=== PATIENT | female | born 1960 | race Caucasian/White ===

== ENCOUNTER 2018-08-13 14:29 | Emergency (ER) | payer MEDICARE, MEDICAID ==
[~2018-08-13] VITALS: Ht 162.6 cm; Wt 136.1 kg
[2018-08-13] MEDS ORDERED: RT-ALBUTEROL/IPRATROPIUM 3 ML (DUONEB) VIAL INH ONE (14:45)
[2018-08-13 14:52] LABS: BASOPHILS # (AUTO) 0.1 10^3/uL (0.0-0.1); BASOPHILS % (AUTO) 1 % (0-10); EOSINOPHILS # (AUTO) 0.1 10^3/uL (0.0-0.3); EOSINOPHILS % (AUTO) 2 % (0-10); HEMATOCRIT 38 % (35-52); HEMOGLOBIN 12.4 G/DL (11.5-16.0); LYMPHOCYTES # (AUTO) 1.4 X 10^3 (1.0-4.0); LYMPHOCYTES % (AUTO) 23 % (12-44); MEAN CORPUSCULAR HEMOGLOBIN 28 PG (25-34); MEAN CORPUSCULAR HGB CONC 32 G/DL (32-36); MEAN CORPUSCULAR VOLUME 87 FL (80-99); MEAN PLATELET VOLUME 9.9 FL (7.4-10.4); MONOCYTES # (AUTO) 0.3 X 10^3 (0.0-1.0); MONOCYTES % (AUTO) 5 % (0-12); NEUTROPHILS # (AUTO) 4.3 X 10^3 (1.8-7.8); NEUTROPHILS % (AUTO) 71 % (42-75); PLATELET COUNT 300 10^3/uL (130-400); RED CELL DISTRIBUTION WIDTH 16.4 % (10.0-14.5)
[2018-08-13 14:59] LABS: BILIRUBIN,URINE NEGATIVE (NEGATIVE); CLARITY,URINE SLIGHTLY CLOUDY; COLOR,URINE YELLOW; GLUCOSE, URINE (UA) NEGATIVE (NEGATIVE); KETONES,URINE NEGATIVE (NEGATIVE); LEUKOCYTE ESTERASE ,URINE 3+ (NEGATIVE); NITRITE,URINE NEGATIVE (NEGATIVE); PH,URINE 6 (5-9); PROTEIN,URINE 3+ (NEGATIVE); UROBILINOGEN,URINE NORMAL (NORMAL)
[2018-08-13 15:02] LABS: INR 0.9 (0.8-1.4); PROTHROMBIN TIME PATIENT 12.8 SEC (12.2-14.7)
[2018-08-13 15:10] LABS: ALBUMIN 4.2 GM/DL (3.2-4.5); CALCIUM 9.9 MG/DL (8.5-10.1); CREATININE SERUM 1.17 MG/DL (0.60-1.30); POTASSIUM 4.4 MMOL/L (3.6-5.0); TOTAL PROTEIN 7.2 GM/DL (6.4-8.2)
--- NOTE | 2018-08-13 15:12 | Diagnostic Imaging Report ---
INDICATION: Increase shortness of air over the last week. EXAMINATION: Frontal chest was obtained at 2:57 p.m. FINDINGS: Heart and mediastinal silhouette are normal in appearance. The lungs are clear. There is no pneumothorax or pleural fluid. IMPRESSION: Negative chest. Dictated by: Dictated on workstation # [id number]
[2018-08-13 15:15] LABS: BACTERIA,URINE TRACE /HPF; RBC,URINE RARE /HPF; WBC,URINE RARE /HPF
[2018-08-13] MEDS ORDERED: NS IV 500 ML 500 ML IV ONE (15:18)
--- NOTE | 2018-08-13 15:47 | ED Respiratory ---
General Chief Complaint: Respiratory Problems Stated Complaint: SOB Nursing Triage Note: PT TO RM 7 BY WHEELCHAIR WITH COMPLAINT OF SOA. PT STATES SHE HAD INCREASING SOA OVER THE LAST WEEK. WENT TO URGENT CARE TODAY IN [place] AND WAS INSTRUCTED TO COME TO ER. History of Present Illness Date Seen by Provider: August 13, 2018 Time Seen by Provider: 14:35 Initial Comments 57-year-old female presents for shortness of air. She has a history of COPD, she was seen earlier today at urgent care in [place] and referred to the emergency department. She did not stop at the [place] emergency departme nt as she was aware they were unable to admit her there. She used her Ventolin inhaler approximately 6 hours ago 2 puffs and had improvement. Timing/Duration: this morning Severity: mild Prior Episodes/Possible Cause: frequent episodes Modifying Factors: Improves With Albuterol Inhaler Associated Symptoms: cough; No fever/chills; shortness of breath Allergies and Home Medications Allergies Coded Allergies: No Known Drug Allergies (Unverified , 08/13/18) Home Medications Prednisone 20 Mg Tab, 20 MG PO DAILY Prescribed by: CARLEY BOO on 08/13/18 2889 Patient Home Medication List Home Medication List Reviewed: Yes Review of Systems Review of Systems Constitutional: no symptoms reported, see HPI Respiratory: see HPI; No phlegm; short of breath All Other Systems Reviewed Negative Unless Noted: Yes Past Eyehdhj-Fygqwd-Ohzsul Hx Past Med/Social Hx: Reviewed Nursing Past Med/Soc Hx Patient Social History Alcohol Use: Denies Use Recreational Drug Use: No Smoking Status: Former Smoker Type Used: Cigarettes Recent Foreign Travel: No Contact w/Someone Who Travel: No Recent Infectious Disease Expo: No Recent Hopitalizations: No Immunizations Up To Date Tetanus Booster (TDap): Unknown PED Vaccines UTD: Yes Seasonal Allergies Seasonal Allergies: Yes Past Medical History Surgeries: Yes Abdominal, Hysterectomy, Orthopedic Respiratory: Yes COPD Cardiac: Yes Hypertension Neurological: No Genitourinary: No Gastrointestinal: No Musculoskeletal: No Endocrine: Yes Diabetes, Insulin dep HEENT: No Integumentary: No Physical Exam Vital Signs - First Documented 08/13/18 14:32 Temp 98.4 Pulse 90 Resp 20 B/P (MAP) 151/107 (122) Pulse Ox 95 O2 Delivery Nasal Cannula O2 Flow Rate 2.00 Capillary Refill : Less Than 3 Seconds Height: 5'4.00" Weight: 300lbs. oz. 136.639054pi; BMI Method:Stated General Appearance: WD/WN, no apparent distress Eyes: Bilateral Eye Normal Inspection, Bilateral Eye PERRL, Bilateral Eye EOMI HEENT: PERRL/EOMI, normal ENT inspection, TMs normal, pharynx normal Neck: non-tender, full range of motion, supple, normal inspection Respiratory: chest non-tender, lungs clear, normal breath sounds, no respir atory distress, wheezing (faint) Cardiovascular: normal peripheral pulses, regular rate, rhythm Gastrointestinal: normal bowel sounds, non tender, soft Extremities: normal range of motion, non-tender, normal inspection, normal capillary refill, pedal edema (2+) Neurologic/Psychiatric: no motor/sensory deficits, alert, normal mood/affect, oriented x 3 Skin: normal color, warm/dry Focused Exam Lactate Level 08/13/18 14:37: Lactic Acid Level 3.01*H 08/13/18 16:26: Lactic Acid Level 2.30*H Lactic Acid Level Laboratory Tests Test 08/13/18 14:37 08/13/18 16:26 Lactic Acid Level 3.01 MMOL/L (0.50-2.00) *H 2.30 MMOL/L (0.50-2.00) *H Progress/Results/Core Measures Suspected Sepsis Recent Fever Within 48 Hours: No Infection Criteria Present: None New/Unexplained Altered Menta: No Sepsis Screen: No Definite Risk SIRS Temperature:98.4 Pulse: 90 Respiratory Rate: 20 Laboratory Tests 08/13/18 14:37: White Blood Count 6.0 Blood Pressure 151 /107 Mean: 122 08/13/18 14:37: Lactic Acid Level 3.01*H 08/13/18 16:26: Lactic Acid Level 2.30*H Laboratory Tests 08/13/18 14:37: Creatinine 1.17, INR Comment 0.9, Platelet Count 300, Total Bilirubin 1.0 Results/Orders Lab Results Laboratory Tests Test 08/13/18 14:37 08/13/18 14:54 08/13/18 16:26 Range/Units White Blood Count 6.0 4.3-11.0 10^3/uL Red Blood Count 4.44 4.35-5.85 10^6/uL Hemoglobin 12.4 11.5-16.0 G/DL Hematocrit 38 35-52 % Mean Corpuscular Volume 87 80-99 FL Mean Corpuscular Hemoglobin 28 25-34 PG Mean Corpuscular Hemoglobin Concent 32 32-36 G/DL Red Cell Distribution Width 16.4 H 10.0-14.5 % Platelet Count 300 130-400 10^3/uL Mean Platelet Volume 9.9 7.4-10.4 FL Neutrophils (%) (Auto) 71 42-75 % Lymphocytes (%) (Auto) 23 12-44 % Monocytes (%) (Auto) 5 0-12 % Eosinophils (%) (Auto) 2 0-10 % Basophils (%) (Auto) 1 0-10 % Neutrophils # (Auto) 4.3 1.8-7.8 X 10^3 Lymphocytes # (Auto) 1.4 1.0-4.0 X 10^3 Monocytes # (Auto) 0.3 0.0-1.0 X 10^3 Eosinophils # (Auto) 0.1 0.0-0.3 10^3/uL Basophils # (Auto) 0.1 0.0-0.1 10^3/uL Prothrombin Time 12.8 12.2-14.7 SEC INR Comment 0.9 0.8-1.4 Activated Partial Thromboplast Time 30 24-35 SEC Sodium Level 136 135-145 MMOL/L Potassium Level 4.4 3.6-5.0 MMOL/L Chloride Level 96 L 98-107 MMOL/L Carbon Dioxide Level 29 21-32 MMOL/L Anion Gap 11 5-14 MMOL/L Blood Urea Nitrogen 17 7-18 MG/DL Creatinine 1.17 0.60-1.30 MG/DL Estimat Glomerular Filtration Rate 48 BUN/Creatinine Ratio 15 Glucose Level 286 H 70-105 MG/DL Lactic Acid Level 3.01 *H 2.30 *H 0.50-2.00 MMOL/L Calcium Level 9.9 8.5-10.1 MG/DL Corrected Calcium 9.7 8.5-10.1 MG/DL Total Bilirubin 1.0 0.1-1.0 MG/DL Aspartate Amino Transf (AST/SGOT) 13 5-34 U/L Alanine Aminotransferase (ALT/SGPT) 16 0-55 U/L Alkaline Phosphatase 65 40-136 U/L B-Type Natriuretic Peptide < 10.0 <100.0 PG/ML Total Protein 7.2 6.4-8.2 GM/DL Albumin 4.2 3.2-4.5 GM/DL Urine Color YELLOW Urine Clarity SLIGHTLY CLOUDY Urine pH 6 5-9 Urine Specific [place] 1.015 L 1.016-1.022 Urine Protein 3+ H NEGATIVE Urine Glucose (UA) NEGATIVE NEGATIVE Urine Ketones NEGATIVE NEGATIVE Urine Nitrite NEGATIVE NEGATIVE Urine Bilirubin NEGATIVE NEGATIVE Urine Urobilinogen NORMAL NORMAL MG/DL Urine Leukocyte Esterase 3+ H NEGATIVE Urine RBC (Auto) 4+ H NEGATIVE Urine RBC RARE /HPF Urine WBC RARE /HPF Urine Crystals NONE /LPF Urine Bacteria TRACE /HPF Urine Casts NONE /LPF Urine Mucus NEGATIVE /LPF Urine Culture Indicated NO My Orders Orders - CARLEY BOO Albuterol/Ipra Inhalation Soln (Duoneb I (08/13/18 14:45) Svn Small Volume Nebulizer (08/13/18 14:45) Cbc With Automated Diff (08/13/18 14:45) Comprehensive Metabolic Panel (08/13/18 14:45) Blood Culture (08/13/18 14:45) Urinalysis (08/13/18 14:45) Urine Culture (08/13/18 14:45) Protime With Inr (08/13/18 14:45) Partial Thromboplastin Time (08/13/18 14:45) Chest 1 View, Ap/Pa Only (08/13/18 14:45) Ed Iv/Invasive Line Start (08/13/18 14:45) O2 (08/13/18 14:45) Lactic Acid Analyzer (08/13/18 14:45) BNP (08/13/18 15:11) Ed Iv/Invasive Line Start (08/13/18 15:18) Ns Iv 500 Ml (Sodium Chloride 0.9%) (08/13/18 15:18) Dexamethasone Injection (Decadron Inject (08/13/18 15:49) Medications Given in ED Current Medications Medications Dose Ordered Sig/Jayesh Route Start Time Stop Time Status Last Admin Dose Admin Albuterol/ Ipratropium 3 ml ONCE ONCE INH 08/13/18 14:45 08/13/18 14:48 DC 08/13/18 15:15 3 ML Dexamethasone Sodium Phosphate 10 mg STK-MED ONCE .ROUTE 08/13/18 15:49 08/13/18 15:53 DC 08/13/18 15:58 10 MG Sodium Chloride 500 ml @ 0 mls/hr Q0M ONCE IV 08/13/18 15:18 08/13/18 15:20 DC 08/13/18 15:27 500 MLS/HR Vital Signs/I&O 08/13/18 08/13/18 08/13/18 08/13/18 14:32 14:32 15:16 17:05 Temp 98.4 98.4 Pulse 90 90 Resp 20 20 B/P (MAP) 151/107 (122) 144/99 (114) Pulse Ox 95 95 95 95 O2 Delivery Nasal Cannula Nasal Cannula Nasal Cannula Nasal Cannula O2 Flow Rate 2.00 2.00 2.00 2.00 Capillary Refill : Less Than 3 Seconds Blood Pressure Mean: 122 Progress Note : Time: 14:35 Progress Note Patient seen and evaluated, will obtain labs and chest x-ray. Respiratory therapy notified for DuoNeb treatment. 1515 patient reports improvement in symptoms after DuoNeb treatment, no further wheezing 1600 all labs essentially normal. We'll give Decadron 10 mg IV. 1615 patient continues to report improvement, will discharge to home. Discharge instructions and return precautions reviewed with her. Diagnostic Imaging Diagonstic Imaging: Xray Plain Films/CT/US/NM/MRI: chest Comments NAME: KELLEE URBANO [facility] REC#: [id number] PT STATUS: REG ER : 1960 PHYSICIAN: CARLEY BOO ADMIT DATE: 08/13/18/ER Draft Date of Exam:08/13/18 CHEST 1 VIEW, AP/PA ONLY INDICATION: Increase shortness of air over the last week. EXAMINATION: Frontal chest was obtained at 2:57 p.m. FINDINGS: Heart and mediastinal silhouette are normal in appearance. The lungs are clear. There is no pneumothorax or pleural fluid. IMPRESSION: Negative chest. Dictated on workstation # [id number] Dict: 08/13/18 1504 Trans: 08/13/18 1511 [facility] [id number] Interpreted by: SYLVIE MARTÍNEZ MD Electronically signed by: Reviewed: Reviewed by Me Departure Impression Primary Impression: COPD exacerbation Disposition: HOME, SELF-CARE Condition: Improved Departure-Patient Inst. Decision time for Depature: 16:15 Referrals: UNKNOWN (PCP/Family) Primary Care Physician Patient Instructions: Exacerbation of COPD Add. Discharge Instructions: Use inhaler every 3-4 hours, 2 puffs with 5 minutes between each one. Increase water intake. Continue your routine medications. Take prednisone 20 mg 1 tablet daily for 3 days. Check your blood sugar 2-3 times daily and adjust insulin due to steroid. Follow-up with your primary care provider early next week. Return to emergency department for fever greater than 101, difficulty breathing or new concerns. All discharge instructions reviewed with patient and/or family. Voiced understanding. Scripts Prednisone (Prednisone) 20 Mg Tab 20 MG PO DAILY, #3 TAB 0 Refills Prov: CARLEY BOO 08/13/18 CARLEY BOO August 13, 2018 15:47
[2018-08-13] MEDS ORDERED: DEXAMETHASONE 10 MG/ML (DECADRON) 1 ML VIAL ONE (15:49)
[2018-08-13] MEDS ORDERED: PRD20T PO (16:51)
[2018-08-13 17:05] VITALS: BP 144/99
--- NOTE | 2018-08-14 13:05 | NUR ---
patient called and notified of UTI. Script called to [facility] per pt request.
== END 2018-08-13 17:12 | disposition home or self-care (01) ==
LOC: ER 14:32
DX: J44.1 Chronic obstructive pulmonary disease with (acute) exacerbation (principal); I10 Essential (primary) hypertension; E11.9 Type 2 diabetes mellitus without complications; Z79.52 Long term (current) use of systemic steroids; Z87.891 Personal history of nicotine dependence; Z90.710 Acquired absence of both cervix and uterus
CPT/HCPCS: 36415; 71045; 80053; 81000; 83605; 83880; 85025; 85610; 85730; 87040; 87077; 87088; 94640

== ENCOUNTER 2018-10-13 14:26 | Emergency (ER) | payer MEDICARE, MEDICAID ==
[~2018-10-13] VITALS: Ht 162.6 cm; Wt 125.2 kg
[~2018-10-13 14:26] MED LIST changes: -FURO-124 PO
--- OUTSIDE RECORDS SUMMARY | 2018-10-13 14:30 | XMS REPORT ---
Author SYLVIE Dalton Organization [employer] Address Unknown Phone Unavailable Care Team Providers Care Railroad Surveyor Name Role Phone SYLVIE ELAINE CP Unavailable Allergies, Adverse Reactions, Alerts Substance Reaction Event Type N.K.D.A. Info Not Available Non Drug Allergy Problems Problem Type Condition Code Onset Dates Condition Status Assessment Dental examination Z01.20 Active Medications Medication Code System Code Instructions Start Date End Date Status Dosage Montelukast Sodium [facility] [address]-55 not defined Lantus [facility] [address]-34 not defined Loratadine [facility] [address]-51 not defined Losartan Potassium-HCTZ [facility] [address]-21 not defined NovoLog [facility] [address]-50 not defined Victoza [facility] [address]-84 not defined Pravastatin Sodium [facility] [address]-83 not defined Metformin HCl [facility] [address]-75 not defined Levothyroxine Sodium [facility] [address]-56 not defined Amoxicillin [facility] [address]-38 500 MG Orally 4 times daily October 10, 2015 October 17, 2015 1 capsule Citalopram & Diet Manage Prod NDC 0 not defined Procedures Procedure Coding System Code Date INTRAORL-PERIAPICAL 1 FILM 44146 CPT-4 D0220 October 10, 2015 Billing Notes on claim CPT-4 EC109 October 10, 2015 LTD ORAL EVALUATION - PROBLEM FOCUS CPT-4 D0140 October 10, 2015 Vital Signs Date/Time: October 10, 2015 Blood Pressure Diastolic 81 mmHg Blood Pressure Systolic 132 mmHg Results No Known Results Summary Purpose [employer] Submission
--- OUTSIDE RECORDS SUMMARY | 2018-10-13 14:30 | XMS REPORT ---
Author COLTEN Verdugo Organization [employer] Address Unknown Phone Unavailable Care Team Providers Care Real Estate Intern Name Role Phone COLTEN ALMAAZN CP Unavailable Allergies No Known Allergies Problems No Known Problems Medications No Known Medications Results No Known Results Summary Purpose [employer] Submission
--- OUTSIDE RECORDS SUMMARY | 2018-10-13 14:30 | XMS REPORT ---
Author SYLVIE Dalton [employer] Address Unknown Phone Unavailable Care Team Providers Care Seismograph Operator Helper Name Role Phone SYLVIE ELAINE CP Unavailable Allergies, Adverse Reactions, Alerts Substance Reaction Event Type N.K.D.A. Info Not Available Non Drug Allergy Problems Problem Type Condition Code Onset Dates Condition Status Assessment Dental caries K02.9 Active Medications Medication Code System Code Instructions Start Date End Date Status Dosage Victoza [facility] [address]-50 not defined NovoLog [facility] [address]-86 not defined Losartan Potassium-HCTZ [facility] [address]-12 not defined Loratadine [facility] [address]-40 not defined Lantus [facility] [address]-15 not defined Montelukast Sodium [facility] [address]-53 not defined Metformin HCl [facility] [address]-85 not defined Pravastatin Sodium [facility] [address]-73 not defined Levothyroxine Sodium [facility] [address]-87 not defined Citalopram & Diet Manage Prod ND 0 not defined Procedures Procedure Coding System Code Date EXTRAC ERUPTED TOOTH/EXPOSED ROOT CPT-4 D7140 Oct 30, 2015 EXTRAC ERUPTED TOOTH/EXPOSED ROOT CPT-4 D7140 Oct 30, 2015 Vital Signs Date/Time: Oct 30, 2015 Blood Pressure Diastolic 82 mmHg Blood Pressure Systolic 145 mmHg Results No Known Results Summary Purpose [employer] Submission
--- OUTSIDE RECORDS SUMMARY | 2018-10-13 14:31 | XMS REPORT | Continuity of Care Document ---
Author Organization Unknown Address Unknown Allergies Active Description Code Type Severity Reaction Onset Reported/Identified Relationship to Patient Clinical Status Yes No Known Drug Allergies [id number] Drug Allergy Unknown N/A 08/13/2018 Medications There is no data. 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 08/13/2018 EMA, CARLEY PIPE BENDING MACHINE OPERATOR Ot Z87.891 PERSONAL HISTORY OF NICOTINE DEPENDENCE 08/13/2018 EMA, CARLEY PIPE BENDING MACHINE OPERATOR Ot Z90.710 ACQUIRED ABSENCE OF BOTH CERVIX AND UTER 08/18/2018 EMA, CARLEY PIPE BENDING MACHINE OPERATOR Ot E11.9 TYPE 2 DIABETES MELLITUS WITHOUT COMPLIC 08/18/2018 EMA, CARLEY PIPE BENDING MACHINE OPERATOR Ot I10 ESSENTIAL (PRIMARY) HYPERTENSION 08/18/2018 EMA, CARLEY PIPE BENDING MACHINE OPERATOR Ot J44.1 CHRONIC OBSTRUCTIVE PULMONARY DISEASE W 08/18/2018 EMA, CARLEY PIPE BENDING MACHINE OPERATOR Ot R06.02 SHORTNESS OF BREATH 08/18/2018 EMA, CARLEY PIPE BENDING MACHINE OPERATOR Ot Z79.52 PRISON (CURRENT) USE OF SYSTEMIC STER 08/18/2018 EMA, CARLEY PIPE BENDING MACHINE OPERATOR Ot Z87.891 PERSONAL HISTORY OF NICOTINE DEPENDENCE 08/18/2018 EMA, CARLEY PIPE BENDING MACHINE OPERATOR Ot Z90.710 ACQUIRED ABSENCE OF BOTH CERVIX AND UTER Procedures There is no data. Results Test Result Range Complete blood count (CBC) with automated white blood cell (WBC) differential - 08/13/18 14:37 Blood leukocytes automated count (number/volume) 6.0 10*3/uL 4.3-11.0 Blood erythrocytes automated count (number/volume) 4.44 10*6/uL 4.35-5.85 Venous blood hemoglobin measurement (mass/volume) 12.4 g/dL 11.5-16.0 Blood hematocrit (volume fraction) 38 % 35-52 Automated erythrocyte mean corpuscular volume 87 [foz_us] 80-99 Automated erythrocyte mean corpuscular hemoglobin (mass per erythrocyte) 28 pg 25-34 Automated erythrocyte mean corpuscular hemoglobin concentration measurement (mass/volume) 32 g/dL 32-36 Automated erythrocyte distribution width ratio 16.4 % 10.0- 14.5 Automated blood platelet count (count/volume) 300 10*3/uL 130-400 Automated blood platelet mean volume measurement 9.9 [foz_us] 7.4-10.4 Automated blood neutrophils/100 leukocytes 71 % 42-75 Automated blood lymphocytes/100 leukocytes 23 % 12-44 Blood monocytes/100 leukocytes 5 % 0-12 Automated blood eosinophils/100 leukocytes 2 % 0-10 Automated blood basophils/100 leukocytes 1 % 0-10 Blood neutrophils automated count (number/volume) 4.3 10*3 1.8-7.8 Blood lymphocytes automated count (number/volume) 1.4 10*3 1.0-4.0 Blood monocytes automated count (number/volume) 0.3 10*3 0.0- 1.0 Automated eosinophil count 0.1 10*3/uL 0.0-0.3 Automated blood basophil count (count/volume) 0.1 10*3/uL 0.0-0.1 PT panel in platelet poor plasma by coagulation assay - 08/13/18 14:37 Prothrombin time (PT) in platelet poor plasma by coagulation assay 12.8 s 12.2-14.7 INR in platelet poor plasma or blood by coagulation assay 0.9 0.8-1.4 Activated partial thromboplastin time (aPTT) in platelet poor plasma bycoagulation assay - 08/13/18 14:37 Activated partial thromboplastin time (aPTT) in platelet poor plasma bycoagulation assay 30 s 24-35 Blood lactic acid measurement (moles/volume) - 08/13/18 14:37 Blood lactic acid measurement (moles/volume) 3.01 mmol/L 0.50- 2.00 Comprehensive metabolic panel - 08/13/18 14:37 Serum or plasma sodium measurement (moles/volume) 136 mmol/L 135-145 Serum or plasma potassium measurement (moles/volume) 4.4 mmol/L 3.6-5.0 Serum or plasma chloride measurement (moles/volume) 96 mmol/L 98-107 Carbon dioxide 29 mmol/L 21-32 Serum or plasma anion gap determination (moles/volume) 11 mmol/L 5-14 Serum or plasma urea nitrogen measurement (mass/volume) 17 mg/dL 7-18 Serum or plasma creatinine measurement (mass/volume) 1.17 mg/dL 0.60-1.30 Serum or plasma urea nitrogen/creatinine mass ratio 15 NRG Serum or plasma creatinine measurement with calculation of estimated glomerular filtration rate 48 NRG Serum or plasma glucose measurement (mass/volume) 286 mg/dL 70-105 Serum or plasma calcium measurement (mass/volume) 9.9 mg/dL 8.5-10.1 Serum or plasma total bilirubin measurement (mass/volume) 1.0 mg/dL 0.1-1.0 Serum or plasma alkaline phosphatase measurement (enzymatic activity/volume) 65 U/L 40-136 Serum or plasma aspartate aminotransferase measurement (enzymatic activity/volume) 13 U/L 5-34 Serum or plasma alanine aminotransferase measurement (enzymatic activity/volume) 16 U/L 0-55 Serum or plasma protein measurement (mass/volume) 7.2 g/dL 6.4-8.2 Serum or plasma albumin measurement (mass/volume) 4.2 g/dL 3.2-4.5 CALCIUM CORRECTED 9.7 mg/dL 8.5-10.1 Serum or plasma lithium measurement (moles/volume) - 08/13/18 14:37 BNP level < pg/mL <100.0 Bacterial blood culture - 08/13/18 14:37 Bacterial blood culture NG NRG Complete urinalysis with reflex to culture - 08/13/18 14:54 Urine color determination YELLOW NRG Urine clarity determination SLIGHTLY CLOUDY NRG Urine pH measurement by test strip 6 5-9 Specific gravity of urine by test strip 1.015 1.016-1.022 Urine protein assay by test strip, semi-quantitative 3+ NEGATIVE Urine glucose detection by automated test strip NEGATIVE NEGATIVE Erythrocytes detection in urine sediment by light microscopy 4+ NEGATIVE Urine ketones detection by automated test strip NEGATIVE NEGATIVE Urine nitrite detection by test strip NEGATIVE NEGATIVE Urine total bilirubin detection by test strip NEGATIVE NEGATIVE Urine urobilinogen measurement by automated test strip (mass/volume) NORMAL NORMAL Urine leukocyte esterase detection by dipstick 3+ NEGATIVE Automated urine sediment erythrocyte count by microscopy (number/high power field) RARE NRG Automated urine sediment leukocyte count by microscopy (number/high power field) RARE NRG Bacteria detection in urine sediment by light microscopy TRACE NRG Crystals detection in urine sediment by light microscopy NONE NRG Casts detection in urine sediment by light microscopy NONE NRG Mucus detection in urine sediment by light microscopy NEGATIVE NRG Complete urinalysis with reflex to culture NO NRG Bacterial urine culture - 08/13/18 14:54 Bacterial urine culture [id number] NRG COLONY COUNT >100,000/ML NRG FTX;REPORTABLE SEE COMMENTS NRG Bacterial blood culture - 08/13/18 14:57 Bacterial blood culture NG NRG Serum or plasma lactate measurement (moles/volume) - 08/13/18 16:26 Serum or plasma lactate measurement (moles/volume) 2.30 mmol/L 0.50-2.00 CULTURE, URINE - 08/31/18 12:13 CULTURE, URINE, ROUTINE SEE NOTE NRG LIPID PANEL - 09/07/18 10:57 CHOLESTEROL, TOTAL 343 mg/dL <200 HDL CHOLESTEROL 54 mg/dL >50 TRIGLYCERIDES 450 mg/dL <150 LDL-CHOLESTEROL mg/dL (calc) NRG CHOL/HDLC RATIO 6.4 (calc) <5.0 NON HDL CHOLESTEROL 289 mg/dL (calc) <130 Encounters ACCT No. Visit Date/Time Discharge Status Pt. Type Provider Facility Loc./Unit Complaint [id number] 09/07/2018 10:15:00 09/07/2018 23:59:59 CLS Outpatient [facility] [id number] 09/07/2018 10:15:00 Document Registration [id number] 08/31/2018 11:50:00 Document Registration [id number] 08/13/2018 14:32:00 08/13/2018 17:12:00 DIS Emergency CARLEY BOO [facility] ER SOB
--- NOTE | 2018-10-13 14:51 | ED General ---
General Stated Complaint: GENERAL SWELLING History of Present Illness Date Seen by Provider: Oct 13, 2018 Time Seen by Provider: 14:24 Initial Comments 58-year-old female presents because she "does not feel good" when asked, she has not felt good patient reports 6-8 weeks maybe longer. Family reports that she is had some increased shortness of breath, generalized swelling along with an increase of her home O2 from 2 L to 3 L. Patient's primary care provider states that she looks more swollen than her previous visit. Patient reports she's had a couple urinary tract infections recently. Patient does not have any complaints of any acute changes. Allergies and Home Medications Allergies Coded Allergies: No Known Drug Allergies (Unverified , 08/13/18) Home Medications Furosemide 40 Mg Tablet, 40 MG PO DAILY Prescribed by: CARRI GUERRA on 10/13/18 1640 Prednisone 20 Mg Tab, 20 MG PO DAILY Prescribed by: CARLEY BOO on 08/13/18 1651 Patient Home Medication List Home Medication List Reviewed: Yes Review of Systems Review of Systems Constitutional: No chills, No fever; malaise EENTM: no symptoms reported Respiratory: dyspnea on exertion, short of breath Cardiovascular: No chest pain Gastrointestinal: No abdominal pain Genitourinary: other (Frequent UTI) Skin: no symptoms reported Psychiatric/Neurological: No Symptoms Reported Past Ptwbrga-Gyavzc-Ntzaaw Hx Past Med/Social Hx: Reviewed Nursing Past Med/Soc Hx Patient Social History Type Used: Cigarettes Recent Hopitalizations: No Immunizations Up To Date Tetanus Booster (TDap): Unknown PED Vaccines UTD: Yes Seasonal Allergies Seasonal Allergies: Yes Past Medical History Surgeries: Yes Abdominal, Hysterectomy, Orthopedic Respiratory: Yes COPD Cardiac: Yes Hypertension Neurological: No Genitourinary: No Gastrointestinal: No Musculoskeletal: No Endocrine: Yes Diabetes, Insulin dep HEENT: No Integumentary: No Physical Exam Vital Signs Vital Signs - First Documented 10/13/18 14:36 Temp 97.7 Pulse 76 Resp 24 B/P (MAP) 126/69 (88) Pulse Ox 94 O2 Delivery Nasal Cannula O2 Flow Rate 3.00 Capillary Refill : Height, Weight, BMI Height: 5'4.00" Weight: 300lbs. oz. 136.576080ki; BMI Method:Stated General Appearance: No Apparent Distress, WD/WN, Other (Nasal cannula and place, morbidly obese) HEENT: No PERRL/EOMI Respiratory: Chest Non Tender, Other (Per sounds difficult due to body habitus. 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 Norm as Tested Progress/Results/Core Measures Suspected Sepsis SIRS Temperature: Pulse: Respiratory Rate: Laboratory Tests 10/13/18 14:56: White Blood Count 4.9 Blood Pressure / Mean: Laboratory Tests 10/13/18 14:56: Creatinine 1.04, Platelet Count 330, Total Bilirubin 0.6 Results/Orders Lab Results Laboratory Tests Test 10/13/18 14:44 10/13/18 14:56 Range/Units Urine Color YELLOW Urine Clarity SL CLOUDY Urine pH 6.5 5-9 Urine Specific [place] 1.020 1.016-1.022 Urine Protein 2+ H NEGATIVE Urine Glucose (UA) NEGATIVE NEGATIVE Urine Ketones NEGATIVE NEGATIVE Urine Nitrite NEGATIVE NEGATIVE Urine Bilirubin NEGATIVE NEGATIVE Urine Urobilinogen 0.2 NORMAL MG/DL Urine Leukocyte Esterase 1+ H NEGATIVE Urine RBC (Auto) NEGATIVE NEGATIVE Urine RBC RARE /HPF Urine WBC 10-25 H /HPF Urine Squamous Epithelial Cells >50 H /HPF Urine Crystals NONE /LPF Urine Bacteria MODERATE H /HPF Urine Casts NONE /LPF Urine Mucus NEGATIVE /LPF Urine Culture Indicated YES White Blood Count 4.9 4.3-11.0 10^3/uL Red Blood Count 4.17 L 4.35-5.85 10^6/uL Hemoglobin 12.4 11.5-16.0 G/DL Hematocrit 39 35-52 % Mean Corpuscular Volume 95 80-99 FL Mean Corpuscular Hemoglobin 30 25-34 PG Mean Corpuscular Hemoglobin Concent 32 32-36 G/DL Red Cell Distribution Width 14.8 H 10.0-14.5 % Platelet Count 330 130-400 10^3/uL Mean Platelet Volume 9.9 7.4-10.4 FL Neutrophils (%) (Auto) 60 42-75 % Lymphocytes (%) (Auto) 32 12-44 % Monocytes (%) (Auto) 5 0-12 % Eosinophils (%) (Auto) 2 0-10 % Basophils (%) (Auto) 1 0-10 % Neutrophils # (Auto) 3.0 1.8-7.8 X 10^3 Lymphocytes # (Auto) 1.6 1.0-4.0 X 10^3 Monocytes # (Auto) 0.3 0.0-1.0 X 10^3 Eosinophils # (Auto) 0.1 0.0-0.3 10^3/uL Basophils # (Auto) 0.0 0.0-0.1 10^3/uL Sodium Level 136 135-145 MMOL/L Potassium Level 4.4 3.6-5.0 MMOL/L Chloride Level 89 L 98-107 MMOL/L Carbon Dioxide Level 33 H 21-32 MMOL/L Anion Gap 14 5-14 MMOL/L Blood Urea Nitrogen 26 H 7-18 MG/DL Creatinine 1.04 0.60-1.30 MG/DL Estimat Glomerular Filtration Rate 55 BUN/Creatinine Ratio 25 Glucose Level 280 H 70-105 MG/DL Calcium Level 9.5 8.5-10.1 MG/DL Corrected Calcium 9.2 8.5-10.1 MG/DL Total Bilirubin 0.6 0.1-1.0 MG/DL Aspartate Amino Transf (AST/SGOT) 12 5-34 U/L Alanine Aminotransferase (ALT/SGPT) 13 0-55 U/L Alkaline Phosphatase 78 40-136 U/L Pro-B-Type Natriuretic Peptide 18.7 <75.0 PG/ML Total Protein 7.6 6.4-8.2 GM/DL Albumin 4.4 3.2-4.5 GM/DL My Orders Orders - GUERRA,CARRI L DO Ekg Tracing (10/13/18 14:42) O2 (10/13/18 14:42) Comprehensive Metabolic Panel (10/13/18 14:42) Ua Culture If Indicated (10/13/18 14:42) Probnp Fs (10/13/18 14:42) Chest Pa/Lat (2 View) (10/13/18 14:42) Urine Culture (10/13/18 14:44) Thyroid Stimulating Hormone (10/13/18 14:56) Cbc With Automated Diff (10/13/18 15:18) Vital Signs/I&O 10/13/18 10/13/18 14:36 14:36 Temp 97.7 Pulse 76 Resp 24 B/P (MAP) 126/69 (88) Pulse Ox 94 97 O2 Delivery Nasal Cannula O2 Flow Rate 3.00 Capillary Refill : Progress Note : Progress Note Patient with no acute findings on labs and EKG or x-ray. Discussed with patient that it looks as if she would has sleep apnea and issues stemming from that. Patient admits that she has a CPAP machine that she does not use. I called and discussed findings with Dr. Huitron. At this time she is going to work patient up for autoimmune diseases. We will also discharge her with Lasix 20 mg 3 days see if it doesn't help with the swelling. I discussed with patient the need to increase her activity any use or CPAP. Patient only rolled her eyes at me and her and her family became angry. I discussed with them that these issues of been going on for a while and the in the emergency room we are not set up to manage a long-term chronic issues that need further evaluation outpatient basis. That at this time she has no emergent findings and no need for hospitalization. Patient will be discharged home per my discussion with Dr. Huitron for outpatient labs with her Lasix prescription. ECG Initial ECG Impression Date: Oct 13, 2018 Initial ECG Impression Time: 14:53 Departure Impression Primary Impression: Fatigue Qualified Codes: R53.83 - Other fatigue Additional Impression: Edema Qualified Codes: R60.1 - Generalized edema Disposition: 01 HOME, SELF-CARE Condition: Stable Departure-Patient Inst. Referrals: GILMA HUITRON MD (PCP/Family) Primary Care Physician Patient Instructions: Swelling, Dependent Edema (DC) Add. Discharge Instructions: Follow at [facility] upon discharge for further labs, follow-up with Dr. Huitron and 3-5 days to determine effects of Lasix Scripts Furosemide (Lasix) 40 Mg Tablet 40 MG PO DAILY for 3 Days, #3 TAB Prov: CARRI GUERRA DO 10/13/18 CARRI GUERRA DO Oct 13, 2018 14:51
[2018-10-13 15:02] LABS: COLOR,URINE YELLOW
[2018-10-13 15:03] LABS: BACTERIA,URINE MODERATE /HPF; BILIRUBIN,URINE NEGATIVE (NEGATIVE); CLARITY,URINE SL CLOUDY; GLUCOSE, URINE (UA) NEGATIVE (NEGATIVE); KETONES,URINE NEGATIVE (NEGATIVE); LEUKOCYTE ESTERASE ,URINE 1+ (NEGATIVE); NITRITE,URINE NEGATIVE (NEGATIVE); PH,URINE 6.5 (5-9); PROTEIN,URINE 2+ (NEGATIVE); RBC,URINE RARE /HPF; SQUAMOUS EPITHELIAL CELL,UR >50 /HPF; UROBILINOGEN,URINE 0.2 MG/DL (NORMAL)
--- NOTE | 2018-10-13 15:35 | Diagnostic Imaging Report ---
INDICATION: Malaise and history of UTIs and generalized edema. EXAMINATION: PA and lateral views of the chest were obtained at 2:52 p.m. COMPARISON: 08/13/2018. FINDINGS: The heart is borderline in size. There is mild central venous prominence. The study is limited by poor inspiration. There is some atelectatic change in the right midlung as well with minimal left basilar atelectasis. There is no significant pleural fluid collection. IMPRESSION: There is atelectatic change in the right midlung as well as the left base. There is mild central vascular congestion. The study is limited by very poor inspiration. There is no significant pleural fluid. Dictated by: Dictated on workstation # [id number]
[2018-10-13 15:36] LABS: BASOPHILS % (AUTO) 1 % (0-10); EOSINOPHILS % (AUTO) 2 % (0-10); HEMATOCRIT 39 % (35-52); HEMOGLOBIN 12.4 G/DL (11.5-16.0); LYMPHOCYTES % (AUTO) 32 % (12-44); MEAN CORPUSCULAR HEMOGLOBIN 30 PG (25-34); MEAN CORPUSCULAR HGB CONC 32 G/DL (32-36); MEAN CORPUSCULAR VOLUME 95 FL (80-99); MEAN PLATELET VOLUME 9.9 FL (7.4-10.4); MONOCYTES % (AUTO) 5 % (0-12); PLATELET COUNT 330 10^3/uL (130-400); RED CELL DISTRIBUTION WIDTH 14.8 % (10.0-14.5); WHITE BLOOD COUNT 4.9 10^3/uL (4.3-11.0)
[2018-10-13 15:37] LABS: EOSINOPHILS # (AUTO) 0.1 10^3/uL (0.0-0.3); LYMPHOCYTES # (AUTO) 1.6 X 10^3 (1.0-4.0); MONOCYTES # (AUTO) 0.3 X 10^3 (0.0-1.0); NEUTROPHILS % (AUTO) 60 % (42-75)
[2018-10-13 15:47] LABS: POTASSIUM 4.4 MMOL/L (3.6-5.0)
[2018-10-13 15:48] LABS: ALBUMIN 4.4 GM/DL (3.2-4.5); BILIRUBIN,TOTAL 0.6 MG/DL (0.1-1.0); CALCIUM 9.5 MG/DL (8.5-10.1); CREATININE SERUM 1.04 MG/DL (0.60-1.30); TOTAL PROTEIN 7.6 GM/DL (6.4-8.2)
[2018-10-13] MEDS ORDERED: FURO-124 PO (16:40)
[2018-10-13 16:43] VITALS: BP 109/64
--- OUTSIDE RECORDS SUMMARY | 2018-10-13 17:07 | XMS REPORT | Continuity of Care Document ---
Author Organization Unknown Address Unknown Allergies Active Description Code Type Severity Reaction Onset Reported/Identified Relationship to Patient Clinical Status Yes No Known Drug Allergies [id number] Drug Allergy Unknown N/A 08/13/2018 Medications There is no data. 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 BOTH CERVIX AND UTER 08/18/2018 EMA, CARLEY ORE BUYER Ot E11.9 TYPE 2 DIABETES MELLITUS WITHOUT COMPLIC 08/18/2018 EMA, CARLEY ORE BUYER Ot I10 ESSENTIAL (PRIMARY) HYPERTENSION 08/18/2018 EMA, CARLEY ORE BUYER Ot J44.1 CHRONIC OBSTRUCTIVE PULMONARY DISEASE W 08/18/2018 EMA, CARLEY ORE BUYER Ot R06.02 SHORTNESS OF BREATH 08/18/2018 EMA, CARLEY ORE BUYER Ot Z79.52 SKILLED NURSING (CURRENT) USE OF SYSTEMIC STER 08/18/2018 EMA, CARLEY ORE BUYER Ot Z87.891 PERSONAL HISTORY OF NICOTINE DEPENDENCE 08/18/2018 EMA, CARLEY ORE BUYER Ot Z90.710 ACQUIRED ABSENCE OF BOTH CERVIX [...] culture - 08/13/18 14:54 Bacterial urine culture [id number] NRG COLONY COUNT >100,000/ML NRG FTX;REPORTABLE SEE [...] NON HDL CHOLESTEROL 289 mg/dL (calc) <130 Complete urinalysis with reflex to culture - 10/13/18 14:44 Urine color determination YELLOW NRG Urine clarity determination SL CLOUDY NRG Urine pH measurement by test strip 6.5 5-9 Specific gravity of urine by test strip 1.020 1.016-1.022 Urine protein assay by test strip, semi-quantitative 2+ NEGATIVE Urine glucose detection by automated test strip NEGATIVE NEGATIVE Erythrocytes detection in urine sediment by light microscopy NEGATIVE NEGATIVE Urine ketones detection by automated test strip NEGATIVE NEGATIVE Urine nitrite detection by test strip NEGATIVE NEGATIVE Urine total bilirubin detection by test strip NEGATIVE NEGATIVE Urine urobilinogen measurement by automated test strip (mass/volume) 0.2 mg/dL NORMAL Urine leukocyte esterase detection by dipstick 1+ NEGATIVE Automated urine sediment erythrocyte count by microscopy (number/high power field) RARE NRG Automated urine sediment leukocyte count by microscopy (number/high power field) [HPF] NRG Bacteria detection in urine sediment by light microscopy MODERATE NRG Squamous epithelial cells detection in urine sediment by light microscopy >50 NRG Crystals detection in urine sediment by light microscopy NONE NRG Casts detection in urine sediment by light microscopy NONE NRG Mucus detection in urine sediment by light microscopy NEGATIVE NRG Complete urinalysis with reflex to culture YES NRG Complete blood count (CBC) with automated white blood cell (WBC) differential - 10/13/18 14:56 Blood leukocytes automated count (number/volume) 4.9 10*3/uL 4.3-11.0 Blood erythrocytes automated count (number/volume) 4.17 10*6/uL 4.35-5.85 Venous blood hemoglobin measurement (mass/volume) 12.4 g/dL 11.5-16.0 Blood hematocrit (volume fraction) 39 % 35-52 Automated erythrocyte mean corpuscular volume 95 [foz_us] 80-99 Automated erythrocyte mean corpuscular hemoglobin (mass per erythrocyte) 30 pg 25-34 Automated erythrocyte mean corpuscular hemoglobin concentration measurement (mass/volume) 32 g/dL 32-36 Automated erythrocyte distribution width ratio 14.8 % 10.0- 14.5 Automated blood platelet count (count/volume) 330 10*3/uL 130-400 Automated blood platelet mean volume measurement 9.9 [foz_us] 7.4-10.4 Automated blood neutrophils/100 leukocytes 60 % 42-75 Automated blood lymphocytes/100 leukocytes 32 % 12-44 Blood monocytes/100 leukocytes 5 % 0-12 Automated blood eosinophils/100 leukocytes 2 % 0-10 Automated blood basophils/100 leukocytes 1 % 0-10 Blood neutrophils automated count (number/volume) 3.0 10*3 1.8-7.8 Blood lymphocytes automated count (number/volume) 1.6 10*3 1.0-4.0 Blood monocytes automated count (number/volume) 0.3 10*3 0.0- 1.0 Automated eosinophil count 0.1 10*3/uL 0.0-0.3 Automated blood basophil count (count/volume) 0.0 10*3/uL 0.0-0.1 Comprehensive metabolic panel - 10/13/18 14:56 Serum or plasma sodium measurement (moles/volume) 136 mmol/L 135-145 Serum or plasma potassium measurement (moles/volume) 4.4 mmol/L 3.6-5.0 Serum or plasma chloride measurement (moles/volume) 89 mmol/L 98-107 Carbon dioxide 33 mmol/L 21-32 Serum or plasma anion gap determination (moles/volume) 14 mmol/L 5-14 Serum or plasma urea nitrogen measurement (mass/volume) 26 mg/dL 7-18 Serum or plasma creatinine measurement (mass/volume) 1.04 mg/dL 0.60-1.30 Serum or plasma urea nitrogen/creatinine mass ratio 25 NRG Serum or plasma creatinine measurement with calculation of estimated glomerular filtration rate 55 NRG Serum or plasma glucose measurement (mass/volume) 280 mg/dL 70-105 Serum or plasma calcium measurement (mass/volume) 9.5 mg/dL 8.5-10.1 Serum or plasma total bilirubin measurement (mass/volume) 0.6 mg/dL 0.1-1.0 Serum or plasma alkaline phosphatase measurement (enzymatic activity/volume) 78 U/L 40-136 Serum or plasma aspartate aminotransferase measurement (enzymatic activity/volume) 12 U/L 5-34 Serum or plasma alanine aminotransferase measurement (enzymatic activity/volume) 13 U/L 0-55 Serum or plasma protein measurement (mass/volume) 7.6 g/dL 6.4-8.2 Serum or plasma albumin measurement (mass/volume) 4.4 g/dL 3.2-4.5 CALCIUM CORRECTED 9.2 mg/dL 8.5-10.1 PROBNP FS - 10/13/18 14:56 PROBNP FS 18.7 pg/mL <75.0 Encounters ACCT No. Visit Date/Time Discharge Status Pt. Type Provider Facility Loc./Unit Complaint [id number] 09/07/2018 10:15:00 09/07/2018 23:59:59 [facility] Outpatient HUITRON [facility] [id number] 09/07/2018 10:15:00 Document Registration [id number] 08/31/2018 11:50:00 Document Registration [id number] 08/13/2018 14:32:00 08/13/2018 17:12:00 DIS Emergency EMACAR[facility] ER SOB [id number] 10/13/2018 15:04:00 Document Registration
== END 2018-10-13 17:00 | disposition home or self-care (01) ==
LOC: EDUNIT# 14:26 → ER FS 14:27
DX: R53.83 Other fatigue (principal); R60.9 Edema, unspecified; J44.9 Chronic obstructive pulmonary disease, unspecified; I10 Essential (primary) hypertension; E11.9 Type 2 diabetes mellitus without complications; Z99.81 Dependence on supplemental oxygen; Z87.440 Personal history of urinary (tract) infections; Z90.710 Acquired absence of both cervix and uterus
CPT/HCPCS: 36415; 71046; 80053; 81000; 83880; 84443; 85025; 87088; 93005

== ENCOUNTER → 2018-10-13 | Outpatient (CLI) | payer MEDICARE, MEDICAID ==
[~2018-10-13] MED LIST: FURO-124 PO; PRD20T PO
== END ==
LOC: LAB FS 13:16
PROVIDERS: ATTEND Family Medicine
DX: M79.89 Other specified soft tissue disorders (principal); R41.0 Disorientation, unspecified

== ENCOUNTER 2018-11-05 12:24 | Emergency (ER) | payer MEDICARE, MEDICAID ==
[~2018-11-05] VITALS: Ht 162.6 cm; Wt 125.2 kg
[~2018-11-05 12:24] MED LIST changes: +FURO-124 PO
[2018-11-05] MEDS ORDERED: RT-ALBUTEROL/IPRATROPIUM 3 ML (DUONEB) VIAL INH ONE (12:45)
[2018-11-05] MEDS ORDERED: FUROSEMIDE 40 MG/4 ML INJ (LASIX) IVP ONE (12:45)
[2018-11-05 12:48] LABS: HEMOGLOBIN 12.6 G/DL (11.5-16.0); MEAN CORPUSCULAR HEMOGLOBIN 28 PG (25-34); WHITE BLOOD COUNT 7.1 10^3/uL (4.3-11.0)
[2018-11-05 12:49] LABS: BASOPHILS # (AUTO) 0.1 10^3/uL (0.0-0.1); BASOPHILS % (AUTO) 1 % (0-10); EOSINOPHILS # (AUTO) 0.1 10^3/uL (0.0-0.3); EOSINOPHILS % (AUTO) 1 % (0-10); HEMATOCRIT 42 % (35-52); LYMPHOCYTES # (AUTO) 1.8 X 10^3 (1.0-4.0); LYMPHOCYTES % (AUTO) 25 % (12-44); MEAN CORPUSCULAR HGB CONC 30 G/DL (32-36); MEAN CORPUSCULAR VOLUME 94 FL (80-99); MEAN PLATELET VOLUME 10.2 FL (7.4-10.4); MONOCYTES # (AUTO) 0.3 X 10^3 (0.0-1.0); MONOCYTES % (AUTO) 4 % (0-12); NEUTROPHILS # (AUTO) 4.8 X 10^3 (1.8-7.8); NEUTROPHILS % (AUTO) 68 % (42-75); PLATELET COUNT 216 10^3/uL (130-400); RED CELL DISTRIBUTION WIDTH 13.7 % (10.0-14.5)
[2018-11-05 12:53] LABS: INR 1.1 (0.8-1.4); PROTHROMBIN TIME PATIENT 14.5 SEC (12.2-14.7)
--- NOTE | 2018-11-05 12:53 | ED General ---
General Chief Complaint: Trauma-Non Activation Stated Complaint: SOB History of Present Illness Date Seen by Provider: Nov 05, 2018 Time Seen by Provider: 12:41 Initial Comments Patient presents emergency department for evaluation of shortness of breath has been worsening over the morning she says she was in her usual state of health yesterday and felt more short of breath. She had her occupational health provider at her house today and they felt that she was more short of breath and checked her oxygen saturation ranged anywhere from the mid 80s to lower 90s so they decided to call the ambulance. Patient has a history of COPD and wears 2 L of oxygen at baseline and wears CPAP at night. She says that she has been coughing but has been nonproductive. She has had chills but no measured fevers. She denies any history of heart disease but she does have diabetes and hypertension. She says her lower extremities have been more swollen. She was given a DuoNeb and Solu-Medrol on the way to the hospital and she says that she feels much better. She is satting at 93% on 2 L it does not appear to be in any respiratory distress. Allergies and Home Medications Allergies Coded Allergies: No Known Drug Allergies (Unverified , 08/13/18) Home Medications Furosemide 40 Mg Tablet, 40 MG PO DAILY Prescribed by: CARRI GUERRA on 10/13/18 1640 Prednisone 20 Mg Tab, 20 MG PO DAILY Prescribed by: CARLEY BOO on 08/13/18 1651 Patient Home Medication List Home Medication List Reviewed: Yes Review of Systems Review of Systems Constitutional: chills EENTM: no symptoms reported Respiratory: cough, short of breath Cardiovascular: no symptoms reported Gastrointestinal: no symptoms reported Genitourinary: no symptoms reported Musculoskeletal: no symptoms reported Skin: no symptoms reported Psychiatric/Neurological: No Symptoms Reported All Other Systems Reviewed Negative Unless Noted: Yes Past Xftaxox-Crezob-Wodexf Hx Patient Social History Type Used: Cigarettes 2nd Hand Smoke Exposure: No Recent Hopitalizations: No Immunizations Up To Date Tetanus Booster (TDap): Unknown PED Vaccines UTD: Yes Seasonal Allergies Seasonal Allergies: Yes Past Medical History Surgeries: Yes Abdominal, Hysterectomy, Orthopedic Respiratory: Yes COPD Cardiac: Yes Hypertension Neurological: No Genitourinary: Yes UTI-Chronic Gastrointestinal: No Musculoskeletal: No Endocrine: Yes Diabetes, Insulin dep HEENT: No Cancer: No Psychosocial: No Integumentary: No Physical Exam Vital Signs Vital Signs - First Documented 11/05/18 12:25 Temp 97.5 Pulse 76 Resp 16 B/P (MAP) 125/65 (85) Pulse Ox 94 O2 Delivery Nasal Cannula O2 Flow Rate 2.00 Capillary Refill : Height, Weight, BMI Height: 5'4.00" Weight: 276lbs. oz. 125.950404bs; BMI Method:Stated General Appearance: No Apparent Distress, Chronically ill, Obese HEENT: PERRL/EOMI Neck: Supple Respiratory: Wheezing, Other (diminished aeration) Cardiovascular: Regular Rate, Rhythm Gastrointestinal: Soft Back: Normal Inspection Extremity: Pedal Edema Neurologic/Psychiatric: Alert, Oriented x3 Skin: Normal Color, Warm/Dry Progress/Results/Core Measures Suspected Sepsis SIRS Temperature: Pulse: Respiratory Rate: Laboratory Tests 11/05/18 12:28: White Blood Count 7.1 Blood Pressure / Mean: Laboratory Tests 11/05/18 12:28: Creatinine 0.92, INR Comment 1.1, Platelet Count 216, Total Bilirubin 1.1H Results/Orders Lab Results Laboratory Tests Test 11/05/18 12:28 11/05/18 12:58 Range/Units White Blood Count 7.1 4.3-11.0 10^3/uL Red Blood Count 4.43 4.35-5.85 10^6/uL Hemoglobin 12.6 11.5-16.0 G/DL Hematocrit 42 35-52 % Mean Corpuscular Volume 94 80-99 FL Mean Corpuscular Hemoglobin 28 25-34 PG Mean Corpuscular Hemoglobin Concent 30 L 32-36 G/DL Red Cell Distribution Width 13.7 10.0-14.5 % Platelet Count 216 130-400 10^3/uL Mean Platelet Volume 10.2 7.4-10.4 FL Neutrophils (%) (Auto) 68 42-75 % Lymphocytes (%) (Auto) 25 12-44 % Monocytes (%) (Auto) 4 0-12 % Eosinophils (%) (Auto) 1 0-10 % Basophils (%) (Auto) 1 0-10 % Neutrophils # (Auto) 4.8 1.8-7.8 X 10^3 Lymphocytes # (Auto) 1.8 1.0-4.0 X 10^3 Monocytes # (Auto) 0.3 0.0-1.0 X 10^3 Eosinophils # (Auto) 0.1 0.0-0.3 10^3/uL Basophils # (Auto) 0.1 0.0-0.1 10^3/uL Prothrombin Time 14.5 12.2-14.7 SEC INR Comment 1.1 0.8-1.4 Activated Partial Thromboplast Time 30 24-35 SEC Sodium Level 138 135-145 MMOL/L Potassium Level 4.8 3.6-5.0 MMOL/L Chloride Level 93 L 98-107 MMOL/L Carbon Dioxide Level 33 H 21-32 MMOL/L Anion Gap 12 5-14 MMOL/L Blood Urea Nitrogen 22 H 7-18 MG/DL Creatinine 0.92 0.60-1.30 MG/DL Estimat Glomerular Filtration Rate > 60 BUN/Creatinine Ratio 24 Glucose Level 326 H 70-105 MG/DL Calcium Level 10.1 8.5-10.1 MG/DL Corrected Calcium 9.7 8.5-10.1 MG/DL Magnesium Level 1.5 L 1.6-2.4 MG/DL Total Bilirubin 1.1 H 0.1-1.0 MG/DL Aspartate Amino Transf (AST/SGOT) 13 5-34 U/L Alanine Aminotransferase (ALT/SGPT) 16 0-55 U/L Alkaline Phosphatase 85 40-136 U/L Troponin I < 0.30 <0.30 NG/ML Pro-B-Type Natriuretic Peptide 17.9 <75.0 PG/ML Total Protein 7.5 6.4-8.2 GM/DL Albumin 4.5 3.2-4.5 GM/DL Urine Color YELLOW Urine Clarity CLEAR Urine pH 6.5 5-9 Urine Specific [place] 1.025 H 1.016-1.022 Urine Protein 1+ H NEGATIVE Urine Glucose (UA) NEGATIVE NEGATIVE Urine Ketones NEGATIVE NEGATIVE Urine Nitrite NEGATIVE NEGATIVE Urine Bilirubin NEGATIVE NEGATIVE Urine Urobilinogen 0.2 NORMAL MG/DL Urine Leukocyte Esterase TRACE NEGATIVE Urine RBC (Auto) NEGATIVE NEGATIVE Urine RBC NONE /HPF Urine WBC 25-50 H /HPF Urine Squamous Epithelial Cells >50 H /HPF Urine Crystals NONE /LPF Urine Bacteria MODERATE H /HPF Urine Casts NONE /LPF Urine Mucus SMALL H /LPF Urine Culture Indicated YES My Orders Orders - BETI HATCH DO Ekg Tracing (11/05/18 12:31) Chest 1 View Ap/Pa Only (11/05/18 12:31) Cbc With Automated Diff (11/05/18 12:31) Comprehensive Metabolic Panel (11/05/18 12:31) Magnesium (11/05/18 12:31) Troponin I (11/05/18 12:31) Probnp Fs (11/05/18 12:31) Partial Thromboplastin Time (11/05/18 12:31) Protime With Inr (11/05/18 12:31) Ua Culture If Indicated (11/05/18 12:31) Albuterol/Ipra Inhalation Soln (Duoneb I (11/05/18 12:45) Svn Small Volume Nebulizer (11/05/18 12:31) Furosemide Injection (Lasix Injection) (11/05/18 12:45) Ed Iv/Invasive Line Start (11/05/18 13:15) Urine Culture (11/05/18 12:58) Medications Given in ED Current Medications Medications Dose Ordered Sig/Jayesh Route Start Time Stop Time Status Last Admin Dose Admin Albuterol/ Ipratropium 3 ml ONCE ONCE INH 11/05/18 12:45 11/05/18 12:46 DC 11/05/18 12:42 3 ML Furosemide 40 mg ONCE ONCE IVP 11/05/18 12:45 11/05/18 12:46 DC 11/05/18 12:42 40 MG Vital Signs/I&O 11/05/18 12:25 Temp 97.5 Pulse 76 Resp 16 B/P (MAP) 125/65 (85) Pulse Ox 94 O2 Delivery Nasal Cannula O2 Flow Rate 2.00 Capillary Refill : Progress Note : Progress Note Patient appears to be suffering from a COPD exacerbation. Will start by checking labs and chest x-ray treat with another DuoNeb in addition to Lasix. On repeat physical exam her aeration has improved her lungs and her oxygen saturation is at 95% and her other vital signs are normal. Workup rather unremarkable with no signs of infection congestive heart failure or ischemia. Patient is chronically ill from her morbid obesity and COPD and edema. She admits that she is noncompliant with CPAP and Lasix at times. Patient and family are somewhat disappointed that she has not been feeling well for the past 2-3 months and I told them that she is chronically ill but there is no acute pathology detected this time. I told her to continue doing her nebulized treatments every 4 hours and "on steroids for the next 4 days and she should be compliant with her CPAP and Lasix to see if this makes her feel better. I encouraged her to follow with Dr. Christine on Thursday or Thursday and discuss possible further consultation with pulmonary see if they may have any further suggestions to help her breathing. Patient and family aware and agreeable with plan for discharge and verbalized understanding of the need for short-term follow-up and strict ED return precautions discussed worsening shortness of breath pain fevers or other general concerns. Departure Impression Primary Impression: COPD with acute exacerbation Additional Impression: Peripheral edema Disposition: HOME, SELF-CARE Condition: Stable Departure-Patient Inst. Referrals: GILMA HUITRON MD (PCP/Family) Primary Care Physician Patient Instructions: Exacerbation of COPD (DC) Add. Discharge Instructions: All discharge instructions reviewed with patient and/or family. Voiced understanding. Use your nebs every 4 hours. Take all meds as prescribed and use cpap as prescribed as well. Scripts Prednisone (Prednisone) 20 Mg Tab 60 MG PO DAILY for 4 Days, #12 TAB 0 Refills Prov: BETI HATCH DO 11/05/18 BETI HATCH DO Nov 05, 2018 12:53
[2018-11-05 13:00] LABS: ALKALINE PHOSPHATASE 85 U/L (40-136); BILIRUBIN,TOTAL 1.1 MG/DL (0.1-1.0); BUN/CREATININE RATIO 24; CALCIUM 10.1 MG/DL (8.5-10.1); CARBON DIOXIDE 33 MMOL/L (21-32); CHLORIDE 93 MMOL/L (98-107); CREATININE SERUM 0.92 MG/DL (0.60-1.30); GFR ESTIMATED > 60; GLUCOSE 326 MG/DL (70-105); MAGNESIUM 1.5 MG/DL (1.6-2.4); POTASSIUM 4.8 MMOL/L (3.6-5.0); SODIUM 138 MMOL/L (135-145)
[2018-11-05 13:01] LABS: ALANINE AMINOTRANSFERASE 16 U/L (0-55); ALBUMIN 4.5 GM/DL (3.2-4.5); TOTAL PROTEIN 7.5 GM/DL (6.4-8.2)
[2018-11-05 13:17] LABS: CLARITY,URINE CLEAR; COLOR,URINE YELLOW; GLUCOSE, URINE (UA) NEGATIVE (NEGATIVE); KETONES,URINE NEGATIVE (NEGATIVE); NITRITE,URINE NEGATIVE (NEGATIVE); PH,URINE 6.5 (5-9); PROTEIN,URINE 1+ (NEGATIVE)
[2018-11-05 13:18] LABS: BACTERIA,URINE MODERATE /HPF; BILIRUBIN,URINE NEGATIVE (NEGATIVE); LEUKOCYTE ESTERASE ,URINE TRACE (NEGATIVE); SQUAMOUS EPITHELIAL CELL,UR >50 /HPF; UROBILINOGEN,URINE 0.2 MG/DL (NORMAL); WBC,URINE 25-50 /HPF
--- NOTE | 2018-11-05 13:25 | Diagnostic Imaging Report ---
Indication: Shortness of breath. Portable chest 12:47 PM Heart size and pulmonary vascularity normal. There is some discoid atelectasis in the right midlung. There is no infiltrate, effusion or pneumothorax. Impression: Unremarkable chest. Dictated by: Dictated on workstation # [id number]
[2018-11-05] MEDS ORDERED: PRD20T PO (13:33)
[2018-11-05 13:45] VITALS: BP 119/81
== END 2018-11-05 13:45 | disposition home or self-care (01) ==
LOC: EDUNIT# 12:24 → ER FS 12:25
DX: J44.1 Chronic obstructive pulmonary disease with (acute) exacerbation (principal); R60.9 Edema, unspecified; E11.9 Type 2 diabetes mellitus without complications; I10 Essential (primary) hypertension; Z87.440 Personal history of urinary (tract) infections; Z99.81 Dependence on supplemental oxygen; Z90.710 Acquired absence of both cervix and uterus
CPT/HCPCS: 36415; 71045; 80053; 81000; 83735; 83880; 84484; 85025; 85610; 85730; 87088; 93005

== ENCOUNTER → 2018-11-29 | Outpatient (CLI) | payer MEDICARE, MEDICAID ==
[2018-11-29 15:28] LABS: ABG BASE EXCESS 5.6 MMOL/L (-2.5-2.5); ABG OXYGEN SATURATION 95 % (94-100); ABG PCO2 54 MMHG (35-45); ABG PH 7.38 (7.37-7.43); ABG PO2 87 MMHG (79-93); ABG TCO2 32.3 MMOL/L (21.0-31.0)
[2018-11-29 15:29] LABS: ALLENS TEST YES-POS; INSPIRED O2 3
[2018-11-29 15:30] LABS: PATIENT TEMP 36.9; VENTILATOR NO
== END ==
LOC: LAB 14:53
PROVIDERS: ATTEND Nurse Practitioner Family
DX: J30.9 Allergic rhinitis, unspecified (principal); G47.36 Sleep related hypoventilation in conditions classified elsewhere; J44.9 Chronic obstructive pulmonary disease, unspecified
CPT/HCPCS: 36600; 82805

== ENCOUNTER → 2019-01-21 | Outpatient (CLI) | payer MEDICARE, MEDICAID ==
[~2019-01-21] MED LIST changes: +ALBU2.5V4 NEB; +CATHETER FLUSH 10 ML SYR IV PRN; +CITA40TA11 PO; +FLT22013 INH; +HOLD METFORMIN - RECEIVED CONTRAST 20 ML VIAL IV SCH; +HYDR25TA4 PO; +IBUP-30 PO; +INSU100I14 SC; +INSU100I29 SC; +IOHEXOL 350 MG/ML 100 ML (OMNIPAQUE 350) VIAL IV ONE; +IPRA3AMP31 NEB; +LEVO150T6 PO; +LIRA0.6P SC; +LOPE-134 PO; +LORA10TA7 PO; +LOSA100T57 PO; +LOSA1TAB23 PO; +METF-399 PO; +MONT10TA24 PO; +NS 100 ML (IVPB) BAG IV ONE; +NYST15CR TOP; +PANT40TA3 PO; +PRAV80TA2 PO; +TRM50T PO
[2019-01-21 10:00] LABS: BUN/CREATININE RATIO 29; CREATININE SERUM 0.78 MG/DL (0.60-1.30); GFR ESTIMATED > 60
--- NOTE | 2019-01-21 12:48 | Diagnostic Imaging Report ---
CT CHEST W TECHNIQUE: Multiple contiguous axial images were obtained through the chest with the use of intravenous contrast. All CT scans use one or more of the following dose optimizing techniques: automated exposure control, MA and/or KvP adjustment based on a patient size and exam type, or iterative reconstruction. INDICATION: Difficulty breathing, asthma. COMPARISON: None available. FINDINGS: Lungs and airway: No endoluminal nodule within the trachea. No pulmonary mass or consolidation. No concerning pulmonary nodules. There are scattered calcified granulomas within the left lung base. There are also scattered areas of linear atelectasis within the lung bases. Pleura: No pleural effusion or pneumothorax. Heart and mediastinum: No supraclavicular or axillary lymphadenopathy. No mediastinal, hilar or juxtaphrenic lymphadenopathy. There are few scattered calcified mediastinal and hilar lymph nodes also compatible with old granulomatous infection. Heart is mildly enlarged without pericardial effusion. Normal caliber thoracic aorta. Upper abdomen: The liver and spleen are both enlarged. Low-attenuation liver suggests hepatic steatosis. Musculoskeletal: No lytic or blastic skeletal lesions. IMPRESSION: 1. No acute process in the chest. Scattered linear atelectasis. 2. No features of intrathoracic neoplasm. 3. Incidental note of hepatosplenomegaly. Diffuse hepatic steatosis is also likely present. Dictated by: Dictated on workstation # [id number]
== END ==
LOC: RAD FS 09:31
PROVIDERS: ATTEND Nurse Practitioner Family
DX: J98.11 Atelectasis (principal); J30.9 Allergic rhinitis, unspecified; J44.9 Chronic obstructive pulmonary disease, unspecified; G47.36 Sleep related hypoventilation in conditions classified elsewhere
CPT/HCPCS: 36415; 71260; 82565; 84520

== ENCOUNTER 2019-02-25 10:02 | Emergency (ER) | payer MEDICARE, MEDICAID ==
[~2019-02-25] VITALS: Ht 162 cm; Wt 142.0 kg
[~2019-02-25 10:02] MED LIST changes: -ALBU2.5V4 NEB; -CATHETER FLUSH 10 ML SYR IV PRN; -CITA40TA11 PO; -FLT22013 INH; -HOLD METFORMIN - RECEIVED CONTRAST 20 ML VIAL IV SCH; -HYDR25TA4 PO; -IBUP-30 PO; -INSU100I14 SC; -INSU100I29 SC; -IOHEXOL 350 MG/ML 100 ML (OMNIPAQUE 350) VIAL IV ONE; -IPRA3AMP31 NEB; -LEVO150T6 PO; -LIRA0.6P SC; -LOPE-134 PO; -LORA10TA7 PO; -LOSA100T57 PO; -LOSA1TAB23 PO; -METF-399 PO; -MONT10TA24 PO; -NS 100 ML (IVPB) BAG IV ONE; -NYST15CR TOP; -PANT40TA3 PO; -PRAV80TA2 PO; -TRM50T PO
--- NOTE | 2019-02-25 10:10 | NUR ---
Pt arrival to ED via [facility] with report of SOA since 1700 last night. Wearing chronic O2 3 L/M was not maintained > 90%, O2 has been at 5 L/M while in ED sleepy to get to >90%. Pt was drowsy at ML 85% SaO2 3 L/M normal prescribed rate. EMS increased to 4 L/M and pt up to 86%. DuoNeb given by EMS in addition to the ML staff administering. Arriving on 6 L/M with 93% SaO2.
--- NOTE | 2019-02-25 10:24 | NUR ---
BLOOD CULTURE 1ST SET/LABS DRAWN BY ED STAFF.
[2019-02-25 10:41] LABS: HEMOGLOBIN 10.3 G/DL (11.5-16.0); MEAN CORPUSCULAR HEMOGLOBIN 26 PG (25-34); WHITE BLOOD COUNT 5.9 10^3/uL (4.3-11.0)
[2019-02-25 10:42] LABS: BASOPHILS % (AUTO) 1 % (0-10); EOSINOPHILS # (AUTO) 0.2 10^3/uL (0.0-0.3); EOSINOPHILS % (AUTO) 3 % (0-10); HEMATOCRIT 36 % (35-52); LYMPHOCYTES # (AUTO) 1.2 X 10^3 (1.0-4.0); LYMPHOCYTES % (AUTO) 21 % (12-44); MEAN CORPUSCULAR HGB CONC 28 G/DL (32-36); MEAN CORPUSCULAR VOLUME 93 FL (80-99); MEAN PLATELET VOLUME 10.4 FL (7.4-10.4); MONOCYTES # (AUTO) 0.4 X 10^3 (0.0-1.0); MONOCYTES % (AUTO) 6 % (0-12); NEUTROPHILS # (AUTO) 4.1 X 10^3 (1.8-7.8); NEUTROPHILS % (AUTO) 70 % (42-75); PLATELET COUNT 242 10^3/uL (130-400)
--- NOTE | 2019-02-25 10:45 | Diagnostic Imaging Report ---
INDICATION: Shortness of breath. COMPARISON: 11/05/2018 TECHNIQUE: Single radiograph of the chest dated 02/25/2019/ FINDINGS: The cardiac silhouette is stable and within normal limits. No significant pulmonary vascular congestion. Increasing bibasilar and right midlung predominantly interstitial opacities. No large volume pleural effusion. No pneumothorax. No acute osseous abnormality. IMPRESSION: Developing bibasilar and right mid lung infiltrate and/or worsening atelectasis. Small amount of pleural fluid may be within the right major fissure. Dictated by: Dictated on workstation # [id number]
[2019-02-25 11:04] LABS: BILIRUBIN,TOTAL 0.4 MG/DL (0.1-1.0); CALCIUM 9.2 MG/DL (8.5-10.1); CREATININE SERUM 0.99 MG/DL (0.60-1.30); POTASSIUM 4.9 MMOL/L (3.6-5.0); TOTAL PROTEIN 6.9 GM/DL (6.4-8.2)
[2019-02-25 11:05] LABS: ALBUMIN 3.9 GM/DL (3.2-4.5)
--- NOTE | 2019-02-25 11:11 | ED Respiratory ---
General Chief Complaint: Respiratory Problems Stated Complaint: SOA Nursing Triage Note: SHORT OF AIR SINCE ABOUT 1700 LAST PM. 3L OF OXYGEN WITH SATS OF 85% AT [facility], EMS INCREASED TO 4L AT 86%. DUONEB GIVEN BY EMS WITH INCREASE OF SAT TO 95%. HX OF COPD. Source: patient, EMS Exam Limitations: no limitations History of Present Illness Date Seen by Provider: Feb 25, 2019 Time Seen by Provider: 11:06 Initial Comments The patient is a 58-year-old white female who was brought by ambulance with a complaint of shortness of breath. The patient reported that she had had increasing difficulty since about 1700 yesterday. She slept poorly if at all. She takes nebulizer treatments 4 times a day and did so yesterday and this morning. The patient was found to be on O2 at 3 L/m at the [facility]. The ambulance stated that she had a sat of 85 percent when they arrived. They increased her flow to 4 L/m and gave her a DuoNeb treatment. Her saturation then climbed to 95 percent. She is a former smoker but reports she stopped a goodly number of years ago. She denies fever or sputum production. When observed across the friedman, she does not appear to be tachypneic. She appears to keep dozing off to sleep. Timing/Duration: yesterday Prior Episodes/Possible Cause: occasional episodes Modifying Factors: Improves With Activity, Improves With Albuterol Nebulizer, Improves With Oxygen Associated Symptoms: denies symptoms Allergies and Home Medications Allergies Coded Allergies: No Known Drug Allergies (Unverified , 08/13/18) Home Medications Furosemide 40 Mg Tablet, 40 MG PO DAILY Prescribed by: CARRI GUERRA on 10/13/18 1640 Prednisone 20 Mg Tab, 20 MG PO DAILY Prescribed by: CARLEY BOO on 08/13/18 1651 Prednisone 20 Mg Tab, 60 MG PO DAILY Prescribed by: BETI HATCH on 11/05/18 1333 Patient Home Medication List Home Medication List Reviewed: Yes Review of Systems Review of Systems Constitutional: see HPI EENTM: no symptoms reported Respiratory: see HPI Cardiovascular: no symptoms reported Gastrointestinal: no symptoms reported Genitourinary: no symptoms reported Musculoskeletal: no symptoms reported Skin: no symptoms reported Psychiatric/Neurological: No Symptoms Reported Hematologic/Lymphatic: No Symptoms Reported Immunological/Allergic: no symptoms reported Past Xfeckfg-Csgfsz-Ahwoez Hx Patient Social History Alcohol Use: Denies Use Recreational Drug Use: No Type Used: Cigarettes Former Smoker, Quit: Mar 23, 1998 2nd Hand Smoke Exposure: No Recent Foreign Travel: No Contact w/Someone Who Travel: No Recent Infectious Disease Expo: No Recent Hopitalizations: No Physical Abuse: No Sexual Abuse: No Mistreated: No Fear: No Immunizations Up To Date Tetanus Booster (TDap): Unknown PED Vaccines UTD: Yes Seasonal Allergies Seasonal Allergies: Yes Past Medical History Surgeries: Yes Abdominal, Hysterectomy, Orthopedic Respiratory: Yes COPD Cardiac: Yes Hypertension 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 oz. 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 There is erythema as well. This is consistent with venous stasis dermatitis Focused Exam Lactate Level 02/25/19 10:24: Lactic Acid Level 1.68 Lactic Acid Level Laboratory Tests Test 02/25/19 10:24 Lactic Acid Level 1.68 MMOL/L (0.50-2.00) Progress/Results/Core Measures Suspected Sepsis Recent Fever Within 48 Hours: No Infection Criteria Present: None New/Unexplained Altered Menta: No Sepsis Screen: No Definite Risk SIRS Temperature: Pulse: 91 Respiratory Rate: 12 Laboratory Tests 02/25/19 10:24: White Blood Count 5.9 Blood Pressure 116 /76 Mean: 89 02/25/19 10:24: Lactic Acid Level 1.68 Laboratory Tests 02/25/19 10:24: Creatinine 0.99, Platelet Count 242, Total Bilirubin 0.4 Results/Orders Lab Results Laboratory Tests Test 02/25/19 10:24 02/25/19 11:56 02/25/19 12:16 Range/Units White Blood Count 5.9 4.3-11.0 10^3/uL Red Blood Count 3.91 L 4.35-5.85 10^6/uL Hemoglobin 10.3 L 11.5-16.0 G/DL Hematocrit 36 35-52 % Mean Corpuscular Volume 93 80-99 FL Mean Corpuscular Hemoglobin 26 25-34 PG Mean Corpuscular Hemoglobin Concent 28 L 32-36 G/DL Red Cell Distribution Width 16.0 H 10.0-14.5 % Platelet Count 242 130-400 10^3/uL Mean Platelet Volume 10.4 7.4-10.4 FL Neutrophils (%) (Auto) 70 42-75 % Lymphocytes (%) (Auto) 21 12-44 % Monocytes (%) (Auto) 6 0-12 % Eosinophils (%) (Auto) 3 0-10 % Basophils (%) (Auto) 1 0-10 % Neutrophils # (Auto) 4.1 1.8-7.8 X 10^3 Lymphocytes # (Auto) 1.2 1.0-4.0 X 10^3 Monocytes # (Auto) 0.4 0.0-1.0 X 10^3 Eosinophils # (Auto) 0.2 0.0-0.3 10^3/uL Basophils # (Auto) 0.0 0.0-0.1 10^3/uL Sodium Level 138 135-145 MMOL/L Potassium Level 4.9 3.6-5.0 MMOL/L Chloride Level 94 L 98-107 MMOL/L Carbon Dioxide Level 36 H 21-32 MMOL/L Anion Gap 8 5-14 MMOL/L Blood Urea Nitrogen 27 H 7-18 MG/DL Creatinine 0.99 0.60-1.30 MG/DL Estimat Glomerular Filtration Rate 58 BUN/Creatinine Ratio 27 Glucose Level 308 H 70-105 MG/DL Lactic Acid Level 1.68 0.50-2.00 MMOL/L Calcium Level 9.2 8.5-10.1 MG/DL Corrected Calcium 9.3 8.5-10.1 MG/DL Total Bilirubin 0.4 0.1-1.0 MG/DL Aspartate Amino Transf (AST/SGOT) 9 5-34 U/L Alanine Aminotransferase (ALT/SGPT) 7 0-55 U/L Alkaline Phosphatase 51 40-136 U/L Total Protein 6.9 6.4-8.2 GM/DL Albumin 3.9 3.2-4.5 GM/DL Blood Gas Puncture Site R RADIAL Blood Gas Patient Temperature 36.3 Arterial Blood pH 7.31 *L 7.37-7.43 Arterial Blood Partial Pressure CO2 89 *H 35-45 MMHG Arterial Blood Partial Pressure O2 39 *L 79-93 MMHG Arterial Blood HCO3 45 *H 23-27 MMOL/L Arterial Blood Total CO2 47.5 H 21.0-31.0 MMOL/L Arterial Blood Oxygen Saturation 68 L 94-100 % Arterial Blood Base Excess 14.6 H -2.5-2.5 MMOL/L Memo Test POSITIVE Blood Gas Ventilator Setting NO Blood Gas Inspired Oxygen 2.5 My Orders Orders - NEVILLE LEE MD Chest 1 View Ap/Pa Only (02/25/19 10:17) Cbc With Automated Diff (02/25/19 10:33) Comprehensive Metabolic Panel (02/25/19 10:33) Lactic Acid Analyzer (02/25/19 10:33) Ua Culture If Indicated (02/25/19 10:33) Arterial Blood Gas (02/25/19 11:51) Vital Signs/I&O 02/25/19 10:10 Temp 35.9 Pulse 91 Resp 12 B/P (MAP) 116/76 (89) Pulse Ox 93 O2 Delivery Nasal Cannula O2 Flow Rate 5.00 Capillary Refill : Greater Than 3 Seconds Blood Pressure Mean: 89 POS Departure Communication (Admissions) Resume medications and routines. It is imperative that the patient use her Trilogy machine during the sleeping hours. She should be reminded of its importance and then checked repeatedly during the sleeping hours Impression Primary Impression: sleep apnea Disposition: 01 HOME, SELF-CARE Condition: Improved Departure-Patient Inst. Decision time for Depature: 13:00 Referrals: GILMA HUITRON MD (PCP/Family) Primary Care Physician Add. Discharge Instructions: All discharge instructions reviewed with patient and/or family. Voiced understanding. Resume present medications and activities. It is imperative that she is surgical G machine during the sleeping hours remind her of this and she must be checked several times during the night to ensure its placement NEVILLE LEE MD Feb 25, 2019 11:11 POS
--- NOTE | 2019-02-25 12:20 | NUR ---
Call to [facility] and spoke with Elisa SALAZAR. Questions asked about whether WILBER or "sleep apnea" and is there equipment for this. Pt has a Trilogy which is type of similar CPAP with full head gear and describing nasal prongs.
--- NOTE | 2019-02-25 12:25 | NUR ---
Pt is reportedly wearing alittle while which is reported by Chivo SALAZAR as her usual. Pt is reported to be napping almost every day all day.
--- NOTE | 2019-02-25 12:30 | NUR ---
Pt's friend Anabel Santiago reports the patient has no staff putting this Trilogy back on pt if she removes it. Friend is very very upset and in tears.
[2019-02-25 12:41] LABS: ABG PH 7.31 (7.37-7.43)
[2019-02-25 12:42] LABS: ABG PCO2 89 MMHG (35-45)
[2019-02-25 12:43] LABS: ABG BASE EXCESS 14.6 MMOL/L (-2.5-2.5); ABG OXYGEN SATURATION 68 % (94-100); ABG PO2 39 MMHG (79-93); ABG TCO2 47.5 MMOL/L (21.0-31.0)
[2019-02-25 12:44] LABS: ALLENS TEST POSITIVE; INSPIRED O2 2.5; PATIENT TEMP 36.3; VENTILATOR NO
[2019-02-25 13:45] VITALS: BP 101/74
--- NOTE | 2019-02-25 13:45 | NUR ---
Pt discharged to [facility]. SL removed before discharge. Pt has awakened more during ED stay at prompting by friend. Pt has hx of removing her Trilogy machine to be worn at night and reportedly incurs daytime sleepiness. Dr has stressed the importance of wearing this with compliance. Pt's friend reports she is going to speak with External Relations Director. Friend also states she needs to understand the seriouness and reconsider her Living Will status as friend states "she goes on a vent she is likely never coming off."
[2019-02-28] MEDS ORDERED: TRM50T PO (09:09)
--- OUTSIDE RECORDS SUMMARY | 2019-03-23 13:56 | XMS REPORT | Continuity of Care Document ---
Author Organization Unknown Address Unknown Phone Unavailable Allergies Active Description Code Type Severity Reaction Onset Reported/Identified Relationship to Patient Clinical Status Yes No Known Drug Allergies [id number] Drug Allergy Unknown N/A 08/13/2018 Medications There is no data. Problems Date Dx Coded Attending Type Code Diagnosis Diagnosed By 08/13/2018 EMA CARLEY MAPPING SUPERVISOR Ot E11.9 TYPE 2 DIABETES MELLITUS WITHOUT COMPLIC 08/13/2018 EMA, CARLEY MAPPING SUPERVISOR Ot I10 ESSENTIAL (PRIMARY) HYPERTENSION 08/13/2018 EMA, CARLEY MAPPING SUPERVISOR Ot J44.1 CHRONIC OBSTRUCTIVE PULMONARY DISEASE W 08/13/2018 EMA, CARLEY MAPPING SUPERVISOR Ot R06.02 SHORTNESS OF BREATH 08/13/2018 EMA, CARLEY MAPPING SUPERVISOR Ot Z79.52 SPLITTER OPERATOR (CURRENT) USE OF SYSTEMIC STER 08/13/2018 EMA, CARLEY MAPPING SUPERVISOR Ot Z87.891 PERSONAL HISTORY OF NICOTINE DEPENDENCE 08/13/2018 EMA, CARLEY MAPPING SUPERVISOR Ot Z90.710 ACQUIRED ABSENCE OF BOTH CERVIX AND UTER 08/18/2018 EMA, CARLEY MAPPING SUPERVISOR Ot E11.9 TYPE 2 DIABETES MELLITUS WITHOUT COMPLIC 08/18/2018 EMA, CARLEY MAPPING SUPERVISOR Ot I10 ESSENTIAL (PRIMARY) HYPERTENSION 08/18/2018 EMA, CARLEY MAPPING SUPERVISOR Ot J44.1 CHRONIC OBSTRUCTIVE PULMONARY DISEASE W 08/18/2018 EMA, CARLEY MAPPING SUPERVISOR Ot R06.02 SHORTNESS OF BREATH 08/18/2018 EMA, CARLEY MAPPING SUPERVISOR Ot Z79.52 NURSING HOME (CURRENT) USE OF SYSTEMIC STER 08/18/2018 EMA, CARLEY MAPPING SUPERVISOR Ot Z87.891 PERSONAL HISTORY OF NICOTINE DEPENDENCE 08/18/2018 EMA, CARLEY MAPPING SUPERVISOR Ot Z90.710 ACQUIRED ABSENCE OF BOTH CERVIX AND UTER 10/13/2018 GUERRA DO, CARRI L Ot E11.9 TYPE 2 DIABETES MELLITUS WITHOUT COMPLIC 10/13/2018 GUERRA DO, CARRI L Ot I10 ESSENTIAL (PRIMARY) HYPERTENSION 10/13/2018 GUERRA DO, CARRI L Ot J44.9 CHRONIC OBSTRUCTIVE PULMONARY DISEASE, U 10/13/2018 GUERRA DO, CARRI L Ot R53.8 3 OTHER FATIGUE 10/13/2018 GUERRA DO, CARRI L Ot R60.9 EDEMA, UNSPECIFIED 10/13/2018 GUERRA DO, CARRI L Ot Z87.4 40 PERSONAL HISTORY OF URINARY (TRACT) INFE 10/13/2018 GUERRA DO, CARRI L Ot Z90.7 10 ACQUIRED ABSENCE OF BOTH CERVIX AND UTER 10/13/2018 GUERRA DO, CARRI L Ot Z99.8 1 DEPENDENCE ON SUPPLEMENTAL OXYGEN 10/21/2018 GUERRA DO, CARRI L Ot E11.9 TYPE 2 DIABETES MELLITUS WITHOUT COMPLIC 10/21/2018 GUERRA DO, CARRI L Ot I10 ESSENTIAL (PRIMARY) HYPERTENSION 10/21/2018 GUERRA DO, CARRI L Ot J44.9 CHRONIC OBSTRUCTIVE PULMONARY DISEASE, U 10/21/2018 GUERRA DO, CARRI L Ot R53.8 3 OTHER FATIGUE 10/21/2018 GUERRA DO, CARRI L Ot R60.9 EDEMA, UNSPECIFIED 10/21/2018 GUERRA DO, CARRI L Ot Z87.4 40 PERSONAL HISTORY OF URINARY (TRACT) INFE 10/21/2018 GUERRA DO, CARRI L Ot Z90.7 10 ACQUIRED ABSENCE OF BOTH CERVIX AND UTER 10/21/2018 GUERRA DO, CARRI L Ot Z99.8 1 DEPENDENCE ON SUPPLEMENTAL OXYGEN 11/05/2018 BETI HATCH DO Ot E11 .9 TYPE 2 DIABETES MELLITUS WITHOUT COMPLIC 11/05/2018 BETI HATCH DO Ot I10 ESSENTIAL (PRIMARY) HYPERTENSION 11/05/2018 BETI HATCH DO Ot J44 .1 CHRONIC OBSTRUCTIVE PULMONARY DISEASE W 11/05/2018 BETI HATCH DO Ot R06.02 SHORTNESS OF BREATH 11/05/2018 BETI HATCH DO Ot R60 .9 EDEMA, UNSPECIFIED 11/05/2018 BETI HATCH DO Ot Z87.440 PERSONAL HISTORY OF URINARY (TRACT) INFE 11/05/2018 BETI HATCH DO Ot Z90.710 ACQUIRED ABSENCE OF BOTH CERVIX AND UTER 11/05/2018 BETI HATCH DO Ot Z99.81 DEPENDENCE ON SUPPLEMENTAL OXYGEN 11/08/2018 BETI HATCH DO Ot E11 .9 TYPE 2 DIABETES MELLITUS WITHOUT COMPLIC 11/08/2018 BETI HATCH DO Ot I10 ESSENTIAL (PRIMARY) HYPERTENSION 11/08/2018 MAMIE DO BETI Rosaline Ot J44 .1 CHRONIC OBSTRUCTIVE PULMONARY DISEASE W 11/08/2018 BETI HATCH DO Ot R06.02 SHORTNESS OF BREATH 11/08/2018 MAMIE DENSON BETI Rosaline Ot R60 .9 EDEMA, UNSPECIFIED 11/08/2018 MAMIE DENSON BETI Waggoner Ot Z87.440 PERSONAL HISTORY OF URINARY (TRACT) INFE 11/08/2018 BETI HATCH DO Ot Z90.710 ACQUIRED ABSENCE OF BOTH CERVIX AND UTER 11/08/2018 MAMIE DENSON BETI Rosaline Ot Z99.81 DEPENDENCE ON SUPPLEMENTAL OXYGEN 12/29/2018 EDU HINTON APRN Ot G47.36 SLEEP RELATED HYPOVENTILATION IN CONDITI 12/29/2018 EDU HINTON AUTOMOTIVE SERVICE WRITER Ot J30.9 ALLERGIC RHINITIS, UNSPECIFIED 12/29/2018 EDU HINTON AUTOMOTIVE SERVICE WRITER Ot J44.9 CHRONIC OBSTRUCTIVE PULMONARY DISEASE, U 01/25/2019 EDU HINTON AUTOMOTIVE SERVICE WRITER Ot G47.36 SLEEP RELATED HYPOVENTILATION IN CONDITI 01/25/2019 EDU HINTON AUTOMOTIVE SERVICE WRITER Ot J30.9 ALLERGIC RHINITIS, UNSPECIFIED 01/25/2019 EDU HINTON AUTOMOTIVE SERVICE WRITER Ot J44.9 CHRONIC OBSTRUCTIVE PULMONARY DISEASE, U 01/25/2019 EDU HINTON AUTOMOTIVE SERVICE WRITER Ot J98.11 ATELECTASIS 01/25/2019 EDU HINTON AUTOMOTIVE SERVICE WRITER Ot G47.36 SLEEP RELATED HYPOVENTILATION IN CONDITI 01/25/2019 EDU HINTON AUTOMOTIVE SERVICE WRITER Ot J30.9 ALLERGIC RHINITIS, UNSPECIFIED 01/25/2019 EDU HINTON AUTOMOTIVE SERVICE WRITER Ot J44.9 CHRONIC OBSTRUCTIVE PULMONARY DISEASE, U 01/25/2019 EDU HINTON AUTOMOTIVE SERVICE WRITER Ot J98.11 ATELECTASIS 02/15/2019 EDU HINTON AUTOMOTIVE SERVICE WRITER Ot G47.36 SLEEP RELATED HYPOVENTILATION IN CONDITI 02/15/2019 EDU HINTON AUTOMOTIVE SERVICE WRITER Ot J30.9 ALLERGIC RHINITIS, UNSPECIFIED 02/15/2019 EDU HINTON AUTOMOTIVE SERVICE WRITER Ot J44.9 CHRONIC OBSTRUCTIVE PULMONARY DISEASE, U 02/15/2019 EDU HINTON AUTOMOTIVE SERVICE WRITER Ot J98.11 ATELECTASIS 03/01/2019 BHUMIKA TRIMBLE MD, Ot D64 .9 ANEMIA, UNSPECIFIED 03/01/2019 BHUMIKA TRIMBLE MD, Ot E11 .9 TYPE 2 DIABETES MELLITUS WITHOUT COMPLIC 03/01/2019 BHUMIKA TRIMBLE MD, Ot E66 .2 MORBID (SEVERE) OBESITY WITH ALVEOLAR HY 03/01/2019 BHUMIKA TRIMBLE MD Ot E87 .2 ACIDOSIS 03/01/2019 BHUMIKA TRIMBLE MD, Ot E87 .5 HYPERKALEMIA 03/01/2019 BHUMIKA TRIMBLE MD Ot I10 ESSENTIAL (PRIMARY) HYPERTENSION 03/01/2019 BHUMIKA TRIMBLE MD, Ot J18 .9 PNEUMONIA, UNSPECIFIED ORGANISM 03/01/2019 BHUMIKA TRIMBLE MD, Ot J30 .2 OTHER SEASONAL ALLERGIC RHINITIS 03/01/2019 BHUMIKA TRIMBLE MD, Ot J44 .0 CHR OBSTRUCTIVE PULMON DISEASE WITH (ACU 03/01/2019 BHUMIKA TRIMBLE MD, Ot J44 .1 CHRONIC OBSTRUCTIVE PULMONARY DISEASE W 03/01/2019 BHUMIKA TRIMBLE MD, Ot J96.21 ACUTE AND CHRONIC RESPIRATORY FAILURE [place] 03/01/2019 BHUMIKA TRIMBLE MD, Ot J96.22 ACUTE AND CHRONIC RESPIRATORY FAILURE [place] 03/01/2019 BHUMIKA TRIMBLE MD Ot R53.83 OTHER FATIGUE 03/01/2019 BHUMIKA TRIMBLE MD, Ot Z68.43 BODY MASS INDEX (BMI) 50.0-59.9, ADULT 03/01/2019 BHUMIKA TRIMBLE MD, Ot Z79 .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 INSULIN 03/01/2019 BHUMIKA TRIMBLE MD, Ot Z87.440 PERSONAL HISTORY OF URINARY (TRACT) INFE 03/01/2019 BHUMIKA TRIMBLE MD, Ot Z87.891 PERSONAL HISTORY OF NICOTINE DEPENDENCE 03/01/2019 BHUMIKA TRIMBLE MD, Ot Z99.81 DEPENDENCE ON SUPPLEMENTAL OXYGEN 03/02/2019 BHUMIKA TRIMBLE MD, Ot D64 .9 ANEMIA, UNSPECIFIED 03/02/2019 BHUMIKA TRIMBLE MD Ot E11 .9 TYPE 2 DIABETES MELLITUS WITHOUT COMPLIC 03/02/2019 BHUMIKA TRIMBLE MD, Ot E66 .2 MORBID (SEVERE) OBESITY WITH ALVEOLAR HY 03/02/2019 BHUMIKA TRIMBLE MD, Ot E87 .2 ACIDOSIS 03/02/2019 BHUMIKA TRIMBLE MD Ot E87 .5 HYPERKALEMIA 03/02/2019 BHUMIKA TRIMBLE MD Ot I10 ESSENTIAL (PRIMARY) HYPERTENSION 03/02/2019 BHUMIKA TRIMBLE MD, Ot J18 .9 PNEUMONIA, UNSPECIFIED ORGANISM 03/02/2019 BHUMIKA TRIMBLE MD, Ot J30 .2 OTHER SEASONAL ALLERGIC RHINITIS 03/02/2019 BHUMIKA TRIMBLE MD, Ot J44 .0 CHR OBSTRUCTIVE PULMON DISEASE WITH (ACU 03/02/2019 BHUMIKA TRIMBLE MD, Ot J44 .1 CHRONIC OBSTRUCTIVE PULMONARY DISEASE W 03/02/2019 BHUMIKA TRIMBLE MD, Ot J96.21 ACUTE AND CHRONIC RESPIRATORY FAILURE [place] 03/02/2019 BHUMIKA TRIMBLE MD, Ot J96.22 ACUTE AND CHRONIC RESPIRATORY FAILURE [place] 03/02/2019 BHUMIKA TRIMBLE MD Ot R53.83 OTHER FATIGUE 03/02/2019 BHUMIKA TRIMBLE MD, Ot Z68.43 BODY MASS INDEX (BMI) 50.0-59.9, ADULT 03/02/2019 BHUMIKA TRIMBLE MD Ot 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 03/02/2019 BHUMIKA TRIMBLE MD, Ot Z87.440 PERSONAL HISTORY OF URINARY (TRACT) INFE 03/02/2019 BHUMIKA TRIMBLE MD, Ot Z87.891 PERSONAL HISTORY OF NICOTINE DEPENDENCE 03/02/2019 BHUMIKA TRIMBLE MD Ot Z99.81 DEPENDENCE ON SUPPLEMENTAL OXYGEN 03/03/2019 BHUMIKA TRIMBLE MD Ot D64 .9 ANEMIA, UNSPECIFIED 03/03/2019 BHUMIKA TRIMBLE MD Ot E11 .9 TYPE 2 DIABETES MELLITUS WITHOUT COMPLIC 03/03/2019 BHUMIKA TRIMBLE MD Ot E66 .2 MORBID (SEVERE) OBESITY WITH ALVEOLAR HY 03/03/2019 BHUMIKA TRIMBLE MD Ot E87 .2 ACIDOSIS 03/03/2019 BHUMIKA TRIMBLE MD Ot E87 .5 HYPERKALEMIA 03/03/2019 BHUMIKA TRIMBLE MD Ot I10 ESSENTIAL (PRIMARY) HYPERTENSION 03/03/2019 BHUMIKA TRIMBLE MD Ot J18 .9 PNEUMONIA, UNSPECIFIED ORGANISM 03/03/2019 BHUMIKA TRIMBLE MD Ot J30 .2 OTHER SEASONAL ALLERGIC RHINITIS 03/03/2019 BHUMIKA TRIMBLE MD Ot J44 .0 CHR OBSTRUCTIVE PULMON DISEASE WITH (ACU 03/03/2019 BHUMIKA TRIMBLE MD Ot J44 .1 CHRONIC OBSTRUCTIVE PULMONARY DISEASE W 03/03/2019 BHUMIKA TRIMBLE MD Ot J96.21 ACUTE AND CHRONIC RESPIRATORY FAILURE [place] 03/03/2019 BHUMIKA TRIMBLE MD Ot J96.22 ACUTE AND CHRONIC RESPIRATORY FAILURE [place] 03/03/2019 BHUMIKA TRIMBLE MD Ot R53.83 OTHER FATIGUE 03/03/2019 BHUMIKA TRIMBLE MD Ot Z68.43 BODY MASS INDEX (BMI) 50.0-59.9, ADULT 03/03/2019 BHUMKIA TRIMBLE MD Ot 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 03/03/2019 BHUMIKA TRIMBLE MD Ot Z87.440 PERSONAL HISTORY OF URINARY (TRACT) INFE 03/03/2019 BHMUIKA TRIMBLE MD Ot Z87.891 PERSONAL HISTORY OF NICOTINE DEPENDENCE 03/03/2019 BHUMIKA TRIMBLE MD Ot Z99.81 DEPENDENCE ON SUPPLEMENTAL OXYGEN 03/04/2019 BHUMIKA TRIMBLE MD Ot D64 .9 ANEMIA, UNSPECIFIED 03/04/2019 BHUMIKA TRIMBLE MD Ot E11 .9 TYPE 2 DIABETES MELLITUS WITHOUT COMPLIC 03/04/2019 BHUMIKA TRIMBLE MD Ot E66 .2 MORBID (SEVERE) OBESITY WITH ALVEOLAR HY 03/04/2019 BHUMIKA TRIMBLE MD Ot E87 .2 ACIDOSIS 03/04/2019 BHUMIKA TRIMBLE MD Ot E87 .5 HYPERKALEMIA 03/04/2019 BHUMIKA TRIMBLE MD Ot I10 ESSENTIAL (PRIMARY) HYPERTENSION 03/04/2019 BHUMIKA TRIMBLE MD Ot J18 .9 PNEUMONIA, UNSPECIFIED ORGANISM 03/04/2019 BHUMIKA TRIMBLE MD Ot J30 .2 OTHER SEASONAL ALLERGIC RHINITIS 03/04/2019 BHUMIKA TRIMBLE MD Ot J44 .0 CHR OBSTRUCTIVE PULMON DISEASE WITH (ACU 03/04/2019 BHUMIKA TRIMBLE MD, Ot J44 .1 CHRONIC OBSTRUCTIVE PULMONARY DISEASE W 03/04/2019 BHUMIKA TRIMBLE MD, Ot J96.21 ACUTE AND CHRONIC RESPIRATORY FAILURE [place] 03/04/2019 BHUMIKA TRIMBLE MD, Ot J96.22 ACUTE AND CHRONIC RESPIRATORY FAILURE [place] 03/04/2019 BHUMIKA TRIMBLE MD, Ot R53.83 OTHER FATIGUE 03/04/2019 BHUMIKA TRIMBLE MD, Ot Z68.43 BODY MASS INDEX (BMI) 50.0-59.9, ADULT 03/04/2019 BHUMIKA TRIMBLE MD, Ot 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 03/04/2019 BHUMIKA TRIMBLE MD, Ot Z87.440 PERSONAL HISTORY OF URINARY (TRACT) INFE 03/04/2019 BHUMIKA TRIMBLE MD, Ot Z87.891 PERSONAL HISTORY OF NICOTINE DEPENDENCE 03/04/2019 BHUMIKA TRIMBLE MD Ot Z99.81 DEPENDENCE ON SUPPLEMENTAL OXYGEN 03/05/2019 BHUMIKA TRIMBLE MD Ot D64 .9 ANEMIA, UNSPECIFIED 03/05/2019 BHUMIKA TRIMBLE MD Ot E11 .9 TYPE 2 DIABETES MELLITUS WITHOUT COMPLIC 03/05/2019 BHUMIKA TRIMBLE MD Ot E66 .2 MORBID (SEVERE) OBESITY WITH ALVEOLAR HY 03/05/2019 BHUMIKA TRIMBLE MD Ot E87 .2 ACIDOSIS 03/05/2019 BHUMIKA TRIMBLE MD Ot E87 .5 HYPERKALEMIA 03/05/2019 BHUMIKA TRIMBLE MD Ot I10 ESSENTIAL (PRIMARY) HYPERTENSION 03/05/2019 BHUMIKA TRIMBLE MD Ot J18 .9 PNEUMONIA, UNSPECIFIED ORGANISM 03/05/2019 BHUMIKA TRIMBLE MD Ot J30 .2 OTHER SEASONAL ALLERGIC RHINITIS 03/05/2019 BHUMIKA TRIMBLE MD Ot J44 .0 CHR OBSTRUCTIVE PULMON DISEASE WITH (ACU 03/05/2019 BHUMIKA TRIMBLE MD, Ot J44 .1 CHRONIC OBSTRUCTIVE PULMONARY DISEASE W 03/05/2019 BHUMIKA TRIMBLE MD Ot J96.21 ACUTE AND CHRONIC RESPIRATORY FAILURE [place] 03/05/2019 BHUMIKA TRIMBLE MD Ot J96.22 ACUTE AND CHRONIC RESPIRATORY FAILURE [place] 03/05/2019 BHUMIKA TRIMBLE MD, Ot R53.83 OTHER FATIGUE 03/05/2019 BHUMIKA TRIMBLE MD, Ot Z68.43 BODY MASS INDEX (BMI) 50.0-59.9, ADULT 03/05/2019 BHUMIKA TRIMBLE MD, Ot Z79 .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 INSULIN 03/05/2019 BHUMIKA TRIMBLE MD Ot Z87.440 PERSONAL HISTORY OF URINARY (TRACT) INFE 03/05/2019 BHUMIKA TRIMBLE MD, Ot Z87.891 PERSONAL HISTORY OF NICOTINE DEPENDENCE 03/05/2019 BHUMIKA TRIMBLE MD Ot Z99.81 DEPENDENCE ON SUPPLEMENTAL OXYGEN 03/06/2019 BHUMIKA TRIMBLE MD, Ot D64 .9 ANEMIA, UNSPECIFIED 03/06/2019 BHUMIKA TRIMBLE MD, Ot E11 .9 TYPE 2 DIABETES MELLITUS WITHOUT COMPLIC 03/06/2019 BHUMIKA TRIMBLE MD Ot E66 .2 MORBID (SEVERE) OBESITY WITH ALVEOLAR HY 03/06/2019 BHUMIKA TRIMBLE MD Ot E87 .2 ACIDOSIS 03/06/2019 BHUMIKA TRIMBLE MD Ot E87 .5 HYPERKALEMIA 03/06/2019 BHUMIKA TRIMBLE MD Ot I10 ESSENTIAL (PRIMARY) HYPERTENSION 03/06/2019 BHUMIKA TRIMBLE MD, Ot J18 .9 PNEUMONIA, UNSPECIFIED ORGANISM 03/06/2019 BHUMIKA TRIMBLE MD Ot J30 .2 OTHER SEASONAL ALLERGIC RHINITIS 03/06/2019 BHUMIKA TRIMBLE MD Ot J44 .0 CHR OBSTRUCTIVE PULMON DISEASE WITH (ACU 03/06/2019 BHUMIKA TRIMBLE MD Ot J44 .1 CHRONIC OBSTRUCTIVE PULMONARY DISEASE W 03/06/2019 BHUMIKA TRIMBLE MD Ot J96.21 ACUTE AND CHRONIC RESPIRATORY FAILURE [place] 03/06/2019 BHUMIKA TRIMBLE MD Ot J96.22 ACUTE AND CHRONIC RESPIRATORY FAILURE [place] 03/06/2019 BHUMIKA TRIMBLE MD Ot R53.83 OTHER FATIGUE 03/06/2019 BHUMIKA TRIMBLE MD, Ot Z68.43 BODY MASS INDEX (BMI) 50.0-59.9, ADULT 03/06/2019 BHUMIKA TRIMBLE MD Ot 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 03/06/2019 BHUMIKA TRIMBLE MD, Ot Z87.440 PERSONAL HISTORY OF URINARY (TRACT) INFE 03/06/2019 BHUMIKA TRIMBLE MD, Ot Z87.891 PERSONAL HISTORY OF NICOTINE DEPENDENCE 03/06/2019 BHUMIKA TRIMBLE MD Ot Z99.81 DEPENDENCE ON SUPPLEMENTAL OXYGEN 03/07/2019 BHUMIKA TRIMBLE MD, Ot D64 .9 ANEMIA, UNSPECIFIED 03/07/2019 BHUMIKA TRIMBLE MD Ot E11 .9 TYPE 2 DIABETES MELLITUS WITHOUT COMPLIC 03/07/2019 BHUMIKA TRIMBLE MD Ot E66 .2 MORBID (SEVERE) OBESITY WITH ALVEOLAR HY 03/07/2019 BHUMIKA TRIMBLE MD Ot E87 .2 ACIDOSIS 03/07/2019 BHUMIKA TRIMBLE MD Ot E87 .5 HYPERKALEMIA 03/07/2019 BHUMIKA TRIMBLE MD Ot I10 ESSENTIAL (PRIMARY) HYPERTENSION 03/07/2019 BHUMIKA TRIMBLE MD, Ot J18 .9 PNEUMONIA, UNSPECIFIED ORGANISM 03/07/2019 BHUMIKA TRIMBLE MD Ot J30 .2 OTHER SEASONAL ALLERGIC RHINITIS 03/07/2019 BHUMIKA TRIMBLE MD, Ot J44 .0 CHR OBSTRUCTIVE PULMON DISEASE WITH (ACU 03/07/2019 BHUMIKA TRIMBLE MD, Ot J44 .1 CHRONIC OBSTRUCTIVE PULMONARY DISEASE W 03/07/2019 BHUMIKA TRIMBLE MD, Ot J96.21 ACUTE AND CHRONIC RESPIRATORY FAILURE [place] 03/07/2019 BHUMIKA TRIMBLE MD, Ot J96.22 ACUTE AND CHRONIC RESPIRATORY FAILURE [place] 03/07/2019 BHUMIKA TRIMBLE MD Ot R53.83 OTHER FATIGUE 03/07/2019 BHUMIKA TRIMBLE MD, Ot Z68.43 BODY MASS INDEX (BMI) 50.0-59.9, ADULT 03/07/2019 BHUMIKA TRIMBLE MD, Ot 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 03/07/2019 BHUMIKA TRIMBLE MD, Ot Z87.440 PERSONAL HISTORY OF URINARY (TRACT) INFE 03/07/2019 BHUMIKA TRIMBLE MD, Ot Z87.891 PERSONAL HISTORY OF NICOTINE DEPENDENCE 03/07/2019 BHUMIKA TRIMBLE MD Ot Z99.81 DEPENDENCE ON SUPPLEMENTAL OXYGEN 03/08/2019 BHUMIKA TRIMBLE MD, Ot D64 .9 ANEMIA, UNSPECIFIED 03/08/2019 BHUMIKA TRIMBLE MD, Ot E11 .9 TYPE 2 DIABETES MELLITUS WITHOUT COMPLIC 03/08/2019 BHUMIKA TRIMBLE MD, Ot E66 .2 MORBID (SEVERE) OBESITY WITH ALVEOLAR HY 03/08/2019 BHUMIKA TRIMBLE MD Ot E87 .2 ACIDOSIS 03/08/2019 BHUMIKA TRIMBLE MD, Ot E87 .5 HYPERKALEMIA 03/08/2019 BHUMIKA TRIMBLE MD Ot I10 ESSENTIAL (PRIMARY) HYPERTENSION 03/08/2019 BHUMIKA TRIMBLE MD, Ot J18 .9 PNEUMONIA, UNSPECIFIED ORGANISM 03/08/2019 BHUMIKA TRIMBLE MD, Ot J30 .2 OTHER SEASONAL ALLERGIC RHINITIS 03/08/2019 BHUMIKA TRIMLBE MD, Ot J44 .0 CHR OBSTRUCTIVE PULMON DISEASE WITH (ACU 03/08/2019 BHUMIKA TRIMBLE MD, Ot J44 .1 CHRONIC OBSTRUCTIVE PULMONARY DISEASE W 03/08/2019 BHUMIKA TRIMBLE MD, Ot J96.21 ACUTE AND CHRONIC RESPIRATORY FAILURE [place] 03/08/2019 BHUMIKA TRIMBLE MD, Ot J96.22 ACUTE AND CHRONIC RESPIRATORY FAILURE [place] 03/08/2019 BHUMIKA TRIMBLE MD Ot R53.83 OTHER FATIGUE 03/08/2019 BHUMIKA TRIMBLE MD, Ot Z68.43 BODY MASS INDEX (BMI) 50.0-59.9, ADULT 03/08/2019 BHUMIKA TRIMBLE MD, Ot Z79 .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 INSULIN 03/08/2019 BHUMIKA TRIMBLE MD, Ot Z87.440 PERSONAL HISTORY OF URINARY (TRACT) INFE 03/08/2019 BHUMIKA TRIMBLE MD, Ot Z87.891 PERSONAL HISTORY OF NICOTINE DEPENDENCE 03/08/2019 BHUMIKA TRIMBLE MD, Ot Z99.81 DEPENDENCE ON SUPPLEMENTAL OXYGEN 03/09/2019 BHUMIKA TRIMBLE MD, Ot D64 .9 ANEMIA, UNSPECIFIED 03/09/2019 BHUMIKA TRIMBLE MD Ot E11 .9 TYPE 2 DIABETES MELLITUS WITHOUT COMPLIC 03/09/2019 BHUMIKA TRIMBLE MD, Ot E66 .2 MORBID (SEVERE) OBESITY WITH ALVEOLAR HY 03/09/2019 BHUMIKA TRIMBLE MD Ot E87 .2 ACIDOSIS 03/09/2019 BHUMIKA TRIMBLE MD Ot E87 .5 HYPERKALEMIA 03/09/2019 BHUMIKA TRIMBLE MD Ot I10 ESSENTIAL (PRIMARY) HYPERTENSION 03/09/2019 BHUMIKA TRIMBLE MD, Ot J18 .9 PNEUMONIA, UNSPECIFIED ORGANISM 03/09/2019 BHUMIKA TRIMBLE MD Ot J30 .2 OTHER SEASONAL ALLERGIC RHINITIS 03/09/2019 BHUMIKA TRIMBLE MD, Ot J44 .0 CHR OBSTRUCTIVE PULMON DISEASE WITH (ACU 03/09/2019 BHUMIKA TRIMBLE MD Ot J44 .1 CHRONIC OBSTRUCTIVE PULMONARY DISEASE W 03/09/2019 BHUMIKA TRIMBLE MD Ot J96.21 ACUTE AND CHRONIC RESPIRATORY FAILURE [place] 03/09/2019 BHUMIKA TRIMBLE MD Ot J96.22 ACUTE AND CHRONIC RESPIRATORY FAILURE [place] 03/09/2019 BHUMIKA TRIMBLE MD Ot R53.83 OTHER FATIGUE 03/09/2019 BHUMIKA TRIMBLE MD Ot Z68.43 BODY MASS INDEX (BMI) 50.0-59.9, ADULT 03/09/2019 BHUMIKA TRIMBLE MD Ot 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 03/09/2019 BHUMIKA TRIMBLE MD Ot Z87.440 PERSONAL HISTORY OF URINARY (TRACT) INFE 03/09/2019 BHUMIKA TRIMBLE MD Ot Z87.891 PERSONAL HISTORY OF NICOTINE DEPENDENCE 03/09/2019 BHUMIKA TRIMBLE MD Ot Z99.81 DEPENDENCE ON SUPPLEMENTAL OXYGEN 03/09/2019 BHUMIKA TRIMBLE MD Ot D64 .9 ANEMIA, UNSPECIFIED 03/09/2019 BHUMIKA TRIMBLE MD Ot E11 .9 TYPE 2 DIABETES MELLITUS WITHOUT COMPLIC 03/09/2019 BHUMIKA TRIMBLE MD Ot E66 .2 MORBID (SEVERE) OBESITY WITH ALVEOLAR HY 03/09/2019 BHUMIAK TRIMBLE MD Ot E87 .2 ACIDOSIS 03/09/2019 BHUMIKA TRIMBLE MD Ot E87 .5 HYPERKALEMIA 03/09/2019 BHUMIKA TRIMBLE MD Ot I10 ESSENTIAL (PRIMARY) HYPERTENSION 03/09/2019 BHUMIKA TRIMBLE MD, Ot J18 .9 PNEUMONIA, UNSPECIFIED ORGANISM 03/09/2019 BHUMIKA TRIMBLE MD Ot J30 .2 OTHER SEASONAL ALLERGIC RHINITIS 03/09/2019 BHUMIKA TRIMBLE MD Ot J44 .0 CHR OBSTRUCTIVE PULMON DISEASE WITH (ACU 03/09/2019 BHUMIKA TRIMBLE MD Ot J44 .1 CHRONIC OBSTRUCTIVE PULMONARY DISEASE W 03/09/2019 BHUMIKA TRIMBLE MD Ot J96.21 ACUTE AND CHRONIC RESPIRATORY FAILURE [place] 03/09/2019 BHUMIKA TRIMBLE MD Ot J96.22 ACUTE AND CHRONIC RESPIRATORY FAILURE [place] 03/09/2019 BHUMIKA TRIMBLE MD Ot R53.83 OTHER FATIGUE 03/09/2019 BHUMIKA TRIMBLE MD, Ot Z68.43 BODY MASS INDEX (BMI) 50.0-59.9, ADULT 03/09/2019 BHUMIKA TRIMBLE MD Ot 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 03/09/2019 BHUMIKA TRIMBLE MD Ot Z87.440 PERSONAL HISTORY OF URINARY (TRACT) INFE 03/09/2019 BHUMIKA TRIMBLE MD, Ot Z87.891 PERSONAL HISTORY OF NICOTINE DEPENDENCE 03/09/2019 BHUMIKA TRIMBLE MD Ot Z99.81 DEPENDENCE ON SUPPLEMENTAL OXYGEN 03/09/2019 BHUMIKA TRIMBLE MD Ot D64 .9 ANEMIA, UNSPECIFIED 03/09/2019 BHUMIKA TRIMBLE MD Ot E11 .9 TYPE 2 DIABETES MELLITUS WITHOUT COMPLIC 03/09/2019 BHUMIKA TRIMBLE MD Ot E66 .2 MORBID (SEVERE) OBESITY WITH ALVEOLAR HY 03/09/2019 BHUMIKA TRIMBLE MD Ot E87 .2 ACIDOSIS 03/09/2019 BHUMIKA TRIMBLE MD Ot E87 .5 HYPERKALEMIA 03/09/2019 BHUMIKA TRIMBLE MD Ot I10 ESSENTIAL (PRIMARY) HYPERTENSION 03/09/2019 BHUMIKA TRIMBLE MD Ot J18 .9 PNEUMONIA, UNSPECIFIED ORGANISM 03/09/2019 BHUMIKA TRIMBLE MD Ot J30 .2 OTHER SEASONAL ALLERGIC RHINITIS 03/09/2019 BHUMIKA TRIMBLE MD Ot J44 .0 CHR OBSTRUCTIVE PULMON DISEASE WITH (ACU 03/09/2019 BHUMIKA TRIMBLE MD, Ot J44 .1 CHRONIC OBSTRUCTIVE PULMONARY DISEASE W 03/09/2019 BHUMIKA TRIMBLE MD, Ot J96.21 ACUTE AND CHRONIC RESPIRATORY FAILURE [place] 03/09/2019 BHUMIKA TRIMBLE MD, Ot J96.22 ACUTE AND CHRONIC RESPIRATORY FAILURE [place] 03/09/2019 BHUMIKA TRIMBLE MD Ot R53.83 OTHER FATIGUE 03/09/2019 BHUMIKA TRIMBLE MD, Ot Z68.43 BODY MASS INDEX (BMI) 50.0-59.9, ADULT 03/09/2019 BHUMIKA TRIMBLE MD, Ot 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 03/09/2019 BHUMIKA TRIMBLE MD, Ot Z87.440 PERSONAL HISTORY OF URINARY (TRACT) INFE 03/09/2019 BHUMIKA TRIMBLE MD, Ot Z87.891 PERSONAL HISTORY OF NICOTINE DEPENDENCE 03/09/2019 BHUMIKA TRIMBLE MD, Ot Z99.81 DEPENDENCE ON SUPPLEMENTAL OXYGEN 03/10/2019 BHUMIKA TRIMBLE MD, Ot D64 .9 ANEMIA, UNSPECIFIED 03/10/2019 BHUMIKA TRIMBLE MD Ot E11 .9 TYPE 2 DIABETES MELLITUS WITHOUT COMPLIC 03/10/2019 BHUMIKA TRIMBLE MD Ot E66 .2 MORBID (SEVERE) OBESITY WITH ALVEOLAR HY 03/10/2019 BHUMIKA TRIMBLE MD Ot E87 .2 ACIDOSIS 03/10/2019 BHUMIKA TRIMBLE MD Ot E87 .5 HYPERKALEMIA 03/10/2019 BHUMIKA TRIMBLE MD Ot I10 ESSENTIAL (PRIMARY) HYPERTENSION 03/10/2019 BHUMIKA TRIMBLE MD, Ot J18 .9 PNEUMONIA, UNSPECIFIED ORGANISM 03/10/2019 BHUMIKA TRIMBLE MD Ot J30 .2 OTHER SEASONAL ALLERGIC RHINITIS 03/10/2019 BHUMIKA TRIMBLE MD, Ot J44 .0 CHR OBSTRUCTIVE PULMON DISEASE WITH (ACU 03/10/2019 BHUMIKA TRIMBLE MD, Ot J44 .1 CHRONIC OBSTRUCTIVE PULMONARY DISEASE W 03/10/2019 BHUMIKA TRIMBLE MD Ot J96.21 ACUTE AND CHRONIC RESPIRATORY FAILURE [place] 03/10/2019 BHUMIKA TRIMBLE MD Ot J96.22 ACUTE AND CHRONIC RESPIRATORY FAILURE [place] 03/10/2019 BHUMIKA TRIMBLE MD Ot R53.83 OTHER FATIGUE 03/10/2019 BHUMIKA TRIMBLE MD, Ot Z68.43 BODY MASS INDEX (BMI) 50.0-59.9, ADULT 03/10/2019 BHUMIKA TRIMBLE MD, Ot Z79 .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 03/10/2019 BHUMIKA TRIMBLE MD Ot Z87.440 PERSONAL HISTORY OF URINARY (TRACT) INFE 03/10/2019 BHUMIKA TRIMBLE MD, Ot Z87.891 PERSONAL HISTORY OF NICOTINE DEPENDENCE 03/10/2019 BHUMIKA TRIMBLE MD, Ot Z99.81 DEPENDENCE ON SUPPLEMENTAL OXYGEN 03/11/2019 BHUMIKA TRIMBLE MD, Ot D64 .9 ANEMIA, UNSPECIFIED 03/11/2019 BHUMIKA TRIMBLE MD Ot E11 .9 TYPE 2 DIABETES MELLITUS WITHOUT COMPLIC 03/11/2019 BHUMIKA TRIMBLE MD Ot E66 .2 MORBID (SEVERE) OBESITY WITH ALVEOLAR HY 03/11/2019 BHUMIKA TRIMBLE MD Ot E87 .2 ACIDOSIS 03/11/2019 BHUMIKA TRIMBLE MD Ot E87 .5 HYPERKALEMIA 03/11/2019 BHUMIKA TRIMBLE MD Ot I10 ESSENTIAL (PRIMARY) HYPERTENSION 03/11/2019 BHUMIKA TRIMBLE MD Ot J18 .9 PNEUMONIA, UNSPECIFIED ORGANISM 03/11/2019 BHUMIKA TRIMBLE MD Ot J30 .2 OTHER SEASONAL ALLERGIC RHINITIS 03/11/2019 BHUMIKA TRIMBLE MD, Ot J44 .0 CHR OBSTRUCTIVE PULMON DISEASE WITH (ACU 03/11/2019 BHUMIKA TRIMBLE MD, Ot J44 .1 CHRONIC OBSTRUCTIVE PULMONARY DISEASE W 03/11/2019 BHUMIKA TRIMBLE MD Ot J96.21 ACUTE AND CHRONIC RESPIRATORY FAILURE [place] 03/11/2019 BHUMIKA TRIMBLE MD Ot J96.22 ACUTE AND CHRONIC RESPIRATORY FAILURE [place] 03/11/2019 BHUMIKA TRIMBLE MD Ot R53.83 OTHER FATIGUE 03/11/2019 BHUMIKA TRIMBLE MD, Ot Z68.43 BODY MASS INDEX (BMI) 50.0-59.9, ADULT 03/11/2019 BHUMIKA TRIMBLE MD, Ot Z79 .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 INSULIN 03/11/2019 BHUMIKA TRIMBLE MD, Ot Z87.440 PERSONAL HISTORY OF URINARY (TRACT) INFE 03/11/2019 BHUMIKA TRIMBLE MD, Ot Z87.891 PERSONAL HISTORY OF NICOTINE DEPENDENCE 03/11/2019 BHUMIKA TRIMBLE MD, Ot Z99.81 DEPENDENCE ON SUPPLEMENTAL OXYGEN 03/12/2019 BHUMIKA TRIMBLE MD Ot D64 .9 ANEMIA, UNSPECIFIED 03/12/2019 BHUMIKA TRIMBLE MD Ot E11 .9 TYPE 2 DIABETES MELLITUS WITHOUT COMPLIC 03/12/2019 BHUMIKA TRIMBLE MD Ot E66 .2 MORBID (SEVERE) OBESITY WITH ALVEOLAR HY 03/12/2019 BHUMIKA TRIMBLE MD Ot E87 .2 ACIDOSIS 03/12/2019 BHUMIKA TRIMBLE MD Ot E87 .5 HYPERKALEMIA 03/12/2019 BHUMIKA TRIMBLE MD Ot I10 ESSENTIAL (PRIMARY) HYPERTENSION 03/12/2019 BHUMIKA TRIMBLE MD, Ot J18 .9 PNEUMONIA, UNSPECIFIED ORGANISM 03/12/2019 BHUMIKA TRIMBLE MD Ot J30 .2 OTHER SEASONAL ALLERGIC RHINITIS 03/12/2019 BHUMIKA TRIMBLE MD Ot J44 .0 CHR OBSTRUCTIVE PULMON DISEASE WITH (ACU 03/12/2019 BHUMIKA TRIMBLE MD, Ot J44 .1 CHRONIC OBSTRUCTIVE PULMONARY DISEASE W 03/12/2019 BHUMIKA TRIMBLE MD Ot J96.21 ACUTE AND CHRONIC RESPIRATORY FAILURE [place] 03/12/2019 BHUMIKA TRIMBLE MD Ot J96.22 ACUTE AND CHRONIC RESPIRATORY FAILURE [place] 03/12/2019 BHUMIKA TRIMBLE MD Ot R53.83 OTHER FATIGUE 03/12/2019 BHUMIKA TRIMBLE MD, Ot Z68.43 BODY MASS INDEX (BMI) 50.0-59.9, ADULT 03/12/2019 BHUMIKA TRIMBLE MD, Ot Z79 .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 INSULIN 03/12/2019 BHUMIKA TRIMBLE MD, Ot Z87.440 PERSONAL HISTORY OF URINARY (TRACT) INFE 03/12/2019 BHUMIKA TRIMBLE MD, Ot Z87.891 PERSONAL HISTORY OF NICOTINE DEPENDENCE 03/12/2019 BHUMIKA TRIMBLE MD Ot Z99.81 DEPENDENCE ON SUPPLEMENTAL OXYGEN 03/13/2019 BHUMIKA TRIMBLE MD, Ot D64 .9 ANEMIA, UNSPECIFIED 03/13/2019 BHUMIKA TRIMBLE MD, Ot E11 .9 TYPE 2 DIABETES MELLITUS WITHOUT COMPLIC 03/13/2019 BHUMIKA TRIMBLE MD, Ot E66 .2 MORBID (SEVERE) OBESITY WITH ALVEOLAR HY 03/13/2019 BHUMIKA TRIMBLE MD Ot E87 .2 ACIDOSIS 03/13/2019 BHUMIKA TRIMBLE MD Ot E87 .5 HYPERKALEMIA 03/13/2019 BHUMIKA TRIMBLE MD, Ot I10 ESSENTIAL (PRIMARY) HYPERTENSION 03/13/2019 BHUMIKA TRIMBLE MD, Ot J18 .9 PNEUMONIA, UNSPECIFIED ORGANISM 03/13/2019 BHUMIKA TRIMBLE MD, Ot J30 .2 OTHER SEASONAL ALLERGIC RHINITIS 03/13/2019 BHUMIKA TRIMBLE MD, Ot J44 .0 CHR OBSTRUCTIVE PULMON DISEASE WITH (ACU 03/13/2019 BHUMIKA TRIMBLE MD, Ot J44 .1 CHRONIC OBSTRUCTIVE PULMONARY DISEASE W 03/13/2019 BHUMIKA TRIMBLE MD, Ot J96.21 ACUTE AND CHRONIC RESPIRATORY FAILURE [place] 03/13/2019 BHUMIKA TRIMBLE MD, Ot J96.22 ACUTE AND CHRONIC RESPIRATORY FAILURE [place] 03/13/2019 BHUMIKA TRIMBLE MD, Ot R53.83 OTHER FATIGUE 03/13/2019 BHUMIKA TRIMBLE MD, Ot Z68.43 BODY MASS INDEX (BMI) 50.0-59.9, ADULT 03/13/2019 BHUMIKA TRIMBLE MD, Ot Z79 .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 INSULIN 03/13/2019 BHUMIKA TRIMBLE MD, Ot Z87.440 PERSONAL HISTORY OF URINARY (TRACT) INFE 03/13/2019 BHUMIKA TRIMBLE MD, Ot Z87.891 PERSONAL HISTORY OF NICOTINE DEPENDENCE 03/13/2019 BHUMIKA TRIMBLE MD, Ot Z99.81 DEPENDENCE ON SUPPLEMENTAL OXYGEN 03/14/2019 BHUMIKA TRIMBLE MD, Ot D64 .9 ANEMIA, UNSPECIFIED 03/14/2019 BHUMIKA TRIMBLE MD Ot E11 .9 TYPE 2 DIABETES MELLITUS WITHOUT COMPLIC 03/14/2019 BHUMIKA TRIMBLE MD Ot E66 .2 MORBID (SEVERE) OBESITY WITH ALVEOLAR HY 03/14/2019 BHUMIKA TRIMBLE MD Ot E87 .2 ACIDOSIS 03/14/2019 BHMUIKA TRIMBLE MD Ot E87 .5 HYPERKALEMIA 03/14/2019 BHUMIKA TRIMBLE MD Ot I10 ESSENTIAL (PRIMARY) HYPERTENSION 03/14/2019 BHUMIKA TRIMBLE MD Ot J18 .9 PNEUMONIA, UNSPECIFIED ORGANISM 03/14/2019 BHUMIKA TRIMBLE MD Ot J30 .2 OTHER SEASONAL ALLERGIC RHINITIS 03/14/2019 BHUMIKA TRIMBLE MD Ot J44 .0 CHR OBSTRUCTIVE PULMON DISEASE WITH (ACU 03/14/2019 BHUMIKA TRIMBLE MD, Ot J44 .1 CHRONIC OBSTRUCTIVE PULMONARY DISEASE W 03/14/2019 BHUMIKA TRIMBLE MD, Ot J96.21 ACUTE AND CHRONIC RESPIRATORY FAILURE [place] 03/14/2019 BHUMIKA TRIMBLE MD, Ot J96.22 ACUTE AND CHRONIC RESPIRATORY FAILURE [place] 03/14/2019 BHUMIKA TRIMBLE MD Ot R53.83 OTHER FATIGUE 03/14/2019 BHUMIKA TRIMBLE MD Ot Z68.43 BODY MASS INDEX (BMI) 50.0-59.9, ADULT 03/14/2019 BHUMIKA TRIMBLE MD Ot Z79 .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 INSULIN 03/14/2019 BHUMIKA TRIMBLE MD Ot Z87.440 PERSONAL HISTORY OF URINARY (TRACT) INFE 03/14/2019 BHUMIKA TRIMBLE MD, Ot Z87.891 PERSONAL HISTORY OF NICOTINE DEPENDENCE 03/14/2019 BHUMIKA TRIMBLE MD Ot Z99.81 DEPENDENCE ON SUPPLEMENTAL OXYGEN 03/14/2019 BHUMIKA TRIMBLE MD Ot D64 .9 ANEMIA, UNSPECIFIED 03/14/2019 BHUMIKA TRIMBLE MD Ot E11 .9 TYPE 2 DIABETES MELLITUS WITHOUT COMPLIC 03/14/2019 BHUMIKA TRIMBLE MD Ot E66 .2 MORBID (SEVERE) OBESITY WITH ALVEOLAR HY 03/14/2019 BHUMIKA TRIMBLE MD Ot E87 .2 ACIDOSIS 03/14/2019 BHUMIKA TRIMBLE MD Ot E87 .5 HYPERKALEMIA 03/14/2019 BHUMIKA TRIMBLE MD Ot I10 ESSENTIAL (PRIMARY) HYPERTENSION 03/14/2019 BHUMIKA TRIMBLE MD, Ot J18 .9 PNEUMONIA, UNSPECIFIED ORGANISM 03/14/2019 BHUMIKA TRIMBLE MD, Ot J30 .2 OTHER SEASONAL ALLERGIC RHINITIS 03/14/2019 BHUMIKA TRIMBLE MD, Ot J44 .0 CHR OBSTRUCTIVE PULMON DISEASE WITH (ACU 03/14/2019 BHUMIKA TRIMBLE MD Ot J44 .1 CHRONIC OBSTRUCTIVE PULMONARY DISEASE W 03/14/2019 BHUMIKA TRIMBLE MD Ot J96.21 ACUTE AND CHRONIC RESPIRATORY FAILURE [place] 03/14/2019 BHUMIKA TRIMBLE MD Ot J96.22 ACUTE AND CHRONIC RESPIRATORY FAILURE [place] 03/14/2019 BHUMIKA TRIMBLE MD Ot R53.83 OTHER FATIGUE 03/14/2019 BHUMIKA TRIMBLE MD, Ot Z68.43 BODY MASS INDEX (BMI) 50.0-59.9, ADULT 03/14/2019 BHUMIKA TRIMBLE MD Ot 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 03/14/2019 BHUMIKA TRIMBLE MD, Ot Z87.440 PERSONAL HISTORY OF URINARY (TRACT) INFE 03/14/2019 BHUMIKA TRIMBLE MD, Ot Z87.891 PERSONAL HISTORY OF NICOTINE DEPENDENCE 03/14/2019 BHUMIKA TRIMBLE MD Ot Z99.81 DEPENDENCE ON SUPPLEMENTAL OXYGEN 03/15/2019 BHUMIKA TRIMBLE MD, Ot D64 .9 ANEMIA, UNSPECIFIED 03/15/2019 BHUMIKA TRIMBLE MD Ot E11 .9 TYPE 2 DIABETES MELLITUS WITHOUT COMPLIC 03/15/2019 BHUMIKA TRIMBLE MD Ot E66 .2 MORBID (SEVERE) OBESITY WITH ALVEOLAR HY 03/15/2019 BHUMIKA TRIMBLE MD Ot E87 .2 ACIDOSIS 03/15/2019 BHUMIKA TRIMBLE MD Ot E87 .5 HYPERKALEMIA 03/15/2019 BHUMIKA TRIMBLE MD Ot I10 ESSENTIAL (PRIMARY) HYPERTENSION 03/15/2019 BHUMIKA TRIMBLE MD Ot J18 .9 PNEUMONIA, UNSPECIFIED ORGANISM 03/15/2019 BHUMIKA TRIMBLE MD Ot J30 .2 OTHER SEASONAL ALLERGIC RHINITIS 03/15/2019 BHUMIKA TRIMBLE MD Ot J44 .0 CHR OBSTRUCTIVE PULMON DISEASE WITH (ACU 03/15/2019 BHUMIKA TRIMBLE MD, Ot J44 .1 CHRONIC OBSTRUCTIVE PULMONARY DISEASE W 03/15/2019 BHUMIKA TRIMBLE MD, Ot J96.21 ACUTE AND CHRONIC RESPIRATORY FAILURE [place] 03/15/2019 BHUMIKA TRIMBLE MD Ot J96.22 ACUTE AND CHRONIC RESPIRATORY FAILURE [place] 03/15/2019 BHUMIKA TRIMBLE MD Ot R53.83 OTHER FATIGUE 03/15/2019 BHUMIKA TRIMBLE MD, Ot Z68.43 BODY MASS INDEX (BMI) 50.0-59.9, ADULT 03/15/2019 BHUMIKA TRIMBLE MD, Ot Z79 .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 INSULIN 03/15/2019 BHUMIKA TRIMBLE MD, Ot Z87.440 PERSONAL HISTORY OF URINARY (TRACT) INFE 03/15/2019 BHUMIKA TRIMBLE MD, Ot Z87.891 PERSONAL HISTORY OF NICOTINE DEPENDENCE 03/15/2019 BHUMIKA TRIMBLE MD Ot Z99.81 DEPENDENCE ON SUPPLEMENTAL OXYGEN 03/16/2019 BHUMIKA TRIMBLE MD Ot D64 .9 ANEMIA, UNSPECIFIED 03/16/2019 BHUMIKA TRIMBLE MD Ot E11 .9 TYPE 2 DIABETES MELLITUS WITHOUT COMPLIC 03/16/2019 BHUMIKA TRIMBLE MD Ot E66 .2 MORBID (SEVERE) OBESITY WITH ALVEOLAR HY 03/16/2019 BHUMIKA TRIMBLE MD Ot E87 .2 ACIDOSIS 03/16/2019 BHUMIKA TRIMBLE MD Ot E87 .5 HYPERKALEMIA 03/16/2019 BHUMIKA TRIMBLE MD Ot I10 ESSENTIAL (PRIMARY) HYPERTENSION 03/16/2019 BHUMIKA TRIMBLE MD, Ot J18 .9 PNEUMONIA, UNSPECIFIED ORGANISM 03/16/2019 BHUMIKA TRIMBLE MD, Ot J30 .2 OTHER SEASONAL ALLERGIC RHINITIS 03/16/2019 BHUMIKA TRIMBLE MD, Ot J44 .0 CHR OBSTRUCTIVE PULMON DISEASE WITH (ACU 03/16/2019 BHUMIKA TRIMBLE MD Ot J44 .1 CHRONIC OBSTRUCTIVE PULMONARY DISEASE W 03/16/2019 BHUMIKA TRIMBLE MD Ot J96.21 ACUTE AND CHRONIC RESPIRATORY FAILURE [place] 03/16/2019 HBUMIKA TRIMBLE MD Ot J96.22 ACUTE AND CHRONIC RESPIRATORY FAILURE [place] 03/16/2019 BHUMIKA TRIMBLE MD Ot R53.83 OTHER FATIGUE 03/16/2019 BHUMIKA TRIMBLE MD, Ot Z68.43 BODY MASS INDEX (BMI) 50.0-59.9, ADULT 03/16/2019 BHUMIKA TRIMBLE MD Ot Z79 .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 INSULIN 03/16/2019 BHUMIKA TRIMBLE MD, Ot Z87.440 PERSONAL HISTORY OF URINARY (TRACT) INFE 03/16/2019 BHUMIKA TRIMBLE MD, Ot Z87.891 PERSONAL HISTORY OF NICOTINE DEPENDENCE 03/16/2019 BHUMIKA TRIMBLE MD Ot Z99.81 DEPENDENCE ON SUPPLEMENTAL OXYGEN 03/17/2019 BHUMIKA TRIMBLE MD, Ot D64 .9 ANEMIA, UNSPECIFIED 03/17/2019 BHUMIKA TRIMBLE MD Ot E11 .9 TYPE 2 DIABETES MELLITUS WITHOUT COMPLIC 03/17/2019 BHUMIKA TRIMBLE MD Ot E66 .2 MORBID (SEVERE) OBESITY WITH ALVEOLAR HY 03/17/2019 BHUMIKA TRIMBLE MD Ot E87 .2 ACIDOSIS 03/17/2019 BHUMIKA TRIMBLE MD Ot E87 .5 HYPERKALEMIA 03/17/2019 BHUMIKA TRIMBLE MD Ot I10 ESSENTIAL (PRIMARY) HYPERTENSION 03/17/2019 BHUMIKA TRIMBLE MD Ot J18 .9 PNEUMONIA, UNSPECIFIED ORGANISM 03/17/2019 BHUMIKA TRIMBLE MD Ot J30 .2 OTHER SEASONAL ALLERGIC RHINITIS 03/17/2019 BHUMIKA TRIMBLE MD Ot J44 .0 CHR OBSTRUCTIVE PULMON DISEASE WITH (ACU 03/17/2019 BHUMIKA TRIMBLE MD Ot J44 .1 CHRONIC OBSTRUCTIVE PULMONARY DISEASE W 03/17/2019 BHUMIKA TRIMBLE MD Ot J96.21 ACUTE AND CHRONIC RESPIRATORY FAILURE [place] 03/17/2019 BHUMIKA TRIMBLE MD Ot J96.22 ACUTE AND CHRONIC RESPIRATORY FAILURE [place] 03/17/2019 BHUMIKA TRIMBLE MD Ot R53.83 OTHER FATIGUE 03/17/2019 BHUMIKA TRIMBLE MD, Ot Z68.43 BODY MASS INDEX (BMI) 50.0-59.9, ADULT 03/17/2019 BHUMIKA TRIMBLE MD Ot 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 03/17/2019 BHUMIKA TRIMBLE MD, Ot Z87.440 PERSONAL HISTORY OF URINARY (TRACT) INFE 03/17/2019 BHUMIKA TRIMBLE MD, Ot Z87.891 PERSONAL HISTORY OF NICOTINE DEPENDENCE 03/17/2019 BHUMIKA TRIMBLE MD, Ot Z99.81 DEPENDENCE ON SUPPLEMENTAL OXYGEN 03/17/2019 BHUMIKA TRIMBLE MD, Ot B44 .9 ASPERGILLOSIS, UNSPECIFIED 03/17/2019 BHUMIKA TRIMBLE MD, Ot D64 .9 ANEMIA, UNSPECIFIED 03/17/2019 BHUMIKA TRIMBLE MD, Ot E11 .9 TYPE 2 DIABETES MELLITUS WITHOUT COMPLIC 03/17/2019 BHUMIKA TRIMBLE MD, Ot E66 .2 MORBID (SEVERE) OBESITY WITH ALVEOLAR HY 03/17/2019 BHUMIKA TRIMBLE MD Ot E87 .2 ACIDOSIS 03/17/2019 BHUMIKA TRIMBLE MD Ot E87 .5 HYPERKALEMIA 03/17/2019 BHUMIKA TRIMBLE MD Ot I10 ESSENTIAL (PRIMARY) HYPERTENSION 03/17/2019 BHUMIKA TRIMBLE MD, Ot J15 .8 PNEUMONIA DUE TO OTHER SPECIFIED BACTERI 03/17/2019 BHUMIKA TRIMBLE MD, Ot J30 .2 OTHER SEASONAL ALLERGIC RHINITIS 03/17/2019 BHUMIKA TRIMBLE MD, Ot J44 .0 CHR OBSTRUCTIVE PULMON DISEASE WITH (ACU 03/17/2019 BHUMIKA TRIMBLE MD, Ot J44 .1 CHRONIC OBSTRUCTIVE PULMONARY DISEASE W 03/17/2019 BHUMIKA TRIMBLE MD Ot J80 ACUTE RESPIRATORY DISTRESS SYNDROME 03/17/2019 BHUMIKA TRIMBLE MD Ot J96.21 ACUTE AND CHRONIC RESPIRATORY FAILURE [place] 03/17/2019 BHUMIKA TRIMBLE MD, Ot J96.22 ACUTE AND CHRONIC RESPIRATORY FAILURE [place] 03/17/2019 BHUMIKA TRIMBLE MD Ot K76 .0 FATTY (CHANGE OF) LIVER, NOT ELSEWHERE C 03/17/2019 BHUMIKA TRIMBLE MD Ot R53.83 OTHER FATIGUE 03/17/2019 BHUMIKA TRIMBLE MD Ot Z56 .0 UNEMPLOYMENT, UNSPECIFIED 03/17/2019 BHUMIKA TRIMBLE MD, Ot Z68.43 BODY MASS INDEX (BMI) 50.0-59.9, ADULT 03/17/2019 BHUMIKA TRIMBLE MD, Ot Z79 .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 INSULIN 03/17/2019 BHUMIKA TRIMBLE MD, Ot Z87.440 PERSONAL HISTORY OF URINARY (TRACT) INFE 03/17/2019 BHUMIKA TRIMBLE MD, Ot Z87.891 PERSONAL HISTORY OF NICOTINE DEPENDENCE 03/17/2019 BHUMIKA TRIMBLE MD, Ot Z90.710 ACQUIRED ABSENCE OF BOTH CERVIX AND UTER 03/17/2019 BHUMIKA TRIMBLE MD, Ot Z99.81 DEPENDENCE ON SUPPLEMENTAL OXYGEN Procedures Code Description Performed By Per formed On [id number] IN SERTION OF INFUSION DEV INTO SUP VENA 02/26/2019 [id number] IN SERTION OF ENDOTRACHEAL AIRWAY INTO TR 02/26/2019 [id number] RE SPIRATORY VENTILATION, 24- 96 CONSECUTI 02/26/2019 [id number] RE SPIRATORY VENTILATION, GREATER THAN 96 02/26/[id number] ROMEO OF RIGHT MAIN BRONCHUS, ENDO 03/02/[id number] ROMEO OF LEFT MAIN BRONCHUS, ENDO 03/02/2019 Results Test Result Range Complete blood count (CBC) with automate d white blood cell (WBC) differential - 08/13/18 14:37 Blood leukocytes automated count (number/volume) 6.0 10*3/uL 4.3-11.0 Blood erythrocytes automated count (number/volume) 4.44 10*6/uL 4.35-5.85 Venous blood hemoglobin measurement (mass/volume) 12.4 g/dL 11.5-16.0 Blood hematocrit (volume fraction) 38 % 35-52 Automated erythrocyte mean corpuscular volume 87 [ foz_us] 80-99 Automated erythrocyte mean corpuscular h emoglobin (mass per erythrocyte) 28 pg 25-34 Automated erythrocyte mean corpuscular h emoglobin concentration measurement (mass/volume) 32 g/dL 32-36 Automated erythrocyte distribution width ratio 16. 4 % 10.0- 14.5 Automated blood platelet count [...] 10*3 1.0-4.0 Blood monocytes automated count (number/volume) 0. 3 10*3 0.0-1.0 Automated eosinophil count 0.1 10*3/uL 0 .0-0.3 Automated blood basophil count (count/volume) 0.1 10*3/uL 0.0-0.1 PT panel in platelet poor plasma by coag ulation assay - 08/13/18 14:37 Prothrombin time (PT) in platelet poor plasma by coagu lation assay 12.8 s 12.2-14.7 INR in platelet poor plasma or blood by coagulation as say 0.9 0.8-1.4 Activated partial thromboplastin time (a PTT) in platelet poor plasma bycoagulation assay - 08/13/18 14:37 Activated partial thromboplastin time (a PTT) in platelet poor plasma bycoagulation assay 30 s 24-35 Blood lactic acid measurement (moles/vol ume) - 08/13/18 14:37 Blood lactic acid measurement (moles/volume) 3.01 mmol/L 0.50-2.00 Comprehensive metabolic panel - 08/13/18 14:37 Serum or plasma sodium measurement (moles/volume) 136 mmol/L 135-145 Serum or plasma potassium measurement (moles/volume) 4.4 mmol/L 3.6-5.0 Serum or plasma chloride measurement (moles/volume) 96 mmol/L 98-107 Carbon dioxide 29 mmol/L 21-32 Serum or plasma anion gap determination (moles/volume) 11 mmol/L 5-14 Serum or plasma urea nitrogen measurement (mass/volume ) 17 mg/dL 7-18 Serum or plasma creatinine measurement (mass/volume) 1.17 mg/dL 0.60-1.30 Serum or plasma urea nitrogen/creatinine mass ratio 15 NRG Serum or plasma creatinine measurement w ith calculation of estimated glomerular filtration rate 48 NRG Serum or plasma glucose measurement (mass/volume) 286 mg/dL 70-105 Serum or plasma calcium measurement (mass/volume) 9.9 mg/dL 8.5-10.1 Serum or plasma total bilirubin measurement (mass/volu me) 1.0 mg/dL 0.1-1.0 Serum or plasma alkaline phosphatase lara surement (enzymatic activity/volume) 65 U/L 40-136 Serum or plasma aspartate aminotransfera se measurement (enzymatic activity/volume) 13 U/L 5-34 Serum or plasma alanine aminotransferase measurement (enzymatic activity/volume) 16 U/L 0-55 Serum or plasma protein measurement (mass/volume) 7.2 g/dL 6.4-8.2 Serum or plasma albumin measurement (mass/volume) 4.2 g/dL 3.2-4.5 CALCIUM CORRECTED 9.7 mg/dL 8.5-10.1 Serum or plasma lithium measurement (mol es/volume) - 08/13/18 14:37 BNP level < pg/mL <100.0 Bacterial blood culture - 08/13/18 14:37 Bacterial blood culture NG NRG Complete urinalysis with reflex to cultu re - 08/13/18 14:54 Urine color determination YELLOW NRG Urine clarity determination SLIGHTLY CLOUDY NRG Urine pH measurement by test strip 6 5-9 Specific gravity of urine by test strip 1.015 1.016-1.022 Urine protein assay by test strip, semi-quantitative 3+ NEGATIVE Urine glucose detection by automated test strip NE GATIVE NEGATIVE Erythrocytes detection in urine sediment by light micr oscopy 4+ NEGATIVE Urine ketones detection by automated test strip NE GATIVE NEGATIVE Urine nitrite detection by test strip NEGATIVE NEGATIVE Urine total bilirubin detection by test strip NEGA TIVE NEGATIVE Urine urobilinogen measurement by automated test strip (mass/volume) NORMAL NORMAL Urine leukocyte esterase detection by dipstick 3+ NEGATIVE Automated urine sediment erythrocyte cou nt by microscopy (number/high power field) RARE NRG Automated urine sediment leukocyte count by microscopy (number/high power field) RARE NRG Bacteria detection in urine sediment by light microsco py TRACE NRG Crystals detection in urine sediment by light microsco py NONE NRG Casts detection in urine sediment by light microscopy NONE NRG Mucus detection in urine sediment by light microscopy NEGATIVE NRG Complete urinalysis with reflex to culture NO NRG Bacterial urine culture - 08/13/18 14:54 Bacterial urine culture [id number] NRG COLONY COUNT >100,000/ML NRG FTX;REPORTABLE SEE COMMENTS NRG Bacterial blood culture - 08/13/18 14:57 Bacterial blood culture NG NRG Serum or plasma lactate measurement (mol es/volume) - 08/13/18 16:26 Serum or plasma lactate measurement (moles/volume) 2.30 mmol/L 0.50-2.00 CULTURE, URINE - 08/31/18 12:13 CULTURE, URINE, ROUTINE SEE NOTE NRG LIPID PANEL - 09/07/18 10:57 CHOLESTEROL, TOTAL 343 mg/dL <200 HDL CHOLESTEROL 54 mg/dL >50 TRIGLYCERIDES 450 mg/dL <150 LDL-CHOLESTEROL mg/dL (calc) NRG CHOL/HDLC RATIO 6.4 (calc) <5.0 NON HDL CHOLESTEROL 289 mg/dL (calc) <13 0 Complete urinalysis with reflex to cultu re - 10/13/18 14:44 Urine color determination YELLOW NRG Urine clarity determination SL CLOUDY N RG Urine pH measurement by test strip 6.5 5-9 Specific gravity of urine by test strip 1.020 1.016-1.022 Urine protein assay by test strip, semi-quantitative 2+ NEGATIVE Urine glucose detection by automated test strip NE GATIVE NEGATIVE Erythrocytes detection in urine sediment by light micr oscopy NEGATIVE NEGATIVE Urine ketones detection by automated test strip NE GATIVE NEGATIVE Urine nitrite detection by test strip NEGATIVE NEGATIVE Urine total bilirubin detection by test strip NEGA TIVE NEGATIVE Urine urobilinogen measurement by automated test strip (mass/volume) 0.2 mg/dL NORMAL Urine leukocyte esterase detection by dipstick 1+ NEGATIVE Automated urine sediment erythrocyte cou nt by microscopy (number/high power field) RARE NRG Automated urine sediment leukocyte count by microscopy (number/high power field) [HPF] NRG Bacteria detection in urine sediment by light microsco py MODERATE NRG Squamous epithelial cells detection in u rine sediment by light microscopy >50 NRG Crystals detection in urine sediment by light microsco py NONE NRG Casts detection in urine sediment by light microscopy NONE NRG Mucus detection in urine sediment by light microscopy NEGATIVE NRG Complete urinalysis with reflex to culture YES NRG Bacterial urine culture - 10/13/18 14:44 Bacterial urine culture 3 OR MORE NRG COLONY COUNT 30,000 CFU/ML NRG FTX;REPORTABLE GRAM POSITIVE ISOLATES; SUGGESTING NRG FREE TEXT ENTRY 2 PROBABLE COLLECTION CONTAMINATIO N WITH NRG FREE TEXT ENTRY 3 SKIN JAEL. NO SUSCEPTIBILITY PE RFORMED. NRG Complete blood count (CBC) with automate d white blood cell (WBC) differential - 10/13/18 14:56 Blood leukocytes automated count (number/volume) 4.9 10*3/uL 4.3-11.0 Blood erythrocytes automated count (number/volume) 4.17 10*6/uL 4.35-5.85 Venous blood hemoglobin measurement (mass/volume) 12.4 g/dL 11.5-16.0 Blood hematocrit (volume fraction) 39 % 35-52 Automated erythrocyte mean corpuscular volume 95 [ foz_us] 80-99 Automated erythrocyte mean corpuscular h emoglobin (mass per erythrocyte) 30 pg 25-34 Automated erythrocyte mean corpuscular h emoglobin concentration measurement (mass/volume) 32 g/dL 32-36 Automated erythrocyte distribution width ratio 14. 8 % 10.0- 14.5 Automated blood platelet count [...] 10*3 1.0-4.0 Blood monocytes automated count (number/volume) 0. 3 10*3 0.0-1.0 Automated eosinophil count 0.1 10*3/uL 0 .0-0.3 Automated blood basophil count (count/volume) 0.0 10*3/uL 0.0-0.1 Comprehensive metabolic panel - 10/13/18 14:56 Serum or plasma sodium measurement (moles/volume) 136 mmol/L 135-145 Serum or plasma potassium measurement (moles/volume) 4.4 mmol/L 3.6-5.0 Serum or plasma chloride measurement (moles/volume) 89 mmol/L 98-107 Carbon dioxide 33 mmol/L 21-32 Serum or plasma anion gap determination (moles/volume) 14 mmol/L 5-14 Serum or plasma urea nitrogen measurement (mass/volume ) 26 mg/dL 7-18 Serum or plasma creatinine measurement (mass/volume) 1.04 mg/dL 0.60-1.30 Serum or plasma urea nitrogen/creatinine mass ratio 25 NRG Serum or plasma creatinine measurement w ith calculation of estimated glomerular filtration rate 55 NRG Serum or plasma glucose measurement (mass/volume) 280 mg/dL 70-105 Serum or plasma calcium measurement (mass/volume) 9.5 mg/dL 8.5-10.1 Serum or plasma total bilirubin measurement (mass/volu me) 0.6 mg/dL 0.1-1.0 Serum or plasma alkaline phosphatase lara surement (enzymatic activity/volume) 78 U/L 40-136 Serum or plasma aspartate aminotransfera se measurement (enzymatic activity/volume) 12 U/L 5-34 Serum or plasma alanine aminotransferase measurement (enzymatic activity/volume) 13 U/L 0-55 Serum or plasma protein measurement (mass/volume) 7.6 g/dL 6.4-8.2 Serum or plasma albumin measurement (mass/volume) 4.4 g/dL 3.2-4.5 CALCIUM CORRECTED 9.2 mg/dL 8.5-10.1 PROBNP FS - 10/13/18 14:56 PROBNP FS 18.7 pg/mL <75.0 THYROID STIMULATING HORMONE - 10/13/18 1 4:56 THYROID STIMULATING HORMONE 59.15 u[iU]/mL 0.35-4.94 CULTURE, URINE - 10/19/18 11:46 CULTURE, URINE, ROUTINE SEE NOTE NRG Complete blood count (CBC) with automate d white blood cell (WBC) differential - 11/05/18 12:28 Blood leukocytes automated count (number/volume) 7.1 10*3/uL 4.3-11.0 Blood erythrocytes automated count (number/volume) 4.43 10*6/uL 4.35-5.85 Venous blood hemoglobin measurement (mass/volume) 12.6 g/dL 11.5-16.0 Blood hematocrit (volume fraction) 42 % 35-52 Automated erythrocyte mean corpuscular volume 94 [ foz_us] 80-99 Automated erythrocyte mean corpuscular h emoglobin (mass per erythrocyte) 28 pg 25-34 Automated erythrocyte mean corpuscular h emoglobin concentration measurement (mass/volume) 30 g/dL 32-36 Automated erythrocyte distribution width ratio 13. 7 % 10.0- 14.5 Automated blood platelet count (count/volume) 216 10*3/uL 130-400 Automated blood platelet mean volume measurement 10.2 [foz_us] 7.4-10.4 Automated blood neutrophils/100 leukocytes 68 % 42-75 Automated blood lymphocytes/100 leukocytes 25 % 12-44 Blood monocytes/100 leukocytes 4 % 0-12 Automated blood eosinophils/100 leukocytes 1 % 0-10 Automated blood basophils/100 leukocytes 1 % 0-10 Blood neutrophils automated count (number/volume) 4.8 10*3 1.8-7.8 Blood lymphocytes automated count (number/volume) 1.8 10*3 1.0-4.0 Blood monocytes automated count (number/volume) 0. 3 10*3 0.0-1.0 Automated eosinophil count 0.1 10*3/uL 0 .0-0.3 Automated blood basophil count (count/volume) 0.1 10*3/uL 0.0-0.1 PT panel in platelet poor plasma by coag ulation assay - 11/05/18 12:28 Prothrombin time (PT) in platelet poor plasma by coagu lation assay 14.5 s 12.2-14.7 INR in platelet poor plasma or blood by coagulation as say 1.1 0.8-1.4 Activated partial thromboplastin time (a PTT) in platelet poor plasma bycoagulation assay - 11/05/18 12:28 Activated partial thromboplastin time (a PTT) in platelet poor plasma bycoagulation assay 30 s 24-35 Comprehensive metabolic panel - 11/05/18 12:28 Serum or plasma sodium measurement (moles/volume) 138 mmol/L 135-145 Serum or plasma potassium measurement (moles/volume) 4.8 mmol/L 3.6-5.0 Serum or plasma chloride measurement (moles/volume) 93 mmol/L 98-107 Carbon dioxide 33 mmol/L 21-32 Serum or plasma anion gap determination (moles/volume) 12 mmol/L 5-14 Serum or plasma urea nitrogen measurement (mass/volume ) 22 mg/dL 7-18 Serum or plasma creatinine measurement (mass/volume) 0.92 mg/dL 0.60-1.30 Serum or plasma urea nitrogen/creatinine mass ratio 24 NRG Serum or plasma creatinine measurement w ith calculation of estimated glomerular filtration rate > NRG Serum or plasma glucose measurement (mass/volume) 326 mg/dL 70-105 Serum or plasma calcium measurement (mass/volume) 10.1 mg/dL 8.5-10.1 Serum or plasma total bilirubin measurement (mass/volu me) 1.1 mg/dL 0.1-1.0 Serum or plasma alkaline phosphatase lara surement (enzymatic activity/volume) 85 U/L 40-136 Serum or plasma aspartate aminotransfera se measurement (enzymatic activity/volume) 13 U/L 5-34 Serum or plasma alanine aminotransferase measurement (enzymatic activity/volume) 16 U/L 0-55 Serum or plasma protein measurement (mass/volume) 7.5 g/dL 6.4-8.2 Serum or plasma albumin measurement (mass/volume) 4.5 g/dL 3.2-4.5 CALCIUM CORRECTED 9.7 mg/dL 8.5-10.1 Magnesium - 11/05/18 12:28 Magnesium 1.5 mg/dL 1.6-2.4 Serum or plasma troponin i.cardiac measu rement (mass/volume) - 11/05/18 12:28 Serum or plasma troponin i.cardiac measurement (mass/v olume) < ng/mL <0.30 PROBNP FS - 11/05/18 12:28 PROBNP FS 17.9 pg/mL <75.0 Complete urinalysis with reflex to cultu re - 11/05/18 12:58 Urine color determination YELLOW NRG Urine clarity determination CLEAR NR G Urine pH measurement by test strip 6.5 5-9 Specific gravity of urine by test strip 1.025 1.016-1.022 Urine protein assay by test strip, semi-quantitative 1+ NEGATIVE Urine glucose detection by automated test strip NE GATIVE NEGATIVE Erythrocytes detection in urine sediment by light micr oscopy NEGATIVE NEGATIVE Urine ketones detection by automated test strip NE GATIVE NEGATIVE Urine nitrite detection by test strip NEGATIVE NEGATIVE Urine total bilirubin detection by test strip NEGA TIVE NEGATIVE Urine urobilinogen measurement by automated test strip (mass/volume) 0.2 mg/dL NORMAL Urine leukocyte esterase detection by dipstick TRA CE NEGATIVE Automated urine sediment erythrocyte cou nt by microscopy (number/high power field) NONE NRG Automated urine sediment leukocyte count by microscopy (number/high power field) [HPF] NRG Bacteria detection in urine sediment by light microsco py MODERATE NRG Squamous epithelial cells detection in u rine sediment by light microscopy >50 NRG Crystals detection in urine sediment by light microsco py NONE NRG Casts detection in urine sediment by light microscopy NONE NRG Mucus detection in urine sediment by light microscopy SMALL NRG Complete urinalysis with reflex to culture YES NRG Bacterial urine culture - 11/05/18 12:58 Bacterial urine culture 3 OR MORE NRG COLONY COUNT 80,000 CFU/ML NRG FTX;REPORTABLE SUGGESTING PROBABLE COLLECTION NRG FREE TEXT ENTRY 2 CONTAMINATION WITH SKIN JAEL NRG FREE TEXT ENTRY 3 NO SUSCEPTIBILITY PERFORMED NRG Arterial blood gas measurement - 9 15:17 Blood pCO2 54 mm[Hg] 35-45 Blood pO2 87 mm[Hg] 79-93 Arterial blood bicarbonate measurement (moles/volume) 31 mmol/L 23-27 Arterial blood base excess by calculation 5.6 mmol /L -2.5-2.5 Arterial blood oxygen saturation measurement 95 % 94-100 * Inhaled oxygen flow rate 3 NRG Arterial blood pH measurement with patient temperature correction 7.38 7.37-7.43 Arterial blood carbon dioxide, total measurement (mole s/volume) 32.3 mmol/L 21.0-31.0 Body site LR NRG Assessment of wrist artery patency prior to arterial p uncture YES-POS NRG Setting of ventilation mode NO NR G Measurement of body temperature 36.9 NRG CMP - 12/31/18 13:00 GLUCOSE 204 mg/dL 65-99 UREA NITROGEN (BUN) 20 mg/dL 7-25 CREATININE 0.86 mg/dL 0.50-1.05 eGFR NON-AFR. VINCENTIAN 75 mL/min/1.73m2 > OR = 60 eGFR 87 mL/min/1.73m2 > OR = 60 BUN/CREATININE RATIO NOT APPLICABLE (calc) 6-22 SODIUM 137 mmol/L 135-146 POTASSIUM 4.9 mmol/L 3.5-5.3 CHLORIDE 95 mmol/L 98-110 CARBON DIOXIDE 34 mmol/L 20-32 CALCIUM 9.4 mg/dL 8.6-10.4 PROTEIN, TOTAL 6.7 g/dL 6.1-8.1 ALBUMIN 4.1 g/dL 3.6-5.1 GLOBULIN 2.6 g/dL (calc) 1.9-3.7 ALBUMIN/GLOBULIN RATIO 1.6 (calc) 1.0-2. 5 BILIRUBIN, TOTAL 0.6 mg/dL 0.2-1.2 ALKALINE PHOSPHATASE 55 U/L 33-130 AST 7 U/L 10-35 ALT 6 U/L 6-29 CBC - 12/31/18 13:00 WHITE BLOOD CELL COUNT 7.6 Thousand/uL 3 .8-10.8 RED BLOOD CELL COUNT 4.15 Million/uL 3.8 0-5.10 HEMOGLOBIN 11.3 g/dL 11.7-15.5 HEMATOCRIT 37.2 % 35.0-45.0 MCV 89.6 fL 80.0-100.0 MCH 27.2 pg 27.0-33.0 MCHC 30.4 g/dL 32.0-36.0 RDW 13.6 % 11.0-15.0 PLATELET COUNT 300 Thousand/uL 140-400 MPV 10.3 fL 7.5-12.5 ABSOLUTE NEUTROPHILS 5495 cells/uL 1500- 7800 ABSOLUTE LYMPHOCYTES 1444 cells/uL 850-3 900 ABSOLUTE MONOCYTES 372 cells/uL 200-950 ABSOLUTE EOSINOPHILS 228 cells/uL 15-500 ABSOLUTE BASOPHILS 61 cells/uL 0-200 NEUTROPHILS 72.3 % NRG LYMPHOCYTES 19.0 % NRG MONOCYTES 4.9 % NRG EOSINOPHILS 3.0 % NRG BASOPHILS 0.8 % NRG TSH - 12/31/18 13:00 TSH 37.58 mIU/L 0.40-4.50 A1C - 12/31/18 13:00 HEMOGLOBIN A1c 11.6 % of total Hgb <5.7 TSH - 01/21/19 10:08 TSH 41.29 mIU/L 0.40-4.50 Complete blood count (CBC) with automate d white blood cell (WBC) differential - 02/25/19 10:24 Blood leukocytes automated count (number/volume) 5.9 10*3/uL 4.3-11.0 Blood erythrocytes automated count (number/volume) 3.91 10*6/uL 4.35-5.85 Venous blood hemoglobin measurement (mass/volume) 10.3 g/dL 11.5-16.0 Blood hematocrit (volume fraction) 36 % 35-52 Automated erythrocyte mean corpuscular volume 93 [ foz_us] 80-99 Automated erythrocyte mean corpuscular h emoglobin (mass per erythrocyte) 26 pg 25-34 Automated erythrocyte mean corpuscular h emoglobin concentration measurement (mass/volume) 28 g/dL 32-36 Automated erythrocyte distribution width ratio 16. 0 % 10.0- 14.5 Automated blood platelet count (count/volume) 242 10*3/uL 130-400 Automated blood platelet mean volume measurement 10.4 [foz_us] 7.4-10.4 Automated blood neutrophils/100 leukocytes 70 % 42-75 Automated blood lymphocytes/100 leukocytes 21 % 12-44 Blood monocytes/100 leukocytes 6 % 0-12 Automated blood eosinophils/100 leukocytes 3 % 0-10 Automated blood basophils/100 leukocytes 1 % 0-10 Blood neutrophils automated count (number/volume) 4.1 10*3 1.8-7.8 Blood lymphocytes automated count (number/volume) 1.2 10*3 1.0-4.0 Blood monocytes automated count (number/volume) 0. 4 10*3 0.0-1.0 Automated eosinophil count 0.2 10*3/uL 0 .0-0.3 Automated blood basophil count (count/volume) 0.0 10*3/uL 0.0-0.1 Blood lactic acid measurement (moles/vol ume) - 02/25/19 10:24 Blood lactic acid measurement (moles/volume) 1.68 mmol/L 0.50-2.00 Comprehensive metabolic panel - 02/25/19 10:24 Serum or plasma sodium measurement (moles/volume) 138 mmol/L 135-145 Serum or plasma potassium measurement (moles/volume) 4.9 mmol/L 3.6-5.0 Serum or plasma chloride measurement (moles/volume) 94 mmol/L 98-107 Carbon dioxide 36 mmol/L 21-32 Serum or plasma anion gap determination (moles/volume) 8 mmol/L 5-14 Serum or plasma urea nitrogen measurement (mass/volume ) 27 mg/dL 7-18 Serum or plasma creatinine measurement (mass/volume) 0.99 mg/dL 0.60-1.30 Serum or plasma urea nitrogen/creatinine mass ratio 27 NRG Serum or plasma creatinine measurement w ith calculation of estimated glomerular filtration rate 58 NRG Serum or plasma glucose measurement (mass/volume) 308 mg/dL 70-105 Serum or plasma calcium measurement (mass/volume) 9.2 mg/dL 8.5-10.1 Serum or plasma total bilirubin measurement (mass/volu me) 0.4 mg/dL 0.1-1.0 Serum or plasma alkaline phosphatase lara surement (enzymatic activity/volume) 51 U/L 40-136 Serum or plasma aspartate aminotransfera se measurement (enzymatic activity/volume) 9 U/L 5-34 Serum or plasma alanine aminotransferase measurement (enzymatic activity/volume) 7 U/L 0-55 Serum or plasma protein measurement (mass/volume) 6.9 g/dL 6.4-8.2 Serum or plasma albumin measurement (mass/volume) 3.9 g/dL 3.2-4.5 CALCIUM CORRECTED 9.3 mg/dL 8.5-10.1 Arterial blood gas measurement - 9 11:56 Blood pCO2 89 mm[Hg] 35-45 Blood pO2 39 mm[Hg] 79-93 Arterial blood bicarbonate measurement (moles/volume) 45 mmol/L 23-27 Arterial blood base excess by calculation 14.6 mmo l/L -2.5-2.5 Arterial blood oxygen saturation measurement 68 % 94-100 * Inhaled oxygen flow rate 2.5 NRG Arterial blood pH measurement with patient temperature correction 7.31 7.37-7.43 Arterial blood carbon dioxide, total measurement (mole s/volume) 47.5 mmol/L 21.0-31.0 Body site R RADIAL NRG Assessment of wrist artery patency prior to arterial p uncture POSITIVE NRG Setting of ventilation mode NO NR G Measurement of body temperature 36.3 NRG Complete urinalysis with reflex to cultu re - 02/25/19 12:16 Urine color determination YELLOW NRG Urine clarity determination CLEAR NR G Urine pH measurement by test strip 6.0 5-9 Specific gravity of urine by test strip 1.015 1.016-1.022 Urine protein assay by test strip, semi-quantitative NEGATIVE NEGATIVE Urine glucose detection by automated test strip NE GATIVE NEGATIVE Erythrocytes detection in urine sediment by light micr oscopy NEGATIVE NEGATIVE Urine ketones detection by automated test strip NE GATIVE NEGATIVE Urine nitrite detection by test strip NEGATIVE NEGATIVE Urine total bilirubin detection by test strip NEGA TIVE NEGATIVE Urine urobilinogen measurement by automated test strip (mass/volume) 0.2 mg/dL < = 1.0 Urine leukocyte esterase detection by dipstick TRA CE NEGATIVE Automated urine sediment erythrocyte cou nt by microscopy (number/high power field) NONE NRG Automated urine sediment leukocyte count by microscopy (number/high power field) [HPF] NRG Bacteria detection in urine sediment by light microsco py NEGATIVE NRG Squamous epithelial cells detection in u rine sediment by light microscopy 5-10 NRG Crystals detection in urine sediment by light microsco py NONE NRG Casts detection in urine sediment by light microscopy NONE NRG Mucus detection in urine sediment by light microscopy SMALL NRG Complete urinalysis with reflex to culture YES NRG Complete blood count (CBC) with automate d white blood cell (WBC) differential - 02/25/19 20:35 Blood leukocytes automated count (number/volume) 6.3 10*3/uL 4.3-11.0 Blood erythrocytes automated count (number/volume) 4.08 10*6/uL 4.35-5.85 Venous blood hemoglobin measurement (mass/volume) 10.8 g/dL 11.5-16.0 Blood hematocrit (volume fraction) 38 % 35-52 Automated erythrocyte mean corpuscular volume 93 [ foz_us] 80-99 Automated erythrocyte mean corpuscular h emoglobin (mass per erythrocyte) 26 pg 25-34 Automated erythrocyte mean corpuscular h emoglobin concentration measurement (mass/volume) 29 g/dL 32-36 Automated erythrocyte distribution width ratio 16. 0 % 10.0- 14.5 Automated blood platelet count (count/volume) 246 10*3/uL 130-400 Automated blood platelet mean volume measurement 10.1 [foz_us] 7.4-10.4 Automated blood neutrophils/100 leukocytes 67 % 42-75 Automated blood lymphocytes/100 leukocytes 22 % 12-44 Blood monocytes/100 leukocytes 7 % 0-12 Automated blood eosinophils/100 leukocytes 3 % 0-10 Automated blood basophils/100 leukocytes 1 % 0-10 Blood neutrophils automated count (number/volume) 4.2 10*3 1.8-7.8 Blood lymphocytes automated count (number/volume) 1.4 10*3 1.0-4.0 Blood monocytes automated count (number/volume) 0. 5 10*3 0.0-1.0 Automated eosinophil count 0.1 10*3/uL 0 .0-0.3 Automated blood basophil count (count/volume) 0.0 10*3/uL 0.0-0.1 Comprehensive metabolic panel - 02/25/19 20:35 Serum or plasma sodium measurement (moles/volume) 143 mmol/L 135-145 Serum or plasma potassium measurement (moles/volume) 5.2 mmol/L 3.6-5.0 Serum or plasma chloride measurement (moles/volume) 97 mmol/L 98-107 Carbon dioxide 36 mmol/L 21-32 Serum or plasma anion gap determination (moles/volume) 10 mmol/L 5-14 Serum or plasma urea nitrogen measurement (mass/volume ) 25 mg/dL 7-18 Serum or plasma creatinine measurement (mass/volume) 0.82 mg/dL 0.60-1.30 Serum or plasma urea nitrogen/creatinine mass ratio 30 NRG Serum or plasma creatinine measurement w ith calculation of estimated glomerular filtration rate > NRG Serum or plasma glucose measurement (mass/volume) 209 mg/dL 70-105 Serum or plasma calcium measurement (mass/volume) 9.6 mg/dL 8.5-10.1 Serum or plasma total bilirubin measurement (mass/volu me) 0.5 mg/dL 0.1-1.0 Serum or plasma alkaline phosphatase lara surement (enzymatic activity/volume) 54 U/L 40-136 Serum or plasma aspartate aminotransfera se measurement (enzymatic activity/volume) 9 U/L 5-34 Serum or plasma alanine aminotransferase measurement (enzymatic activity/volume) 8 U/L 0-55 Serum or plasma protein measurement (mass/volume) 7.4 g/dL 6.4-8.2 Serum or plasma albumin measurement (mass/volume) 4.1 g/dL 3.2-4.5 CALCIUM CORRECTED 9.5 mg/dL 8.5-10.1 Magnesium - 02/25/19 20:35 Magnesium 1.5 mg/dL 1.6-2.4 TROPONIN I FS - 02/25/19 20:35 TROPONIN I FS < 0.30 <0.30 PROBNP FS - 02/25/19 20:35 PROBNP FS 36.1 pg/mL <75.0 Blood lactic acid measurement (moles/vol ume) - 02/25/19 20:40 Blood lactic acid measurement (moles/volume) 2.52 mmol/L 0.50-2.00 Arterial blood gas measurement - 9 21:01 Blood pCO2 81 mm[Hg] 35-45 Blood pO2 59 mm[Hg] 79-93 Arterial blood bicarbonate measurement (moles/volume) 43 mmol/L 23-27 Arterial blood base excess by calculation 13.3 mmo l/L -2.5-2.5 Arterial blood oxygen saturation measurement 88 % 94-100 * Inhaled oxygen flow rate 32% NRG Arterial blood pH measurement with patient temperature correction 7.33 7.37-7.43 Arterial blood carbon dioxide, total measurement (mole s/volume) 45.2 mmol/L 21.0-31.0 Body site LT RAD NRG Assessment of wrist artery patency prior to arterial p uncture YES-POS NRG Setting of ventilation mode NO NR G Measurement of body temperature 36.7 NRG Bacterial blood culture - 02/25/19 21:25 Bacterial blood culture NG NRG Bacterial blood culture - 02/25/19 21:45 Bacterial blood culture NG NRG Arterial blood gas measurement - 9 22:09 Blood pCO2 87 mm[Hg] 35-45 Blood pO2 66 mm[Hg] 79-93 Arterial blood bicarbonate measurement (moles/volume) 43 mmol/L 23-27 Arterial blood base excess by calculation 12.8 mmo l/L -2.5-2.5 Arterial blood oxygen saturation measurement 91 % 94-100 * Inhaled oxygen flow rate 55% NRG Arterial blood pH measurement with patient temperature correction 7.30 7.37-7.43 Arterial blood carbon dioxide, total measurement (mole s/volume) 45.5 mmol/L 21.0-31.0 Body site LT RAD NRG Assessment of wrist artery patency prior to arterial p uncture YES-POS NRG Setting of ventilation mode NO NR G Measurement of body temperature 36.7 NRG Arterial blood gas measurement - 9 00:46 Blood pCO2 78 mm[Hg] 35-45 Blood pO2 63 mm[Hg] 79-93 Arterial blood bicarbonate measurement (moles/volume) 38 mmol/L 23-27 Arterial blood base excess by calculation 10.8 mmo l/L -2.5-2.5 Arterial blood oxygen saturation measurement 91 % 94-100 * Inhaled oxygen flow rate 75% BIPAP NR G Arterial blood pH measurement with patient temperature correction 7.30 7.37-7.43 Arterial blood carbon dioxide, total measurement (mole s/volume) 40.0 mmol/L 21.0-31.0 Body site LEFT RADIAL NRG Assessment of wrist artery patency prior to arterial p uncture POSITIVE NRG Setting of ventilation mode NO NR G Measurement of body temperature 36.1 NRG Sputum Gram stain - 02/26/19 01:40 Sputum Gram stain No bacteria seen NRG Bacterial sputum culture - 02/26/19 01:4 0 FREE TEXT EXTERNAL SMALL AMOUNT NRG QUANTITY OF GROWTH . NRG Bacterial sputum culture USUAL RESP NRG Complete blood count (CBC) with automate d white blood cell (WBC) differential - 02/26/19 02:50 Blood leukocytes automated count (number/volume) 6.5 10*3/uL 4.3-11.0 Blood erythrocytes automated count (number/volume) 3.92 10*6/uL 4.35-5.85 Venous blood hemoglobin measurement (mass/volume) 10.3 g/dL 11.5-16.0 Blood hematocrit (volume fraction) 36 % 35-52 Automated erythrocyte mean corpuscular volume 91 [ foz_us] 80-99 Automated erythrocyte mean corpuscular h emoglobin (mass per erythrocyte) 26 pg 25-34 Automated erythrocyte mean corpuscular h emoglobin concentration measurement (mass/volume) 29 g/dL 32-36 Automated erythrocyte distribution width ratio 16. 3 % 10.0- 14.5 Automated blood platelet count (count/volume) 233 10*3/uL 130-400 Automated blood platelet mean volume measurement 10.2 [foz_us] 7.4-10.4 Automated blood neutrophils/100 leukocytes 90 % 42-75 Automated blood lymphocytes/100 leukocytes 7 % 12-44 Blood monocytes/100 leukocytes 1 % 0-12 Automated blood eosinophils/100 leukocytes 1 % 0-10 Automated blood basophils/100 leukocytes 1 % 0-10 Blood neutrophils automated count (number/volume) 5.8 10*3 1.8-7.8 Blood lymphocytes automated count (number/volume) 0.5 10*3 1.0-4.0 Blood monocytes automated count (number/volume) 0. 1 10*3 0.0-1.0 Automated eosinophil count 0.0 10*3/uL 0 .0-0.3 Automated blood basophil count (count/volume) 0.0 10*3/uL 0.0-0.1 Blood lactic acid measurement (moles/vol ume) - 02/26/19 02:50 Blood lactic acid measurement (moles/volume) 1.07 mmol/L 0.50-2.00 Comprehensive metabolic panel - 02/26/19 02:50 Serum or plasma sodium measurement (moles/volume) 141 mmol/L 135-145 Serum or plasma potassium measurement (moles/volume) 5.8 mmol/L 3.6-5.0 Serum or plasma chloride measurement (moles/volume) 99 mmol/L 98-107 Carbon dioxide 29 mmol/L 21-32 Serum or plasma anion gap determination (moles/volume) 13 mmol/L 5-14 Serum or plasma urea nitrogen measurement (mass/volume ) 23 mg/dL 7-18 Serum or plasma creatinine measurement (mass/volume) 0.84 mg/dL 0.60-1.30 Serum or plasma urea nitrogen/creatinine mass ratio 27 NRG Serum or plasma creatinine measurement w ith calculation of estimated glomerular filtration rate > NRG Serum or plasma glucose measurement (mass/volume) 316 mg/dL 70-105 Serum or plasma calcium measurement (mass/volume) 8.5 mg/dL 8.5-10.1 Serum or plasma total bilirubin measurement (mass/volu me) 0.9 mg/dL 0.1-1.0 Serum or plasma alkaline phosphatase lara surement (enzymatic activity/volume) 49 U/L 40-136 Serum or plasma aspartate aminotransfera se measurement (enzymatic activity/volume) 12 U/L 5-34 Serum or plasma alanine aminotransferase measurement (enzymatic activity/volume) 10 U/L 0-55 Serum or plasma protein measurement (mass/volume) 6.6 g/dL 6.4-8.2 Serum or plasma albumin measurement (mass/volume) 3.9 g/dL 3.2-4.5 CALCIUM CORRECTED 8.6 mg/dL 8.5-10.1 Serum or plasma phosphate measurement (m ass/volume) - 02/26/19 02:50 Serum or plasma phosphate measurement (mass/volume) 3.0 mg/dL 2.3-4.7 Magnesium - 02/26/19 02:50 Magnesium 1.4 mg/dL 1.6-2.4 Serum or plasma lithium measurement (mol es/volume) - 02/26/19 02:50 BNP PT < 10.0 <100.0 PROCALCITONIN (PCT) - 02/26/19 02:50 PROCALCITONIN (PCT) 0.03 ng/mL <0.10 Serum or plasma troponin i.cardiac measu rement (mass/volume) - 02/26/19 02:50 Serum or plasma troponin i.cardiac measurement (mass/v olume) < ng/mL <0.028 Manual absolute plasma cell count - 10/08 02:50 Blood monocytes/100 leukocytes 2 % NRG Manual blood segmented neutrophils/100 leukocytes 92 % NRG Manual blood lymphocytes/100 leukocytes 6 % NRG Serum or plasma triglyceride measurement (mass/volume) - 02/26/19 02:50 Serum or plasma triglyceride measurement (mass/volume) 131 mg/dL <150 IONIZED CALCIUM (SEND OFF) - 02/26/19 02 :50 Blood ionized calcium measurement (mass/volume) 1. 13 % 1.16- 1.32 Venous blood ionized calcium measurement adjusted to pH 7.4 (moles/volume) 1.08 % 1.16-1.32 pH measurement 7.33 NRG Arterial blood gas measurement - 9 03:30 Blood pCO2 64 mm[Hg] 35-45 Blood pO2 57 mm[Hg] 79-93 Arterial blood bicarbonate measurement (moles/volume) 35 mmol/L 23-27 Arterial blood base excess by calculation 8.9 mmol /L -2.5-2.5 Arterial blood oxygen saturation measurement 89 % 94-100 * Inhaled oxygen flow rate 100% NRG Arterial blood pH measurement with patient temperature correction 7.35 7.37-7.43 Arterial blood carbon dioxide, total measurement (mole s/volume) 36.7 mmol/L 21.0-31.0 Body site LEFT RADIAL NRG Assessment of wrist artery patency prior to arterial p uncture POSITIVE NRG Setting of ventilation mode YES NR G Measurement of body temperature 36.2 NRG Capillary blood glucose measurement by g lucometer (mass/volume) - 02/26/19 04:35 Capillary blood glucose measurement by glucometer (mas s/volume) 382 mg/dL 70-110 Methicillin resistant Staphylococcus aur eus (MRSA) screening culture - 02/26/19 05:04 Methicillin resistant Staphylococcus aureus (MRSA) scr eening culture NEG NRG Capillary blood glucose measurement by g lucometer (mass/volume) - 02/26/19 09:10 Capillary blood glucose measurement by glucometer (mas s/volume) 353 mg/dL 70-110 Arterial blood gas measurement - 9 09:40 Blood pCO2 64 mm[Hg] 35-45 Blood pO2 33 mm[Hg] 79-93 Arterial blood bicarbonate measurement (moles/volume) 37 mmol/L 23-27 Arterial blood base excess by calculation 11.4 mmo l/L -2.5-2.5 Arterial blood oxygen saturation measurement 58 % 94-100 * Inhaled oxygen flow rate 100% NRG Arterial blood pH measurement with patient temperature correction 7.38 7.37-7.43 Arterial blood carbon dioxide, total measurement (mole s/volume) 39.0 mmol/L 21.0-31.0 Body site LT RAD NRG Assessment of wrist artery patency prior to arterial p uncture YES-POS NRG Setting of ventilation mode YES NR G Measurement of body temperature 36.4 NRG Complete blood count (CBC) with automate d white blood cell (WBC) differential - 02/26/19 11:57 Blood leukocytes automated count (number/volume) 7.2 10*3/uL 4.3-11.0 Blood erythrocytes automated count (number/volume) 3.88 10*6/uL 4.35-5.85 Venous blood hemoglobin measurement (mass/volume) 10.2 g/dL 11.5-16.0 Blood hematocrit (volume fraction) 35 % 35-52 Automated erythrocyte mean corpuscular volume 89 [ foz_us] 80-99 Automated erythrocyte mean corpuscular h emoglobin (mass per erythrocyte) 26 pg 25-34 Automated erythrocyte mean corpuscular h emoglobin concentration measurement (mass/volume) 30 g/dL 32-36 Automated erythrocyte distribution width ratio 16. 1 % 10.0- 14.5 Automated blood platelet count (count/volume) 245 10*3/uL 130-400 Automated blood platelet mean volume measurement 10.2 [foz_us] 7.4-10.4 Automated blood neutrophils/100 leukocytes 89 % 42-75 Automated blood lymphocytes/100 leukocytes 9 % 12-44 Blood monocytes/100 leukocytes 3 % 0-12 Automated blood eosinophils/100 leukocytes 0 % 0-10 Automated blood basophils/100 leukocytes 0 % 0-10 Blood neutrophils automated count (number/volume) 6.4 10*3 1.8-7.8 Blood lymphocytes automated count (number/volume) 0.6 10*3 1.0-4.0 Blood monocytes automated count (number/volume) 0. 2 10*3 0.0-1.0 Automated eosinophil count 0.0 10*3/uL 0 .0-0.3 Automated blood basophil count (count/volume) 0.0 10*3/uL 0.0-0.1 Comprehensive metabolic panel - 02/26/19 11:57 Serum or plasma sodium measurement (moles/volume) 141 mmol/L 135-145 Serum or plasma potassium measurement (moles/volume) 4.6 mmol/L 3.6-5.0 Serum or plasma chloride measurement (moles/volume) 95 mmol/L 98-107 Carbon dioxide 34 mmol/L 21-32 Serum or plasma anion gap determination (moles/volume) 12 mmol/L 5-14 Serum or plasma urea nitrogen measurement (mass/volume ) 25 mg/dL 7-18 Serum or plasma creatinine measurement (mass/volume) 1.01 mg/dL 0.60-1.30 Serum or plasma urea nitrogen/creatinine mass ratio 25 NRG Serum or plasma creatinine measurement w ith calculation of estimated glomerular filtration rate 56 NRG Serum or plasma glucose measurement (mass/volume) 357 mg/dL 70-105 Serum or plasma calcium measurement (mass/volume) 8.7 mg/dL 8.5-10.1 Serum or plasma total bilirubin measurement (mass/volu me) 0.6 mg/dL 0.1-1.0 Serum or plasma alkaline phosphatase lara surement (enzymatic activity/volume) 46 U/L 40-136 Serum or plasma aspartate aminotransfera se measurement (enzymatic activity/volume) 9 U/L 5-34 Serum or plasma alanine aminotransferase measurement (enzymatic activity/volume) 10 U/L 0-55 Serum or plasma protein measurement (mass/volume) 6.5 g/dL 6.4-8.2 Serum or plasma albumin measurement (mass/volume) 3.8 g/dL 3.2-4.5 CALCIUM CORRECTED 8.9 mg/dL 8.5-10.1 Serum or plasma phosphate measurement (m ass/volume) - 02/26/19 11:57 Serum or plasma phosphate measurement (mass/volume) 2.8 mg/dL 2.3-4.7 Magnesium - 02/26/19 11:57 Magnesium 1.5 mg/dL 1.6-2.4 Serum or plasma lithium measurement (mol es/volume) - 02/26/19 11:57 BNP PT 11.1 pg/mL <100.0 Capillary blood glucose measurement by g lucometer (mass/volume) - 02/26/19 12:01 Capillary blood glucose measurement by glucometer (mas s/volume) 348 mg/dL 70-110 Arterial blood gas measurement - 9 12:20 Blood pCO2 50 mm[Hg] 35-45 Blood pO2 59 mm[Hg] 79-93 Arterial blood bicarbonate measurement (moles/volume) 36 mmol/L 23-27 Arterial blood base excess by calculation 11.1 mmo l/L -2.5-2.5 Arterial blood oxygen saturation measurement 92 % 94-100 * Inhaled oxygen flow rate 60% NRG Arterial blood pH measurement with patient temperature correction 7.46 7.37-7.43 Arterial blood carbon dioxide, total measurement (mole s/volume) 37.3 mmol/L 21.0-31.0 Body site RT RAD NRG Assessment of wrist artery patency prior to arterial p uncture YES-POS NRG Setting of ventilation mode YES NR G Measurement of body temperature 36.4 NRG Capillary blood glucose measurement by g lucometer (mass/volume) - 02/26/19 16:12 Capillary blood glucose measurement by glucometer (mas s/volume) 340 mg/dL 70-110 Capillary blood glucose measurement by g lucometer (mass/volume) - 02/26/19 20:04 Capillary blood glucose measurement by glucometer (mas s/volume) 322 mg/dL 70-110 Capillary blood glucose measurement by g lucometer (mass/volume) - 02/26/19 23:42 Capillary blood glucose measurement by glucometer (mas s/volume) 307 mg/dL 70-110 Complete blood count (CBC) with automate d white blood cell (WBC) differential - 02/27/19 03:15 Blood leukocytes automated count (number/volume) 8.8 10*3/uL 4.3-11.0 Blood erythrocytes automated count (number/volume) 3.64 10*6/uL 4.35-5.85 Venous blood hemoglobin measurement (mass/volume) 9.8 g/dL 11.5-16.0 Blood hematocrit (volume fraction) 33 % 35-52 Automated erythrocyte mean corpuscular volume 90 [ foz_us] 80-99 Automated erythrocyte mean corpuscular h emoglobin (mass per erythrocyte) 27 pg 25-34 Automated erythrocyte mean corpuscular h emoglobin concentration measurement (mass/volume) 30 g/dL 32-36 Automated erythrocyte distribution width ratio 16. 2 % 10.0- 14.5 Automated blood platelet count (count/volume) 242 10*3/uL 130-400 Automated blood platelet mean volume measurement 10.6 [foz_us] 7.4-10.4 Automated blood neutrophils/100 leukocytes 82 % 42-75 Automated blood lymphocytes/100 leukocytes 9 % 12-44 Blood monocytes/100 leukocytes 8 % 0-12 Automated blood eosinophils/100 leukocytes 0 % 0-10 Automated blood basophils/100 leukocytes 0 % 0-10 Blood neutrophils automated count (number/volume) 7.2 10*3 1.8-7.8 Blood lymphocytes automated count (number/volume) 0.8 10*3 1.0-4.0 Blood monocytes automated count (number/volume) 0. 7 10*3 0.0-1.0 Automated eosinophil count 0.0 10*3/uL 0 .0-0.3 Automated blood basophil count (count/volume) 0.0 10*3/uL 0.0-0.1 Whole blood basic metabolic panel - 11/08 03:15 Serum or plasma sodium measurement (moles/volume) 139 mmol/L 135-145 Serum or plasma potassium measurement (moles/volume) 4.6 mmol/L 3.6-5.0 Serum or plasma chloride measurement (moles/volume) 96 mmol/L 98-107 Carbon dioxide 31 mmol/L 21-32 Serum or plasma anion gap determination (moles/volume) 12 mmol/L 5-14 Serum or plasma urea nitrogen measurement (mass/volume ) 28 mg/dL 7-18 Serum or plasma creatinine measurement (mass/volume) 0.98 mg/dL 0.60-1.30 Serum or plasma urea nitrogen/creatinine mass ratio 29 NRG Serum or plasma creatinine measurement w ith calculation of estimated glomerular filtration rate 58 NRG Serum or plasma glucose measurement (mass/volume) 305 mg/dL 70-105 Serum or plasma calcium measurement (mass/volume) 8.5 mg/dL 8.5-10.1 Serum or plasma phosphate measurement (m ass/volume) - 02/27/19 03:15 Serum or plasma phosphate measurement (mass/volume) 3.4 mg/dL 2.3-4.7 Magnesium - 02/27/19 03:15 Magnesium 1.6 mg/dL 1.6-2.4 Serum or plasma lithium measurement (mol es/volume) - 02/27/19 03:15 BNP PT < 10.0 <100.0 Arterial blood gas measurement - 9 03:50 Blood pCO2 62 mm[Hg] 35-45 Blood pO2 62 mm[Hg] 79-93 Arterial blood bicarbonate measurement (moles/volume) 36 mmol/L 23-27 Arterial blood base excess by calculation 10.4 mmo l/L -2.5-2.5 Arterial blood oxygen saturation measurement 87 % 94-100 * Inhaled oxygen flow rate 40% NRG Arterial blood pH measurement with patient temperature correction 7.38 7.37-7.43 Arterial blood carbon dioxide, total measurement (mole s/volume) 37.9 mmol/L 21.0-31.0 Body site RIGHT RADIAL NRG Assessment of wrist artery patency prior to arterial p uncture POSITIVE NRG Setting of ventilation mode YES NR G Measurement of body temperature 36.7 NRG Capillary blood glucose measurement by g lucometer (mass/volume) - 02/27/19 08:20 Capillary blood glucose measurement by glucometer (mas s/volume) 362 mg/dL 70-110 Vancomycin trough - 02/27/19 10:26 Vancomycin trough 27.3 ug/mL 10.0-20.0 Capillary blood glucose measurement by g lucometer (mass/volume) - 02/27/19 11:33 Capillary blood glucose measurement by glucometer (mas s/volume) 397 mg/dL 70-110 Capillary blood glucose measurement by g lucometer (mass/volume) - 02/27/19 15:28 Capillary blood glucose measurement by glucometer (mas s/volume) 378 mg/dL 70-110 Vancomycin trough - 02/27/19 17:49 Vancomycin trough 19.8 ug/mL 10.0-20.0 Capillary blood glucose measurement by g lucometer (mass/volume) - 02/27/19 20:24 Capillary blood glucose measurement by glucometer (mas s/volume) 425 mg/dL 70-110 Capillary blood glucose measurement by g lucometer (mass/volume) - 02/27/19 21:47 Capillary blood glucose measurement by glucometer (mas s/volume) 454 mg/dL 70-110 Capillary blood glucose measurement by g lucometer (mass/volume) - 02/27/19 23:39 Capillary blood glucose measurement by glucometer (mas s/volume) 425 mg/dL 70-110 Complete blood count (CBC) with automate d white blood cell (WBC) differential - 02/28/19 03:07 Blood leukocytes automated count (number/volume) 7.1 10*3/uL 4.3-11.0 Blood erythrocytes automated count (number/volume) 3.84 10*6/uL 4.35-5.85 Venous blood hemoglobin measurement (mass/volume) 10.1 g/dL 11.5-16.0 Blood hematocrit (volume fraction) 34 % 35-52 Automated erythrocyte mean corpuscular volume 88 [ foz_us] 80-99 Automated erythrocyte mean corpuscular h emoglobin (mass per erythrocyte) 26 pg 25-34 Automated erythrocyte mean corpuscular h emoglobin concentration measurement (mass/volume) 30 g/dL 32-36 Automated erythrocyte distribution width ratio 16. 1 % 10.0- 14.5 Automated blood platelet count (count/volume) 270 10*3/uL 130-400 Automated blood platelet mean volume measurement 10.6 [foz_us] 7.4-10.4 Automated blood neutrophils/100 leukocytes 87 % 42-75 Automated blood lymphocytes/100 leukocytes 7 % 12-44 Blood monocytes/100 leukocytes 6 % 0-12 Automated blood eosinophils/100 leukocytes 0 % 0-10 Automated blood basophils/100 leukocytes 0 % 0-10 Blood neutrophils automated count (number/volume) 6.2 10*3 1.8-7.8 Blood lymphocytes automated count (number/volume) 0.5 10*3 1.0-4.0 Blood monocytes automated count (number/volume) 0. 4 10*3 0.0-1.0 Automated eosinophil count 0.0 10*3/uL 0 .0-0.3 Automated blood basophil count (count/volume) 0.0 10*3/uL 0.0-0.1 Whole blood basic metabolic panel - 12/09 03:07 Serum or plasma sodium measurement (moles/volume) 137 mmol/L 135-145 Serum or plasma potassium measurement (moles/volume) 4.7 mmol/L 3.6-5.0 Serum or plasma chloride measurement (moles/volume) 96 mmol/L 98-107 Carbon dioxide 30 mmol/L 21-32 Serum or plasma anion gap determination (moles/volume) 11 mmol/L 5-14 Serum or plasma urea nitrogen measurement (mass/volume ) 25 mg/dL 7-18 Serum or plasma creatinine measurement (mass/volume) 1.06 mg/dL 0.60-1.30 Serum or plasma urea nitrogen/creatinine mass ratio 24 NRG Serum or plasma creatinine measurement w ith calculation of estimated glomerular filtration rate 53 NRG Serum or plasma glucose measurement (mass/volume) 444 mg/dL 70-105 Serum or plasma calcium measurement (mass/volume) 8.5 mg/dL 8.5-10.1 Serum or plasma phosphate measurement (m ass/volume) - 02/28/19 03:07 Serum or plasma phosphate measurement (mass/volume) 3.6 mg/dL 2.3-4.7 Magnesium - 02/28/19 03:07 Magnesium 1.8 mg/dL 1.6-2.4 Serum or plasma triglyceride measurement (mass/volume) - 02/28/19 03:07 Serum or plasma triglyceride measurement (mass/volume) 587 mg/dL <150 Arterial blood gas measurement - 9 03:37 Blood pCO2 59 mm[Hg] 35-45 Blood pO2 61 mm[Hg] 79-93 Arterial blood bicarbonate measurement (moles/volume) 35 mmol/L 23-27 Arterial blood base excess by calculation 9.5 mmol /L -2.5-2.5 Arterial blood oxygen saturation measurement 86 % 94-100 * Inhaled oxygen flow rate 50% NRG Arterial blood pH measurement with patient temperature correction 7.38 7.37-7.43 Arterial blood carbon dioxide, total measurement (mole s/volume) 36.7 mmol/L 21.0-31.0 Body site right radial NRG Assessment of wrist artery patency prior to arterial p uncture positive NRG Setting of ventilation mode YES NR G Measurement of body temperature 36.4 NRG Complete urinalysis with reflex to cultu re - 02/28/19 05:12 Urine color determination YELLOW NRG Urine clarity determination CLEAR NR G Urine pH measurement by test strip 6.5 5-9 Specific gravity of urine by test strip 1.025 1.016-1.022 Urine protein assay by test strip, semi-quantitative NEGATIVE NEGATIVE Urine glucose detection by automated test strip TR ENOCH NEGATIVE Erythrocytes detection in urine sediment by light micr oscopy NEGATIVE NEGATIVE Urine ketones detection by automated test strip NE GATIVE NEGATIVE Urine nitrite detection by test strip NEGATIVE NEGATIVE Urine total bilirubin detection by test strip NEGA TIVE NEGATIVE Urine urobilinogen measurement by automated test strip (mass/volume) 0.2 mg/dL < = 1.0 Urine leukocyte esterase detection by dipstick TRA CE NEGATIVE Automated urine sediment erythrocyte cou nt by microscopy (number/high power field) NONE NRG Automated urine sediment leukocyte count by microscopy (number/high power field) [HPF] NRG Bacteria detection in urine sediment by light microsco py FEW NRG Squamous epithelial cells detection in u rine sediment by light microscopy 25-50 NRG Crystals detection in urine sediment by light microsco py NONE NRG Casts detection in urine sediment by light microscopy NONE NRG Mucus detection in urine sediment by light microscopy NEGATIVE NRG Complete urinalysis with reflex to culture YES NRG Renal epithelial cells detection in urin e sediment by light microscopy NONE NRG Sputum Gram stain - 02/28/19 05:12 Sputum Gram stain No bacteria seen NRG Bacterial sputum culture - 02/28/19 05:1 2 Bacterial sputum culture NG NRG Bacterial urine culture - 02/28/19 05:12 Bacterial urine culture NG NRG Capillary blood glucose measurement by g lucometer (mass/volume) - 02/28/19 05:23 Capillary blood glucose measurement by glucometer (mas s/volume) 415 mg/dL 70-110 Capillary blood glucose measurement by g lucometer (mass/volume) - 02/28/19 06:49 Capillary blood glucose measurement by glucometer (mas s/volume) 394 mg/dL 70-110 Capillary blood glucose measurement by g lucometer (mass/volume) - 02/28/19 08:16 Capillary blood glucose measurement by glucometer (mas s/volume) 381 mg/dL 70-110 Capillary blood glucose measurement by g lucometer (mass/volume) - 02/28/19 10:10 Capillary blood glucose measurement by glucometer (mas s/volume) 353 mg/dL 70-110 Capillary blood glucose measurement by g lucometer (mass/volume) - 02/28/19 11:04 Capillary blood glucose measurement by glucometer (mas s/volume) 347 mg/dL 70-110 Capillary blood glucose measurement by g lucometer (mass/volume) - 02/28/19 12:05 Capillary blood glucose measurement by glucometer (mas s/volume) 312 mg/dL 70-110 Capillary blood glucose measurement by g lucometer (mass/volume) - 02/28/19 13:09 Capillary blood glucose measurement by glucometer (mas s/volume) 359 mg/dL 70-110 Capillary blood glucose measurement by g lucometer (mass/volume) - 02/28/19 15:13 Capillary blood glucose measurement by glucometer (mas s/volume) 270 mg/dL 70-110 Capillary blood glucose measurement by g lucometer (mass/volume) - 02/28/19 17:20 Capillary blood glucose measurement by glucometer (mas s/volume) 247 mg/dL 70-110 Capillary blood glucose measurement by g lucometer (mass/volume) - 02/28/19 18:09 Capillary blood glucose measurement by glucometer (mas s/volume) 259 mg/dL 70-110 Capillary blood glucose measurement by g lucometer (mass/volume) - 02/28/19 20:16 Capillary blood glucose measurement by glucometer (mas s/volume) 202 mg/dL 70-110 Capillary blood glucose measurement by g lucometer (mass/volume) - 02/28/19 22:40 Capillary blood glucose measurement by glucometer (mas s/volume) 174 mg/dL 70-110 Capillary blood glucose measurement by g lucometer (mass/volume) - 03/01/19 00:19 Capillary blood glucose measurement by glucometer (mas s/volume) 189 mg/dL 70-110 Capillary blood glucose measurement by g lucometer (mass/volume) - 03/01/19 02:33 Capillary blood glucose measurement by glucometer (mas s/volume) 163 mg/dL 70-110 Complete blood count (CBC) with automate d white blood cell (WBC) differential - 03/01/19 03:20 Blood leukocytes automated count (number/volume) 7.4 10*3/uL 4.3-11.0 Blood erythrocytes automated count (number/volume) 3.80 10*6/uL 4.35-5.85 Venous blood hemoglobin measurement (mass/volume) 10.1 g/dL 11.5-16.0 Blood hematocrit (volume fraction) 34 % 35-52 Automated erythrocyte mean corpuscular volume 90 [ foz_us] 80-99 Automated erythrocyte mean corpuscular h emoglobin (mass per erythrocyte) 27 pg 25-34 Automated erythrocyte mean corpuscular h emoglobin concentration measurement (mass/volume) 30 g/dL 32-36 Automated erythrocyte distribution width ratio 16. 5 % 10.0- 14.5 Automated blood platelet count (count/volume) 244 10*3/uL 130-400 Automated blood platelet mean volume measurement 10.6 [foz_us] 7.4-10.4 Automated blood neutrophils/100 leukocytes 68 % 42-75 Automated blood lymphocytes/100 leukocytes 22 % 12-44 Blood monocytes/100 leukocytes 10 % 0-12 Automated blood eosinophils/100 leukocytes 0 % 0-10 Automated blood basophils/100 leukocytes 0 % 0-10 Blood neutrophils automated count (number/volume) 5.0 10*3 1.8-7.8 Blood lymphocytes automated count (number/volume) 1.6 10*3 1.0-4.0 Blood monocytes automated count (number/volume) 0. 7 10*3 0.0-1.0 Automated eosinophil count 0.0 10*3/uL 0 .0-0.3 Automated blood basophil count (count/volume) 0.0 10*3/uL 0.0-0.1 Arterial blood gas measurement - 9 03:20 Blood pCO2 62 mm[Hg] 35-45 Blood pO2 73 mm[Hg] 79-93 Arterial blood bicarbonate measurement (moles/volume) 34 mmol/L 23-27 Arterial blood base excess by calculation 8.4 mmol /L -2.5-2.5 Arterial blood oxygen saturation measurement 91 % 94-100 * Inhaled oxygen flow rate 70 NRG Arterial blood pH measurement with patient temperature correction 7.35 7.37-7.43 Arterial blood carbon dioxide, total measurement (mole s/volume) 36.2 mmol/L 21.0-31.0 Body site RIGHT RADIAL NRG Assessment of wrist artery patency prior to arterial p uncture POSITIVE NRG Setting of ventilation mode YES NR G Measurement of body temperature 35.9 NRG Whole blood basic metabolic panel - 02/20 03:20 Serum or plasma sodium measurement (moles/volume) 140 mmol/L 135-145 Serum or plasma potassium measurement (moles/volume) 3.9 mmol/L 3.6-5.0 Serum or plasma chloride measurement (moles/volume) 100 mmol/L 98-107 Carbon dioxide 30 mmol/L 21-32 Serum or plasma anion gap determination (moles/volume) 10 mmol/L 5-14 Serum or plasma urea nitrogen measurement (mass/volume ) 27 mg/dL 7-18 Serum or plasma creatinine measurement (mass/volume) 0.77 mg/dL 0.60-1.30 Serum or plasma urea nitrogen/creatinine mass ratio 35 NRG Serum or plasma creatinine measurement w ith calculation of estimated glomerular filtration rate > NRG Serum or plasma glucose measurement (mass/volume) 160 mg/dL 70-105 Serum or plasma calcium measurement (mass/volume) 8.4 mg/dL 8.5-10.1 Serum or plasma phosphate measurement (m ass/volume) - 03/01/19 03:20 Serum or plasma phosphate measurement (mass/volume) 3.4 mg/dL 2.3-4.7 Magnesium - 03/01/19 03:20 Magnesium 1.9 mg/dL 1.6-2.4 Serum or plasma lithium measurement (mol es/volume) - 03/01/19 03:20 BNP PT < 10.0 <100.0 Hemoglobin A1c measurement - 03/01/19 03 :20 Blood hemoglobin A1C measurement (mass/volume) 9.4 % 4.0-5.6 MEAN BLOOD GLUCOSE 223 % <=126 Capillary blood glucose measurement by g lucometer (mass/volume) - 03/01/19 04:22 Capillary blood glucose measurement by glucometer (mas s/volume) 177 mg/dL 70-110 Capillary blood glucose measurement by g lucometer (mass/volume) - 03/01/19 07:55 Capillary blood glucose measurement by glucometer (mas s/volume) 255 mg/dL 70-110 Capillary blood glucose measurement by g lucometer (mass/volume) - 03/01/19 12:18 Capillary blood glucose measurement by glucometer (mas s/volume) 328 mg/dL 70-110 Arterial blood gas measurement - 9 12:34 Blood pCO2 60 mm[Hg] 35-45 Blood pO2 109 mm[Hg] 79-93 Arterial blood bicarbonate measurement (moles/volume) 33 mmol/L 23-27 Arterial blood base excess by calculation 7.8 mmol /L -2.5-2.5 Arterial blood oxygen saturation measurement 96 % 94-100 * Inhaled oxygen flow rate 100% NRG Arterial blood pH measurement with patient temperature correction 7.36 7.37-7.43 Arterial blood carbon dioxide, total measurement (mole s/volume) 35.3 mmol/L 21.0-31.0 Body site RT RAD NRG Assessment of wrist artery patency prior to arterial p uncture YES-POS NRG Setting of ventilation mode YES NR G Measurement of body temperature 36.4 NRG Capillary blood glucose measurement by g lucometer (mass/volume) - 03/01/19 14:11 Capillary blood glucose measurement by glucometer (mas s/volume) 311 mg/dL 70-110 Arterial blood gas measurement - 9 14:50 Blood pCO2 64 mm[Hg] 35-45 Blood pO2 86 mm[Hg] 79-93 Arterial blood bicarbonate measurement (moles/volume) 34 mmol/L 23-27 Arterial blood base excess by calculation 8.1 mmol /L -2.5-2.5 Arterial blood oxygen saturation measurement 92 % 94-100 * Inhaled oxygen flow rate 85% NRG Arterial blood pH measurement with patient temperature correction 7.34 7.37-7.43 Arterial blood carbon dioxide, total measurement (mole s/volume) 35.9 mmol/L 21.0-31.0 Body site L RADIAL NRG Assessment of wrist artery patency prior to arterial p uncture YES-POS NRG Setting of ventilation mode YES NR G Measurement of body temperature 36.8 NRG Capillary blood glucose measurement by g lucometer (mass/volume) - 03/01/19 16:08 Capillary blood glucose measurement by glucometer (mas s/volume) 293 mg/dL 70-110 Capillary blood glucose measurement by g lucometer (mass/volume) - 03/01/19 18:04 Capillary blood glucose measurement by glucometer (mas s/volume) 277 mg/dL 70-110 Capillary blood glucose measurement by g lucometer (mass/volume) - 03/01/19 20:42 Capillary blood glucose measurement by glucometer (mas s/volume) 238 mg/dL 70-110 Capillary blood glucose measurement by g lucometer (mass/volume) - 03/01/19 22:47 Capillary blood glucose measurement by glucometer (mas s/volume) 248 mg/dL 70-110 Capillary blood glucose measurement by g lucometer (mass/volume) - 03/02/19 00:57 Capillary blood glucose measurement by glucometer (mas s/volume) 235 mg/dL 70-110 Capillary blood glucose measurement by g lucometer (mass/volume) - 03/02/19 03:38 Capillary blood glucose measurement by glucometer (mas s/volume) 228 mg/dL 70-110 Complete blood count (CBC) with automate d white blood cell (WBC) differential - 03/02/19 03:40 Blood leukocytes automated count (number/volume) 7.0 10*3/uL 4.3-11.0 Blood erythrocytes automated count (number/volume) 3.78 10*6/uL 4.35-5.85 Venous blood hemoglobin measurement (mass/volume) 10.1 g/dL 11.5-16.0 Blood hematocrit (volume fraction) 33 % 35-52 Automated erythrocyte mean corpuscular volume 88 [ foz_us] 80-99 Automated erythrocyte mean corpuscular h emoglobin (mass per erythrocyte) 27 pg 25-34 Automated erythrocyte mean corpuscular h emoglobin concentration measurement (mass/volume) 31 g/dL 32-36 Automated erythrocyte distribution width ratio 16. 5 % 10.0- 14.5 Automated blood platelet count (count/volume) 257 10*3/uL 130-400 Automated blood platelet mean volume measurement 10.4 [foz_us] 7.4-10.4 Automated blood neutrophils/100 leukocytes 88 % 42-75 Automated blood lymphocytes/100 leukocytes 7 % 12-44 Blood monocytes/100 leukocytes 5 % 0-12 Automated blood eosinophils/100 leukocytes 0 % 0-10 Automated blood basophils/100 leukocytes 0 % 0-10 Blood neutrophils automated count (number/volume) 6.2 10*3 1.8-7.8 Blood lymphocytes automated count (number/volume) 0.5 10*3 1.0-4.0 Blood monocytes automated count (number/volume) 0. 3 10*3 0.0-1.0 Automated eosinophil count 0.0 10*3/uL 0 .0-0.3 Automated blood basophil count (count/volume) 0.0 10*3/uL 0.0-0.1 Whole blood basic metabolic panel - 02/20 04/10 03:40 Serum or plasma sodium measurement (moles/volume) 140 mmol/L 135-145 Serum or plasma potassium measurement (moles/volume) 4.4 mmol/L 3.6-5.0 Serum or plasma chloride measurement (moles/volume) 100 mmol/L 98-107 Carbon dioxide 29 mmol/L 21-32 Serum or plasma anion gap determination (moles/volume) 11 mmol/L 5-14 Serum or plasma urea nitrogen measurement (mass/volume ) 24 mg/dL 7-18 Serum or plasma creatinine measurement (mass/volume) 0.88 mg/dL 0.60-1.30 Serum or plasma urea nitrogen/creatinine mass ratio 27 NRG Serum or plasma creatinine measurement w ith calculation of estimated glomerular filtration rate > NRG Serum or plasma glucose measurement (mass/volume) 220 mg/dL 70-105 Serum or plasma calcium measurement (mass/volume) 8.6 mg/dL 8.5-10.1 Serum or plasma phosphate measurement (m ass/volume) - 03/02/19 03:40 Serum or plasma phosphate measurement (mass/volume) 4.8 mg/dL 2.3-4.7 Magnesium - 03/02/19 03:40 Magnesium 1.6 mg/dL 1.6-2.4 Serum or plasma triglyceride measurement (mass/volume) - 03/02/19 03:40 Serum or plasma triglyceride measurement (mass/volume) 783 mg/dL <150 Arterial blood gas measurement - 9 03:50 Blood pCO2 69 mm[Hg] 35-45 Blood pO2 114 mm[Hg] 79-93 Arterial blood bicarbonate measurement (moles/volume) 34 mmol/L 23-27 Arterial blood base excess by calculation 7.8 mmol /L -2.5-2.5 Arterial blood oxygen saturation measurement 96 % 94-100 * Inhaled oxygen flow rate 85 NRG Arterial blood pH measurement with patient temperature correction 7.31 7.37-7.43 Arterial blood carbon dioxide, total measurement (mole s/volume) 36.0 mmol/L 21.0-31.0 Body site RIGHT RADIAL NRG Assessment of wrist artery patency prior to arterial p uncture POSITIVE NRG Setting of ventilation mode YES NR G Measurement of body temperature 36.8 NRG Sputum Gram stain - 03/02/19 05:41 Sputum Gram stain No bacteria seen NRG Mycobacterium species detection by organ ism specific culture - 03/02/19 05:41 Bacteria identification in bronchial spe cimen by aerobe culture - 03/02/19 05:41 QUANTITY OF GROWTH . NRG Bacteria identification in bronchial specimen by aerob e culture [id number] NRG FTX;REPORTABLE 200 CFU/ML NRG Fungus culture - 03/02/19 05:41 QUANTITY OF GROWTH . NRG Fungus culture [id number] NRG Capillary blood glucose measurement by g lucometer (mass/volume) - 03/02/19 06:22 Capillary blood glucose measurement by glucometer (mas s/volume) 233 mg/dL 70-110 Arterial blood gas measurement - 9 07:21 Blood pCO2 53 mm[Hg] 35-45 Blood pO2 127 mm[Hg] 79-93 Arterial blood bicarbonate measurement (moles/volume) 33 mmol/L 23-27 Arterial blood base excess by calculation 8.1 mmol /L -2.5-2.5 Arterial blood oxygen saturation measurement 96 % 94-100 * Inhaled oxygen flow rate 100% NRG Arterial blood pH measurement with patient temperature correction 7.41 7.37-7.43 Arterial blood carbon dioxide, total measurement (mole s/volume) 34.6 mmol/L 21.0-31.0 Body site LEFT RADIAL NRG Assessment of wrist artery patency prior to arterial p uncture POSITIVE NRG Setting of ventilation mode YES NR G Measurement of body temperature 36.4 NRG Capillary blood glucose measurement by g lucometer (mass/volume) - 03/02/19 08:49 Capillary blood glucose measurement by glucometer (mas s/volume) 185 mg/dL 70-110 Capillary blood glucose measurement by g lucometer (mass/volume) - 03/02/19 11:01 Capillary blood glucose measurement by glucometer (mas s/volume) 180 mg/dL 70-110 Capillary blood glucose measurement by g lucometer (mass/volume) - 03/02/19 13:11 Capillary blood glucose measurement by glucometer (mas s/volume) 258 mg/dL 70-110 Capillary blood glucose measurement by g lucometer (mass/volume) - 03/02/19 14:50 Capillary blood glucose measurement by glucometer (mas s/volume) 237 mg/dL 70-110 Capillary blood glucose measurement by g lucometer (mass/volume) - 03/02/19 15:54 Capillary blood glucose measurement by glucometer (mas s/volume) 232 mg/dL 70-110 Capillary blood glucose measurement by g lucometer (mass/volume) - 03/02/19 18:14 Capillary blood glucose measurement by glucometer (mas s/volume) 202 mg/dL 70-110 Capillary blood glucose measurement by g lucometer (mass/volume) - 03/02/19 20:01 Capillary blood glucose measurement by glucometer (mas s/volume) 187 mg/dL 70-110 Capillary blood glucose measurement by g lucometer (mass/volume) - 03/02/19 22:14 Capillary blood glucose measurement by glucometer (mas s/volume) 239 mg/dL 70-110 Capillary blood glucose measurement by g lucometer (mass/volume) - 03/02/19 23:54 Capillary blood glucose measurement by glucometer (mas s/volume) 306 mg/dL 70-110 Capillary blood glucose measurement by g lucometer (mass/volume) - 03/03/19 01:54 Capillary blood glucose measurement by glucometer (mas s/volume) 300 mg/dL 70-110 Arterial blood gas measurement - 9 02:55 Blood pCO2 50 mm[Hg] 35-45 Blood pO2 91 mm[Hg] 79-93 Arterial blood bicarbonate measurement (moles/volume) 27 mmol/L 23-27 Arterial blood base excess by calculation 2.0 mmol /L -2.5-2.5 Arterial blood oxygen saturation measurement 97 % 94-100 * Inhaled oxygen flow rate 100% NRG Arterial blood pH measurement with patient temperature correction 7.36 7.37-7.43 Arterial blood carbon dioxide, total measurement (mole s/volume) 28.4 mmol/L 21.0-31.0 Body site LRAD NRG Assessment of wrist artery patency prior to arterial p uncture YES-POS NRG Setting of ventilation mode YES NR G Measurement of body temperature 37.3 NRG Complete blood count (CBC) with automate d white blood cell (WBC) differential - 03/03/19 02:55 Blood leukocytes automated count (number/volume) 7.4 10*3/uL 4.3-11.0 Blood erythrocytes automated count (number/volume) 4.14 10*6/uL 4.35-5.85 Venous blood hemoglobin measurement (mass/volume) 10.9 g/dL 11.5-16.0 Blood hematocrit (volume fraction) 36 % 35-52 Automated erythrocyte mean corpuscular volume 87 [ foz_us] 80-99 Automated erythrocyte mean corpuscular h emoglobin (mass per erythrocyte) 26 pg 25-34 Automated erythrocyte mean corpuscular h emoglobin concentration measurement (mass/volume) 30 g/dL 32-36 Automated erythrocyte distribution width ratio 16. 0 % 10.0- 14.5 Automated blood platelet count (count/volume) 263 10*3/uL 130-400 Automated blood platelet mean volume measurement 10.9 [foz_us] 7.4-10.4 Automated blood neutrophils/100 leukocytes 88 % 42-75 Automated blood lymphocytes/100 leukocytes 8 % 12-44 Blood monocytes/100 leukocytes 4 % 0-12 Automated blood eosinophils/100 leukocytes 0 % 0-10 Automated blood basophils/100 leukocytes 0 % 0-10 Blood neutrophils automated count (number/volume) 6.5 10*3 1.8-7.8 Blood lymphocytes automated count (number/volume) 0.6 10*3 1.0-4.0 Blood monocytes automated count (number/volume) 0. 3 10*3 0.0-1.0 Automated eosinophil count 0.0 10*3/uL 0 .0-0.3 Automated blood basophil count (count/volume) 0.0 10*3/uL 0.0-0.1 Whole blood basic metabolic panel - 02/20 05/11 02:55 Serum or plasma sodium measurement (moles/volume) 138 mmol/L 135-145 Serum or plasma potassium measurement (moles/volume) 4.6 mmol/L 3.6-5.0 Serum or plasma chloride measurement (moles/volume) 99 mmol/L 98-107 Carbon dioxide 24 mmol/L 21-32 Serum or plasma anion gap determination (moles/volume) 15 mmol/L 5-14 Serum or plasma urea nitrogen measurement (mass/volume ) 21 mg/dL 7-18 Serum or plasma creatinine measurement (mass/volume) 0.86 mg/dL 0.60-1.30 Serum or plasma urea nitrogen/creatinine mass ratio 24 NRG Serum or plasma creatinine measurement w ith calculation of estimated glomerular filtration rate > NRG Serum or plasma glucose measurement (mass/volume) 286 mg/dL 70-105 Serum or plasma calcium measurement (mass/volume) 8.9 mg/dL 8.5-10.1 Serum or plasma phosphate measurement (m ass/volume) - 03/03/19 02:55 Serum or plasma phosphate measurement (mass/volume) 4.3 mg/dL 2.3-4.7 Magnesium - 03/03/19 02:55 Magnesium 1.8 mg/dL 1.6-2.4 Capillary blood glucose measurement by g lucometer (mass/volume) - 03/03/19 03:30 Capillary blood glucose measurement by glucometer (mas s/volume) 280 mg/dL 70-110 Capillary blood glucose measurement by g lucometer (mass/volume) - 03/03/19 05:44 Capillary blood glucose measurement by glucometer (mas s/volume) 248 mg/dL 70-110 Capillary blood glucose measurement by g lucometer (mass/volume) - 03/03/19 07:41 Capillary blood glucose measurement by glucometer (mas s/volume) 213 mg/dL 70-110 Capillary blood glucose measurement by g lucometer (mass/volume) - 03/03/19 10:00 Capillary blood glucose measurement by glucometer (mas s/volume) 181 mg/dL 70-110 Capillary blood glucose measurement by g lucometer (mass/volume) - 03/03/19 11:44 Capillary blood glucose measurement by glucometer (mas s/volume) 242 mg/dL 70-110 Capillary blood glucose measurement by g lucometer (mass/volume) - 03/03/19 14:07 Capillary blood glucose measurement by glucometer (mas s/volume) 250 mg/dL 70-110 Capillary blood glucose measurement by g lucometer (mass/volume) - 03/03/19 15:57 Capillary blood glucose measurement by glucometer (mas s/volume) 225 mg/dL 70-110 Capillary blood glucose measurement by g lucometer (mass/volume) - 03/03/19 17:26 Capillary blood glucose measurement by glucometer (mas s/volume) 225 mg/dL 70-110 Capillary blood glucose measurement by g lucometer (mass/volume) - 03/03/19 19:54 Capillary blood glucose measurement by glucometer (mas s/volume) 207 mg/dL 70-110 Capillary blood glucose measurement by g lucometer (mass/volume) - 03/03/19 21:32 Capillary blood glucose measurement by glucometer (mas s/volume) 190 mg/dL 70-110 Capillary blood glucose measurement by g lucometer (mass/volume) - 03/03/19 23:26 Capillary blood glucose measurement by glucometer (mas s/volume) 241 mg/dL 70-110 Capillary blood glucose measurement by g lucometer (mass/volume) - 03/04/19 01:53 Capillary blood glucose measurement by glucometer (mas s/volume) 289 mg/dL 70-110 Complete blood count (CBC) with automate d white blood cell (WBC) differential - 03/04/19 02:52 Blood leukocytes automated count (number/volume) 8.8 10*3/uL 4.3-11.0 Blood erythrocytes automated count (number/volume) 4.29 10*6/uL 4.35-5.85 Venous blood hemoglobin measurement (mass/volume) 11.3 g/dL 11.5-16.0 Blood hematocrit (volume fraction) 36 % 35-52 Automated erythrocyte mean corpuscular volume 84 [ foz_us] 80-99 Automated erythrocyte mean corpuscular h emoglobin (mass per erythrocyte) 26 pg 25-34 Automated erythrocyte mean corpuscular h emoglobin concentration measurement (mass/volume) 31 g/dL 32-36 Automated erythrocyte distribution width ratio 16. 3 % 10.0- 14.5 Automated blood platelet count (count/volume) 271 10*3/uL 130-400 Automated blood platelet mean volume measurement 10.4 [foz_us] 7.4-10.4 Automated blood neutrophils/100 leukocytes 85 % 42-75 Automated blood lymphocytes/100 leukocytes 9 % 12-44 Blood monocytes/100 leukocytes 6 % 0-12 Automated blood eosinophils/100 leukocytes 0 % 0-10 Automated blood basophils/100 leukocytes 0 % 0-10 Blood neutrophils automated count (number/volume) 7.5 10*3 1.8-7.8 Blood lymphocytes automated count (number/volume) 0.8 10*3 1.0-4.0 Blood monocytes automated count (number/volume) 0. 5 10*3 0.0-1.0 Automated eosinophil count 0.0 10*3/uL 0 .0-0.3 Automated blood basophil count (count/volume) 0.0 10*3/uL 0.0-0.1 Whole blood basic metabolic panel - 02/20 06/08 02:52 Serum or plasma sodium measurement (moles/volume) 135 mmol/L 135-145 Serum or plasma potassium measurement (moles/volume) 4.1 mmol/L 3.6-5.0 Serum or plasma chloride measurement (moles/volume) 97 mmol/L 98-107 Carbon dioxide 23 mmol/L 21-32 Serum or plasma anion gap determination (moles/volume) 15 mmol/L 5-14 Serum or plasma urea nitrogen measurement (mass/volume ) 20 mg/dL 7-18 Serum or plasma creatinine measurement (mass/volume) 0.81 mg/dL 0.60-1.30 Serum or plasma urea nitrogen/creatinine mass ratio 25 NRG Serum or plasma creatinine measurement w ith calculation of estimated glomerular filtration rate > NRG Serum or plasma glucose measurement (mass/volume) 281 mg/dL 70-105 Serum or plasma calcium measurement (mass/volume) 9.1 mg/dL 8.5-10.1 Serum or plasma phosphate measurement (m ass/volume) - 03/04/19 02:52 Serum or plasma phosphate measurement (mass/volume) 4.4 mg/dL 2.3-4.7 Magnesium - 03/04/19 02:52 Magnesium 1.5 mg/dL 1.6-2.4 Serum or plasma triglyceride measurement (mass/volume) - 03/04/19 02:52 Serum or plasma triglyceride measurement (mass/volume) 622 mg/dL <150 Arterial blood gas measurement - 9 02:53 Blood pCO2 45 mm[Hg] 35-45 Blood pO2 104 mm[Hg] 79-93 Arterial blood bicarbonate measurement (moles/volume) 27 mmol/L 23-27 Arterial blood base excess by calculation 2.0 mmol /L -2.5-2.5 Arterial blood oxygen saturation measurement 98 % 94-100 * Inhaled oxygen flow rate 100% NRG Arterial blood pH measurement with patient temperature correction 7.39 7.37-7.43 Arterial blood carbon dioxide, total measurement (mole s/volume) 28.0 mmol/L 21.0-31.0 Body site RIGHT RADIAL NRG Assessment of wrist artery patency prior to arterial p uncture YES-POS NRG Setting of ventilation mode YES NR G Measurement of body temperature 36.7 NRG Capillary blood glucose measurement by g lucometer (mass/volume) - 03/04/19 03:59 Capillary blood glucose measurement by glucometer (mas s/volume) 261 mg/dL 70-110 Capillary blood glucose measurement by g lucometer (mass/volume) - 03/04/19 05:36 Capillary blood glucose measurement by glucometer (mas s/volume) 245 mg/dL 70-110 Capillary blood glucose measurement by g lucometer (mass/volume) - 03/04/19 08:34 Capillary blood glucose measurement by glucometer (mas s/volume) 214 mg/dL 70-110 Capillary blood glucose measurement by g lucometer (mass/volume) - 03/04/19 10:31 Capillary blood glucose measurement by glucometer (mas s/volume) 173 mg/dL 70-110 Capillary blood glucose measurement by g lucometer (mass/volume) - 03/04/19 12:15 Capillary blood glucose measurement by glucometer (mas s/volume) 196 mg/dL 70-110 Capillary blood glucose measurement by g lucometer (mass/volume) - 03/04/19 14:26 Capillary blood glucose measurement by glucometer (mas s/volume) 234 mg/dL 70-110 Capillary blood glucose measurement by g lucometer (mass/volume) - 03/04/19 16:16 Capillary blood glucose measurement by glucometer (mas s/volume) 241 mg/dL 70-110 Capillary blood glucose measurement by g lucometer (mass/volume) - 03/04/19 18:10 Capillary blood glucose measurement by glucometer (mas s/volume) 186 mg/dL 70-110 Capillary blood glucose measurement by g lucometer (mass/volume) - 03/04/19 21:01 Capillary blood glucose measurement by glucometer (mas s/volume) 182 mg/dL 70-110 Capillary blood glucose measurement by g lucometer (mass/volume) - 03/05/19 00:52 Capillary blood glucose measurement by glucometer (mas s/volume) 231 mg/dL 70-110 Arterial blood gas measurement - 9 03:07 Blood pCO2 40 mm[Hg] 35-45 Blood pO2 84 mm[Hg] 79-93 Arterial blood bicarbonate measurement (moles/volume) 25 mmol/L 23-27 Arterial blood base excess by calculation 0.4 mmol /L -2.5-2.5 Arterial blood oxygen saturation measurement 96 % 94-100 * Inhaled oxygen flow rate 55% NRG Arterial blood pH measurement with patient temperature correction 7.40 7.37-7.43 Arterial blood carbon dioxide, total measurement (mole s/volume) 26.0 mmol/L 21.0-31.0 Body site RIGHT RADIAL NRG Assessment of wrist artery patency prior to arterial p uncture YES-POS NRG Setting of ventilation mode YES NR G Measurement of body temperature 36.1 NRG Complete blood count (CBC) with automate d white blood cell (WBC) differential - 03/05/19 03:10 Blood leukocytes automated count (number/volume) 8.2 10*3/uL 4.3-11.0 Blood erythrocytes automated count (number/volume) 4.15 10*6/uL 4.35-5.85 Venous blood hemoglobin measurement (mass/volume) 10.8 g/dL 11.5-16.0 Blood hematocrit (volume fraction) 35 % 35-52 Automated erythrocyte mean corpuscular volume 85 [ foz_us] 80-99 Automated erythrocyte mean corpuscular h emoglobin (mass per erythrocyte) 26 pg 25-34 Automated erythrocyte mean corpuscular h emoglobin concentration measurement (mass/volume) 31 g/dL 32-36 Automated erythrocyte distribution width ratio 16. 1 % 10.0- 14.5 Automated blood platelet count (count/volume) 281 10*3/uL 130-400 Automated blood platelet mean volume measurement 10.9 [foz_us] 7.4-10.4 Automated blood neutrophils/100 leukocytes 85 % 42-75 Automated blood lymphocytes/100 leukocytes 8 % 12-44 Blood monocytes/100 leukocytes 6 % 0-12 Automated blood eosinophils/100 leukocytes 0 % 0-10 Automated blood basophils/100 leukocytes 0 % 0-10 Blood neutrophils automated count (number/volume) 7.0 10*3 1.8-7.8 Blood lymphocytes automated count (number/volume) 0.7 10*3 1.0-4.0 Blood monocytes automated count (number/volume) 0. 5 10*3 0.0-1.0 Automated eosinophil count 0.0 10*3/uL 0 .0-0.3 Automated blood basophil count (count/volume) 0.0 10*3/uL 0.0-0.1 Whole blood basic metabolic panel - 02/20 07/09 03:10 Serum or plasma sodium measurement (moles/volume) 137 mmol/L 135-145 Serum or plasma potassium measurement (moles/volume) 3.9 mmol/L 3.6-5.0 Serum or plasma chloride measurement (moles/volume) 101 mmol/L 98-107 Carbon dioxide 21 mmol/L 21-32 Serum or plasma anion gap determination (moles/volume) 15 mmol/L 5-14 Serum or plasma urea nitrogen measurement (mass/volume ) 18 mg/dL 7-18 Serum or plasma creatinine measurement (mass/volume) 0.70 mg/dL 0.60-1.30 Serum or plasma urea nitrogen/creatinine mass ratio 26 NRG Serum or plasma creatinine measurement w ith calculation of estimated glomerular filtration rate > NRG Serum or plasma glucose measurement (mass/volume) 219 mg/dL 70-105 Serum or plasma calcium measurement (mass/volume) 8.7 mg/dL 8.5-10.1 Serum or plasma phosphate measurement (m ass/volume) - 03/05/19 03:10 Serum or plasma phosphate measurement (mass/volume) 3.9 mg/dL 2.3-4.7 Magnesium - 03/05/19 03:10 Magnesium 1.7 mg/dL 1.6-2.4 Capillary blood glucose measurement by g lucometer (mass/volume) - 03/05/19 04:51 Capillary blood glucose measurement by glucometer (mas s/volume) 231 mg/dL 70-110 Capillary blood glucose measurement by g lucometer (mass/volume) - 03/05/19 08:53 Capillary blood glucose measurement by glucometer (mas s/volume) 190 mg/dL 70-110 Capillary blood glucose measurement by g lucometer (mass/volume) - 03/05/19 11:54 Capillary blood glucose measurement by glucometer (mas s/volume) 186 mg/dL 70-110 Capillary blood glucose measurement by g lucometer (mass/volume) - 03/05/19 15:14 Capillary blood glucose measurement by glucometer (mas s/volume) 226 mg/dL 70-110 Capillary blood glucose measurement by g lucometer (mass/volume) - 03/05/19 19:56 Capillary blood glucose measurement by glucometer (mas s/volume) 180 mg/dL 70-110 Capillary blood glucose measurement by g lucometer (mass/volume) - 03/05/19 23:54 Capillary blood glucose measurement by glucometer (mas s/volume) 197 mg/dL 70-110 Arterial blood gas measurement - 9 03:06 Blood pCO2 43 mm[Hg] 35-45 Blood pO2 82 mm[Hg] 79-93 Arterial blood bicarbonate measurement (moles/volume) 27 mmol/L 23-27 Arterial blood base excess by calculation 2.2 mmol /L -2.5-2.5 Arterial blood oxygen saturation measurement 96 % 94-100 * Inhaled oxygen flow rate 70% NRG Arterial blood pH measurement with patient temperature correction 7.41 7.37-7.43 Arterial blood carbon dioxide, total measurement (mole s/volume) 28.0 mmol/L 21.0-31.0 Body site RIGHT RADIAL NRG Assessment of wrist artery patency prior to arterial p uncture ART LINE NRG Setting of ventilation mode YES NR G Measurement of body temperature 36.0 NRG Complete blood count (CBC) with automate d white blood cell (WBC) differential - 03/06/19 03:10 Blood leukocytes automated count (number/volume) 5.7 10*3/uL 4.3-11.0 Blood erythrocytes automated count (number/volume) 3.20 10*6/uL 4.35-5.85 Venous blood hemoglobin measurement (mass/volume) 8.3 g/dL 11.5-16.0 Blood hematocrit (volume fraction) 27 % 35-52 Automated erythrocyte mean corpuscular volume 84 [ foz_us] 80-99 Automated erythrocyte mean corpuscular h emoglobin (mass per erythrocyte) 26 pg 25-34 Automated erythrocyte mean corpuscular h emoglobin concentration measurement (mass/volume) 31 g/dL 32-36 Automated erythrocyte distribution width ratio 16. 4 % 10.0- 14.5 Automated blood platelet count (count/volume) 219 10*3/uL 130-400 Automated blood platelet mean volume measurement 10.7 [foz_us] 7.4-10.4 Automated blood neutrophils/100 leukocytes 83 % 42-75 Automated blood lymphocytes/100 leukocytes 10 % 12-44 Blood monocytes/100 leukocytes 6 % 0-12 Automated blood eosinophils/100 leukocytes 1 % 0-10 Automated blood basophils/100 leukocytes 0 % 0-10 Blood neutrophils automated count (number/volume) 4.7 10*3 1.8-7.8 Blood lymphocytes automated count (number/volume) 0.6 10*3 1.0-4.0 Blood monocytes automated count (number/volume) 0. 3 10*3 0.0-1.0 Automated eosinophil count 0.0 10*3/uL 0 .0-0.3 Automated blood basophil count (count/volume) 0.0 10*3/uL 0.0-0.1 Whole blood basic metabolic panel - 02/20 08/08 03:10 Serum or plasma sodium measurement (moles/volume) 139 mmol/L 135-145 Serum or plasma potassium measurement (moles/volume) 2.9 mmol/L 3.6-5.0 Serum or plasma chloride measurement (moles/volume) 112 mmol/L 98-107 Carbon dioxide 17 mmol/L 21-32 Serum or plasma anion gap determination (moles/volume) 10 mmol/L 5-14 Serum or plasma urea nitrogen measurement (mass/volume ) 16 mg/dL 7-18 Serum or plasma creatinine measurement (mass/volume) 0.55 mg/dL 0.60-1.30 Serum or plasma urea nitrogen/creatinine mass ratio 29 NRG Serum or plasma creatinine measurement w ith calculation of estimated glomerular filtration rate > NRG Serum or plasma glucose measurement (mass/volume) 162 mg/dL 70-105 Serum or plasma calcium measurement (mass/volume) 6.4 mg/dL 8.5-10.1 Serum or plasma phosphate measurement (m ass/volume) - 03/06/19 03:10 Serum or plasma phosphate measurement (mass/volume) 3.1 mg/dL 2.3-4.7 Magnesium - 03/06/19 03:10 Magnesium 1.1 mg/dL 1.6-2.4 Capillary blood glucose measurement by g lucometer (mass/volume) - 03/06/19 10:23 Capillary blood glucose measurement by glucometer (mas s/volume) 195 mg/dL 70-110 Capillary blood glucose measurement by g lucometer (mass/volume) - 03/06/19 11:55 Capillary blood glucose measurement by glucometer (mas s/volume) 200 mg/dL 70-110 Capillary blood glucose measurement by g lucometer (mass/volume) - 03/06/19 15:56 Capillary blood glucose measurement by glucometer (mas s/volume) 204 mg/dL 70-110 Capillary blood glucose measurement by g lucometer (mass/volume) - 03/06/19 19:55 Capillary blood glucose measurement by glucometer (mas s/volume) 195 mg/dL 70-110 Arterial blood gas measurement - 9 22:49 Blood pCO2 43 mm[Hg] 35-45 Blood pO2 75 mm[Hg] 79-93 Arterial blood bicarbonate measurement (moles/volume) 27 mmol/L 23-27 Arterial blood base excess by calculation 2.5 mmol /L -2.5-2.5 Arterial blood oxygen saturation measurement 92 % 94-100 * Inhaled oxygen flow rate 100% NRG Arterial blood pH measurement with patient temperature correction 7.41 7.37-7.43 Arterial blood carbon dioxide, total measurement (mole s/volume) 28.2 mmol/L 21.0-31.0 Body site RT ARTLINE NRG Assessment of wrist artery patency prior to arterial p uncture ARTLINE NRG Setting of ventilation mode YES NR G Measurement of body temperature 36.5 NRG Capillary blood glucose measurement by g lucometer (mass/volume) - 03/06/19 22:52 Capillary blood glucose measurement by glucometer (mas s/volume) 217 mg/dL 70-110 Arterial blood gas measurement - 9 02:06 Blood pCO2 45 mm[Hg] 35-45 Blood pO2 103 mm[Hg] 79-93 Arterial blood bicarbonate measurement (moles/volume) 27 mmol/L 23-27 Arterial blood base excess by calculation 2.1 mmol /L -2.5-2.5 Arterial blood oxygen saturation measurement 97 % 94-100 * Inhaled oxygen flow rate 90% NRG Arterial blood pH measurement with patient temperature correction 7.39 7.37-7.43 Arterial blood carbon dioxide, total measurement (mole s/volume) 28.0 mmol/L 21.0-31.0 Body site RIGHT RADIAL NRG Assessment of wrist artery patency prior to arterial p uncture YES-POS NRG Setting of ventilation mode YES NR G Measurement of body temperature 37.0 NRG Complete blood count (CBC) with automate d white blood cell (WBC) differential - 03/07/19 02:06 Blood leukocytes automated count (number/volume) 6.0 10*3/uL 4.3-11.0 Blood erythrocytes automated count (number/volume) 3.98 10*6/uL 4.35-5.85 Venous blood hemoglobin measurement (mass/volume) 10.4 g/dL 11.5-16.0 Blood hematocrit (volume fraction) 34 % 35-52 Automated erythrocyte mean corpuscular volume 84 [ foz_us] 80-99 Automated erythrocyte mean corpuscular h emoglobin (mass per erythrocyte) 26 pg 25-34 Automated erythrocyte mean corpuscular h emoglobin concentration measurement (mass/volume) 31 g/dL 32-36 Automated erythrocyte distribution width ratio 16. 3 % 10.0- 14.5 Automated blood platelet count (count/volume) 285 10*3/uL 130-400 Automated blood platelet mean volume measurement 10.6 [foz_us] 7.4-10.4 Automated blood neutrophils/100 leukocytes 85 % 42-75 Automated blood lymphocytes/100 leukocytes 9 % 12-44 Blood monocytes/100 leukocytes 6 % 0-12 Automated blood eosinophils/100 leukocytes 0 % 0-10 Automated blood basophils/100 leukocytes 0 % 0-10 Blood neutrophils automated count (number/volume) 5.1 10*3 1.8-7.8 Blood lymphocytes automated count (number/volume) 0.5 10*3 1.0-4.0 Blood monocytes automated count (number/volume) 0. 3 10*3 0.0-1.0 Automated eosinophil count 0.0 10*3/uL 0 .0-0.3 Automated blood basophil count (count/volume) 0.0 10*3/uL 0.0-0.1 Whole blood basic metabolic panel - 02/20 09/08 02:06 Serum or plasma sodium measurement (moles/volume) 136 mmol/L 135-145 Serum or plasma potassium measurement (moles/volume) 4.1 mmol/L 3.6-5.0 Serum or plasma chloride measurement (moles/volume) 100 mmol/L 98-107 Carbon dioxide 22 mmol/L 21-32 Serum or plasma anion gap determination (moles/volume) 14 mmol/L 5-14 Serum or plasma urea nitrogen measurement (mass/volume ) 22 mg/dL 7-18 Serum or plasma creatinine measurement (mass/volume) 0.77 mg/dL 0.60-1.30 Serum or plasma urea nitrogen/creatinine mass ratio 29 NRG Serum or plasma creatinine measurement w ith calculation of estimated glomerular filtration rate > NRG Serum or plasma glucose measurement (mass/volume) 214 mg/dL 70-105 Serum or plasma calcium measurement (mass/volume) 8.9 mg/dL 8.5-10.1 Serum or plasma phosphate measurement (m ass/volume) - 03/07/19 02:06 Serum or plasma phosphate measurement (mass/volume) 4.4 mg/dL 2.3-4.7 Magnesium - 03/07/19 02:06 Magnesium 1.8 mg/dL 1.6-2.4 Capillary blood glucose measurement by g lucometer (mass/volume) - 03/07/19 09:52 Capillary blood glucose measurement by glucometer (mas s/volume) 219 mg/dL 70-110 Capillary blood glucose measurement by g lucometer (mass/volume) - 03/07/19 11:42 Capillary blood glucose measurement by glucometer (mas s/volume) 236 mg/dL 70-110 Capillary blood glucose measurement by g lucometer (mass/volume) - 03/07/19 15:41 Capillary blood glucose measurement by glucometer (mas s/volume) 227 mg/dL 70-110 Capillary blood glucose measurement by g lucometer (mass/volume) - 03/07/19 19:30 Capillary blood glucose measurement by glucometer (mas s/volume) 208 mg/dL 70-110 Capillary blood glucose measurement by g lucometer (mass/volume) - 03/07/19 23:33 Capillary blood glucose measurement by glucometer (mas s/volume) 222 mg/dL 70-110 Complete blood count (CBC) with automate d white blood cell (WBC) differential - 03/08/19 03:10 Blood leukocytes automated count (number/volume) 8.6 10*3/uL 4.3-11.0 Blood erythrocytes automated count (number/volume) 4.01 10*6/uL 4.35-5.85 Venous blood hemoglobin measurement (mass/volume) 10.5 g/dL 11.5-16.0 Blood hematocrit (volume fraction) 34 % 35-52 Automated erythrocyte mean corpuscular volume 84 [ foz_us] 80-99 Automated erythrocyte mean corpuscular h emoglobin (mass per erythrocyte) 26 pg 25-34 Automated erythrocyte mean corpuscular h emoglobin concentration measurement (mass/volume) 31 g/dL 32-36 Automated erythrocyte distribution width ratio 16. 6 % 10.0- 14.5 Automated blood platelet count (count/volume) 328 10*3/uL 130-400 Automated blood platelet mean volume measurement 10.4 [foz_us] 7.4-10.4 Automated blood neutrophils/100 leukocytes 84 % 42-75 Automated blood lymphocytes/100 leukocytes 8 % 12-44 Blood monocytes/100 leukocytes 7 % 0-12 Automated blood eosinophils/100 leukocytes 1 % 0-10 Automated blood basophils/100 leukocytes 0 % 0-10 Blood neutrophils automated count (number/volume) 7.2 10*3 1.8-7.8 Blood lymphocytes automated count (number/volume) 0.7 10*3 1.0-4.0 Blood monocytes automated count (number/volume) 0. 6 10*3 0.0-1.0 Automated eosinophil count 0.1 10*3/uL 0 .0-0.3 Automated blood basophil count (count/volume) 0.0 10*3/uL 0.0-0.1 Arterial blood gas measurement - 9 03:10 Blood pCO2 46 mm[Hg] 35-45 Blood pO2 67 mm[Hg] 79-93 Arterial blood bicarbonate measurement (moles/volume) 28 mmol/L 23-27 Arterial blood base excess by calculation 3.5 mmol /L -2.5-2.5 Arterial blood oxygen saturation measurement 90 % 94-100 * Inhaled oxygen flow rate 65% NRG Arterial blood pH measurement with patient temperature correction 7.40 7.37-7.43 Arterial blood carbon dioxide, total measurement (mole s/volume) 29.5 mmol/L 21.0-31.0 Body site RIGHT RADIAL NRG Assessment of wrist artery patency prior to arterial p uncture YES-POS NRG Setting of ventilation mode YES NR G Measurement of body temperature 36.4 NRG Whole blood basic metabolic panel - 02/20 10/08 03:10 Serum or plasma sodium measurement (moles/volume) 136 mmol/L 135-145 Serum or plasma potassium measurement (moles/volume) 4.7 mmol/L 3.6-5.0 Serum or plasma chloride measurement (moles/volume) 99 mmol/L 98-107 Carbon dioxide 21 mmol/L 21-32 Serum or plasma anion gap determination (moles/volume) 16 mmol/L 5-14 Serum or plasma urea nitrogen measurement (mass/volume ) 26 mg/dL 7-18 Serum or plasma creatinine measurement (mass/volume) 0.78 mg/dL 0.60-1.30 Serum or plasma urea nitrogen/creatinine mass ratio 33 NRG Serum or plasma creatinine measurement w ith calculation of estimated glomerular filtration rate > NRG Serum or plasma glucose measurement (mass/volume) 224 mg/dL 70-105 Serum or plasma calcium measurement (mass/volume) 8.7 mg/dL 8.5-10.1 Serum or plasma phosphate measurement (m ass/volume) - 03/08/19 03:10 Serum or plasma phosphate measurement (mass/volume) 4.4 mg/dL 2.3-4.7 Magnesium - 03/08/19 03:10 Magnesium 1.5 mg/dL 1.6-2.4 Serum or plasma lithium measurement (mol es/volume) - 03/08/19 03:10 BNP PT < 10.0 <100.0 Capillary blood glucose measurement by g lucometer (mass/volume) - 03/08/19 08:02 Capillary blood glucose measurement by glucometer (mas s/volume) 256 mg/dL 70-110 Capillary blood glucose measurement by g lucometer (mass/volume) - 03/08/19 11:42 Capillary blood glucose measurement by glucometer (mas s/volume) 268 mg/dL 70-110 Capillary blood glucose measurement by g lucometer (mass/volume) - 03/08/19 15:40 Capillary blood glucose measurement by glucometer (mas s/volume) 242 mg/dL 70-110 Capillary blood glucose measurement by g lucometer (mass/volume) - 03/08/19 16:00 Capillary blood glucose measurement by glucometer (mas s/volume) 226 mg/dL 70-110 Capillary blood glucose measurement by g lucometer (mass/volume) - 03/08/19 19:36 Capillary blood glucose measurement by glucometer (mas s/volume) 202 mg/dL 70-110 Capillary blood glucose measurement by g lucometer (mass/volume) - 03/08/19 23:18 Capillary blood glucose measurement by glucometer (mas s/volume) 236 mg/dL 70-110 Whole blood basic metabolic panel - 02/20 11/08 02:44 Serum or plasma sodium measurement (moles/volume) 137 mmol/L 135-145 Serum or plasma potassium measurement (moles/volume) 3.9 mmol/L 3.6-5.0 Serum or plasma chloride measurement (moles/volume) 98 mmol/L 98-107 Carbon dioxide 24 mmol/L 21-32 Serum or plasma anion gap determination (moles/volume) 15 mmol/L 5-14 Serum or plasma urea nitrogen measurement (mass/volume ) 28 mg/dL 7-18 Serum or plasma creatinine measurement (mass/volume) 0.74 mg/dL 0.60-1.30 Serum or plasma urea nitrogen/creatinine mass ratio 38 NRG Serum or plasma creatinine measurement w ith calculation of estimated glomerular filtration rate > NRG Serum or plasma glucose measurement (mass/volume) 243 mg/dL 70-105 Serum or plasma calcium measurement (mass/volume) 9.4 mg/dL 8.5-10.1 Serum or plasma phosphate measurement (m ass/volume) - 03/09/19 02:44 Serum or plasma phosphate measurement (mass/volume) 4.1 mg/dL 2.3-4.7 Magnesium - 03/09/19 02:44 Magnesium 1.7 mg/dL 1.6-2.4 Complete blood count (CBC) with automate d white blood cell (WBC) differential - 03/09/19 02:44 Blood leukocytes automated count (number/volume) 9.4 10*3/uL 4.3-11.0 Blood erythrocytes automated count (number/volume) 4.07 10*6/uL 4.35-5.85 Venous blood hemoglobin measurement (mass/volume) 10.8 g/dL 11.5-16.0 Blood hematocrit (volume fraction) 35 % 35-52 Automated erythrocyte mean corpuscular volume 86 [ foz_us] 80-99 Automated erythrocyte mean corpuscular h emoglobin (mass per erythrocyte) 27 pg 25-34 Automated erythrocyte mean corpuscular h emoglobin concentration measurement (mass/volume) 31 g/dL 32-36 Automated erythrocyte distribution width ratio 16. 4 % 10.0- 14.5 Automated blood platelet count (count/volume) 339 10*3/uL 130-400 Automated blood platelet mean volume measurement 11.2 [foz_us] 7.4-10.4 Automated blood neutrophils/100 leukocytes 86 % 42-75 Automated blood lymphocytes/100 leukocytes 8 % 12-44 Blood monocytes/100 leukocytes 5 % 0-12 Automated blood eosinophils/100 leukocytes 1 % 0-10 Automated blood basophils/100 leukocytes 0 % 0-10 Blood neutrophils automated count (number/volume) 8.1 10*3 1.8-7.8 Blood lymphocytes automated count (number/volume) 0.7 10*3 1.0-4.0 Blood monocytes automated count (number/volume) 0. 5 10*3 0.0-1.0 Automated eosinophil count 0.1 10*3/uL 0 .0-0.3 Automated blood basophil count (count/volume) 0.0 10*3/uL 0.0-0.1 Serum or plasma triglyceride measurement (mass/volume) - 03/09/19 02:44 Serum or plasma triglyceride measurement (mass/volume) 495 mg/dL <150 Arterial blood gas measurement - 9 03:00 Blood pCO2 46 mm[Hg] 35-45 Blood pO2 92 mm[Hg] 79-93 Arterial blood bicarbonate measurement (moles/volume) 29 mmol/L 23-27 Arterial blood base excess by calculation 4.1 mmol /L -2.5-2.5 Arterial blood oxygen saturation measurement 95 % 94-100 * Inhaled oxygen flow rate 70% NRG Arterial blood pH measurement with patient temperature correction 7.41 7.37-7.43 Arterial blood carbon dioxide, total measurement (mole s/volume) 30.0 mmol/L 21.0-31.0 Body site RIGHT RADIAL NRG Assessment of wrist artery patency prior to arterial p uncture YES-POS NRG Setting of ventilation mode NO NR G Measurement of body temperature 37.0 NRG Capillary blood glucose measurement by g lucometer (mass/volume) - 03/09/19 04:16 Capillary blood glucose measurement by glucometer (mas s/volume) 265 mg/dL 70-110 Capillary blood glucose measurement by g lucometer (mass/volume) - 03/09/19 09:32 Capillary blood glucose measurement by glucometer (mas s/volume) 302 mg/dL 70-110 Capillary blood glucose measurement by g lucometer (mass/volume) - 03/09/19 11:27 Capillary blood glucose measurement by glucometer (mas s/volume) 297 mg/dL 70-110 Capillary blood glucose measurement by g lucometer (mass/volume) - 03/09/19 15:24 Capillary blood glucose measurement by glucometer (mas s/volume) 250 mg/dL 70-110 Capillary blood glucose measurement by g lucometer (mass/volume) - 03/09/19 19:22 Capillary blood glucose measurement by glucometer (mas s/volume) 302 mg/dL 70-110 Capillary blood glucose measurement by g lucometer (mass/volume) - 03/09/19 23:58 Capillary blood glucose measurement by glucometer (mas s/volume) 268 mg/dL 70-110 Arterial blood gas measurement - 9 03:10 Blood pCO2 41 mm[Hg] 35-45 Blood pO2 73 mm[Hg] 79-93 Arterial blood bicarbonate measurement (moles/volume) 26 mmol/L 23-27 Arterial blood base excess by calculation 1.4 mmol /L -2.5-2.5 Arterial blood oxygen saturation measurement 93 % 94-100 * Inhaled oxygen flow rate 55% NRG Arterial blood pH measurement with patient temperature correction 7.41 7.37-7.43 Arterial blood carbon dioxide, total measurement (mole s/volume) 27.1 mmol/L 21.0-31.0 Body site RT RAD ARTLINE NRG Assessment of wrist artery patency prior to arterial p uncture ART LINE NRG Setting of ventilation mode YES NR G Measurement of body temperature 36.3 NRG Complete blood count (CBC) with automate d white blood cell (WBC) differential - 03/10/19 03:15 Blood leukocytes automated count (number/volume) 7.1 10*3/uL 4.3-11.0 Blood erythrocytes automated count (number/volume) 3.89 10*6/uL 4.35-5.85 Venous blood hemoglobin measurement (mass/volume) 10.3 g/dL 11.5-16.0 Blood hematocrit (volume fraction) 33 % 35-52 Automated erythrocyte mean corpuscular volume 84 [ foz_us] 80-99 Automated erythrocyte mean corpuscular h emoglobin (mass per erythrocyte) 26 pg 25-34 Automated erythrocyte mean corpuscular h emoglobin concentration measurement (mass/volume) 31 g/dL 32-36 Automated erythrocyte distribution width ratio 16. 4 % 10.0- 14.5 Automated blood platelet count (count/volume) 340 10*3/uL 130-400 Automated blood platelet mean volume measurement 10.4 [foz_us] 7.4-10.4 Automated blood neutrophils/100 leukocytes 91 % 42-75 Automated blood lymphocytes/100 leukocytes 6 % 12-44 Blood monocytes/100 leukocytes 3 % 0-12 Automated blood eosinophils/100 leukocytes 0 % 0-10 Automated blood basophils/100 leukocytes 0 % 0-10 Blood neutrophils automated count (number/volume) 6.5 10*3 1.8-7.8 Blood lymphocytes automated count (number/volume) 0.4 10*3 1.0-4.0 Blood monocytes automated count (number/volume) 0. 2 10*3 0.0-1.0 Automated eosinophil count 0.0 10*3/uL 0 .0-0.3 Automated blood basophil count (count/volume) 0.0 10*3/uL 0.0-0.1 Whole blood basic metabolic panel - 02/20 12/09 03:15 Serum or plasma sodium measurement (moles/volume) 137 mmol/L 135-145 Serum or plasma potassium measurement (moles/volume) 4.3 mmol/L 3.6-5.0 Serum or plasma chloride measurement (moles/volume) 103 mmol/L 98-107 Carbon dioxide 21 mmol/L 21-32 Serum or plasma anion gap determination (moles/volume) 13 mmol/L 5-14 Serum or plasma urea nitrogen measurement (mass/volume ) 24 mg/dL 7-18 Serum or plasma creatinine measurement (mass/volume) 0.72 mg/dL 0.60-1.30 Serum or plasma urea nitrogen/creatinine mass ratio 33 NRG Serum or plasma creatinine measurement w ith calculation of estimated glomerular filtration rate > NRG Serum or plasma glucose measurement (mass/volume) 301 mg/dL 70-105 Serum or plasma calcium measurement (mass/volume) 8.6 mg/dL 8.5-10.1 Serum or plasma phosphate measurement (m ass/volume) - 03/10/19 03:15 Serum or plasma phosphate measurement (mass/volume) 3.0 mg/dL 2.3-4.7 Magnesium - 03/10/19 03:15 Magnesium 1.9 mg/dL 1.6-2.4 Manual absolute plasma cell count - 02/20 12/09 03:15 Blood monocytes/100 leukocytes 1 % NRG Manual blood segmented neutrophils/100 leukocytes 97 % NRG Manual blood lymphocytes/100 leukocytes 2 % NRG Blood anisocytosis detection by light microscopy S LIGHT NRG Serum or plasma lithium measurement (mol es/volume) - 03/10/19 03:15 BNP PT 22.9 pg/mL <100.0 Capillary blood glucose measurement by g lucometer (mass/volume) - 03/10/19 08:05 Capillary blood glucose measurement by glucometer (mas s/volume) 298 mg/dL 70-110 Capillary blood glucose measurement by g lucometer (mass/volume) - 03/10/19 12:39 Capillary blood glucose measurement by glucometer (mas s/volume) 374 mg/dL 70-110 Capillary blood glucose measurement by g lucometer (mass/volume) - 03/10/19 12:58 Capillary blood glucose measurement by glucometer (mas s/volume) 343 mg/dL 70-110 Vancomycin trough - 03/10/19 15:40 Vancomycin trough 24.4 ug/mL 10.0-20.0 Capillary blood glucose measurement by g lucometer (mass/volume) - 03/10/19 16:12 Capillary blood glucose measurement by glucometer (mas s/volume) 319 mg/dL 70-110 Capillary blood glucose measurement by g lucometer (mass/volume) - 03/10/19 19:48 Capillary blood glucose measurement by glucometer (mas s/volume) 286 mg/dL 70-110 Capillary blood glucose measurement by g lucometer (mass/volume) - 03/10/19 23:37 Capillary blood glucose measurement by glucometer (mas s/volume) 324 mg/dL 70-110 Complete blood count (CBC) with automate d white blood cell (WBC) differential - 03/11/19 02:57 Blood leukocytes automated count (number/volume) 6.7 10*3/uL 4.3-11.0 Blood erythrocytes automated count (number/volume) 3.90 10*6/uL 4.35-5.85 Venous blood hemoglobin measurement (mass/volume) 10.3 g/dL 11.5-16.0 Blood hematocrit (volume fraction) 33 % 35-52 Automated erythrocyte mean corpuscular volume 85 [ foz_us] 80-99 Automated erythrocyte mean corpuscular h emoglobin (mass per erythrocyte) 26 pg 25-34 Automated erythrocyte mean corpuscular h emoglobin concentration measurement (mass/volume) 31 g/dL 32-36 Automated erythrocyte distribution width ratio 16. 6 % 10.0- 14.5 Automated blood platelet count (count/volume) 341 10*3/uL 130-400 Automated blood platelet mean volume measurement 10.6 [foz_us] 7.4-10.4 Automated blood neutrophils/100 leukocytes 82 % 42-75 Automated blood lymphocytes/100 leukocytes 12 % 12-44 Blood monocytes/100 leukocytes 6 % 0-12 Automated blood eosinophils/100 leukocytes 0 % 0-10 Automated blood basophils/100 leukocytes 0 % 0-10 Blood neutrophils automated count (number/volume) 5.5 10*3 1.8-7.8 Blood lymphocytes automated count (number/volume) 0.8 10*3 1.0-4.0 Blood monocytes automated count (number/volume) 0. 4 10*3 0.0-1.0 Automated eosinophil count 0.0 10*3/uL 0 .0-0.3 Automated blood basophil count (count/volume) 0.0 10*3/uL 0.0-0.1 Arterial blood gas measurement - 9 02:57 Blood pCO2 42 mm[Hg] 35-45 Blood pO2 95 mm[Hg] 79-93 Arterial blood bicarbonate measurement (moles/volume) 25 mmol/L 23-27 Arterial blood base excess by calculation 0.9 mmol /L -2.5-2.5 Arterial blood oxygen saturation measurement 96 % 94-100 * Inhaled oxygen flow rate 80% NRG Arterial blood pH measurement with patient temperature correction 7.40 7.37-7.43 Arterial blood carbon dioxide, total measurement (mole s/volume) 26.8 mmol/L 21.0-31.0 Body site RIGHT RADIAL NRG Assessment of wrist artery patency prior to arterial p uncture ARTLINE NRG Setting of ventilation mode YES NR G Measurement of body temperature 36.3 NRG Whole blood basic metabolic panel - 02/21 02:57 Serum or plasma sodium measurement (moles/volume) 135 mmol/L 135-145 Serum or plasma potassium measurement (moles/volume) 4.2 mmol/L 3.6-5.0 Serum or plasma chloride measurement (moles/volume) 103 mmol/L 98-107 Carbon dioxide 22 mmol/L 21-32 Serum or plasma anion gap determination (moles/volume) 10 mmol/L 5-14 Serum or plasma urea nitrogen measurement (mass/volume ) 27 mg/dL 7-18 Serum or plasma creatinine measurement (mass/volume) 0.72 mg/dL 0.60-1.30 Serum or plasma urea nitrogen/creatinine mass ratio 38 NRG Serum or plasma creatinine measurement w ith calculation of estimated glomerular filtration rate > NRG Serum or plasma glucose measurement (mass/volume) 368 mg/dL 70-105 Serum or plasma calcium measurement (mass/volume) 8.6 mg/dL 8.5-10.1 Serum or plasma phosphate measurement (m ass/volume) - 03/11/19 02:57 Serum or plasma phosphate measurement (mass/volume) 2.7 mg/dL 2.3-4.7 Magnesium - 03/11/19 02:57 Magnesium 2.0 mg/dL 1.6-2.4 Capillary blood glucose measurement by g lucometer (mass/volume) - 03/11/19 03:25 Capillary blood glucose measurement by glucometer (mas s/volume) 361 mg/dL 70-110 Vancomycin trough - 03/11/19 04:21 Vancomycin trough 16.4 ug/mL 10.0-20.0 Serum or plasma triglyceride measurement (mass/volume) - 03/11/19 04:21 Serum or plasma triglyceride measurement (mass/volume) 320 mg/dL <150 Capillary blood glucose measurement by g lucometer (mass/volume) - 03/11/19 07:19 Capillary blood glucose measurement by glucometer (mas s/volume) 299 mg/dL 70-110 Capillary blood glucose measurement by g lucometer (mass/volume) - 03/11/19 12:20 Capillary blood glucose measurement by glucometer (mas s/volume) 289 mg/dL 70-110 Capillary blood glucose measurement by g lucometer (mass/volume) - 03/11/19 15:47 Capillary blood glucose measurement by glucometer (mas s/volume) 244 mg/dL 70-110 Capillary blood glucose measurement by g lucometer (mass/volume) - 03/11/19 19:46 Capillary blood glucose measurement by glucometer (mas s/volume) 219 mg/dL 70-110 Capillary blood glucose measurement by g lucometer (mass/volume) - 03/11/19 23:20 Capillary blood glucose measurement by glucometer (mas s/volume) 188 mg/dL 70-110 Complete blood count (CBC) with automate d white blood cell (WBC) differential - 03/12/19 02:50 Blood leukocytes automated count (number/volume) 6.5 10*3/uL 4.3-11.0 Blood erythrocytes automated count (number/volume) 3.88 10*6/uL 4.35-5.85 Venous blood hemoglobin measurement (mass/volume) 10.1 g/dL 11.5-16.0 Blood hematocrit (volume fraction) 33 % 35-52 Automated erythrocyte mean corpuscular volume 85 [ foz_us] 80-99 Automated erythrocyte mean corpuscular h emoglobin (mass per erythrocyte) 26 pg 25-34 Automated erythrocyte mean corpuscular h emoglobin concentration measurement (mass/volume) 31 g/dL 32-36 Automated erythrocyte distribution width ratio 16. 9 % 10.0- 14.5 Automated blood platelet count (count/volume) 341 10*3/uL 130-400 Automated blood platelet mean volume measurement 10.4 [foz_us] 7.4-10.4 Automated blood neutrophils/100 leukocytes 70 % 42-75 Automated blood lymphocytes/100 leukocytes 22 % 12-44 Blood monocytes/100 leukocytes 6 % 0-12 Automated blood eosinophils/100 leukocytes 1 % 0-10 Automated blood basophils/100 leukocytes 0 % 0-10 Blood neutrophils automated count (number/volume) 4.6 10*3 1.8-7.8 Blood lymphocytes automated count (number/volume) 1.4 10*3 1.0-4.0 Blood monocytes automated count (number/volume) 0. 4 10*3 0.0-1.0 Automated eosinophil count 0.1 10*3/uL 0 .0-0.3 Automated blood basophil count (count/volume) 0.0 10*3/uL 0.0-0.1 Arterial blood gas measurement - 9 02:50 Blood pCO2 39 mm[Hg] 35-45 Blood pO2 75 mm[Hg] 79-93 Arterial blood bicarbonate measurement (moles/volume) 24 mmol/L 23-27 Arterial blood base excess by calculation -0.4 mmo l/L -2.5-2.5 Arterial blood oxygen saturation measurement 96 % 94-100 * Inhaled oxygen flow rate 65% NRG Arterial blood pH measurement with patient temperature correction 7.40 7.37-7.43 Arterial blood carbon dioxide, total measurement (mole s/volume) 25.4 mmol/L 21.0-31.0 Body site RIGHT RADIAL NRG Assessment of wrist artery patency prior to arterial p uncture POSITIVE NRG Setting of ventilation mode YES NR G Measurement of body temperature 35.8 NRG Whole blood basic metabolic panel - 02/21 04/10 02:50 Serum or plasma sodium measurement (moles/volume) 137 mmol/L 135-145 Serum or plasma potassium measurement (moles/volume) 3.8 mmol/L 3.6-5.0 Serum or plasma chloride measurement (moles/volume) 106 mmol/L 98-107 Carbon dioxide 20 mmol/L 21-32 Serum or plasma anion gap determination (moles/volume) 11 mmol/L 5-14 Serum or plasma urea nitrogen measurement (mass/volume ) 26 mg/dL 7-18 Serum or plasma creatinine measurement (mass/volume) 0.69 mg/dL 0.60-1.30 Serum or plasma urea nitrogen/creatinine mass ratio 38 NRG Serum or plasma creatinine measurement w ith calculation of estimated glomerular filtration rate > NRG Serum or plasma glucose measurement (mass/volume) 202 mg/dL 70-105 Serum or plasma calcium measurement (mass/volume) 8.5 mg/dL 8.5-10.1 Serum or plasma phosphate measurement (m ass/volume) - 03/12/19 02:50 Serum or plasma phosphate measurement (mass/volume) 2.7 mg/dL 2.3-4.7 Magnesium - 03/12/19 02:50 Magnesium 1.8 mg/dL 1.6-2.4 Serum or plasma triglyceride measurement (mass/volume) - 03/12/19 02:50 Serum or plasma triglyceride measurement (mass/volume) 322 mg/dL <150 Serum or plasma lithium measurement (mol es/volume) - 03/12/19 02:50 BNP PT 16.6 pg/mL <100.0 Capillary blood glucose measurement by g lucometer (mass/volume) - 03/12/19 03:15 Capillary blood glucose measurement by glucometer (mas s/volume) 207 mg/dL 70-110 Capillary blood glucose measurement by g lucometer (mass/volume) - 03/12/19 08:06 Capillary blood glucose measurement by glucometer (mas s/volume) 195 mg/dL 70-110 Capillary blood glucose measurement by g lucometer (mass/volume) - 03/12/19 11:53 Capillary blood glucose measurement by glucometer (mas s/volume) 211 mg/dL 70-110 Capillary blood glucose measurement by g lucometer (mass/volume) - 03/12/19 15:43 Capillary blood glucose measurement by glucometer (mas s/volume) 257 mg/dL 70-110 Capillary blood glucose measurement by g lucometer (mass/volume) - 03/12/19 19:38 Capillary blood glucose measurement by glucometer (mas s/volume) 228 mg/dL 70-110 Capillary blood glucose measurement by g lucometer (mass/volume) - 03/12/19 22:41 Capillary blood glucose measurement by glucometer (mas s/volume) 249 mg/dL 70-110 Complete blood count (CBC) with automate d white blood cell (WBC) differential - 03/13/19 03:45 Blood leukocytes automated count (number/volume) 6.1 10*3/uL 4.3-11.0 Blood erythrocytes automated count (number/volume) 3.95 10*6/uL 4.35-5.85 Venous blood hemoglobin measurement (mass/volume) 10.4 g/dL 11.5-16.0 Blood hematocrit (volume fraction) 34 % 35-52 Automated erythrocyte mean corpuscular volume 85 [ foz_us] 80-99 Automated erythrocyte mean corpuscular h emoglobin (mass per erythrocyte) 26 pg 25-34 Automated erythrocyte mean corpuscular h emoglobin concentration measurement (mass/volume) 31 g/dL 32-36 Automated erythrocyte distribution width ratio 17. 0 % 10.0- 14.5 Automated blood platelet count (count/volume) 298 10*3/uL 130-400 Automated blood platelet mean volume measurement 10.6 [foz_us] 7.4-10.4 Automated blood neutrophils/100 leukocytes 70 % 42-75 Automated blood lymphocytes/100 leukocytes 22 % 12-44 Blood monocytes/100 leukocytes 5 % 0-12 Automated blood eosinophils/100 leukocytes 3 % 0-10 Automated blood basophils/100 leukocytes 1 % 0-10 Blood neutrophils automated count (number/volume) 4.2 10*3 1.8-7.8 Blood lymphocytes automated count (number/volume) 1.4 10*3 1.0-4.0 Blood monocytes automated count (number/volume) 0. 3 10*3 0.0-1.0 Automated eosinophil count 0.2 10*3/uL 0 .0-0.3 Automated blood basophil count (count/volume) 0.0 10*3/uL 0.0-0.1 Whole blood basic metabolic panel - 02/21 05/11 03:45 Serum or plasma sodium measurement (moles/volume) 135 mmol/L 135-145 Serum or plasma potassium measurement (moles/volume) 4.0 mmol/L 3.6-5.0 Serum or plasma chloride measurement (moles/volume) 106 mmol/L 98-107 Carbon dioxide 19 mmol/L 21-32 Serum or plasma anion gap determination (moles/volume) 10 mmol/L 5-14 Serum or plasma urea nitrogen measurement (mass/volume ) 22 mg/dL 7-18 Serum or plasma creatinine measurement (mass/volume) 0.67 mg/dL 0.60-1.30 Serum or plasma urea nitrogen/creatinine mass ratio 33 NRG Serum or plasma creatinine measurement w ith calculation of estimated glomerular filtration rate > NRG Serum or plasma glucose measurement (mass/volume) 255 mg/dL 70-105 Serum or plasma calcium measurement (mass/volume) 8.5 mg/dL 8.5-10.1 Serum or plasma phosphate measurement (m ass/volume) - 03/13/19 03:45 Serum or plasma phosphate measurement (mass/volume) 3.0 mg/dL 2.3-4.7 Magnesium - 03/13/19 03:45 Magnesium 1.9 mg/dL 1.6-2.4 Serum or plasma triglyceride measurement (mass/volume) - 03/13/19 03:45 Serum or plasma triglyceride measurement (mass/volume) 535 mg/dL <150 Arterial blood gas measurement - 9 03:50 Blood pCO2 38 mm[Hg] 35-45 Blood pO2 61 mm[Hg] 79-93 Arterial blood bicarbonate measurement (moles/volume) 22 mmol/L 23-27 Arterial blood base excess by calculation -2.1 mmo l/L -2.5-2.5 Arterial blood oxygen saturation measurement 91 % 94-100 * Inhaled oxygen flow rate 50% NRG Arterial blood pH measurement with patient temperature correction 7.38 7.37-7.43 Arterial blood carbon dioxide, total measurement (mole s/volume) 23.6 mmol/L 21.0-31.0 Body site RIGHT RADIAL NRG Assessment of wrist artery patency prior to arterial p uncture POSITIVE NRG Setting of ventilation mode YES NR G Measurement of body temperature 36.0 NRG Capillary blood glucose measurement by g lucometer (mass/volume) - 03/13/19 08:54 Capillary blood glucose measurement by glucometer (mas s/volume) 250 mg/dL 70-110 Capillary blood glucose measurement by g lucometer (mass/volume) - 03/13/19 11:17 Capillary blood glucose measurement by glucometer (mas s/volume) 262 mg/dL 70-110 Capillary blood glucose measurement by g lucometer (mass/volume) - 03/13/19 16:56 Capillary blood glucose measurement by glucometer (mas s/volume) 216 mg/dL 70-110 Capillary blood glucose measurement by g lucometer (mass/volume) - 03/13/19 19:17 Capillary blood glucose measurement by glucometer (mas s/volume) 209 mg/dL 70-110 Capillary blood glucose measurement by g lucometer (mass/volume) - 03/13/19 22:36 Capillary blood glucose measurement by glucometer (mas s/volume) 247 mg/dL 70-110 Arterial blood gas measurement - 9 03:03 Blood pCO2 37 mm[Hg] 35-45 Blood pO2 65 mm[Hg] 79-93 Arterial blood bicarbonate measurement (moles/volume) 24 mmol/L 23-27 Arterial blood base excess by calculation -0.2 mmo l/L -2.5-2.5 Arterial blood oxygen saturation measurement 92 % 94-100 * Inhaled oxygen flow rate 65% NRG Arterial blood pH measurement with patient temperature correction 7.42 7.37-7.43 Arterial blood carbon dioxide, total measurement (mole s/volume) 25.0 mmol/L 21.0-31.0 Body site RIGHT RADIAL NRG Assessment of wrist artery patency prior to arterial p uncture POSITIVE NRG Setting of ventilation mode YES NR G Measurement of body temperature 36.4 NRG Complete blood count (CBC) with automate d white blood cell (WBC) differential - 03/14/19 03:03 Blood leukocytes automated count (number/volume) 6.6 10*3/uL 4.3-11.0 Blood erythrocytes automated count (number/volume) 4.03 10*6/uL 4.35-5.85 Venous blood hemoglobin measurement (mass/volume) 10.6 g/dL 11.5-16.0 Blood hematocrit (volume fraction) 33 % 35-52 Automated erythrocyte mean corpuscular volume 83 [ foz_us] 80-99 Automated erythrocyte mean corpuscular h emoglobin (mass per erythrocyte) 26 pg 25-34 Automated erythrocyte mean corpuscular h emoglobin concentration measurement (mass/volume) 32 g/dL 32-36 Automated erythrocyte distribution width ratio 17. 2 % 10.0- 14.5 Automated blood platelet count (count/volume) 281 10*3/uL 130-400 Automated blood platelet mean volume measurement 10.4 [foz_us] 7.4-10.4 Automated blood neutrophils/100 leukocytes 77 % 42-75 Automated blood lymphocytes/100 leukocytes 15 % 12-44 Blood monocytes/100 leukocytes 5 % 0-12 Automated blood eosinophils/100 leukocytes 2 % 0-10 Automated blood basophils/100 leukocytes 1 % 0-10 Blood neutrophils automated count (number/volume) 5.1 10*3 1.8-7.8 Blood lymphocytes automated count (number/volume) 1.0 10*3 1.0-4.0 Blood monocytes automated count (number/volume) 0. 4 10*3 0.0-1.0 Automated eosinophil count 0.2 10*3/uL 0 .0-0.3 Automated blood basophil count (count/volume) 0.0 10*3/uL 0.0-0.1 Whole blood basic metabolic panel - 02/21 06/08 03:03 Serum or plasma sodium measurement (moles/volume) 138 mmol/L 135-145 Serum or plasma potassium measurement (moles/volume) 3.9 mmol/L 3.6-5.0 Serum or plasma chloride measurement (moles/volume) 106 mmol/L 98-107 Carbon dioxide 19 mmol/L 21-32 Serum or plasma anion gap determination (moles/volume) 13 mmol/L 5-14 Serum or plasma urea nitrogen measurement (mass/volume ) 17 mg/dL 7-18 Serum or plasma creatinine measurement (mass/volume) 0.67 mg/dL 0.60-1.30 Serum or plasma urea nitrogen/creatinine mass ratio 25 NRG Serum or plasma creatinine measurement w ith calculation of estimated glomerular filtration rate > NRG Serum or plasma glucose measurement (mass/volume) 229 mg/dL 70-105 Serum or plasma calcium measurement (mass/volume) 8.6 mg/dL 8.5-10.1 Serum or plasma phosphate measurement (m ass/volume) - 03/14/19 03:03 Serum or plasma phosphate measurement (mass/volume) 3.1 mg/dL 2.3-4.7 Magnesium - 03/14/19 03:03 Magnesium 1.5 mg/dL 1.6-2.4 Serum or plasma triglyceride measurement (mass/volume) - 03/14/19 03:03 Serum or plasma triglyceride measurement (mass/volume) 424 mg/dL <150 Capillary blood glucose measurement by g lucometer (mass/volume) - 03/14/19 08:24 Capillary blood glucose measurement by glucometer (mas s/volume) 271 mg/dL 70-110 Capillary blood glucose measurement by g lucometer (mass/volume) - 03/14/19 11:33 Capillary blood glucose measurement by glucometer (mas s/volume) 249 mg/dL 70-110 Capillary blood glucose measurement by g lucometer (mass/volume) - 03/14/19 15:42 Capillary blood glucose measurement by glucometer (mas s/volume) 206 mg/dL 70-110 Capillary blood glucose measurement by g lucometer (mass/volume) - 03/14/19 19:33 Capillary blood glucose measurement by glucometer (mas s/volume) 282 mg/dL 70-110 Capillary blood glucose measurement by g lucometer (mass/volume) - 03/14/19 23:21 Capillary blood glucose measurement by glucometer (mas s/volume) 206 mg/dL 70-110 Complete blood count (CBC) with automate d white blood cell (WBC) differential - 03/15/19 02:50 Blood leukocytes automated count (number/volume) 6.7 10*3/uL 4.3-11.0 Blood erythrocytes automated count (number/volume) 4.01 10*6/uL 4.35-5.85 Venous blood hemoglobin measurement (mass/volume) 10.4 g/dL 11.5-16.0 Blood hematocrit (volume fraction) 33 % 35-52 Automated erythrocyte mean corpuscular volume 83 [ foz_us] 80-99 Automated erythrocyte mean corpuscular h emoglobin (mass per erythrocyte) 26 pg 25-34 Automated erythrocyte mean corpuscular h emoglobin concentration measurement (mass/volume) 31 g/dL 32-36 Automated erythrocyte distribution width ratio 17. 1 % 10.0- 14.5 Automated blood platelet count (count/volume) 270 10*3/uL 130-400 Automated blood platelet mean volume measurement 10.7 [foz_us] 7.4-10.4 Automated blood neutrophils/100 leukocytes 80 % 42-75 Automated blood lymphocytes/100 leukocytes 13 % 12-44 Blood monocytes/100 leukocytes 5 % 0-12 Automated blood eosinophils/100 leukocytes 2 % 0-10 Automated blood basophils/100 leukocytes 0 % 0-10 Blood neutrophils automated count (number/volume) 5.4 10*3 1.8-7.8 Blood lymphocytes automated count (number/volume) 0.8 10*3 1.0-4.0 Blood monocytes automated count (number/volume) 0. 4 10*3 0.0-1.0 Automated eosinophil count 0.1 10*3/uL 0 .0-0.3 Automated blood basophil count (count/volume) 0.0 10*3/uL 0.0-0.1 Whole blood basic metabolic panel - 02/21 07/09 02:50 Serum or plasma sodium measurement (moles/volume) 138 mmol/L 135-145 Serum or plasma potassium measurement (moles/volume) 3.8 mmol/L 3.6-5.0 Serum or plasma chloride measurement (moles/volume) 106 mmol/L 98-107 Carbon dioxide 20 mmol/L 21-32 Serum or plasma anion gap determination (moles/volume) 12 mmol/L 5-14 Serum or plasma urea nitrogen measurement (mass/volume ) 15 mg/dL 7-18 Serum or plasma creatinine measurement (mass/volume) 0.63 mg/dL 0.60-1.30 Serum or plasma urea nitrogen/creatinine mass ratio 24 NRG Serum or plasma creatinine measurement w ith calculation of estimated glomerular filtration rate > NRG Serum or plasma glucose measurement (mass/volume) 222 mg/dL 70-105 Serum or plasma calcium measurement (mass/volume) 8.6 mg/dL 8.5-10.1 Serum or plasma phosphate measurement (m ass/volume) - 03/15/19 02:50 Serum or plasma phosphate measurement (mass/volume) 3.1 mg/dL 2.3-4.7 Magnesium - 03/15/19 02:50 Magnesium 1.5 mg/dL 1.6-2.4 Serum or plasma triglyceride measurement (mass/volume) - 03/15/19 02:50 Serum or plasma triglyceride measurement (mass/volume) 251 mg/dL <150 Arterial blood gas measurement - 9 02:52 Blood pCO2 35 mm[Hg] 35-45 Blood pO2 62 mm[Hg] 79-93 Arterial blood bicarbonate measurement (moles/volume) 24 mmol/L 23-27 Arterial blood base excess by calculation 0.4 mmol /L -2.5-2.5 Arterial blood oxygen saturation measurement 88 % 94-100 * Inhaled oxygen flow rate 60% NRG Arterial blood pH measurement with patient temperature correction 7.45 7.37-7.43 Arterial blood carbon dioxide, total measurement (mole s/volume) 25.0 mmol/L 21.0-31.0 Body site RIGHT RADIAL ARTLINE NRG Assessment of wrist artery patency prior to arterial p uncture POSITIVE NRG Setting of ventilation mode YES NR G Measurement of body temperature 37.0 NRG Capillary blood glucose measurement by g lucometer (mass/volume) - 03/15/19 07:44 Capillary blood glucose measurement by glucometer (mas s/volume) 246 mg/dL 70-110 Arterial blood gas measurement - 9 02:54 Blood pCO2 37 mm[Hg] 35-45 Blood pO2 56 mm[Hg] 79-93 Arterial blood bicarbonate measurement (moles/volume) 23 mmol/L 23-27 Arterial blood base excess by calculation -1.4 mmo l/L -2.5-2.5 Arterial blood oxygen saturation measurement 87 % 94-100 * Inhaled oxygen flow rate 75% NRG Arterial blood pH measurement with patient temperature correction 7.41 7.37-7.43 Arterial blood carbon dioxide, total measurement (mole s/volume) 24.0 mmol/L 21.0-31.0 Body site RIGHT RADIAL ARTLINE NRG Assessment of wrist artery patency prior to arterial p uncture POSITIVE NRG Setting of ventilation mode YES NR G Measurement of body temperature 36.1 NRG Complete blood count (CBC) with automate d white blood cell (WBC) differential - 03/16/19 02:54 Blood leukocytes automated count (number/volume) 3.1 10*3/uL 4.3-11.0 Blood erythrocytes automated count (number/volume) 2.38 10*6/uL 4.35-5.85 Venous blood hemoglobin measurement (mass/volume) 6.1 g/dL 11.5-16.0 Blood hematocrit (volume fraction) 20 % 35-52 Automated erythrocyte mean corpuscular volume 85 [ foz_us] 80-99 Automated erythrocyte mean corpuscular h emoglobin (mass per erythrocyte) 26 pg 25-34 Automated erythrocyte mean corpuscular h emoglobin concentration measurement (mass/volume) 30 g/dL 32-36 Automated erythrocyte distribution width ratio 17. 1 % 10.0- 14.5 Automated blood platelet count (count/volume) 173 10*3/uL 130-400 Automated blood platelet mean volume measurement 10.5 [foz_us] 7.4-10.4 Automated blood neutrophils/100 leukocytes 65 % 42-75 Automated blood lymphocytes/100 leukocytes 24 % 12-44 Blood monocytes/100 leukocytes 8 % 0-12 Automated blood eosinophils/100 leukocytes 3 % 0-10 Automated blood basophils/100 leukocytes 0 % 0-10 Blood neutrophils automated count (number/volume) 2.0 10*3 1.8-7.8 Blood lymphocytes automated count (number/volume) 0.7 10*3 1.0-4.0 Blood monocytes automated count (number/volume) 0. 2 10*3 0.0-1.0 Automated eosinophil count 0.1 10*3/uL 0 .0-0.3 Automated blood basophil count (count/volume) 0.0 10*3/uL 0.0-0.1 Whole blood basic metabolic panel - 02/21 08/08 02:54 Serum or plasma sodium measurement (moles/volume) 143 mmol/L 135-145 Serum or plasma potassium measurement (moles/volume) 2.6 mmol/L 3.6-5.0 Serum or plasma chloride measurement (moles/volume) 124 mmol/L 98-107 Carbon dioxide 12 mmol/L 21-32 Serum or plasma anion gap determination (moles/volume) 7 mmol/L 5-14 Serum or plasma urea nitrogen measurement (mass/volume ) 11 mg/dL 7-18 Serum or plasma creatinine measurement (mass/volume) 0.41 mg/dL 0.60-1.30 Serum or plasma urea nitrogen/creatinine mass ratio 27 NRG Serum or plasma creatinine measurement w ith calculation of estimated glomerular filtration rate > NRG Serum or plasma glucose measurement (mass/volume) 147 mg/dL 70-105 Serum or plasma calcium measurement (mass/volume) 5.0 mg/dL 8.5-10.1 Serum or plasma phosphate measurement (m ass/volume) - 03/16/19 02:54 Serum or plasma phosphate measurement (mass/volume) 2.0 mg/dL 2.3-4.7 Magnesium - 03/16/19 02:54 Magnesium 0.9 mg/dL 1.6-2.4 Serum or plasma triglyceride measurement (mass/volume) - 03/16/19 02:54 Serum or plasma triglyceride measurement (mass/volume) 120 mg/dL <150 Venous blood hemoglobin measurement (mas s/volume) - 03/16/19 03:23 Venous blood hemoglobin measurement (mass/volume) 9.0 g/dL 11.5-16.0 Blood hematocrit (volume fraction) - 03:23 Blood hematocrit (volume fraction) 29 % 35-52 Complete blood count (CBC) with automate d white blood cell (WBC) differential - 03/16/19 03:52 Blood leukocytes automated count (number/volume) 4.3 10*3/uL 4.3-11.0 Blood erythrocytes automated count (number/volume) 3.46 10*6/uL 4.35-5.85 Venous blood hemoglobin measurement (mass/volume) 9.1 g/dL 11.5-16.0 Blood hematocrit (volume fraction) 29 % 35-52 Automated erythrocyte mean corpuscular volume 84 [ foz_us] 80-99 Automated erythrocyte mean corpuscular h emoglobin (mass per erythrocyte) 26 pg 25-34 Automated erythrocyte mean corpuscular h emoglobin concentration measurement (mass/volume) 31 g/dL 32-36 Automated erythrocyte distribution width ratio 17. 4 % 10.0- 14.5 Automated blood platelet count (count/volume) 258 10*3/uL 130-400 Automated blood platelet mean volume measurement 10.4 [foz_us] 7.4-10.4 Automated blood neutrophils/100 leukocytes 68 % 42-75 Automated blood lymphocytes/100 leukocytes 21 % 12-44 Blood monocytes/100 leukocytes 7 % 0-12 Automated blood eosinophils/100 leukocytes 5 % 0-10 Automated blood basophils/100 leukocytes 1 % 0-10 Blood neutrophils automated count (number/volume) 2.9 10*3 1.8-7.8 Blood lymphocytes automated count (number/volume) 0.9 10*3 1.0-4.0 Blood monocytes automated count (number/volume) 0. 3 10*3 0.0-1.0 Automated eosinophil count 0.2 10*3/uL 0 .0-0.3 Automated blood basophil count (count/volume) 0.0 10*3/uL 0.0-0.1 Comprehensive metabolic panel - 03/16/19 03:52 Serum or plasma sodium measurement (moles/volume) 140 mmol/L 135-145 Serum or plasma potassium measurement (moles/volume) 4.0 mmol/L 3.6-5.0 Serum or plasma chloride measurement (moles/volume) 107 mmol/L 98-107 Carbon dioxide 20 mmol/L 21-32 Serum or plasma anion gap determination (moles/volume) 13 mmol/L 5-14 Serum or plasma urea nitrogen measurement (mass/volume ) 17 mg/dL 7-18 Serum or plasma creatinine measurement (mass/volume) 0.69 mg/dL 0.60-1.30 Serum or plasma urea nitrogen/creatinine mass ratio 25 NRG Serum or plasma creatinine measurement w ith calculation of estimated glomerular filtration rate > NRG Serum or plasma glucose measurement (mass/volume) 213 mg/dL 70-105 Serum or plasma calcium measurement (mass/volume) 8.2 mg/dL 8.5-10.1 Serum or plasma total bilirubin measurement (mass/volu me) 0.3 mg/dL 0.1-1.0 Serum or plasma alkaline phosphatase lara surement (enzymatic activity/volume) 59 U/L 40-136 Serum or plasma aspartate aminotransfera se measurement (enzymatic activity/volume) 10 U/L 5-34 Serum or plasma alanine aminotransferase measurement (enzymatic activity/volume) 14 U/L 0-55 Serum or plasma protein measurement (mass/volume) 5.4 g/dL 6.4-8.2 Serum or plasma albumin measurement (mass/volume) 2.8 g/dL 3.2-4.5 CALCIUM CORRECTED 9.2 mg/dL 8.5-10.1 Serum or plasma phosphate measurement (m ass/volume) - 03/16/19 03:52 Serum or plasma phosphate measurement (mass/volume) 3.2 mg/dL 2.3-4.7 Magnesium - 03/16/19 03:52 Magnesium 1.5 mg/dL 1.6-2.4 Complete blood count (CBC) with automate d white blood cell (WBC) differential - 03/17/19 03:45 Blood leukocytes automated count (number/volume) 4.1 10*3/uL 4.3-11.0 Blood erythrocytes automated count (number/volume) 3.42 10*6/uL 4.35-5.85 Venous blood hemoglobin measurement (mass/volume) 8.8 g/dL 11.5-16.0 Blood hematocrit (volume fraction) 29 % 35-52 Automated erythrocyte mean corpuscular volume 85 [ foz_us] 80-99 Automated erythrocyte mean corpuscular h emoglobin (mass per erythrocyte) 26 pg 25-34 Automated erythrocyte mean corpuscular h emoglobin concentration measurement (mass/volume) 30 g/dL 32-36 Automated erythrocyte distribution width ratio 17. 4 % 10.0- 14.5 Automated blood platelet count (count/volume) 297 10*3/uL 130-400 Automated blood platelet mean volume measurement 10.4 [foz_us] 7.4-10.4 Automated blood neutrophils/100 leukocytes 68 % 42-75 Automated blood lymphocytes/100 leukocytes 21 % 12-44 Blood monocytes/100 leukocytes 8 % 0-12 Automated blood eosinophils/100 leukocytes 3 % 0-10 Automated blood basophils/100 leukocytes 1 % 0-10 Blood neutrophils automated count (number/volume) 2.8 10*3 1.8-7.8 Blood lymphocytes automated count (number/volume) 0.9 10*3 1.0-4.0 Blood monocytes automated count (number/volume) 0. 3 10*3 0.0-1.0 Automated eosinophil count 0.1 10*3/uL 0 .0-0.3 Automated blood basophil count (count/volume) 0.0 10*3/uL 0.0-0.1 Whole blood basic metabolic panel - 02/21 09/08 03:45 Serum or plasma sodium measurement (moles/volume) 139 mmol/L 135-145 Serum or plasma potassium measurement (moles/volume) 4.2 mmol/L 3.6-5.0 Serum or plasma chloride measurement (moles/volume) 110 mmol/L 98-107 Carbon dioxide 18 mmol/L 21-32 Serum or plasma anion gap determination (moles/volume) 11 mmol/L 5-14 Serum or plasma urea nitrogen measurement (mass/volume ) 15 mg/dL 7-18 Serum or plasma creatinine measurement (mass/volume) 0.65 mg/dL 0.60-1.30 Serum or plasma urea nitrogen/creatinine mass ratio 23 NRG Serum or plasma creatinine measurement w ith calculation of estimated glomerular filtration rate > NRG Serum or plasma glucose measurement (mass/volume) 243 mg/dL 70-105 Serum or plasma calcium measurement (mass/volume) 8.3 mg/dL 8.5-10.1 Serum or plasma phosphate measurement (m ass/volume) - 03/17/19 03:45 Serum or plasma phosphate measurement (mass/volume) 2.9 mg/dL 2.3-4.7 Magnesium - 03/17/19 03:45 Magnesium 1.4 mg/dL 1.6-2.4 Encounters ACCT No. Visit Date/Time Discharge Status Pt. Type Provider Facility Loc./Unit Complaint [id number] 12/31/2018 12:45:00 12/31/2018 23:59:5 9 [facility] Outpatient GILMA HUITRON [facility] [id number] 01/21/2019 09:00:00 Document Registration [id number] 12/31/2018 12:45:00 Document Registration [id number] 10/19/2018 10:36:00 Document Registration [id number] 09/07/2018 10:15:00 Document Registration [id number] 08/31/2018 11:50:00 Document Registration [id number] 02/25/2019 21:30:00 17:06:00 DIS Inpatient NAI BAXTER, BHUMIKA Neal [facility] ICU PNEUMONIA,RESPIRATORY F AILURE [id number] 02/25/2019 10:04:00 13:45:00 DIS Emergency NEVILLE LEE MD [facility] ER FS SOA [id number] 01/21/2019 09:31:00 23:59:59 CLS Outpatient [employer]U [employer] [facility] RAD FS DYSPNEA,COUGH,COPD,ASTHMA,HYPOXEMIA [id number] 11/29/2018 14:53:00 23:59:59 CLS Outpatient EDU [employer] [facility] LAB ROUTINE LAB [id number] 11/05/2018 12:25:00 13:45:00 DIS Emergency BETI HATCH DO M [facility] ER FS SOB [id number] 10/13/2018 13:16:00 23:59:59 CLS Outpatient GILMA HUITRON MD [facility] LAB FS R41.0 [id number] 10/13/2018 14:27:00 17:00:00 DIS Emergency GUERRA DO CARRI L [facility] ER FS GENERAL SWELLING [id number] 08/13/2018 14:32:00 17:12:00 DIS Emergency CARLEY BOOP [facility] ER SOB
== END 2019-02-25 13:45 | disposition home or self-care (01) ==
LOC: EDUNIT# 10:02 → ER FS 10:04
DX: G47.30 Sleep apnea, unspecified (principal); I10 Essential (primary) hypertension; E11.9 Type 2 diabetes mellitus without complications; J44.9 Chronic obstructive pulmonary disease, unspecified; Z87.440 Personal history of urinary (tract) infections; Z87.891 Personal history of nicotine dependence; Z79.52 Long term (current) use of systemic steroids; Z90.710 Acquired absence of both cervix and uterus
CPT/HCPCS: 36415; 71045; 80053; 82805; 83605; 85025

== ENCOUNTER 2019-02-25 20:24 | Inpatient (IN) | payer MEDICARE, MEDICAID ==
[~2019-02-25] VITALS: Ht 162 cm; Wt 160.1 kg
[2019-02-25] MEDS ORDERED: RT-ALBUTEROL/IPRATROPIUM 3 ML (DUONEB) VIAL INH ONE (20:45)
[2019-02-25] MEDS ORDERED: methylPREDNISolone 125 MG (Solu-MEDROL) VIAL IVP ONE (20:45)
--- NOTE | 2019-02-25 20:45 | ED Dyspnea ---
General Stated Complaint: WEAKNESS Source of Information: Patient Exam Limitations: No Limitations History of Present Illness Date Seen by Provider: Feb 25, 2019 Time Seen by Provider: 20:43 Initial Comments Patient was sent here from the intermediate for evaluation of shortness of air. She has a history of COPD. She uses BiPAP at night.. Did not sleep well. Was seen in the ER this morning and noted to have a restaurant acidosis. She was discharged back to the intermediate. Return to the ER tonight with complaints of shortness of air and decreased LOC. Allergies and Home Medications Allergies Coded Allergies: No Known Drug Allergies (Unverified , 08/13/18) Home Medications Furosemide 40 Mg Tablet, 40 MG PO DAILY Prescribed by: CARRI GUERRA on 10/13/18 1640 Prednisone 20 Mg Tab, 20 MG PO DAILY Prescribed by: CARLEY BOO on 08/13/18 1651 Prednisone 20 Mg Tab, 60 MG PO DAILY Prescribed by: BETI HATCH on 11/05/18 1333 Patient Home Medication List Home Medication List Reviewed: Yes Review of Systems Review of Systems Constitutional: malaise, weakness Respiratory: see HPI Cardiovascular: no symptoms reported Gastrointestinal: no symptoms reported Genitourinary: no symptoms reported Musculoskeletal: muscle pain All Other Systems Reviewed Negative Unless Noted: Yes Past Jmhwmzf-Lwgicu-Qzttvc Hx Patient Social History Type Used: Cigarettes Former Smoker, Quit: Mar 23, 1998 2nd Hand Smoke Exposure: No Recent Foreign Travel: No Contact w/Someone Who Travel: No Recent Hopitalizations: No Immunizations Up To Date Tetanus Booster (TDap): Unknown PED Vaccines UTD: Yes Seasonal Allergies Seasonal Allergies: Yes Past Medical History Surgeries: Yes Abdominal, Hysterectomy, Orthopedic Respiratory: Yes COPD Cardiac: Yes Hypertension Neurological: No 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 oz. 125.222696ph; 54.00 BMI Method:Stated General Appearance: Mild Distress, Obese HEENT: PERRL/EOMI, Pharynx Normal Neck: Supple Respiratory: Decreased Breath Sounds, Wheezing Cardiovascular: Regular Rate, Rhythm, No Edema Gastrointestinal: Non Tender, Soft Extremity: Normal Inspection Neurologic/Psychiatric: Alert, No Motor/Sensory Deficits Skin: Normal Color, Warm/Dry Focused Exam Lactate Level 02/25/19 20:40: Lactic Acid Level 2.52*H Lactic Acid Level Laboratory Tests Test 02/25/19 20:40 Lactic Acid Level 2.52 MMOL/L (0.50-2.00) *H Progress/Results/Core Measures Results/Orders Lab Results Laboratory Tests Test 02/25/19 20:35 02/25/19 20:40 02/25/19 21:01 Range/Units White Blood Count 6.3 4.3-11.0 10^3/uL Red Blood Count 4.08 L 4.35-5.85 10^6/uL Hemoglobin 10.8 L 11.5-16.0 G/DL Hematocrit 38 35-52 % Mean Corpuscular Volume 93 80-99 FL Mean Corpuscular Hemoglobin 26 25-34 PG Mean Corpuscular Hemoglobin Concent 29 L 32-36 G/DL Red Cell Distribution Width 16.0 H 10.0-14.5 % Platelet Count 246 130-400 10^3/uL Mean Platelet Volume 10.1 7.4-10.4 FL Neutrophils (%) (Auto) 67 42-75 % Lymphocytes (%) (Auto) 22 12-44 % Monocytes (%) (Auto) 7 0-12 % Eosinophils (%) (Auto) 3 0-10 % Basophils (%) (Auto) 1 0-10 % Neutrophils # (Auto) 4.2 1.8-7.8 X 10^3 Lymphocytes # (Auto) 1.4 1.0-4.0 X 10^3 Monocytes # (Auto) 0.5 0.0-1.0 X 10^3 Eosinophils # (Auto) 0.1 0.0-0.3 10^3/uL Basophils # (Auto) 0.0 0.0-0.1 10^3/uL Sodium Level 143 135-145 MMOL/L Potassium Level 5.2 H 3.6-5.0 MMOL/L Chloride Level 97 L 98-107 MMOL/L Carbon Dioxide Level 36 H 21-32 MMOL/L Anion Gap 10 5-14 MMOL/L Blood Urea Nitrogen 25 H 7-18 MG/DL Creatinine 0.82 0.60-1.30 MG/DL Estimat Glomerular Filtration Rate > 60 BUN/Creatinine Ratio 30 Glucose Level 209 H 70-105 MG/DL Calcium Level 9.6 8.5-10.1 MG/DL Corrected Calcium 9.5 8.5-10.1 MG/DL Magnesium Level 1.5 L 1.6-2.4 MG/DL Total Bilirubin 0.5 0.1-1.0 MG/DL Aspartate Amino Transf (AST/SGOT) 9 5-34 U/L Alanine Aminotransferase (ALT/SGPT) 8 0-55 U/L Alkaline Phosphatase 54 40-136 U/L Troponin I < 0.30 <0.30 NG/ML Pro-B-Type Natriuretic Peptide 36.1 <75.0 PG/ML Total Protein 7.4 6.4-8.2 GM/DL Albumin 4.1 3.2-4.5 GM/DL Lactic Acid Level 2.52 *H 0.50-2.00 MMOL/L Blood Gas Puncture Site LT RAD Blood Gas Patient Temperature 36.7 Arterial Blood pH 7.33 *L 7.37-7.43 Arterial Blood Partial Pressure CO2 81 *H 35-45 MMHG Arterial Blood Partial Pressure O2 59 L 79-93 MMHG Arterial Blood HCO3 43 *H 23-27 MMOL/L Arterial Blood Total CO2 45.2 H 21.0-31.0 MMOL/L Arterial Blood Oxygen Saturation 88 L 94-100 % Arterial Blood Base Excess 13.3 H -2.5-2.5 MMOL/L Memo Test YES-POS Blood Gas Ventilator Setting NO Blood Gas Inspired Oxygen 32% My Orders Orders - BERENICE CEDILLO MD Cbc With Automated Diff (02/25/19 20:34) Comprehensive Metabolic Panel (02/25/19 20:34) Chest 1 View Ap/Pa Only (02/25/19 20:34) Magnesium (02/25/19 20:34) Ekg Tracing (02/25/19 20:34) O2 (02/25/19 20:34) Ed Iv/Invasive Line Start (02/25/19 20:34) Monitor-Rhythm Ecg Trace Only (02/25/19 20:34) Lactic Acid Analyzer (02/25/19 20:34) Probnp Fs (02/25/19 20:34) Troponin I Fs (02/25/19 20:34) Bipap (Bilevel) Set Up (02/25/19 20:40) Albuterol/Ipra Inhalation Soln (Duoneb I (02/25/19 20:45) Svn Small Volume Nebulizer (02/25/19 20:40) Methylprednisolone Sod Succ (Solu-Medrol (02/25/19 20:45) Blood Culture (02/25/19 21:08) Piperacillin/Tazobactam (Bulk) (Zosyn In (02/25/19 21:15) Ns Iv 1000 Ml (Sodium Chloride 0.9%) (02/25/19 21:15) Arterial Blood Gas (02/25/19 21:13) Piperacillin Sodium/Tazobactam (Zosyn Vi (02/25/19 21:18) Ns (Ivpb) (Sodium Chloride 0.9% Ivpb Bag (02/25/19 21:18) Medications Given in ED Current Medications Medications Dose Ordered Sig/Jayesh Route Start Time Stop Time Status Last Admin Dose Admin Albuterol/ Ipratropium 3 ml ONCE ONCE INH 02/25/19 20:45 02/25/19 20:46 DC 02/25/19 20:57 3 ML Methylprednisolone Sodium Succinate 125 mg ONCE ONCE IVP 02/25/19 20:45 02/25/19 20:46 DC 02/25/19 20:57 125 MG Vital Signs/I&O 02/25/19 02/25/19 20:26 20:26 Temp 36.7 Pulse 95 Resp 18 B/P (MAP) 133/83 (100) Pulse Ox 91 91 O2 Delivery Nasal Cannula Nasal Cannula O2 Flow Rate 4.00 4.00 FiO2 91 Progress Progress Note : Time: 21:10 Progress Note Patient started on BiPAP which she is tolerating. Lactate is elevated and she was given intravenous hydration. Patient was cultured and Zosyn was given for possible pneumonia. Initial ECG Impression Date: Feb 25, 2019 Initial ECG Impression Time: 21:27 Initial ECG Rhythm: Normal Sinus Initial ECG Intervals: Normal Initial ECG Impression: Nonspecific Changes Departure Communication (Admissions) Time/Spoke to Admitting Phy: 21:[address] Vargas who agrees to admit. Impression Primary Impression: Acute respiratory failure Additional Impressions: COPD (chronic obstructive pulmonary disease) Pneumonia Disposition: ADMITTED INPATIENT Condition: Stable Admissions Decision to Admit Reason: Admit from ER (General) Decision to Admit/Date: Feb 25, 2019 Time/Decision to Admit Time: 21:10 Departure-Patient Inst. Referrals: GILMA HUITRON MD (PCP/Family) Primary Care Physician BERENICE CEDILLO MD Feb 25, 2019 20:45 POS
[2019-02-25 20:46] LABS: BASOPHILS % (AUTO) 1 % (0-10); EOSINOPHILS % (AUTO) 3 % (0-10); HEMATOCRIT 38 % (35-52); HEMOGLOBIN 10.8 G/DL (11.5-16.0); LYMPHOCYTES % (AUTO) 22 % (12-44); MEAN CORPUSCULAR HEMOGLOBIN 26 PG (25-34); MEAN CORPUSCULAR HGB CONC 29 G/DL (32-36); MEAN CORPUSCULAR VOLUME 93 FL (80-99); MEAN PLATELET VOLUME 10.1 FL (7.4-10.4); MONOCYTES % (AUTO) 7 % (0-12); NEUTROPHILS # (AUTO) 4.2 X 10^3 (1.8-7.8); NEUTROPHILS % (AUTO) 67 % (42-75); PLATELET COUNT 246 10^3/uL (130-400); WHITE BLOOD COUNT 6.3 10^3/uL (4.3-11.0)
[2019-02-25 20:47] LABS: EOSINOPHILS # (AUTO) 0.1 10^3/uL (0.0-0.3); LYMPHOCYTES # (AUTO) 1.4 X 10^3 (1.0-4.0); MONOCYTES # (AUTO) 0.5 X 10^3 (0.0-1.0)
--- NOTE | 2019-02-25 21:08 | Diagnostic Imaging Report ---
Procedure: Chest 1 view AP/PA only. Indication: Shortness of breath. Comparison: 02/25/2019 at 10:13 a.m. Findings: Bandlike opacity in the right midlung zone is unchanged. Patchy opacities at the left lung base are similar. No pleural effusion or pneumothorax. Normal heart size. Low lung volumes are present due to poor inspiration. Impression: Persistent bilateral pulmonary opacities which could be due to multifocal pneumonia or atelectasis, depending on clinical scenario. Dictated by: Dictated on workstation # [id number]
[2019-02-25 21:12] LABS: ALANINE AMINOTRANSFERASE 8 U/L (0-55); ALBUMIN 4.1 GM/DL (3.2-4.5); ALKALINE PHOSPHATASE 54 U/L (40-136); BILIRUBIN,TOTAL 0.5 MG/DL (0.1-1.0); BUN/CREATININE RATIO 30; CALCIUM 9.6 MG/DL (8.5-10.1); CARBON DIOXIDE 36 MMOL/L (21-32); CHLORIDE 97 MMOL/L (98-107); CREATININE SERUM 0.82 MG/DL (0.60-1.30); GFR ESTIMATED > 60; GLUCOSE 209 MG/DL (70-105); MAGNESIUM 1.5 MG/DL (1.6-2.4); POTASSIUM 5.2 MMOL/L (3.6-5.0); SODIUM 143 MMOL/L (135-145); TOTAL PROTEIN 7.4 GM/DL (6.4-8.2)
[2019-02-25] MEDS ORDERED: PIPERACILLIN/TAZOBACTAM (BULK) 4.5 GM in NS (IVPB) 100 ML IV ONE (21:15)
[2019-02-25 21:16] LABS: ABG PCO2 81 MMHG (35-45); ABG PH 7.33 (7.37-7.43); ABG PO2 59 MMHG (79-93)
[2019-02-25 21:17] LABS: ABG BASE EXCESS 13.3 MMOL/L (-2.5-2.5); ABG OXYGEN SATURATION 88 % (94-100); ABG TCO2 45.2 MMOL/L (21.0-31.0); ALLENS TEST YES-POS
[2019-02-25 21:18] LABS: INSPIRED O2 32%; PATIENT TEMP 36.7; VENTILATOR NO
[2019-02-25] MEDS ORDERED: PIPERACILLIN/TAZO 4.5 GM VIAL (ZOSYN) IV ONE (21:18)
[2019-02-25] MEDS ORDERED: NS (IVPB) 100 ML ONE (21:18)
[2019-02-25] MEDS: NS IV 1000 ML 1,000 ML IV SCH ×2 (21:57→23:15)
[2019-02-25 22:18] LABS: ABG PCO2 87 MMHG (35-45); ABG PO2 66 MMHG (79-93)
[2019-02-25 22:19] LABS: ABG BASE EXCESS 12.8 MMOL/L (-2.5-2.5); ABG OXYGEN SATURATION 91 % (94-100); ABG TCO2 45.5 MMOL/L (21.0-31.0); ALLENS TEST YES-POS; PATIENT TEMP 36.7; VENTILATOR NO
--- NOTE | 2019-02-25 22:21 | NUR ---
RECEIVED REPORT FROM MARIE VICTORIA.
--- NOTE | 2019-02-25 23:51 | NUR ---
AL URBANO admitted to room CU7-1, with an admitting diagnosis of PNEUMONIA AND RESPIRATORY FAILURE, on 02/25/19 from [facility] via EMS/[facility], accompanied by [facility] ER STAFF. AL URBANO introduced to surroundings, call light, bed controls, phone, TV, temperature control, lights, meal times, smoking policy, visitor policy, side rail policy, bathrooms and showers. Patient Rights given to patient in the handbook. AL URBANO verbalizes understanding that [facility] is not responsible for the loss or damage to any personal effects or valuables that are kept in the patients posession during their hospitalization. Patient and/or family were informed about the Rapid Response Team and its purpose.
[2019-02-26] VITALS (34 sets, daily range): BP systolic 96–191; BP diastolic 60–133
[2019-02-26 00:53] LABS: ABG BASE EXCESS 10.8 MMOL/L (-2.5-2.5); ABG OXYGEN SATURATION 91 % (94-100); ABG PO2 63 MMHG (79-93)
[2019-02-26 00:58] LABS: ALLENS TEST POSITIVE; INSPIRED O2 75% BIPAP; PATIENT TEMP 36.1; VENTILATOR NO
[2019-02-26 00:59] LABS: ABG PCO2 78 MMHG (35-45)
--- NOTE | 2019-02-26 01:06 | NUR ---
THIS RN UNABLE TO COMPLETE ALL ADMISSION QUESTIONS (FLU AND PNA VACCINE) DUE TO PT CRITICAL CONDITION. [facility] WILL NEED TO BE CONTACTED. THIS RN WILL PASS ALONG INFORMATION TO DAYSHIFT RN.
--- NOTE | 2019-02-26 01:25 | NUR ---
TIMELINE NOTE BELOW: 02/26/19 AT 0058: RECEIVED CRITICAL LAB RESULTS. 02/26/19 AT 0108: NOTIFIED E-ICU OF CRITICAL LAB RESULTS. 02/26/19 AT 0125: E-ICU CALLED THIS RN TO NOTIFY OF ORDER TO INTUBATE PT. 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 ALVAREZ NOTIFIED AT THIS TIME.
[2019-02-26] MEDS ORDERED: PROPOFOL DRIP (ICU) 100 ML IV ONE (01:34)
[2019-02-26] MEDS: NS IV 1000 ML 1,000 ML IV SCH ×7 (01:45→19:54)
[2019-02-26] MEDS ORDERED: VANCOMYCIN 2000 MG/NS 500 ML IVPB IV ONE ×2 (02:00)
[2019-02-26] MEDS ORDERED: fentaNYL INJECTION 100 MCG/2 ML AMP IV ONE (02:00)
[2019-02-26] MEDS ORDERED: fentaNYL INJECTION 100 MCG/2 ML AMP IV PRN (02:00)
[2019-02-26] MEDS ORDERED: NS IV 1000 ML 1,000 ML IV SCH (02:00)
--- NOTE | 2019-02-26 02:15 | NUR ---
TIMELINE NOTE BELOW: 02/26/19 AT 0138: NORMAL SALINE 1000ML BOLUS STARTED. DR. ALVAREZ HERE FROM ER FOR RSI. 20MG ETOMIDATE GIVEN IV PER DR. ALVAREZ'S ORDER. 02/26/19 AT 0140: 70MG ROCURONIUM GIVEN IV PER DR. ALVAREZ'S ORDER. 02/26/19 AT 143: INTUBATION COMPLETED BY DR. ALVAREZ WITHOUT DIFFICULTY; ETT 7.5FR, 22CM AT LIP, CO2 COLOR CHANGE NOTED BY DR. ALVAREZ AND RT, FOG NOTED IN ETT BY DR. ALVAREZ AND RT, EQUAL AND BILATERAL BREATH SOUNDS NOTED BY RT, RT BAGGING PT AT THIS TIME. 02/26/19 AT 0145: OG PLACED BY DR. ALVAREZ. AIR BOLUS AUSCULTATED. 02/26/19 AT 0148: RESTRAINTS PLACED TO BILATERAL WRISTS, PROPER POSITIONING PROVIDED. 02/26/19 AT 0201: CENTRAL LINE PLACED TO RIGHT IJ BY DR. ALVAREZ. 02/26/19 AT 0210: CHEST X-RAY COMPLETED. DR. ALVAREZ INSTRUCTED TO PULL ETT TUBE BACK TO 21.5 CM AT LIP AND TO PULL BACK OG 7CM. 02/26/19 AT 0215: ETT PULLED BACK BY RT AT 21.5CM AT LIP. Addendum: 02/26/19 at 0637 by TETE HEARD RN AMENDMENT TO NOTE ABOVE: 02/26/19 AT 0215: DR. ALVAREZ VERIFIED PLACEMENT OF CENTRAL LINE, ETT, AND OG TUBE.
--- NOTE | 2019-02-26 02:36 | Procedure/Intervention Note ---
Procedure Note Preoperative Date of Service: Feb 26, 2019 Time of Procedure: 02:00 Vital Signs Date Time Temp Pulse Resp B/P (MAP) Pulse Ox O2 Delivery O2 Flow Rate FiO2 02/26/19 00:45 84 24 133/95 (108) 90 NIV Bilevel 75.00 02/26/19 00:13 37.0 02/25/19 23:55 75 Indication Hypoxic and hypercapnic acute respiratory failure. Failing BiPAP. Risk/Time Out Risk and benefits explained to patient or legal guardian, verbal and written consent given. Time out performed, verified correct patient, correct procedure, correct site, and consent documented. Technique Intubation, OG, central line Prep/Sedation Prepartation: Chlorhexidine, Drape Sedation: etomidate 20 mg Procedure-General After explaining the risks, benefits and alternatives the patient did give consent for intubation and central line. We gave 20 mg of etomidate positioned the patient used towel roll under her shoulders and use video laryngoscopy. We had EGD and 3 Nolvia laryngoscope back up. We selected a 7.5 ET tube. The patient was appropriately prepared. Suction was available. Patient was preoxygenated FiO2 100% which brought her sats up to 94%. We then pushed 1.2 mg/kg ideal body weight of rocuronium or 70 mg. When the patient was adequately sedated and paralyzed we made one pass with a suction catheter and using the video laryngoscope obtained a good full view of the bilateral vocal cords. We used the stylette guided 7.5 ET tube and placed it at 22 at the lips. We watched the cuff pass both vocal cords and then inflated it. We had good capnography paper color change and the tube was fogged on exhalation. We had good lung sounds bilaterally. Patient tolerated procedure well. Secured in place and placed a OG tube on first attempt in the stomach which was then checked using auscultation successfully. We then position the patient cleaned off her neck with chlorhexidine and allowed to dry. We draped the patient out in the usual sterile fashion and wearing sterile gloves, gown, head garb and mask we used a ultrasound under sterile probe cover to locate and Naseem her right IJ. It was plump and easily accessible. We placed 3 cc of 1% lidocaine without epinephrine and the skin for anesthesia. Under ultrasound guidance we put a introducer needle into the right IJ and easily passed the guidewire. We did have one 3 second run of V. tach. After withdrawing the wire about 6 cm the V. tach did not return. We made a small dave in the skin using t he supplied 11 blade scalpel. We then removed the needle and put the dilator over the guidewire and introduced it to the insertion site. After we removed the dilator we put the central lumen of the pre-/triple lumen 20 cm 7.5 [place] central catheter over the guidewire. We put in place about 12 cm and stitched in place twice using supplied suture. Guidewire was removed and claves were placed flushed easily withdrew. We then put the bile patch on and a sterile dressing. An x-ray was obtained demonstrating good position of the central line. The ET tube seemed to be within 1 cm of the noe so it was removed 1-1/2 cm. Repeat x-ray demonstrated good position. OG tube also seemed to be deep in the stomach and coiled so we removed about 12 cm. Repeat x-ray demonstrated adequate position. There is no pneumothorax and the central line did not cross the midline. He did terminate in the superior vena cava just above the right atria. Patient tolerated procedure well. Had a good blood pressure and oxygen saturation 97% with a heart rate of 101 when I left the room. Propofol was initiated. EICU was getting ventilator management settings. Estimated Blood Loss Bleeding: Minimal Less than 1 mL: No (less than 15 cc) Estimated blood loss in mL: 15 Complications None Under the care of eICU and internal medicine. GUILLERMINA ALVAREZ Feb 26, 2019 02:36 POS
[2019-02-26] MEDS ORDERED: RT-ALBUTEROL SULF 2.5 MG/3 ML PRE-MIX VIAL ONE (02:40)
[2019-02-26] MEDS: LEVOFLOXACIN 750 MG/150 ML IV 150 ML IV SCH (02:46)
[2019-02-26] MEDS: methylPREDNISolone 40 MG/ML (Solu-MEDROL) VIAL IV SCH (02:46)
[2019-02-26] MEDS ORDERED: VANCOMYCIN 1000 MG/VIAL ONE (02:53)
[2019-02-26] MEDS ORDERED: NS IV 500 ML 500 ML ONE (02:54)
[2019-02-26 03:00] LABS: BASOPHILS % (AUTO) 1 % (0-10); EOSINOPHILS % (AUTO) 1 % (0-10); HEMATOCRIT 36 % (35-52); HEMOGLOBIN 10.3 G/DL (11.5-16.0); LYMPHOCYTES # (AUTO) 0.5 X 10^3 (1.0-4.0); LYMPHOCYTES % (AUTO) 7 % (12-44); MEAN CORPUSCULAR HEMOGLOBIN 26 PG (25-34); MEAN CORPUSCULAR HGB CONC 29 G/DL (32-36); MEAN CORPUSCULAR VOLUME 91 FL (80-99); MEAN PLATELET VOLUME 10.2 FL (7.4-10.4); MONOCYTES # (AUTO) 0.1 X 10^3 (0.0-1.0); MONOCYTES % (AUTO) 1 % (0-12); NEUTROPHILS # (AUTO) 5.8 X 10^3 (1.8-7.8); NEUTROPHILS % (AUTO) 90 % (42-75); PLATELET COUNT 233 10^3/uL (130-400); RED CELL DISTRIBUTION WIDTH 16.3 % (10.0-14.5); WHITE BLOOD COUNT 6.5 10^3/uL (4.3-11.0)
[2019-02-26 03:19] LABS: ALANINE AMINOTRANSFERASE 10 U/L (0-55); ALBUMIN 3.9 GM/DL (3.2-4.5); ALKALINE PHOSPHATASE 49 U/L (40-136); BILIRUBIN,TOTAL 0.9 MG/DL (0.1-1.0); BUN/CREATININE RATIO 27; CALCIUM 8.5 MG/DL (8.5-10.1); CARBON DIOXIDE 29 MMOL/L (21-32); CHLORIDE 99 MMOL/L (98-107); CREATININE SERUM 0.84 MG/DL (0.60-1.30); GFR ESTIMATED > 60; GLUCOSE 316 MG/DL (70-105); MAGNESIUM 1.4 MG/DL (1.6-2.4); POTASSIUM 5.8 MMOL/L (3.6-5.0); SODIUM 141 MMOL/L (135-145); TOTAL PROTEIN 6.6 GM/DL (6.4-8.2)
[2019-02-26 03:35] LABS: ABG BASE EXCESS 8.9 MMOL/L (-2.5-2.5); ABG OXYGEN SATURATION 89 % (94-100); ABG PCO2 64 MMHG (35-45); ABG PH 7.35 (7.37-7.43); ABG PO2 57 MMHG (79-93); ABG TCO2 36.7 MMOL/L (21.0-31.0)
[2019-02-26 03:37] LABS: ALLENS TEST POSITIVE; INSPIRED O2 100%; PATIENT TEMP 36.2; VENTILATOR YES
[2019-02-26] MEDS: PIPERACILLIN/TAZOBACTAM (BULK) 4.5 GM in NS (IVPB) 100 ML IV SCH ×3 (04:20→19:57)
[2019-02-26 04:28] LABS: LYMPHOCYTES % (MANUAL) 6 %; MONOCYTES % (MANUAL) 2 %; NEUTROPHILS % (MANUAL) 92 %
[2019-02-26] MEDS ORDERED: FUROSEMIDE 40 MG/4 ML INJ (LASIX) ONE (04:40)
[2019-02-26] MEDS ORDERED: FUROSEMIDE 40 MG/4 ML INJ (LASIX) IVP ONE (04:45)
[2019-02-26] MEDS: inSUlin ASPART (NovoLOG) 1 UNIT/0.01 ML (CHARGE PER UNIT) SC SCH ×6 (04:48→23:55)
--- NOTE | 2019-02-26 05:26 | NUR ---
ATTEMPTED TO CALL PT'S EMERGENCY CONTACT (CELIO DOMINGUEZ) TO PROVIDE UPDATE ON PT'S STATUS. PT'S EMERGENCY CONTACT DID NOT ANSWER.
[2019-02-26] MEDS ORDERED: CEFEPIME 2,000 MG/SWFI 20 ML IV PUSH IV SCH ×2 (06:00)
[2019-02-26] MEDS: KCL 20 MEQ TAB (K-DUR) PO SCH (06:10)
[2019-02-26] MEDS: POTASSIUM CL 10MEQ/50ML IVPB 50 ML IV SCH (06:10)
[2019-02-26] MEDS: MAGNESIUM 1 GM/100 ML IVPB 100 ML IV SCH ×2 (06:10→06:19)
[2019-02-26] MEDS: CHLORHEXIDINE 0.12% SOLN 15 ML (PERIDEX) UDC PO SCH ×3 (06:19→21:39)
[2019-02-26] MEDS: fentaNYL 1,250 MCG/NS 250 ML DRIP IV SCH ×2 (06:50)
[2019-02-26] MEDS: RT-ALBUTEROL SULF 2.5 MG/3 ML PRE-MIX VIAL IH SCH ×5 (07:03→22:07)
--- NOTE | 2019-02-26 07:56 | NUR ---
VANCOMYCIN PER PHARMACY PROTOCOL: ADJ BW 94 KG, SCr 0.84, EST CrCl 109 PATIENT RECEIVED 2,000 MG ON 02/26/19 @ 0300. MAIN. DOSE = 2,000 MG Q12HR BEGINNING 02/26/19 11:00 VANCOMYCIN TROUGH ORDERED FOR 02/27/19 @10:00 IF TROUGH GREATER THAN 20 HOLD 02/27/19 11:00 DOSE.
[2019-02-26] MEDS ORDERED: ROCURONIUM 10 MG/ML 5 ML SYRINGE IV ONE (08:31)
[2019-02-26] MEDS ORDERED: ETOMIDATE IV SOLN 20 MG/10 ML VIAL IV ONE (08:31)
--- NOTE | 2019-02-26 08:39 | Physical Therapy Progress Note ---
Therapy Progress Note Patient is intubated and sedated. Will check back on Thursday and treat if patient is appropriate. KEESHA CESPEDES PT Feb 26, 2019 08:39 POS
[2019-02-26] MEDS: PANTOPRAZOLE 40 MG (PROTONIX) VIAL IV SCH ×2 (09:16→20:00)
[2019-02-26 09:59] LABS: ABG BASE EXCESS 11.4 MMOL/L (-2.5-2.5); ABG OXYGEN SATURATION 58 % (94-100); ABG PCO2 64 MMHG (35-45); ABG PH 7.38 (7.37-7.43)
[2019-02-26 10:01] LABS: ABG PO2 33 MMHG (79-93)
[2019-02-26 10:03] LABS: ALLENS TEST YES-POS; INSPIRED O2 100%; VENTILATOR YES
[2019-02-26 10:04] LABS: PATIENT TEMP 36.4
--- NOTE | 2019-02-26 10:30 | Diagnostic Imaging Report ---
EXAMINATION: Chest 1 view INDICATION: Confirm placement of endotracheal tube, OG tube and central line. COMPARISON: 02/25/2019 at 8:30 PM FINDINGS: An endotracheal tube is visualized with the tip just above the noe oriented towards the right mainstem bronchus. A central line is seen with the tip overlying the mid SVC. Enteric tube is seen similar to diaphragm with the tip not included on this exam. Continued low lung volumes with increased bibasilar opacities and right perihilar opacities. Bilateral small pleural effusions are noted. No large pneumothorax. Stable cardiac silhouette. No acute osseous abnormalities. IMPRESSION: 1. Endotracheal tube with tip just above the noe oriented towards the right mainstem bronchus. Consider retracting 3 to 4 cm. The remaining support devices appear in appropriate configuration. 2. Increased bibasilar opacities with small bilateral pleural effusions. This may represent atelectasis, edema, or infection. Report given to patient's ICU nurse at [facility] at 10:29 a.m. 02/26/2019/wilber Dictated by: Dictated on workstation # [id number]
--- NOTE | 2019-02-26 11:13 | Diagnostic Imaging Report ---
EXAMINATION: Chest 1 view HISTORY: Endotracheal tube adjustment. COMPARISON: 02/26/2019 at 2:00 AM FINDINGS: The endotracheal tube is been retracted slightly and is now approximately 2 cm of of the noe. Stable configuration of the right internal jugular central line and enteric tube. Redemonstration of bibasilar and perihilar opacities with small bilateral pleural effusions, left greater than right. No large pneumothorax. Stable enlarged cardiac silhouette. IMPRESSION: 1. Endotracheal tube has been retracted slightly and now is approximately 2 cm above the noe. The remaining support devices are stable. 2. Stable chest with perihilar and bibasilar opacities and bilateral small pleural effusions. Dictated by: Dictated on workstation # [id number]
[2019-02-26] MEDS: VANCOMYCIN 2000 MG/NS 500 ML IVPB IV SCH ×4 (11:19→22:56)
--- NOTE | 2019-02-26 11:43 | Pulmonary Consultation ---
History of Present Illness History of Present Illness Date Seen by Provider: Feb 26, 2019 Time Seen by Provider: 11:38 Date of Admission History of Present Illness 58yo with hx of COPD, morbid obesity, severe WILBER uses BiPAP at night presented to ED from [facility] secondary to worsening SOB, and worsening lethargy. Pt was just recently in ED with SOB however was discharged after workup. Pt continued to worsen during the night and was intubated in ICU. She is now sedated on vent. I was called to bedside emergently by RN this morning secondary to worsening hypoxia. repeat labs pending. Allergies and Home Medications Allergies Coded Allergies: No Known Drug Allergies (Unverified , 08/13/18) Home Medications Furosemide 40 Mg Tablet, 40 MG PO DAILY Prescribed by: CARRI GUERRA on 10/13/18 1640 Prednisone 20 Mg Tab, 20 MG PO DAILY Prescribed by: CARLEY BOO on 08/13/18 1651 Prednisone 20 Mg Tab, 60 MG PO DAILY Prescribed by: BETI HATCH on 11/05/18 1333 Past Hnxtbon-Prdcst-Pxoqli Hx Patient Social History Alcohol Use: Denies Use Recreational Drug Use: No Smoking Status: Former Smoker Type Used: Cigarettes Former Smoker, Quit: Mar 23, 1998 2nd Hand Smoke Exposure: No Recent Foreign Travel: No Contact w/Someone Who Travel: No Recent Infectious Disease Expo: No Recent Hopitalizations: No Physical Abuse: No Sexual Abuse: No Immunizations Up To Date Tetanus Booster (TDap): Unknown PED Vaccines UTD: Yes Seasonal Allergies Seasonal Allergies: Yes Past Medical History Surgeries: Yes Abdominal, Hysterectomy, Orthopedic Respiratory: Yes COPD Cardiac: Yes Hypertension 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 oz. 125.893470cj; 39.00 BMI Method:Stated Exam Exam Vital Signs Date Time Temp Pulse Resp B/P (MAP) Pulse Ox O2 Delivery O2 Flow Rate FiO2 02/26/19 11:24 Mechanical Ventilator 80.00 02/26/19 11:00 97 11 131/84 (100) 100 Mechanical Ventilator 100.00 02/26/19 10:35 111/72 02/26/19 10:00 84 20 110/68 (82) 87 Mechanical Ventilator 100.00 02/26/19 09:00 95 20 114/70 (85) 87 Mechanical Ventilator 100.00 02/26/19 08:38 95 02/26/19 08:00 94 20 115/71 (86) 87 Mechanical Ventilator 100.00 02/26/19 07:04 86 20 85 100 02/26/19 07:00 82 20 116/72 (87) 85 Mechanical Ventilator 100.00 02/26/19 07:00 82 02/26/19 06:00 85 20 116/74 (88) 85 Mechanical Ventilator 100.00 02/26/19 05:50 36.4 02/26/19 05:10 36.78909 84 20 118/76 88 Mechanical Ventilator 100.00 02/26/19 05:00 82 21 118/76 (90) 87 Mechanical Ventilator 100.00 02/26/19 05:00 36.6 02/26/19 04:21 Mechanical Ventilator 100 02/26/19 04:20 36.7 02/26/19 04:00 80 20 124/84 (97) 85 Mechanical Ventilator 100.00 02/26/19 03:00 84 19 143/89 (107) 88 Mechanical Ventilator 100.00 02/26/19 02:55 90 20 91 80 02/26/19 02:35 90 20 91 80 02/26/19 02:35 88 19 83 Mechanical Ventilator 100.00 02/26/19 02:34 93 19 178/110 83 Mechanical Ventilator 80.00 02/26/19 02:14 101 21 186/119 (141) 89 Mechanical Ventilator 80.00 02/26/19 02:00 106 20 191/113 (139) 90 Mechanical Ventilator 80.00 02/26/19 01:50 97 15 160/133 (142) 96 Mechanical Ventilator 80.00 02/26/19 01:50 90 20 91 80 02/26/19 01:00 88 02/26/19 01:00 88 24 131/90 (104) 90 NIV Bilevel 75.00 02/26/19 00:45 84 24 133/95 (108) 90 NIV Bilevel 75.00 02/26/19 00:42 85 15 91 NIV Bilevel 75.00 02/26/19 00:30 87 25 122/83 (96) 86 NIV Bilevel 60.00 02/26/19 00:19 85 24 91 NIV Bilevel 60.00 02/26/19 00:15 75 25 143/92 (109) 87 NIV Bilevel 45.00 02/26/19 00:13 37.0 02/26/19 00:06 91 18 137/90 (106) 88 NIV Bilevel 45.00 02/25/19 23:55 NIV Bilevel 75 02/25/19 22:51 94 55.00 02/25/19 22:45 89 20 132/92 95 NIV Bilevel 55.00 02/25/19 20:26 91 Nasal Cannula 4.00 91 02/25/19 20:26 36.7 95 18 133/83 (100) 91 Nasal Cannula 4.00 I & O 02/26/19 07:00 Intake Total 2890 ml Output Total 1425 ml Balance 1465 ml Height & Weight Height: 5'4.00" Weight: 276lbs. oz. 125.580356ry; 39.00 BMI Method:Stated General Appearance: Chronically ill, Moderate Distress, Obese, Other (sedated on vent) HEENT: PERRL/EOMI, Pharynx Normal Neck: Supple Respiratory: Decreased Breath Sounds, Respiratory Distress Cardiovascular: Regular Rate, Rhythm, No Edema Capillary Refill: Less Than 3 Seconds Extremity: Normal Inspection Skin: Normal Color, Warm/Dry Results Lab Laboratory Tests 02/25/19 20:35 02/26/19 02:50 Assessment/Plan Assessment/Plan Acute on chronic respiratory failure -Continue ventilator therapy COPDAE r/o PNA -Solumedrol -Continue Zosyn and Vanco -Johnston cultures Metabolic lactic acidosis secondary to hypoxia -Monitor -gentle IVF Hyperkalemia -Repeat labs Anemia -Monitor SUZY MCCORMACK DO Feb 26, 2019 11:43 POS
[2019-02-26 12:07] LABS: BASOPHILS % (AUTO) 0 % (0-10); EOSINOPHILS % (AUTO) 0 % (0-10); HEMATOCRIT 35 % (35-52); HEMOGLOBIN 10.2 G/DL (11.5-16.0); LYMPHOCYTES # (AUTO) 0.6 X 10^3 (1.0-4.0); LYMPHOCYTES % (AUTO) 9 % (12-44); MEAN CORPUSCULAR HEMOGLOBIN 26 PG (25-34); MEAN CORPUSCULAR HGB CONC 30 G/DL (32-36); MEAN CORPUSCULAR VOLUME 89 FL (80-99); MEAN PLATELET VOLUME 10.2 FL (7.4-10.4); MONOCYTES # (AUTO) 0.2 X 10^3 (0.0-1.0); MONOCYTES % (AUTO) 3 % (0-12); NEUTROPHILS # (AUTO) 6.4 X 10^3 (1.8-7.8); NEUTROPHILS % (AUTO) 89 % (42-75); PLATELET COUNT 245 10^3/uL (130-400); RED CELL DISTRIBUTION WIDTH 16.1 % (10.0-14.5); WHITE BLOOD COUNT 7.2 10^3/uL (4.3-11.0)
--- NOTE | 2019-02-26 12:11 | History & Physical-Hospitalist ---
History of Present Illness HPI/Chief Complaint Chief complaint: Respiratory failure History of present illness: This is a 58-year-old white female assisted patient at [facility] who presented to the [place] ER earlier Thursday for shortness of breath found to have no severe acute changes and her chronic obesity hypoventilation syndrome status so she was sent back to the assisted and then worsened a few hours later requiring transfer to [facility] ICU and requiring ventilator support. Patient was placed on Zosyn empirically for pneumonia facility acquired since she resides in a assisted. Patient has severe comorbidities requiring assisted placement at such a young age due to the obesity hypoventilation syndrome. She does use CPAP in the assisted. Currently Dr. Balbuena is managing the ventilator which appears to be in need of significant modification. Exam Limitations: clinical condition Date Seen 02/26/19 Time Seen by a Provider: 10:30 Attending Physician Mitzi Vargas Katrina M MD Referring Physician Date of Admission Feb 25, 2019 at 21:30 Home Medications & Allergies Home Medications Reviewed patient Home Medication Reconciliation performed by pharmacy medication reconciliations solar installer technician and/or nursing. Patients Allergies have been reviewed. Allergies Allergies Coded Allergies No Known Drug Allergies (Unverified08/13/18) Past Idcodso-Cbsyno-Dypzqn Hx Past Med/Social Hx: Reviewed Nursing Past Med/Soc Hx, Reviewed and Corrections made Patient Social History Marrital Status: single Employed/Student: unemployed Alcohol Use: Denies Use Recreational Drug Use: No Smoking Status: Former Smoker Former Smoker, Quit: Mar 23, 1998 Type Used: Cigarettes 2nd Hand Smoke Exposure: No Recent Foreign Travel: No Contact w/other who traveled: No Recent Hopitalizations: No Recent Infectious Disease Expo: No Immunizations Up To Date Tetanus Booster (TDap): Unknown Pediatric: Yes Seasonal Allergies Seasonal Allergies: Yes Past Medical History Surgeries: Abdominal, Hysterectomy, Orthopedic Respiratory: Sleep Apnea Currently Using CPAP: Yes Currently Using BIPAP: No Cardiac: Hypertension Hysterectomy Genitourinary: UTI-Chronic Endocrine: Diabetes, Insulin dep History of Blood Disorders: No Family History Colon cancer 19 MOTHER Seizure disorder SON Review of Systems ROS-Unable to Obtain: on ventilator Constitutional: see HPI Physical Exam Physical Exam Vital Signs Vital Signs - First Documented 02/24/19 02/25/19 02/25/19 23:58 00:01 20:26 Temp 36.7 Pulse 80 Resp 26 B/P (MAP) 133/83 (100) Pulse Ox 94 O2 Delivery Nasal Cannula O2 Flow Rate 45.00 FiO2 91 Capillary Refill : Less Than 3 Seconds Height, Weight, BMI Height: 5'4.00" Weight: 276lbs. oz. 125.253861jo; 39.00 BMI Method:Stated General Appearance: Chronically ill, Obese, Other (sedated on vent) Respiratory: Lungs Clear, Decreased Breath Sounds Cardiovascular: Regular Rate, Rhythm Extremity: Pedal Edema Neurologic/Psychiatric: Other (sedated on vent) Results Results/Procedures Labs Laboratory Tests 02/25/19 20:35 02/26/19 02:50 02/26/19 11:57 02/27/19 03:15 Patient resulted labs reviewed. Assessment/Plan Admission Diagnosis Assessment: Ventilator-dependent respiratory failure Pneumonia Acute on chronic respiratory failure Obesity hypoventilation syndrome Exacerbation of COPD Metabolic lactic acidosis due to hypoxia and pneumonia Hyperkalemia Anemia Obstructive sleep apnea Plan: Appreciate Dr. Balbuena Ventilator management Supportive care Prognosis guarded given morbid obesity with BMI of 58 Zosyn antibiotic Admission Status: Inpatient Order (span 2 midnights) Reason for Inpatient Admission: Respiratory failure Diagnosis/Problems Diagnosis/Problems (1) Acute respiratory failure Status: Acute (2) Pneumonia Status: Acute (3) COPD with acute exacerbation Status: Acute (4) Edema Status: Acute (5) Fatigue Status: Acute Clinical Quality Measures DVT/VTE Risk/Contraindication: Risk Factor Score Per Nursin RFS Level Per Nursing on Admit: 4+=Very High MITZI VARGAS DO Feb 26, 2019 12:11 POS
[2019-02-26 12:31] LABS: ABG BASE EXCESS 11.1 MMOL/L (-2.5-2.5); ABG OXYGEN SATURATION 92 % (94-100); ABG PCO2 50 MMHG (35-45); ABG PH 7.46 (7.37-7.43); ABG PO2 59 MMHG (79-93); ABG TCO2 37.3 MMOL/L (21.0-31.0)
[2019-02-26 12:31] LABS: ALBUMIN 3.8 GM/DL (3.2-4.5); BILIRUBIN,TOTAL 0.6 MG/DL (0.1-1.0); CALCIUM 8.7 MG/DL (8.5-10.1); CREATININE SERUM 1.01 MG/DL (0.60-1.30); MAGNESIUM 1.5 MG/DL (1.6-2.4); PHOSPHORUS 2.8 MG/DL (2.3-4.7); POTASSIUM 4.6 MMOL/L (3.6-5.0); TOTAL PROTEIN 6.5 GM/DL (6.4-8.2)
[2019-02-26 12:33] LABS: ALLENS TEST YES-POS
[2019-02-26 12:34] LABS: INSPIRED O2 60%; PATIENT TEMP 36.4; VENTILATOR YES
[2019-02-27] VITALS (30 sets, daily range): BP systolic 100–131; BP diastolic 65–87
[2019-02-27] MEDS: LEVOFLOXACIN 750 MG/150 ML IV 150 ML IV SCH (01:34)
[2019-02-27] MEDS: methylPREDNISolone 40 MG/ML (Solu-MEDROL) VIAL IV SCH ×5 (01:36→23:50)
[2019-02-27] MEDS: NS IV 1000 ML 1,000 ML IV SCH (01:49)
[2019-02-27] MEDS: RT-ALBUTEROL SULF 2.5 MG/3 ML PRE-MIX VIAL IH SCH ×6 (02:54→23:07)
--- NOTE | 2019-02-27 03:31 | Pulmonary Progress Note ---
Subjective Time Seen by a Provider: 03:31 Subjective/Events-last exam Sedated on vent Sepsis Event Evaluation Height, Weight, BMI Height: 5'4.00" Weight: 276lbs. oz. 125.340781wl; 39.00 BMI Method:Stated Focused Exam Lactate Level 02/25/19 20:40: Lactic Acid Level 2.52*H 02/26/19 02:50: Lactic Acid Level 1.07 Exam Exam Vital Signs Date Time Temp Pulse Resp B/P (MAP) Pulse Ox O2 Delivery O2 Flow Rate FiO2 02/27/19 03:28 36.7 02/27/19 03:00 80 26 111/78 (89) 89 Mechanical Ventilator 40.00 02/27/19 02:55 73 16 96 40 02/27/19 02:00 76 16 100/69 (79) 96 Mechanical Ventilator 40.00 02/27/19 01:38 Mechanical Ventilator 40.00 02/27/19 01:18 Mechanical Ventilator 45.00 02/27/19 01:00 77 16 102/65 (77) 95 Mechanical Ventilator 45.00 02/27/19 01:00 80 02/27/19 00:53 Mechanical Ventilator 45.00 02/27/19 00:25 Mechanical Ventilator 50.00 02/27/19 00:00 83 16 106/68 (81) 92 Mechanical Ventilator 55.00 02/26/19 23:45 92 Mechanical Ventilator 55 02/26/19 23:43 36.1 02/26/19 23:00 96 17 124/78 (93) 91 Mechanical Ventilator 55.00 02/26/19 22:56 102/68 Mechanical Ventilator 45.00 02/26/19 22:10 74 16 90 45 02/26/19 22:00 80 15 102/65 (77) 91 Mechanical Ventilator 45.00 02/26/19 21:00 80 15 103/68 (80) 91 Mechanical Ventilator 45.00 02/26/19 20:35 Mechanical Ventilator 45.00 02/26/19 20:24 75 16 92 Mechanical Ventilator 40.00 02/26/19 20:00 75 15 104/67 (79) 90 Mechanical Ventilator 40.00 02/26/19 19:42 93 Mechanical Ventilator 40 02/26/19 19:00 36.3 73 16 96/62 (73) 93 Mechanical Ventilator 40.00 02/26/19 19:00 75 02/26/19 18:18 74 17 93 40 02/26/19 18:00 80 16 106/64 (78) 92 Mechanical Ventilator 40.00 02/26/19 18:00 107/64 02/26/19 17:00 85 16 100/60 (73) 92 Mechanical Ventilator 40.00 02/26/19 16:07 36.6 02/26/19 16:04 Mechanical Ventilator 40 02/26/19 16:01 122/79 02/26/19 16:00 84 16 122/79 (93) 95 Mechanical Ventilator 40.00 02/26/19 15:00 88 17 122/77 (92) 95 Mechanical Ventilator 40.00 02/26/19 14:00 90 20 120/77 (91) 94 Mechanical Ventilator 40.00 02/26/19 13:56 Mechanical Ventilator 40.00 02/26/19 13:52 87 18 95 50 02/26/19 13:00 95 02/26/19 13:00 94 19 135/84 (101) 95 Mechanical Ventilator 50.00 02/26/19 12:49 Mechanical Ventilator 50.00 02/26/19 12:15 100 20 137/83 (101) 96 Mechanical Ventilator 60.00 02/26/19 12:00 36.5 02/26/19 12:00 Mechanical Ventilator 60 02/26/19 11:38 Mechanical Ventilator 60.00 02/26/19 11:24 Mechanical Ventilator 80.00 02/26/19 11:10 86 20 100 100 02/26/19 11:00 97 11 131/84 (100) 100 Mechanical Ventilator 100.00 02/26/19 10:35 111/72 02/26/19 10:00 84 20 110/68 (82) 87 Mechanical Ventilator 100.00 02/26/19 09:00 95 20 114/70 (85) 87 Mechanical Ventilator 100.00 02/26/19 08:38 95 02/26/19 08:10 Mechanical Ventilator 100 02/26/19 08:00 94 20 115/71 (86) 87 Mechanical Ventilator 100.00 02/26/19 07:04 86 20 85 100 02/26/19 07:00 82 20 116/72 (87) 85 Mechanical Ventilator 100.00 02/26/19 07:00 82 02/26/19 06:00 85 20 116/74 (88) 85 Mechanical Ventilator 100.00 02/26/19 05:50 36.4 02/26/19 05:10 36.01171 84 20 118/76 88 Mechanical Ventilator 100.00 02/26/19 05:00 82 21 118/76 (90) 87 Mechanical Ventilator 100.00 02/26/19 05:00 36.6 02/26/19 04:21 Mechanical Ventilator 100 02/26/19 04:20 36.7 02/26/19 04:00 80 20 124/84 (97) 85 Mechanical Ventilator 100.00 I & O 02/27/19 07:00 Intake Total 1840 ml Output Total 3050 ml Balance -1210 ml Height & Weight Height: 5'4.00" Weight: 276lbs. oz. 125.489025id; 39.00 BMI Method:Stated General Appearance: Chronically ill, Obese, Other (sedated on vent) HEENT: PERRL/EOMI, Pharynx Normal Neck: Supple Respiratory: Decreased Breath Sounds, Respiratory Distress Cardiovascular: Regular Rate, Rhythm, No Edema Capillary Refill: Less Than 3 Seconds Extremity: Normal Inspection Neurologic/Psychiatric: Other (sedated on vent) Skin: Normal Color, Warm/Dry Results Lab Laboratory Tests 02/25/19 20:35 02/26/19 02:50 02/26/19 11:57 Assessment/Plan Assessment/Plan Acute on chronic respiratory failure -Continue ventilator therapy -LABS/ CXR pending -Check echo tomorrow morning -BNP is normal - hold off on lasix COPDAE r/o PNA -Solumedrol 40 Q 6 -Zosyn and Vanco - D/C Levaquin -Johnston cultures pending IDDM -Add 20 units of Levemir BID -Accu checks Q 4 -SSI Metabolic lactic acidosis secondary to hypoxia -Monitor -gentle IVF Anemia -Monitor SUZY MCCORMACK DO Feb 27, 2019 03:31 POS
[2019-02-27 03:34] LABS: BASOPHILS % (AUTO) 0 % (0-10); EOSINOPHILS % (AUTO) 0 % (0-10); HEMATOCRIT 33 % (35-52); HEMOGLOBIN 9.8 G/DL (11.5-16.0); LYMPHOCYTES # (AUTO) 0.8 X 10^3 (1.0-4.0); LYMPHOCYTES % (AUTO) 9 % (12-44); MEAN CORPUSCULAR HEMOGLOBIN 27 PG (25-34); MEAN CORPUSCULAR HGB CONC 30 G/DL (32-36); MEAN CORPUSCULAR VOLUME 90 FL (80-99); MEAN PLATELET VOLUME 10.6 FL (7.4-10.4); MONOCYTES # (AUTO) 0.7 X 10^3 (0.0-1.0); MONOCYTES % (AUTO) 8 % (0-12); NEUTROPHILS # (AUTO) 7.2 X 10^3 (1.8-7.8); NEUTROPHILS % (AUTO) 82 % (42-75); PLATELET COUNT 242 10^3/uL (130-400); RED CELL DISTRIBUTION WIDTH 16.2 % (10.0-14.5); WHITE BLOOD COUNT 8.8 10^3/uL (4.3-11.0)
[2019-02-27] MEDS: PIPERACILLIN/TAZOBACTAM (BULK) 4.5 GM in NS (IVPB) 100 ML IV SCH ×3 (03:51→20:36)
[2019-02-27 03:53] LABS: CALCIUM 8.5 MG/DL (8.5-10.1); CREATININE SERUM 0.98 MG/DL (0.60-1.30); MAGNESIUM 1.6 MG/DL (1.6-2.4); PHOSPHORUS 3.4 MG/DL (2.3-4.7); POTASSIUM 4.6 MMOL/L (3.6-5.0)
[2019-02-27] MEDS: inSUlin ASPART (NovoLOG) 1 UNIT/0.01 ML (CHARGE PER UNIT) SC SCH ×6 (03:57→23:54)
[2019-02-27] MEDS: POTASSIUM CL 10MEQ/50ML IVPB 50 ML IV SCH (04:03)
[2019-02-27] MEDS: KCL 20 MEQ TAB (K-DUR) PO SCH (04:03)
[2019-02-27] MEDS: MAGNESIUM 1 GM/100 ML IVPB 100 ML IV SCH ×2 (04:03→04:04)
[2019-02-27 04:05] LABS: ABG BASE EXCESS 10.4 MMOL/L (-2.5-2.5); ABG OXYGEN SATURATION 87 % (94-100); ABG PCO2 62 MMHG (35-45); ABG PH 7.38 (7.37-7.43); ABG PO2 62 MMHG (79-93); ABG TCO2 37.9 MMOL/L (21.0-31.0)
[2019-02-27 04:06] LABS: ALLENS TEST POSITIVE; INSPIRED O2 40%; PATIENT TEMP 36.7; VENTILATOR YES
[2019-02-27] MEDS: CHLORHEXIDINE 0.12% SOLN 15 ML (PERIDEX) UDC PO SCH ×3 (05:32→22:53)
[2019-02-27] MEDS ORDERED: MAGNESIUM 1 GM/100 ML IVPB 100 ML IV SCH (06:00)
[2019-02-27] MEDS ORDERED: KCL 20 MEQ TAB (K-DUR) PO SCH (06:00)
[2019-02-27] MEDS ORDERED: POTASSIUM CL 10MEQ/50ML IVPB 50 ML IV SCH (06:00)
[2019-02-27] MEDS: fentaNYL 1,250 MCG/NS 250 ML DRIP IV SCH ×4 (06:41→12:15)
[2019-02-27] MEDS: RT-ALBUTEROL SULF 2.5 MG/3 ML PRE-MIX VIAL IH PRN (07:59)
[2019-02-27] MEDS: MICONAZOLE 2% POWDER (DESENEX AF) 90 GM TOP SCH ×2 (08:05→20:38)
[2019-02-27] MEDS: PANTOPRAZOLE 40 MG (PROTONIX) VIAL IV SCH ×2 (08:06→20:37)
--- NOTE | 2019-02-27 09:45 | Diagnostic Imaging Report ---
Clinical indications: Patient with pneumonia, respiratory failure. Exam: Portable chest x-ray upright view. Comparisons: Portable chest x-ray dated 02/26/2019. Findings: Stable cardiomegaly and mild pulmonary vascular congestion. There is stable bibasilar consolidation (left side more than the right). Stable discoid atelectasis in the right midlung field. There is no pneumothorax. There is blunting of both costophrenic angles which may represent pleural effusions. Right IJ central line seen with tip in the distal superior vena cava. ET tube and nasogastric tube are seen in stable position. ET tube seen at the T4-T5 intervertebral region. The remainder of this exam shows no significant interval change compared to the prior study of comparison. Impression: 1: Stable lines and tubes, as described above. 2: Stable cardiomegaly with mild pulmonary vascular congestion. 3: Stable bibasilar patchy consolidation which may represent atelectasis and/or infiltrate. 4: Stable mild right midlung field atelectasis. Dictated by: Dictated on workstation # [id number]
[2019-02-27] MEDS ORDERED: TROUGH ORDER-PHARMACY XX NR (10:00)
--- NOTE | 2019-02-27 11:48 | NUR ---
VANCOMYCIN DOSING: TROUGH = 27.3, 11:00 DOSE HELD ORDER FOR TROUGH TO BE DONE AT 18:00 TONIGHT IF TROUGH < 20 START 1250 MG IV Q 12 HR IF TROUGH > 20 HAVE NURSE WELDER OXYHYDROGEN CALL PHARMACIST BLOCKER AND POLISHER GOLD WHEEL FOR INSTRUCTIONS.
--- NOTE | 2019-02-27 12:16 | Progress Note - Hospitalist ---
Subjective HPI/CC On Admission Date Seen by Provider: Feb 27, 2019 Time Seen by Provider: 10:00 Subjective/Events-last exam Patient stable on vent Reviewed labs and meds Appreciate DR Balbuena. Focused Exam Lactate Level 02/25/19 20:40: Lactic Acid Level 2.52*H 02/26/19 02:50: Lactic Acid Level 1.07 Objective Exam Vital Signs Vital Signs Date Time Temp Pulse Resp B/P (MAP) Pulse Ox O2 Delivery O2 Flow Rate FiO2 02/27/19 15:37 120/76 02/27/19 15:26 36.0 02/27/19 15:00 75 15 92 Mechanical Ventilator 50.00 02/27/19 14:08 50 Capillary Refill : Less Than 3 Seconds General Appearance: Chronically ill, Obese, Other (intubated) Respiratory: Lungs Clear Cardiovascular: Regular Rate, Rhythm Neurologic/Psychiatric: Other (sedated) Results/Procedures Lab Laboratory Tests 02/27/19 03:15 Patient resulted labs reviewed. Assessment/Plan Assessment and Plan Assess & Plan/Chief Complaint Assessment: VDRF PNA? OHS WILBER on CPAP Severe debility requiring NH placement at young age Plan: Vent management Diagnosis/Problems Diagnosis/Problems (1) Ventilator dependence (2) Acute respiratory failure Status: Acute (3) Pneumonia Status: Acute (4) COPD with acute exacerbation Status: Acute (5) Edema Status: Acute (6) Fatigue Status: Acute (7) Peripheral edema Status: Acute Clinical Quality Measures DVT/VTE Risk/Contraindication: Risk Factor Score Per Nursin RFS Level Per Nursing on Admit: 4+=Very High DEEPIKA ROBLES DO Feb 27, 2019 12:16 POS
[2019-02-27] MEDS ORDERED: VANCOMYCIN 1250 MG/NS 250 ML IVPB IV SCH ×2 (19:00)
[2019-02-27] MEDS: inSUlin ASPART (NovoLOG) 1 UNIT/0.01 ML (CHARGE PER UNIT) IV SCH (23:51)
[2019-02-28] VITALS (30 sets, daily range): BP systolic 98–158; BP diastolic 65–98
[2019-02-28] MEDS: NS IV 1000 ML 1,000 ML IV SCH ×2 (02:30→10:39)
[2019-02-28] MEDS: RT-ALBUTEROL SULF 2.5 MG/3 ML PRE-MIX VIAL IH SCH (03:22)
[2019-02-28 03:24] LABS: BASOPHILS % (AUTO) 0 % (0-10); EOSINOPHILS % (AUTO) 0 % (0-10); HEMATOCRIT 34 % (35-52); HEMOGLOBIN 10.1 G/DL (11.5-16.0); LYMPHOCYTES # (AUTO) 0.5 X 10^3 (1.0-4.0); LYMPHOCYTES % (AUTO) 7 % (12-44); MEAN CORPUSCULAR HEMOGLOBIN 26 PG (25-34); MEAN CORPUSCULAR HGB CONC 30 G/DL (32-36); MEAN CORPUSCULAR VOLUME 88 FL (80-99); MEAN PLATELET VOLUME 10.6 FL (7.4-10.4); MONOCYTES # (AUTO) 0.4 X 10^3 (0.0-1.0); MONOCYTES % (AUTO) 6 % (0-12); NEUTROPHILS # (AUTO) 6.2 X 10^3 (1.8-7.8); NEUTROPHILS % (AUTO) 87 % (42-75); PLATELET COUNT 270 10^3/uL (130-400); RED CELL DISTRIBUTION WIDTH 16.1 % (10.0-14.5); WHITE BLOOD COUNT 7.1 10^3/uL (4.3-11.0)
[2019-02-28 04:00] LABS: CALCIUM 8.5 MG/DL (8.5-10.1); CREATININE SERUM 1.06 MG/DL (0.60-1.30); MAGNESIUM 1.8 MG/DL (1.6-2.4); PHOSPHORUS 3.6 MG/DL (2.3-4.7); POTASSIUM 4.7 MMOL/L (3.6-5.0)
[2019-02-28 04:02] LABS: ABG BASE EXCESS 9.5 MMOL/L (-2.5-2.5); ABG OXYGEN SATURATION 86 % (94-100); ABG PCO2 59 MMHG (35-45); ABG PH 7.38 (7.37-7.43); ABG PO2 61 MMHG (79-93); ABG TCO2 36.7 MMOL/L (21.0-31.0)
[2019-02-28 04:04] LABS: ALLENS TEST positive; INSPIRED O2 50%; PATIENT TEMP 36.4; VENTILATOR YES
[2019-02-28] MEDS: inSUlin ASPART (NovoLOG) 1 UNIT/0.01 ML (CHARGE PER UNIT) IV SCH ×5 (04:09→20:45)
[2019-02-28] MEDS: inSUlin ASPART (NovoLOG) 1 UNIT/0.01 ML (CHARGE PER UNIT) SC SCH ×5 (04:10→20:45)
[2019-02-28] MEDS: PIPERACILLIN/TAZOBACTAM (BULK) 4.5 GM in NS (IVPB) 100 ML IV SCH ×3 (04:19→20:56)
[2019-02-28] MEDS ORDERED: inSUlin (REGULAR) HUMAN 1 UNIT/0.01 ML (CHARGE PER UNIT) SC ONE (04:30)
--- NOTE | 2019-02-28 04:46 | Pulmonary Progress Note ---
Subjective Time Seen by a Provider: 07:52 Subjective/Events-last exam PT is sedated on vent Sepsis Event Evaluation Height, Weight, BMI Height: 5'4.00" Weight: 276lbs. oz. 125.910078na; 39.00 BMI Method:Stated Focused Exam Lactate Level 02/25/19 20:40: Lactic Acid Level 2.52*H 02/26/19 02:50: Lactic Acid Level 1.07 Exam Exam Vital Signs Date Time Temp Pulse Resp B/P (MAP) Pulse Ox O2 Delivery O2 Flow Rate FiO2 02/28/19 04:02 141/84 02/28/19 03:22 75 20 91 50 02/28/19 01:20 133/82 02/28/19 01:00 76 02/28/19 00:00 76 16 131/85 (100) 93 Mechanical Ventilator 50.00 02/28/19 00:00 92 Mechanical Ventilator 50 02/27/19 23:59 37.0 02/27/19 23:07 77 16 93 50 02/27/19 23:00 70 15 120/77 (91) 93 Mechanical Ventilator 50.00 02/27/19 22:54 120/73 02/27/19 22:00 78 16 127/78 (94) 92 Mechanical Ventilator 50.00 02/27/19 21:21 143/101 02/27/19 21:00 73 16 120/73 (89) 93 Mechanical Ventilator 50.00 02/27/19 20:00 92 Mechanical Ventilator 50 02/27/19 20:00 73 16 126/75 (92) 92 Mechanical Ventilator 50.00 02/27/19 19:02 126/87 02/27/19 19:00 76 15 126/87 (100) 93 Mechanical Ventilator 50.00 02/27/19 19:00 80 02/27/19 18:06 69 16 95 50 02/27/19 18:00 70 16 118/72 (87) 95 Mechanical Ventilator 50.00 02/27/19 17:16 63 116/73 02/27/19 17:00 70 16 115/73 (87) 93 Mechanical Ventilator 50.00 02/27/19 16:00 92 Mechanical Ventilator 50 02/27/19 16:00 73 15 119/77 (91) 94 Mechanical Ventilator 50.00 02/27/19 15:37 120/76 02/27/19 15:26 36.0 02/27/19 15:00 75 15 121/77 (92) 92 Mechanical Ventilator 50.00 02/27/19 14:08 71 16 92 50 02/27/19 14:00 73 15 123/84 (97) 93 Mechanical Ventilator 50.00 02/27/19 13:56 121/77 02/27/19 13:00 79 02/27/19 13:00 79 15 120/73 (89) 92 Mechanical Ventilator 50.00 02/27/19 12:30 Mechanical Ventilator 50.00 02/27/19 12:05 128/78 02/27/19 12:00 92 Mechanical Ventilator 50 02/27/19 12:00 94 16 128/78 (95) 92 Mechanical Ventilator 45.00 02/27/19 11:34 36.4 02/27/19 11:00 89 15 122/73 (89) 91 Mechanical Ventilator 45.00 02/27/19 10:19 75 16 93 45 02/27/19 10:00 80 16 123/82 (96) 93 Mechanical Ventilator 45.00 02/27/19 09:46 125/82 02/27/19 09:00 81 16 125/81 (96) 91 Mechanical Ventilator 45.00 02/27/19 08:00 79 15 131/82 (98) 91 Mechanical Ventilator 45.00 02/27/19 08:00 36.3 02/27/19 08:00 91 Mechanical Ventilator 45 02/27/19 07:59 76 16 93 45 02/27/19 07:07 Mechanical Ventilator 45.00 02/27/19 07:00 81 02/27/19 07:00 78 15 124/80 (95) 90 Mechanical Ventilator 45.00 02/27/19 06:31 Mechanical Ventilator 45.00 02/27/19 06:00 103 12 121/77 (92) Mechanical Ventilator 40.00 02/27/19 05:00 72 16 113/75 (88) 91 Mechanical Ventilator 40.00 I & O 02/28/19 07:00 Intake Total 1395 ml Output Total 1125 ml Balance 270 ml Height & Weight Height: 5'4.00" Weight: 276lbs. oz. 125.438495et; 39.00 BMI Method:Stated General Appearance: Chronically ill, Obese, Other (intubated) HEENT: PERRL/EOMI, Pharynx Normal Neck: Supple Respiratory: Lungs Clear Cardiovascular: Regular Rate, Rhythm Capillary Refill: Less Than 3 Seconds Extremity: Pedal Edema Neurologic/Psychiatric: Other (sedated) Skin: Normal Color, Warm/Dry Results Lab Laboratory Tests 02/26/19 11:57 02/27/19 03:15 02/28/19 03:07 Assessment/Plan Assessment/Plan Acute on chronic respiratory failure -Continue ventilator therapy -LABS/ CXR pending -Check echo tomorrow morning -BNP is normal - hold off on lasix -repeat sputum C&S COPDAE r/o PNA -Solumedrol 40 Q 6 -Zosyn and Vanco - D/C Levaquin -[place]ston cultures pending IDDM -Add 20 units of Levemir BID -Accu checks Q 4 -SSI Metabolic lactic acidosis secondary to hypoxia -Monitor -gentle IVF Anemia -Monitor SUZY MCCORMACK DO Feb 28, 2019 04:45 POS
[2019-02-28] MEDS ORDERED: NS IV 1000 ML 1,000 ML IV SCH (05:00)
[2019-02-28 05:25] LABS: BILIRUBIN,URINE NEGATIVE (NEGATIVE); CLARITY,URINE CLEAR; COLOR,URINE YELLOW; GLUCOSE, URINE (UA) TRACE (NEGATIVE); KETONES,URINE NEGATIVE (NEGATIVE); LEUKOCYTE ESTERASE ,URINE TRACE (NEGATIVE); NITRITE,URINE NEGATIVE (NEGATIVE); PH,URINE 6.5 (5-9); PROTEIN,URINE NEGATIVE (NEGATIVE)
[2019-02-28] MEDS ORDERED: inSUlin (REGULAR) HUMAN 1 UNIT/0.01 ML (CHARGE PER UNIT) ONE (05:26)
[2019-02-28] MEDS ORDERED: NORMAL SALINE 250 ML ONE (05:27)
[2019-02-28] MEDS: inSUlin REGULAR TPN/DRIP ONLY 250 UNITS in NORMAL SALINE 250 ML IV SCH (05:37)
[2019-02-28 05:47] LABS: BACTERIA,URINE FEW /HPF; SQUAMOUS EPITHELIAL CELL,UR 25-50 /HPF
[2019-02-28] MEDS: POTASSIUM CL 10MEQ/50ML IVPB 50 ML IV SCH (05:48)
[2019-02-28] MEDS: MAGNESIUM 1 GM/100 ML IVPB 100 ML IV SCH (05:50)
[2019-02-28] MEDS: KCL 20 MEQ TAB (K-DUR) PO SCH (05:51)
[2019-02-28] MEDS: CHLORHEXIDINE 0.12% SOLN 15 ML (PERIDEX) UDC PO SCH ×3 (06:35→21:05)
--- NOTE | 2019-02-28 06:47 | Diagnostic Imaging Report ---
INDICATION: Respiratory failure, pneumonia and intubated. COMPARISON: 02/27/2019. FINDINGS: Single view of the chest demonstrates stable support lines. Bilateral pleural effusions and infiltrates are unchanged. The heart is prominent with persistent central vascular congestion. There is no pneumothorax. IMPRESSION: 1. Stable support lines. 2. Unchanged aeration. Dictated by: Dictated on workstation # [id number]
[2019-02-28] MEDS: RT-ALBUTEROL/IPRATROPIUM 3 ML (DUONEB) VIAL INH SCH ×5 (07:55→21:30)
--- NOTE | 2019-02-28 08:14 | Physical Therapy Progress Note ---
Therapy Progress Note Patient currently sedated and on ventilator. PT will continue to monitor patient status and assess when patient is medically stable and able to actively participate with skilled therapy. DELBERT DENNIS PT Feb 28, 2019 08:14 POS
--- NOTE | 2019-02-28 08:35 | Occ Therapy Progress Note ---
Therapy Progress Note OT order received, chart reviewed. Pt. is currently sedated and on ventilator support. Will continue to monitor and evaluate when medically stable. [id number] MERARY BELTRAN OT Feb 28, 2019 08:35 POS
[2019-02-28] MEDS ORDERED: methylPREDNISolone 40 MG/ML (Solu-MEDROL) VIAL IV SCH (09:00)
[2019-02-28] MEDS ORDERED: LOSA100T57 PO (09:09)
[2019-02-28] MEDS ORDERED: ALBU2.5V4 NEB (09:09)
[2019-02-28] MEDS ORDERED: PRAV80TA2 PO (09:09)
[2019-02-28] MEDS ORDERED: METF-399 PO (09:09)
[2019-02-28] MEDS ORDERED: IPRA3AMP31 NEB (09:09)
[2019-02-28] MEDS ORDERED: HYDR25TA4 PO (09:09)
[2019-02-28] MEDS ORDERED: IBUP-30 PO (09:09)
[2019-02-28] MEDS ORDERED: LEVO150T6 PO (09:09)
[2019-02-28] MEDS ORDERED: TRAM50TA2 PO (09:09)
[2019-02-28] MEDS ORDERED: LOPE-134 PO (09:09)
[2019-02-28] MEDS ORDERED: CITA40TA11 PO (09:09)
[2019-02-28] MEDS ORDERED: INSU100I29 SC (09:09)
[2019-02-28] MEDS ORDERED: MONT10TA24 PO (09:09)
[2019-02-28] MEDS ORDERED: LOSA1TAB23 PO (09:09)
[2019-02-28] MEDS ORDERED: LIRA0.6P SC (09:09)
[2019-02-28] MEDS ORDERED: INSU100I14 SC (09:09)
[2019-02-28] MEDS ORDERED: PANT40TA3 PO (09:09)
[2019-02-28] MEDS ORDERED: NYST15CR TOP (09:09)
[2019-02-28] MEDS ORDERED: LORA10TA7 PO (09:09)
[2019-02-28] MEDS ORDERED: FLT22013 INH (09:09)
--- NOTE | 2019-02-28 09:14 | NUR ---
UPDATED MED REC [facility].
[2019-02-28] MEDS ORDERED: NS 100 ML (IVPB) BAG IV ONE (09:30)
[2019-02-28] MEDS ORDERED: IOHEXOL 350 MG/ML 100 ML (OMNIPAQUE 350) VIAL IV ONE (09:30)
[2019-02-28] MEDS ORDERED: HOLD METFORMIN - RECEIVED CONTRAST 20 ML VIAL IV SCH (09:30)
[2019-02-28] MEDS: MICONAZOLE 2% POWDER (DESENEX AF) 90 GM TOP SCH ×2 (10:03→20:57)
[2019-02-28] MEDS: PANTOPRAZOLE 40 MG (PROTONIX) VIAL IV SCH ×2 (10:04→20:57)
--- NOTE | 2019-02-28 10:04 | Diagnostic Imaging Report ---
PROCEDURE: CT chest with contrast only. TECHNIQUE: Multiple contiguous axial images were obtained through the chest after administration of intravenous contrast. Auto Exposure Controls were utilized during the CT exam to meet ALARA standards for radiation dose reduction. INDICATION: Respiratory failure. Intubated. COMPARISON: 01/21/2019. FINDINGS: The heart size is within normal limits. No pericardial effusion is present. A right central line is visualized with the tip in the cavoatrial juncture. There is no mediastinal, hilar, or axillary lymphadenopathy. Bilateral small pleural effusions are seen with consolidative opacities in the lung bases bilaterally. Areas of subsegmental atelectasis are seen in the midlungs bilaterally. Lung volumes are low. No central endobronchial obstructing lesions are identified. The endotracheal tube is at the level of the noe. There is no pneumothorax. The osseous structures demonstrate no acute abnormalities. Limited views of the upper abdominal structures demonstrate no acute abnormalities. There is hepatomegaly with hepatic steatosis. Enteric tube is noted within the stomach. Both adrenal glands are unremarkable. IMPRESSION: 1. Bilateral small pleural effusions with consolidative opacities in the lung bases. This may represent atelectasis or infection. Additional areas of subsegmental atelectasis are seen in the midlungs bilaterally. 2. The endotracheal tube is at the level of the noe. Recommend retracting 3-5 cm. 3. Hepatic steatosis and hepatomegaly. Dictated by: Dictated on workstation # [id number]
--- NOTE | 2019-02-28 10:22 | NUR ---
Received dietary consult regarding pt's vent status. Would recommend the following TF: Glucerna 1.5 at goal rate of 65 ml/hr. Begin at 10 ml/hr and increase by 10 ml q6h, as tolerated. At goal rate, provides 2340 kcal (15 kcal/kg); 128 g Pro (0.8 g Pro/kg); and 1184 ml free water. Flush with 150 ml H2O q4h for hydration status. With flushes, provides 2084 ml free water. Will continue to follow and reassess as pt needs and status change. Nishi Smith MS, RD, LD [phone]
[2019-02-28] MEDS: aCETylcysteine 20% (MUCOMYST) 30ML SOLN VIAL INH SCH ×3 (11:19→21:31)
--- NOTE | 2019-02-28 11:29 | NUR ---
SS/CM : Pt is on the vent and unresponsive. Plan: Meet with pt and or next of kin to determine plan for pt, when responsive. Pt lives at [facility] term care [facility] in [place]. Summary: Pt has a history of non compliance with being on home care and in detention ([facility]) as a result. Pt is unresponsive and on the vent. Will meet with pt and or next of kin to determine plan for pt when responsive.
--- NOTE | 2019-02-28 14:59 | NUR ---
Pt on the vent and non-responsive: Offered prayer at the bedside for compassionate care and merciful outcomes.
--- NOTE | 2019-02-28 16:06 | Progress Note ---
Subjective Subjective/Events-last exam Patient intubated and sedated. No ON events per nursing. Down for CT this AM. Review of Systems Intubated and sedated Focused Exam Lactate Level 02/25/19 20:40: Lactic Acid Level 2.52*H 02/26/19 02:50: Lactic Acid Level 1.07 Objective Exam Last Set of Vital Signs Vital Signs Date Time Temp Pulse Resp B/P (MAP) Pulse Ox O2 Delivery O2 Flow Rate FiO2 02/28/19 15:00 63 14 98/72 (81) 92 Mechanical Ventilator 50.00 02/28/19 12:00 36.6 02/28/19 12:00 80 Capillary Refill : Less Than 3 Seconds I&O Intake and Output 02/28/19 00:00 Intake Total 2385 ml Output Total 1400 ml Balance 985 ml Intake Oral 0 ml IV Total 2385 ml Output Urine Total 1400 ml General: Other (Intubated and sedated) HEENT: Mucous Memb Moist/Kenneth Lungs: Other (basilar crackles, vent dependent) Heart: Regular Rate, No Murmurs Abdomen: Normal Bowel Sounds, Soft Extremities: Other (3+ pitting edema bilaterally) Skin: No Rashes, No Breakdown Results/Procedures Lab Laboratory Tests 02/27/19 17:49: Vancomycin Level Trough 19.8 02/27/19 20:24: Glucometer 425*H 02/27/19 21:47: Glucometer 454*H 02/27/19 23:39: Glucometer 425*H 02/28/19 03:07: White Blood Count 7.1, Red Blood Count 3.84L, Hemoglobin 10.1L, Hematocrit 34L, Mean Corpuscular Volume 88, Mean Corpuscular Hemoglobin 26, Mean Corpuscular Hemoglobin Concent 30L, Red Cell Distribution Width 16.1H, Platelet Count 270, Mean Platelet Volume 10.6H, Neutrophils (%) (Auto) 87H, Lymphocytes (%) (Auto) 7L, Monocytes (%) (Auto) 6, Eosinophils (%) (Auto) 0, Basophils (%) (Auto) 0, Neutrophils # (Auto) 6.2, Lymphocytes # (Auto) 0.5L, Monocytes # (Auto) 0.4, Eosinophils # (Auto) 0.0, Basophils # (Auto) 0.0, Sodium Level 137, Potassium Level 4.7, Chloride Level 96L, Carbon Dioxide Level 30, Anion Gap 11, Blood Urea Nitrogen 25H, Creatinine 1.06, Estimat Glomerular Filtration Rate 53, BUN/Creatinine Ratio 24, Glucose Level 444*H, Calcium Level 8.5, Phosphorus Level 3.6, Magnesium Level 1.8, Triglycerides Level 587H 02/28/19 03:37: Blood Gas Puncture Site right radial, Blood Gas Patient Temperature 36.4, Arterial Blood pH 7.38, Arterial Blood Partial Pressure CO2 59H, Arterial Blood Partial Pressure O2 61L, Arterial Blood HCO3 35H, Arterial Blood Total CO2 36.7H , Arterial Blood Oxygen Saturation 86L, Arterial Blood Base Excess 9.5H, Memo Test positive, Blood Gas Ventilator Setting YES, Blood Gas Inspired Oxygen 50% 02/28/19 05:12: Urine Color YELLOW, Urine Clarity CLEAR, Urine pH 6.5, Urine Specific [place] 1.025H, Urine Protein NEGATIVE, Urine Glucose (UA) TRACEH, Urine Ketones NEGATIVE, Urine Nitrite NEGATIVE, Urine Bilirubin NEGATIVE, Urine Urobilinogen 0.2, Urine Leukocyte Esterase TRACE, Urine RBC (Auto) NEGATIVE, Urine RBC NONE, Urine WBC 10-25H, Urine Squamous Epithelial Cells 25-50H, Urine Renal Epithelial Cells NONE, Urine Crystals NONE, Urine Bacteria FEWH, Urine Casts NONE, Urine Mucus NEGATIVE, Urine Culture Indicated YES 02/28/19 05:23: Glucometer 415*H 02/28/19 06:49: Glucometer 394H 02/28/19 08:16: Glucometer 381H 02/28/19 10:10: Glucometer 353H 02/28/19 11:04: Glucometer 347H 02/28/19 12:05: Glucometer 312H 02/28/19 13:09: Glucometer 359H 02/28/19 15:13: Glucometer 270H Microbiology 02/25/19 Blood Culture - Preliminary, Resulted No growth 02/26/19 MRSA Screen - Final, Complete MRSA not isolated Assessment/Plan Assessment/Plan (1) Acute on chronic respiratory failure with hypoxia Status: Acute Assessment & Plan: 02/28: Stable on vent, Dr Balbuena managing, MAT protocol, CT Chest today pending (2) Pneumonia Status: Acute Assessment & Plan: 02/28: Continue broad spectrum antibiotics Qualifiers: Qualified Codes: J18.1 - Lobar pneumonia, unspecified organism (3) Obesity hypoventilation syndrome Status: Chronic (4) WILBER on CPAP Status: Chronic Assessment & Plan: 02/28: Patient noncompliant with CPAP as outpatient (5) Insulin dependent diabetes mellitus with complications Status: Chronic Assessment & Plan: 02/28: Insulin drip, transitioning to SC insulin, A1c pending (6) Normocytic anemia Status: Chronic Assessment & Plan: 02/28: Will get hemoccult, unsure if patient has had colonoscopy (7) Hepatic steatosis Status: Chronic Assessment & Plan: 02/28: Seen on CT scan (8) COPD (chronic obstructive pulmonary disease) Status: Chronic Qualifiers: Qualified Codes: J41.1 - Mucopurulent chronic bronchitis (9) Adult BMI 50.0-59.9 kg/sq m Status: Chronic (10) DVT prophylaxis Status: Acute Assessment & Plan: Heparin Clinical Quality Measures DVT/VTE Risk/Contraindication: Risk Factor Score Per Nursin RFS Level Per Nursing on Admit: 4+=Very High GEOFF SHAH MD Feb 28, 2019 16:06 POS
[2019-02-28] MEDS: fentaNYL 1,250 MCG/NS 250 ML DRIP IV SCH ×2 (17:36)
[2019-03-01] VITALS (29 sets, daily range): BP systolic 92–138; BP diastolic 59–93
[2019-03-01] MEDS: inSUlin ASPART (NovoLOG) 1 UNIT/0.01 ML (CHARGE PER UNIT) SC SCH ×7 (01:01→23:34)
[2019-03-01] MEDS: inSUlin ASPART (NovoLOG) 1 UNIT/0.01 ML (CHARGE PER UNIT) IV SCH ×7 (01:01→23:34)
[2019-03-01] MEDS: aCETylcysteine 20% (MUCOMYST) 30ML SOLN VIAL INH SCH ×4 (01:49→19:59)
[2019-03-01] MEDS: RT-ALBUTEROL/IPRATROPIUM 3 ML (DUONEB) VIAL INH SCH ×4 (01:49→14:12)
[2019-03-01 03:27] LABS: ABG BASE EXCESS 8.4 MMOL/L (-2.5-2.5); ABG OXYGEN SATURATION 91 % (94-100); ABG PCO2 62 MMHG (35-45); ABG PH 7.35 (7.37-7.43); ABG PO2 73 MMHG (79-93); ABG TCO2 36.2 MMOL/L (21.0-31.0)
[2019-03-01 03:29] LABS: BASOPHILS % (AUTO) 0 % (0-10); EOSINOPHILS % (AUTO) 0 % (0-10); HEMATOCRIT 34 % (35-52); HEMOGLOBIN 10.1 G/DL (11.5-16.0); LYMPHOCYTES # (AUTO) 1.6 X 10^3 (1.0-4.0); LYMPHOCYTES % (AUTO) 22 % (12-44); MEAN CORPUSCULAR HEMOGLOBIN 27 PG (25-34); MEAN CORPUSCULAR HGB CONC 30 G/DL (32-36); MEAN CORPUSCULAR VOLUME 90 FL (80-99); MEAN PLATELET VOLUME 10.6 FL (7.4-10.4); MONOCYTES # (AUTO) 0.7 X 10^3 (0.0-1.0); MONOCYTES % (AUTO) 10 % (0-12); NEUTROPHILS % (AUTO) 68 % (42-75); PLATELET COUNT 244 10^3/uL (130-400); RED CELL DISTRIBUTION WIDTH 16.5 % (10.0-14.5); WHITE BLOOD COUNT 7.4 10^3/uL (4.3-11.0)
[2019-03-01 03:30] LABS: ALLENS TEST POSITIVE; INSPIRED O2 70; PATIENT TEMP 35.9; VENTILATOR YES
[2019-03-01 03:49] LABS: BUN/CREATININE RATIO 35; CALCIUM 8.4 MG/DL (8.5-10.1); CARBON DIOXIDE 30 MMOL/L (21-32); CHLORIDE 100 MMOL/L (98-107); CREATININE SERUM 0.77 MG/DL (0.60-1.30); GFR ESTIMATED > 60; GLUCOSE 160 MG/DL (70-105); MAGNESIUM 1.9 MG/DL (1.6-2.4); PHOSPHORUS 3.4 MG/DL (2.3-4.7); POTASSIUM 3.9 MMOL/L (3.6-5.0); SODIUM 140 MMOL/L (135-145)
[2019-03-01] MEDS: PIPERACILLIN/TAZOBACTAM (BULK) 4.5 GM in NS (IVPB) 100 ML IV SCH ×3 (04:18→20:39)
[2019-03-01] MEDS: POTASSIUM CL 10MEQ/50ML IVPB 50 ML IV SCH ×5 (04:31→09:19)
[2019-03-01] MEDS: KCL 20 MEQ TAB (K-DUR) PO SCH (04:31)
[2019-03-01] MEDS: MAGNESIUM 1 GM/100 ML IVPB 100 ML IV SCH (04:31)
[2019-03-01] MEDS: inSUlin REGULAR TPN/DRIP ONLY 250 UNITS in NORMAL SALINE 250 ML IV SCH ×2 (04:43→12:39)
[2019-03-01] MEDS ORDERED: FUROSEMIDE 40 MG/4 ML INJ (LASIX) IVP ONE (05:30)
[2019-03-01] MEDS: CHLORHEXIDINE 0.12% SOLN 15 ML (PERIDEX) UDC PO SCH ×3 (06:39→21:01)
[2019-03-01] MEDS: RT-ALBUTEROL SULF 2.5 MG/3 ML PRE-MIX VIAL IH PRN (06:41)
--- NOTE | 2019-03-01 07:14 | Diagnostic Imaging Report ---
INDICATION: Pneumonia, respiratory failure. TECHNIQUE: Single view chest 3:52 AM. CORRELATION STUDY: 02/28/2019 FINDINGS: Endotracheal tube, gastric tube and right IJ central line remain in place. Cardiac enlargement, prominent mediastinum does persist. Severity of vascular congestion appears slightly improved. There is limited depth of inspiration. Given this, there is continued likely combination of infiltrates and effusions through the mid and lower lung dunbar generally stable. IMPRESSION: 1. Stable appearance about support lines and tubes. 2. Hypoventilation with persistent perihilar and basilar areas of atelectasis and/or infiltrate along with effusions. Dictated by: Dictated on workstation # [id number]
[2019-03-01] MEDS: PANTOPRAZOLE 40 MG (PROTONIX) VIAL IV SCH ×2 (07:40→20:40)
[2019-03-01] MEDS: methylPREDNISolone 40 MG/ML (Solu-MEDROL) VIAL IV SCH ×2 (07:47→20:40)
--- NOTE | 2019-03-01 07:58 | Pulmonary Progress Note ---
Subjective Time Seen by a Provider: 08:03 Subjective/Events-last exam Pt is sedated on vent. Sepsis Event Evaluation Height, Weight, BMI Height: 5'4.00" Weight: 276lbs. oz. 125.065569ng; 39.00 BMI Method:Stated Exam Exam Vital Signs Date Time Temp Pulse Resp B/P (MAP) Pulse Ox O2 Delivery O2 Flow Rate FiO2 03/01/19 07:39 36.6 03/01/19 07:00 81 03/01/19 06:53 123/83 03/01/19 06:44 73 14 93 80 03/01/19 06:00 76 14 116/79 (91) 93 Mechanical Ventilator 70.00 03/01/19 05:00 84 14 138/89 (105) 93 Mechanical Ventilator 70.00 03/01/19 04:20 139/100 03/01/19 04:00 36.6 03/01/19 04:00 90 19 132/93 (106) 92 Mechanical Ventilator 70.00 03/01/19 04:00 92 Mechanical Ventilator 80 03/01/19 03:00 74 14 98/69 (79) 91 Mechanical Ventilator 70.00 03/01/19 02:00 70 13 95/69 (78) 93 Mechanical Ventilator 70.00 03/01/19 01:52 Mechanical Ventilator 70.00 03/01/19 01:49 74 14 95 80 03/01/19 01:01 101/73 03/01/19 01:00 74 13 114/85 (95) 94 Mechanical Ventilator 80.00 03/01/19 00:42 79 03/01/19 00:18 35.7 03/01/19 00:00 92 Mechanical Ventilator 80 03/01/19 00:00 74 14 98/70 (79) 94 Mechanical Ventilator 80.00 02/28/19 23:00 78 13 105/68 (80) 93 Mechanical Ventilator 80.00 02/28/19 22:15 107/69 02/28/19 22:00 77 14 107/69 (82) 93 Mechanical Ventilator 80.00 02/28/19 21:31 80 14 93 40 02/28/19 21:00 79 13 112/79 (90) 93 Mechanical Ventilator 80.00 02/28/19 20:00 92 Mechanical Ventilator 80 02/28/19 20:00 81 13 115/77 (90) 93 Mechanical Ventilator 80.00 02/28/19 20:00 35.8 02/28/19 19:00 79 14 113/74 (87) 92 Mechanical Ventilator 80.00 02/28/19 18:41 86 02/28/19 18:22 Mechanical Ventilator 80.00 02/28/19 18:22 79 14 91 80 02/28/19 18:00 81 14 119/80 (93) 91 Mechanical Ventilator 50.00 02/28/19 17:08 109/76 02/28/19 17:00 74 13 109/76 (87) 91 Mechanical Ventilator 50.00 02/28/19 16:00 36.4 02/28/19 16:00 66 14 103/79 (87) Mechanical Ventilator 50.00 02/28/19 16:00 90 Mechanical Ventilator 40 02/28/19 15:00 63 14 98/72 (81) 92 Mechanical Ventilator 50.00 02/28/19 14:57 66 14 94 40 02/28/19 14:49 111/80 02/28/19 14:00 60 14 105/68 (80) 90 Mechanical Ventilator 50.00 02/28/19 13:00 65 14 105/70 (82) 90 Mechanical Ventilator 50.00 02/28/19 13:00 65 02/28/19 12:00 78 14 158/95 (116) 90 Mechanical Ventilator 50.00 02/28/19 12:00 36.6 02/28/19 12:00 92 Mechanical Ventilator 80 02/28/19 11:46 151/100 02/28/19 11:20 63 14 96 50 02/28/19 11:00 64 13 114/78 (90) 99 Mechanical Ventilator 50.00 02/28/19 10:05 100 02/28/19 10:00 84 16 139/98 (112) 90 Mechanical Ventilator 50.00 02/28/19 09:00 75 13 127/90 (102) 93 Mechanical Ventilator 50.00 02/28/19 08:59 126/88 02/28/19 08:00 36.3 02/28/19 08:00 92 Mechanical Ventilator 40 02/28/19 08:00 65 13 114/78 (90) 94 Mechanical Ventilator 50.00 02/28/19 07:55 65 14 95 40 I & O 03/01/19 07:00 Intake Total 1960 ml Output Total 2400 ml Balance -440 ml Height & Weight Height: 5'4.00" Weight: 276lbs. oz. 125.370314bg; 39.00 BMI Method:Stated General Appearance: Chronically ill, Obese, Other (sedated on vent) HEENT: PERRL/EOMI, Pharynx Normal Neck: Supple Respiratory: Decreased Breath Sounds, Respiratory Distress Cardiovascular: Regular Rate, Rhythm, No Edema Capillary Refill: Less Than 3 Seconds Extremity: Normal Inspection Neurologic/Psychiatric: Other (sedated on vent) Skin: Normal Color, Warm/Dry Results Lab Laboratory Tests 02/28/19 03:07 03/01/19 03:20 Assessment/Plan Assessment/Plan Acute on chronic respiratory failure -- Intubated on 02/25 -Continue ventilator therapy -Increase PEEP to 14 -Pt may need tracheostomy and landmark referral. I anticipate her being difficult to wean. -Check echo - pending - 80mg of lasix x 1 secondary to rising oxygen requirements. -repeat sputum C&S COPDAE r/o PNA -Solumedrol 40 Q 12 decreased secondary to hyperglycemia. -Zosyn and Vanco -[place]ston cultures pending IDDM -Currently off insulin gtt -Increase levemir to 16 units BID -Accu checks Q 4 -SSI Metabolic lactic acidosis secondary to hypoxia -Monitor Anemia -Monitor SUZY MCCORMACK DO Mar 01, 2019 07:58 POS
[2019-03-01] MEDS: MICONAZOLE 2% POWDER (DESENEX AF) 90 GM TOP SCH ×2 (08:03→20:41)
--- NOTE | 2019-03-01 08:04 | Physical Therapy Progress Note ---
Therapy Progress Note Patient currently sedated and on mechanical ventilator. PT will continue to monitor patient status and assess when patient is medically stable and able to actively participate with skilled therapy. DELBERT DENNIS PT Mar 01, 2019 08:04 POS
--- NOTE | 2019-03-01 08:27 | Occ Therapy Progress Note ---
Therapy Progress Note Continuing to monitor pt. to evaluate when not sedated and on vent. 0827 MERARY BELTRAN OT Mar 01, 2019 08:27 POS
--- NOTE | 2019-03-01 11:50 | NUR ---
DISCHARGE PLANNING: Patient is referred to [facility]. Clinical information printed with a limited sampling faxed to [employer] to begin the authorization process and the rest to be hand delivered once the [employer] rental sales representative is on site.
--- NOTE | 2019-03-01 12:38 | Diagnostic Imaging Report ---
CLINICAL INDICATION: Patient with decreased O2 sat. EXAM: Portable chest x-ray, upright view. COMPARISONS: Portable chest x-ray dated 03/01/2019 at 0352 hours. FINDINGS: There is interval progression of airspace consolidation involving the right upper lobe, right lung base, and stable amount in the left lung base. There is associated decreased aeration of the right upper lobe with stable aeration of the left upper lobe. There are suspected bilateral pleural effusions. There is no pneumothorax. Cardiomegaly is seen. Pulmonary vasculature is stable. ET tube, right IJ central line, and feeding tube are again noted in similar position. The remainder of this exam shows no significant interval change compared to the prior study of comparison. IMPRESSION: 1: There is interval progression of patchy consolidation involving the right upper lobe and right lung base, which may represent progression of atelectasis or infiltrate. 2: Otherwise, stable bibasilar atelectasis versus infiltrate and bilateral pleural effusions. 3: There is cardiomegaly. Dictated by: Dictated on workstation # [id number]
[2019-03-01 12:40] LABS: ABG BASE EXCESS 7.8 MMOL/L (-2.5-2.5); ABG OXYGEN SATURATION 96 % (94-100); ABG PCO2 60 MMHG (35-45); ABG PH 7.36 (7.37-7.43); ABG PO2 109 MMHG (79-93); ABG TCO2 35.3 MMOL/L (21.0-31.0)
[2019-03-01 12:41] LABS: ALLENS TEST YES-POS; INSPIRED O2 100%; PATIENT TEMP 36.4; VENTILATOR YES
[2019-03-01] MEDS ORDERED: ANIDULAFUNGIN INJECTION 200 MG in NS (IVPB) 250 ML IV ONE (13:15)
--- NOTE | 2019-03-01 13:43 | Pulmonary Progress Note ---
Subjective Time Seen by a Provider: 13:46 Subjective/Events-last exam Called to bedside secondary to worsening hypoxia and respiratory failure. Sepsis Event Evaluation Height, Weight, BMI Height: 5'4.00" Weight: 276lbs. oz. 125.628101zq; 39.00 BMI Method:Stated Exam Exam Vital Signs Date Time Temp Pulse Resp B/P (MAP) Pulse Ox O2 Delivery O2 Flow Rate FiO2 03/01/19 13:33 Mechanical Ventilator 85.00 03/01/19 13:00 78 14 123/84 (97) 95 Mechanical Ventilator 100.00 03/01/19 12:48 73 03/01/19 12:00 70 11 118/79 (92) 92 Mechanical Ventilator 100.00 03/01/19 11:45 37.4 03/01/19 11:36 120/84 03/01/19 11:00 77 14 129/82 (98) Mechanical Ventilator 100.00 03/01/19 10:43 75 14 90 90 03/01/19 10:00 73 14 118/75 (89) 91 Mechanical Ventilator 90.00 03/01/19 09:57 Mechanical Ventilator 90.00 03/01/19 09:20 124/78 03/01/19 09:00 78 14 111/77 (88) 91 Mechanical Ventilator 70.00 03/01/19 08:00 77 13 122/78 (93) 92 Mechanical Ventilator 70.00 03/01/19 07:39 36.6 03/01/19 07:00 81 03/01/19 07:00 78 13 121/81 (94) 92 Mechanical Ventilator 70.00 03/01/19 06:53 123/83 03/01/19 06:44 73 14 93 80 03/01/19 06:00 76 14 116/79 (91) 93 Mechanical Ventilator 70.00 03/01/19 05:00 84 14 138/89 (105) 93 Mechanical Ventilator 70.00 03/01/19 04:20 139/100 03/01/19 04:00 36.6 03/01/19 04:00 90 19 132/93 (106) 92 Mechanical Ventilator 70.00 03/01/19 04:00 92 Mechanical Ventilator 80 03/01/19 03:00 74 14 98/69 (79) 91 Mechanical Ventilator 70.00 03/01/19 02:00 70 13 95/69 (78) 93 Mechanical Ventilator 70.00 03/01/19 01:52 Mechanical Ventilator 70.00 03/01/19 01:49 74 14 95 80 03/01/19 01:01 101/73 03/01/19 01:00 74 13 114/85 (95) 94 Mechanical Ventilator 80.00 03/01/19 00:42 79 03/01/19 00:18 35.7 03/01/19 00:00 92 Mechanical Ventilator 80 03/01/19 00:00 74 14 98/70 (79) 94 Mechanical Ventilator 80.00 02/28/19 23:00 78 13 105/68 (80) 93 Mechanical Ventilator 80.00 02/28/19 22:15 107/69 02/28/19 22:00 77 14 107/69 (82) 93 Mechanical Ventilator 80.00 02/28/19 21:31 80 14 93 40 02/28/19 21:00 79 13 112/79 (90) 93 Mechanical Ventilator 80.00 02/28/19 20:00 92 Mechanical Ventilator 80 02/28/19 20:00 81 13 115/77 (90) 93 Mechanical Ventilator 80.00 02/28/19 20:00 35.8 02/28/19 19:00 79 14 113/74 (87) 92 Mechanical Ventilator 80.00 02/28/19 18:41 86 02/28/19 18:22 Mechanical Ventilator 80.00 02/28/19 18:22 79 14 91 80 02/28/19 18:00 81 14 119/80 (93) 91 Mechanical Ventilator 50.00 02/28/19 17:08 109/76 02/28/19 17:00 74 13 109/76 (87) 91 Mechanical Ventilator 50.00 02/28/19 16:00 36.4 02/28/19 16:00 66 14 103/79 (87) Mechanical Ventilator 50.00 02/28/19 16:00 90 Mechanical Ventilator 40 02/28/19 15:00 63 14 98/72 (81) 92 Mechanical Ventilator 50.00 02/28/19 14:57 66 14 94 40 02/28/19 14:49 111/80 02/28/19 14:00 60 14 105/68 (80) 90 Mechanical Ventilator 50.00 I & O 03/01/19 07:00 Intake Total 1960 ml Output Total 2400 ml Balance -440 ml Height & Weight Height: 5'4.00" Weight: 276lbs. oz. 125.567759jb; 39.00 BMI Method:Stated General Appearance: Chronically ill, Obese, Other (sedated on vent) HEENT: PERRL/EOMI, Pharynx Normal Neck: Supple Respiratory: Decreased Breath Sounds, Respiratory Distress Cardiovascular: Regular Rate, Rhythm, No Edema Capillary Refill: Less Than 3 Seconds Extremity: Normal Inspection Neurologic/Psychiatric: Other (sedated on vent) Skin: Normal Color, Warm/Dry Results Lab Laboratory Tests 02/28/19 03:07 03/01/19 03:20 Assessment/Plan Assessment/Plan Acute on chronic respiratory failure --With ARDS Intubated on 02/25 - Pa02/Fi02 =109 -PT would benefit from tracheostomy -I have discussed with Dr. Carrera he will evaluate pt tomorrow -I discussed plan of care and current prognosis with family at bedside. I also discussed with EICU regarding respiratory failure changes. -Increase RR to 20 and decrease Vt to 325 , increase PEEP to 18 -Repeat ABG in 1hr -Will plan on doing bronchoscopy in AM secondary to copious amounts of mucous plugging. -BNP from this AM is <10 -Add eraxis -Lasix was given this morning prior to reported BNP --Continue ventilator therapy -Check echo - pending -repeat sputum C&S COPDAE r/o PNA -Solumedrol 40 Q 12 decreased secondary to hyperglycemia. -Zosyn -[place]ston cultures pending IDDM -insulin gtt -Increase levemir to 16 units BID -Accu checks Q 4 -SSI Metabolic lactic acidosis secondary to hypoxia -Monitor Anemia -Monitor Critical Care: Critically Ill Patient Time spent with patient (mins): 30 SUZY MCCORMACK DO Mar 01, 2019 13:43 POS
[2019-03-01 14:57] LABS: ABG BASE EXCESS 8.1 MMOL/L (-2.5-2.5); ABG OXYGEN SATURATION 92 % (94-100); ABG PCO2 64 MMHG (35-45); ABG PO2 86 MMHG (79-93); ABG TCO2 35.9 MMOL/L (21.0-31.0)
[2019-03-01 15:00] LABS: ABG PH 7.34 (7.37-7.43); ALLENS TEST YES-POS; INSPIRED O2 85%; PATIENT TEMP 36.8; VENTILATOR YES
--- NOTE | 2019-03-01 20:47 | Progress Note ---
Subjective Subjective/Events-last exam Intubated and Sedated ON: Peep was increased Review of Systems Intubated and sedated Objective Exam Last Set of Vital Signs Vital Signs Date Time Temp Pulse Resp B/P (MAP) Pulse Ox O2 Delivery O2 Flow Rate FiO2 03/01/19 20:00 79 20 93 85 03/01/19 18:26 37.35606 100/60 Mechanical Ventilator 55.00 Capillary Refill : Less Than 3 Seconds I&O Intake and Output 03/01/19 00:00 Intake Total 1940 ml Output Total 2250 ml Balance -310 ml Intake Oral 0 ml IV Total 1940 ml Output Urine Total 1750 ml Gastric Drainage Total 500 ml General: Other (Intubated and Sedated) Lungs: Other (basilar crackles, breathing with vent) Heart: Regular Rate, No Murmurs Abdomen: Normal Bowel Sounds, Soft Extremities: Other (2+ pitting edema bilaterally) Skin: No Rashes, No Breakdown Results/Procedures Lab Laboratory Tests 02/28/19 22:40: Glucometer 174H 03/01/19 00:19: Glucometer 189H 03/01/19 02:33: Glucometer 163H 03/01/19 03:20: White Blood Count 7.4, Red Blood Count 3.80L, Hemoglobin 10.1L, Hematocrit 34L, Mean Corpuscular Volume 90, Mean Corpuscular Hemoglobin 27, Mean Corpuscular Hemoglobin Concent 30L, Red Cell Distribution Width 16.5H, Platelet Count 244, Mean Platelet Volume 10.6H, Neutrophils (%) (Auto) 68, Lymphocytes (%) (Auto) 22, Monocytes (%) (Auto) 10, Eosinophils (%) (Auto) 0, Basophils (%) (Auto) 0, Neutrophils # (Auto) 5.0, Lymphocytes # (Auto) 1.6, Monocytes # (Auto) 0.7, Eo sinophils # (Auto) 0.0, Basophils # (Auto) 0.0, Blood Gas Puncture Site RIGHT RADIAL, Blood Gas Patient Temperature 35.9, Arterial Blood pH 7.35L, Arterial Blood Partial Pressure CO2 62H, Arterial Blood Partial Pressure O2 73L, Arterial Blood HCO3 34H, Arterial Blood Total CO2 36.2H, Arterial Blood Oxygen Saturation 91L, Arterial Blood Base Excess 8.4H, Memo Test POSITIVE, Blood Gas Ventilator Setting YES, Blood Gas Inspired Oxygen 70, Sodium Level 140, Potassium Level 3.9, Chloride Level 100, Carbon Dioxide Level 30, Anion Gap 10, Blood Urea Nitrogen 27H, Creatinine 0.77, Estimat Glomerular Filtration Rate > 60, BUN/Creatinine Ratio 35, Glucose Level 160H, Calcium Level 8.4L, Phosphorus Level 3.4, Magnesium Level 1.9, B-Type Natriuretic Peptide < 10.0 03/01/19 04:22: Glucometer 177H 03/01/19 07:55: Glucometer 255H 03/01/19 12:18: Glucometer 328H 03/01/19 12:34: Blood Gas Puncture Site RT RAD, Blood Gas Patient Temperature 36.4, Arterial Blood pH 7.36L, Arterial Blood Partial Pressure CO2 60H, Arterial Blood Partial Pressure O2 109H, Arterial Blood HCO3 33H, Arterial Blood Total CO2 35.3H, Arterial Blood Oxygen Saturation 96, Arterial Blood Base Excess 7.8H, Memo Test YES-POS, Blood Gas Ventilator Setting YES, Blood Gas Inspired Oxygen 100% 03/01/19 14:11: Glucometer 311H 03/01/19 14:50: Blood Gas Puncture Site L RADIAL, Blood Gas Patient Temperature 36.8, Arterial Blood pH 7.34*L, Arterial Blood Partial Pressure CO2 64H, Arterial Blood Partial Pressure O2 86, Arterial Blood HCO3 34H, Arterial Blood Total CO2 35.9H, Arterial Blood Oxygen Saturation 92L, Arterial Blood Base Excess 8.1H, Memo Test YES-POS, Blood Gas Ventilator Setting YES, Blood Gas Inspired Oxygen 85% 03/01/19 16:08: Glucometer 293H 03/01/19 18:04: Glucometer 277H Microbiology 02/25/19 Blood Culture - Preliminary, Resulted No growth 02/28/19 Gram Stain - Final, Resulted 02/28/19 Sputum Culture - Preliminary, Resulted No growth 02/28/19 Urine Culture - Final, Complete NO GROWTH Assessment/Plan Assessment/Plan (1) Acute on chronic respiratory failure with hypoxia Status: Acute Assessment & Plan: 02/28: Stable on vent, Dr Balbuena managing, MAT protocol, CT Chest today pending 03/01: CT Unremarkable, Dr Balbuena discussed transfer to [place] (2) Pneumonia Status: Acute Assessment & Plan: 02/28: Continue broad spectrum antibiotics 03/01: Continue antibiotics D5 Qualifiers: Qualified Codes: J18.1 - Lobar pneumonia, unspecified organism (3) Obesity hypoventilation syndrome Status: Chronic (4) WILBER on CPAP Status: Chronic Assessment & Plan: 02/28: Patient noncompliant with CPAP as outpatient (5) Insulin dependent diabetes mellitus with complications Status: Chronic Assessment & Plan: 02/28: Insulin drip, transitioning to SC insulin, A1c pending (6) Normocytic anemia Status: Chronic Assessment & Plan: 02/28: Will get hemoccult, unsure if patient has had colonoscopy (7) Hepatic steatosis Status: Chronic Assessment & Plan: 02/28: Seen on CT scan (8) COPD (chronic obstructive pulmonary disease) Status: Chronic Qualifiers: Qualified Codes: J41.1 - Mucopurulent chronic bronchitis (9) Adult BMI 50.0-59.9 kg/sq m Status: Chronic (10) DVT prophylaxis Status: Acute Assessment & Plan: Heparin Clinical Quality Measures DVT/VTE Risk/Contraindication: Risk Factor Score Per Nursin RFS Level Per Nursing on Admit: 4+=Very High GEOFF SHAH MD Mar 01, 2019 20:47 POS
[2019-03-01] MEDS: NS IV 1000 ML 1,000 ML IV SCH (23:22)
[2019-03-01] MEDS: fentaNYL 1,250 MCG/NS 250 ML DRIP IV SCH ×2 (23:33)
[2019-03-02] VITALS (30 sets, daily range): BP systolic 92–151; BP diastolic 59–92
[2019-03-02] MEDS: RT-ALBUTEROL/IPRATROPIUM 3 ML (DUONEB) VIAL INH SCH ×6 (01:43→22:18)
[2019-03-02] MEDS: aCETylcysteine 20% (MUCOMYST) 30ML SOLN VIAL INH SCH ×4 (01:44→22:19)
[2019-03-02] MEDS: PIPERACILLIN/TAZOBACTAM (BULK) 4.5 GM in NS (IVPB) 100 ML IV SCH ×3 (03:33→20:26)
[2019-03-02 03:47] LABS: BASOPHILS % (AUTO) 0 % (0-10); EOSINOPHILS % (AUTO) 0 % (0-10); HEMATOCRIT 33 % (35-52); HEMOGLOBIN 10.1 G/DL (11.5-16.0); LYMPHOCYTES # (AUTO) 0.5 X 10^3 (1.0-4.0); LYMPHOCYTES % (AUTO) 7 % (12-44); MEAN CORPUSCULAR HEMOGLOBIN 27 PG (25-34); MEAN CORPUSCULAR HGB CONC 31 G/DL (32-36); MEAN CORPUSCULAR VOLUME 88 FL (80-99); MEAN PLATELET VOLUME 10.4 FL (7.4-10.4); MONOCYTES # (AUTO) 0.3 X 10^3 (0.0-1.0); MONOCYTES % (AUTO) 5 % (0-12); NEUTROPHILS # (AUTO) 6.2 X 10^3 (1.8-7.8); NEUTROPHILS % (AUTO) 88 % (42-75); PLATELET COUNT 257 10^3/uL (130-400); RED CELL DISTRIBUTION WIDTH 16.5 % (10.0-14.5)
[2019-03-02 03:58] LABS: ABG BASE EXCESS 7.8 MMOL/L (-2.5-2.5); ABG OXYGEN SATURATION 96 % (94-100); ABG PCO2 69 MMHG (35-45); ABG PO2 114 MMHG (79-93)
[2019-03-02 04:04] LABS: BUN/CREATININE RATIO 27; CALCIUM 8.6 MG/DL (8.5-10.1); CARBON DIOXIDE 29 MMOL/L (21-32); CHLORIDE 100 MMOL/L (98-107); CREATININE SERUM 0.88 MG/DL (0.60-1.30); GFR ESTIMATED > 60; GLUCOSE 220 MG/DL (70-105); MAGNESIUM 1.6 MG/DL (1.6-2.4); PHOSPHORUS 4.8 MG/DL (2.3-4.7); POTASSIUM 4.4 MMOL/L (3.6-5.0); SODIUM 140 MMOL/L (135-145); TRIGLYCERIDES 783 MG/DL (<150)
[2019-03-02 04:07] LABS: ALLENS TEST POSITIVE; INSPIRED O2 85; PATIENT TEMP 36.8; VENTILATOR YES
[2019-03-02 04:08] LABS: ABG PH 7.31 (7.37-7.43)
[2019-03-02] MEDS: inSUlin ASPART (NovoLOG) 1 UNIT/0.01 ML (CHARGE PER UNIT) SC SCH ×6 (04:11→23:38)
[2019-03-02] MEDS: inSUlin ASPART (NovoLOG) 1 UNIT/0.01 ML (CHARGE PER UNIT) IV SCH ×6 (04:11→23:38)
[2019-03-02] MEDS: MAGNESIUM 1 GM/100 ML IVPB 100 ML IV SCH ×3 (04:22→05:22)
--- NOTE | 2019-03-02 04:46 | Pulmonary Progress Note ---
Subjective Time Seen by a Provider: 04:46 Subjective/Events-last exam Pt is sedated on vent. Sepsis Event Evaluation Height, Weight, BMI Height: 5'4.00" Weight: 276lbs. oz. 125.713029se; 39.00 BMI Method:Stated Exam Exam Vital Signs Date Time Temp Pulse Resp B/P (MAP) Pulse Ox O2 Delivery O2 Flow Rate FiO2 03/02/19 03:33 36.1 03/02/19 03:22 Mechanical Ventilator 03/02/19 03:00 82 50 112/68 (83) 95 Mechanical Ventilator 85.00 03/02/19 02:00 80 26 119/71 (87) 96 Mechanical Ventilator 85.00 03/02/19 01:44 72 20 94 85 03/02/19 01:16 Mechanical Ventilator 03/02/19 01:00 77 28 130/83 (99) 97 Mechanical Ventilator 85.00 03/02/19 00:47 78 03/02/19 00:00 36.9 03/02/19 00:00 74 46 118/67 (84) 93 Mechanical Ventilator 85.00 03/01/19 23:00 75 20 130/87 (101) 92 Mechanical Ventilator 85.00 03/01/19 22:58 Mechanical Ventilator 03/01/19 22:00 79 20 125/91 (102) 93 Mechanical Ventilator 85.00 03/01/19 21:13 78 20 94 85 03/01/19 21:00 78 19 125/76 (92) 95 Mechanical Ventilator 85.00 03/01/19 21:00 36.6 03/01/19 20:46 Mechanical Ventilator 03/01/19 20:00 36.5 03/01/19 20:00 79 20 93 85 03/01/19 20:00 75 19 119/75 (90) 93 Mechanical Ventilator 85.00 03/01/19 19:00 79 20 92/61 (71) 95 Mechanical Ventilator 85.00 03/01/19 18:47 79 03/01/19 18:26 37.69442 74 20 100/60 93 Mechanical Ventilator 55.00 03/01/19 18:00 74 20 99/63 (75) 93 Mechanical Ventilator 85.00 03/01/19 17:12 80 20 110/62 (78) 94 Mechanical Ventilator 85.00 03/01/19 16:00 92 Mechanical Ventilator 80 03/01/19 16:00 77 17 100/61 (74) 94 Mechanical Ventilator 85.00 03/01/19 15:54 99/63 03/01/19 15:00 81 16 95/59 (71) 91 Mechanical Ventilator 85.00 03/01/19 14:15 74 21 95 85 03/01/19 14:00 70 19 124/68 (86) 93 Mechanical Ventilator 85.00 03/01/19 13:51 128/84 03/01/19 13:33 Mechanical Ventilator 85.00 03/01/19 13:00 78 14 123/84 (97) 95 Mechanical Ventilator 100.00 03/01/19 12:48 73 03/01/19 12:00 70 11 118/79 (92) 92 Mechanical Ventilator 100.00 03/01/19 12:00 92 Mechanical Ventilator 80 03/01/19 11:45 37.4 03/01/19 11:36 120/84 03/01/19 11:00 77 14 129/82 (98) Mechanical Ventilator 100.00 03/01/19 10:43 75 14 90 90 03/01/19 10:00 73 14 118/75 (89) 91 Mechanical Ventilator 90.00 03/01/19 09:57 Mechanical Ventilator 90.00 03/01/19 09:20 124/78 03/01/19 09:00 78 14 111/77 (88) 91 Mechanical Ventilator 70.00 03/01/19 08:00 92 Mechanical Ventilator 80 03/01/19 08:00 77 13 122/78 (93) 92 Mechanical Ventilator 70.00 03/01/19 07:39 36.6 03/01/19 07:00 81 03/01/19 07:00 78 13 121/81 (94) 92 Mechanical Ventilator 70.00 03/01/19 06:53 123/83 03/01/19 06:44 73 14 93 80 03/01/19 06:00 76 14 116/79 (91) 93 Mechanical Ventilator 70.00 03/01/19 05:00 84 14 138/89 (105) 93 Mechanical Ventilator 70.00 I & O0 03/02/19 07:00 Intake Total 1875 ml Output Total 4075 ml Balance -2200 ml Height & Weight Height: 5'4.00" Weight: 276lbs. oz. 125.760719tt; 39.00 BMI Method:Stated General Appearance: Chronically ill, Obese, Other (sedated on vent) HEENT: PERRL/EOMI, Pharynx Normal Neck: Supple Respiratory: Decreased Breath Sounds, Respiratory Distress Cardiovascular: Regular Rate, Rhythm, No Edema Capillary Refill: Less Than 3 Seconds Extremity: Normal Inspection Neurologic/Psychiatric: Other (sedated on vent) Skin: Normal Color, Warm/Dry Results Lab Laboratory Tests 03/01/19 03:20 03/02/19 03:40 Assessment/Plan Assessment/Plan Acute on chronic respiratory failure --With ARDS Intubated on 02/25 - Pa02/Fi02 =91 -PT would benefit from tracheostomy -I have discussed with Dr. Carrera he will evaluate -Repeat ABG in 1hr -Will plan bronchoscopy today -eraxis, Zosyn --Continue ventilator therapy -echo - reviewed COPDAE r/o PNA -Solumedrol 40 Q 12 decreased secondary to hyperglycemia. -Zosyn -[place] cultures pending IDDM -insulin gtt -Increase levemir to 16 units BID -Accu checks Q 4 -SSI Metabolic lactic acidosis secondary to hypoxia -Monitor Anemia -Monitor Over all prognosis poor. Will plan for tracheostomy if family is in agreement. Currently full code I would recommend No Code status. Family is discussing how aggressive they want to be. SUZY MCCORMACK DO Mar 02, 2019 04:46 POS
[2019-03-02] MEDS: CHLORHEXIDINE 0.12% SOLN 15 ML (PERIDEX) UDC PO SCH ×3 (05:22→21:14)
[2019-03-02] MEDS: POTASSIUM CL 10MEQ/50ML IVPB 50 ML IV SCH (05:22)
[2019-03-02] MEDS: KCL 20 MEQ TAB (K-DUR) PO SCH (05:22)
[2019-03-02] MEDS ORDERED: MIDAZOLAM 5 MG/5 ML (VERSED) VIAL ONE (05:23)
[2019-03-02] MEDS ORDERED: MIDAZOLAM 5 MG/5 ML (VERSED) VIAL IVP ONE (05:45)
--- NOTE | 2019-03-02 06:25 | Pulmonary Procedures ---
Pulmonary Procedures Date of Procedure Date of Service: Mar 02, 2019 Bronch Bronchoscopy with bilateral washes. Preop DX ARDS, PNA Postop DX: same Complications: none After informed consent obtained and formal time out pt was sedated using Fentanyl propofol, and Versed. Bronchoscope was advanced through the ET tube . An anatomical tour was undertaken down to the segmental bronchi bilaterally. No endobronchial lesions noted. bilateral washes were obtained. Pt tolerated procedure well. No complications noted. Stat CXR is pending. SUZY MCCORMACK DO Mar 02, 2019 06:25 POS
[2019-03-02 07:37] LABS: ABG BASE EXCESS 8.1 MMOL/L (-2.5-2.5); ABG OXYGEN SATURATION 96 % (94-100); ABG PCO2 53 MMHG (35-45); ABG PH 7.41 (7.37-7.43); ABG PO2 127 MMHG (79-93); ABG TCO2 34.6 MMOL/L (21.0-31.0)
[2019-03-02 07:38] LABS: ALLENS TEST POSITIVE; INSPIRED O2 100%; PATIENT TEMP 36.4; VENTILATOR YES
--- NOTE | 2019-03-02 08:17 | Diagnostic Imaging Report ---
INDICATION: Dyspnea. Intubated patient. COMPARISON: 03/01/2019. FINDINGS: Single frontal radiographic view of the chest was obtained and demonstrates indwelling endotracheal tube with tip at the clavicular heads. Tip of the gastric tube is obscured by overlying soft tissue attenuation. Lungs continue to show scattered patchy and confluent infiltrates bilaterally, right greater than left. There may be minimal improved aeration within the right midlung. Small effusions cannot be excluded. There is no pneumothorax on either side. Cardiac silhouette and pulmonary vasculature are stable. Right internal jugular central venous catheter is seen with tip in the IVC. IMPRESSION: 1. Persistent diffuse bilateral infiltrates with perhaps minimal interval improvement on the right. 2. Lines and tubes as above. Dictated by: Dictated on workstation # [id number]
--- NOTE | 2019-03-02 08:18 | Diagnostic Imaging Report ---
EXAMINATION: Chest radiograph, portable AP view. DATE: 03/02/2019 5:53 AM hours. INDICATION: 58-year-old female, status post bronchoscopy. COMPARISON: March 02, 2019. FINDINGS: The endotracheal tube is approximately 4 cm above the noe. The nasogastric tube is at the level of the stomach. Right-sided central venous line overlies the mid to upper SVC. Stable overall appearance of the cardiomediastinal silhouette. There is no identified pneumothorax. There are gradients of attenuation in the lung bases. There is nonspecific bibasilar airspace consolidation. There are also bilateral interstitial opacities. Overall lung aeration is essentially unchanged IMPRESSION: 1. Grossly unchanged nonspecific bibasilar airspace consolidation, bilateral interstitial opacities, and probable bilateral pleural effusions. 2. Support lines and tubes as above. Dictated by: Dictated on workstation # [id number]
[2019-03-02] MEDS: PANTOPRAZOLE 40 MG (PROTONIX) VIAL IV SCH ×2 (08:50→20:27)
[2019-03-02] MEDS: methylPREDNISolone 40 MG/ML (Solu-MEDROL) VIAL IV SCH ×2 (08:50→20:27)
--- NOTE | 2019-03-02 08:58 | Physical Therapy Progress Note ---
Therapy Progress Note Patient still intubated and sedated. Will check on patient tomorrow and start if appropriate. KEESHA CESPEDES PT Mar 02, 2019 08:58 POS
[2019-03-02] MEDS ORDERED: ENOXAPARIN 40 MG/0.4 ML (LOVENOX) SYR SC SCH (09:00)
[2019-03-02] MEDS: MICONAZOLE 2% POWDER (DESENEX AF) 90 GM TOP SCH ×2 (11:05→20:28)
[2019-03-02] MEDS: ANIDULAFUNGIN INJECTION 100 MG in NS (IVPB) 100 ML IV SCH (11:05)
[2019-03-02] MEDS: DEXMEDETOMIDINE INJECTION 1,000 MCG in NS (IVPB) 240 ML IV SCH (15:17)
--- NOTE | 2019-03-02 16:51 | NUR ---
SS/CM: Visited with family to discuss prognosis of pt. Plan: Met with family to ensure they are aware of the current poor prognosis of pt. Summary: Discussed poor prognosis and increasing medical needs of pt. with sister of pt and son of patient. Sister seems realistic with knowing pt is not doing well and may not survive. Son seems to be lower functioning and has some difficulty with understanding. Sister of pt explains things on his level. They are given information as to when the doctors will round. They plan to be present when Dr. Balbeuna rounds around 3:30am and also when Dr. Leblanc will round later in the morning around 9:30am. Family seem realistic and verbalizes understanding. [facility] in reguards to future discharge planning if pt should improve. They verbalized understanding and are ok with [facility] in [place]
[2019-03-02] MEDS: fentaNYL 1,250 MCG/NS 250 ML DRIP IV SCH ×2 (18:03)
[2019-03-02] MEDS: ENOXAPARIN 60 MG/0.6 ML (LOVENOX) SYR SC SCH (20:27)
--- NOTE | 2019-03-02 21:57 | Progress Note ---
Subjective Subjective/Events-last exam Patient requiring full support on ventilator, PEEP increased and patient currently on 100% FiO2 Review of Systems Intubated and sedated Objective Exam Last Set of Vital Signs Vital Signs Date Time Temp Pulse Resp B/P (MAP) Pulse Ox O2 Delivery O2 Flow Rate FiO2 03/02/19 20:19 119/76 03/02/19 20:00 36.0 03/02/19 19:34 74 19 94 100 03/02/19 18:00 Mechanical Ventilator 100.00 Capillary Refill : Less Than 3 Seconds I&O Intake and Output 03/02/19 00:00 Intake Total 1975 ml Output Total 4300 ml Balance -2325 ml Intake Oral 0 ml IV Total 1975 ml Output Urine Total 3900 ml Gastric Drainage Total 400 ml General: Other (Intubated and sedated) Lungs: Other (diffuse crackles and diminished breath sounds) Heart: Regular Rate, No Murmurs Abdomen: Normal Bowel Sounds, Other (distended) Extremities: Other (3+ pitting edema bilaterally) Skin: No Rashes, No Breakdown Results/Procedures Lab Laboratory Tests 03/01/19 22:47: Glucometer 248H 03/02/19 00:57: Glucometer 235H 03/02/19 03:38: Glucometer 228H 03/02/19 03:40: White Blood Count 7.0, Red Blood Count 3.78L, Hemoglobin 10.1L, Hematocrit 33L, Mean Corpuscular Volume 88, Mean Corpuscular Hemoglobin 27, Mean Corpuscular Hemoglobin Concent 31L, Red Cell Distribution Width 16.5H, Platelet Count 257, Mean Platelet Volume 10.4, Neutrophils (%) (Auto) 88H, Lymphocytes (%) (Auto) 7L , Monocytes (%) (Auto) 5, Eosinophils (%) (Auto) 0, Basophils (%) (Auto) 0, Neutrophils # (Auto) 6.2, Lymphocytes # (Auto) 0.5L, Monocytes # (Auto) 0.3, Eosinophils # (Auto) 0.0, Basophils # (Auto) 0.0, Sodium Level 140, Potassium Level 4.4, Chloride Level 100, Carbon Dioxide Level 29, Anion Gap 11, Blood Urea Nitrogen 24H, Creatinine 0.88, Estimat Glomerular Filtration Rate > 60, BUN/Creatinine Ratio 27, Glucose Level 220H, Calcium Level 8.6, Phosphorus Level 4.8H, Magnesium Level 1.6, Triglycerides Level 783H 03/02/19 03:50: Blood Gas Puncture Site RIGHT RADIAL, Blood Gas Patient Temperature 36.8, Arterial Blood pH 7.31*L, Arterial Blood Partial Pressure CO2 69H, Arterial Blood Partial Pressure O2 114H, Arterial Blood HCO3 34H, Arterial Blood Total CO2 36.0H, Arterial Blood Oxygen Saturation 96, Arterial Blood Base Excess 7.8H, Memo Test POSITIVE, Blood Gas Ventilator Setting YES, Blood Gas Inspired Oxygen 85 03/02/19 06:22: Glucometer 233H 03/02/19 07:21: Blood Gas Puncture Site LEFT RADIAL, Blood Gas Patient Temperature 36.4, Arterial Blood pH 7.41, Arterial Blood Partial Pressure CO2 53H, Arterial Blood Partial Pressure O2 127H, Arterial Blood HCO3 33H, Arterial Blood Total CO2 34.6H, Arterial Blood Oxygen Saturation 96, Arterial Blood Base Excess 8.1H, Memo Test POSITIVE, Blood Gas Ventilator Setting YES, Blood Gas Inspired Oxygen 100% 03/02/19 08:49: Glucometer 185H 03/02/19 11:01: Glucometer 180H 03/02/19 13:11: Glucometer 258H 03/02/19 14:50: Glucometer 237H 03/02/19 15:54: Glucometer 232H 03/02/19 18:14: Glucometer 202H 03/02/19 20:01: Glucometer 187H Microbiology 02/25/19 Blood Culture - Preliminary, Resulted No growth 03/02/19 Gram Stain - Final, Resulted 03/02/19 Bronchial Culture, Resulted Pending 03/02/19 Fungal Culture 1, Resulted Pending 02/28/19 Urine Culture - Final, Complete NO GROWTH Assessment/Plan Assessment/Plan (1) ARDS (adult respiratory distress syndrome) Status: Acute Assessment & Plan: 03/02: Intubated, managed by Dr Balbuena, He has consulted Dr Carrera for Trach placement, family meeting tomorrow (2) Acute on chronic respiratory failure with hypoxia Status: Acute Assessment & Plan: 02/28: Stable on vent, Dr Balbuena managing, MAT protocol, CT Chest today pending 03/01: CT Unremarkable, Dr Balbuena discussed transfer to [place] (3) Pneumonia Status: Acute Assessment & Plan: 02/28: Continue broad spectrum antibiotics 03/01: Continue antibiotics D5 Qualifiers: Qualified Codes: J18.1 - Lobar pneumonia, unspecified organism (4) Obesity hypoventilation syndrome Status: Chronic (5) WILBER on CPAP Status: Chronic Assessment & Plan: 02/28: Patient noncompliant with CPAP as outpatient (6) Insulin dependent diabetes mellitus with complications Status: Chronic Assessment & Plan: 02/28: Insulin drip, transitioning to SC insulin, A1c pending 03/02: levemir increased for elevated blood sugars (7) Normocytic anemia Status: Chronic Assessment & Plan: 02/28: Will get hemoccult, unsure if patient has had colonoscopy (8) Hepatic steatosis Status: Chronic Assessment & Plan: 02/28: Seen on CT scan (9) COPD (chronic obstructive pulmonary disease) Status: Chronic Qualifiers: Qualified Codes: J41.1 - Mucopurulent chronic bronchitis (10) Adult BMI 50.0-59.9 kg/sq m Status: Chronic (11) DVT prophylaxis Status: Acute Assessment & Plan: Heparin Clinical Quality Measures DVT/VTE Risk/Contraindication: Risk Factor Score Per Nursin RFS Level Per Nursing on Admit: 4+=Very High GEOFF SHAH MD Mar 02, 2019 21:57 POS
--- NOTE | 2019-03-02 23:05 | CONSULTATION REPORT ---
DATE OF SERVICE: ENT CONSULTATION REFERRING PHYSICIAN: Dr. Balbuena LOCATION: ICU bed 7 REASON FOR CONSULTATION: Possible trach consult. HISTORY OF PRESENT ILLNESS: The patient is intubated and she has pneumonia and is not making progress on extubation. She currently is on 100% oxygen and 18 PEEP. She had a bronchoscopy this morning and did not tolerate it well. She is not making any progress. No further past history is obtainable at this point. PHYSICAL EXAMINATION: She had a short thick large neck. She is intubated and sedated in the ICU. IMPRESSION: Respiratory failure. RECOMMENDATIONS: I discussed the fact with her nurse taking care of her that at this point, she is really not healthy enough to consider a trach. If over the next 2 to 3 days if she makes progress and with decreased oxygen requirement and PEEP, then it could be considered. It would be an extremely difficult trach to do given her body habitus. At this point, I will check again in 48 hours or so and see how she is getting along and see if there has been any improvement in her health status. At this point, she would just not tolerate the anesthesia in order to do the trach. Thank you. Job ID: [id number] DocumentID: [id number] Dictated Date: 03/02/2019 20:51:20 [employer] Date: 03/02/2019 23:03:58 Dictated By: DOROTHY GROVER MD
[2019-03-03] VITALS (30 sets, daily range): BP systolic 98–156; BP diastolic 68–96
[2019-03-03] MEDS: DEXMEDETOMIDINE INJECTION 1,000 MCG in NS (IVPB) 240 ML IV SCH ×4 (01:44→23:49)
[2019-03-03] MEDS: NS IV 1000 ML 1,000 ML IV SCH ×2 (01:46→08:28)
[2019-03-03] MEDS: RT-ALBUTEROL/IPRATROPIUM 3 ML (DUONEB) VIAL INH SCH ×6 (03:10→21:58)
[2019-03-03 03:43] LABS: ABG OXYGEN SATURATION 97 % (94-100); ABG PCO2 50 MMHG (35-45); ABG PH 7.36 (7.37-7.43); ABG PO2 91 MMHG (79-93); ABG TCO2 28.4 MMOL/L (21.0-31.0); ALLENS TEST YES-POS; INSPIRED O2 100%; PATIENT TEMP 37.3; VENTILATOR YES
[2019-03-03 03:46] LABS: BASOPHILS % (AUTO) 0 % (0-10); EOSINOPHILS % (AUTO) 0 % (0-10); HEMATOCRIT 36 % (35-52); HEMOGLOBIN 10.9 G/DL (11.5-16.0); LYMPHOCYTES # (AUTO) 0.6 X 10^3 (1.0-4.0); LYMPHOCYTES % (AUTO) 8 % (12-44); MEAN CORPUSCULAR HEMOGLOBIN 26 PG (25-34); MEAN CORPUSCULAR HGB CONC 30 G/DL (32-36); MEAN CORPUSCULAR VOLUME 87 FL (80-99); MEAN PLATELET VOLUME 10.9 FL (7.4-10.4); MONOCYTES # (AUTO) 0.3 X 10^3 (0.0-1.0); MONOCYTES % (AUTO) 4 % (0-12); NEUTROPHILS # (AUTO) 6.5 X 10^3 (1.8-7.8); NEUTROPHILS % (AUTO) 88 % (42-75); PLATELET COUNT 263 10^3/uL (130-400); WHITE BLOOD COUNT 7.4 10^3/uL (4.3-11.0)
[2019-03-03 04:12] LABS: BUN/CREATININE RATIO 24; CALCIUM 8.9 MG/DL (8.5-10.1); CARBON DIOXIDE 24 MMOL/L (21-32); CHLORIDE 99 MMOL/L (98-107); CREATININE SERUM 0.86 MG/DL (0.60-1.30); GFR ESTIMATED > 60; GLUCOSE 286 MG/DL (70-105); MAGNESIUM 1.8 MG/DL (1.6-2.4); PHOSPHORUS 4.3 MG/DL (2.3-4.7); POTASSIUM 4.6 MMOL/L (3.6-5.0); SODIUM 138 MMOL/L (135-145)
[2019-03-03] MEDS: inSUlin ASPART (NovoLOG) 1 UNIT/0.01 ML (CHARGE PER UNIT) IV SCH ×6 (04:13→23:50)
[2019-03-03] MEDS: inSUlin ASPART (NovoLOG) 1 UNIT/0.01 ML (CHARGE PER UNIT) SC SCH ×6 (04:13→23:50)
[2019-03-03] MEDS: MAGNESIUM 1 GM/100 ML IVPB 100 ML IV SCH (04:51)
[2019-03-03] MEDS: POTASSIUM CL 10MEQ/50ML IVPB 50 ML IV SCH (04:51)
[2019-03-03] MEDS: inSUlin REGULAR TPN/DRIP ONLY 250 UNITS in NORMAL SALINE 250 ML IV SCH ×2 (04:51→08:28)
[2019-03-03] MEDS: KCL 20 MEQ TAB (K-DUR) PO SCH (04:51)
--- NOTE | 2019-03-03 05:01 | NUR ---
Dr. Balbuena at bedside speaking to patient's sister, Mika. Dr. Balbuena gave update on patient status.
--- NOTE | 2019-03-03 05:18 | Pulmonary Progress Note ---
Subjective Time Seen by a Provider: 08:21 Subjective/Events-last exam no complications noted Sepsis Event Evaluation Height, Weight, BMI Height: 5'4.00" Weight: 276lbs. oz. 125.999581iv; 39.00 BMI Method:Stated Exam Exam Vital Signs Date Time Temp Pulse Resp B/P (MAP) Pulse Ox O2 Delivery O2 Flow Rate FiO2 03/03/19 04:00 79 20 128/79 (95) 94 Mechanical Ventilator 100.00 03/03/19 04:00 37.0 03/03/19 03:39 132/87 03/03/19 03:10 73 20 3 100 03/03/19 03:00 73 19 156/89 (111) 93 Mechanical Ventilator 100.00 03/03/19 02:00 77 19 142/96 (111) 93 Mechanical Ventilator 100.00 03/03/19 01:46 141/91 03/03/19 01:00 77 150/96 (114) 92 Mechanical Ventilator 100.00 03/03/19 01:00 77 03/03/19 00:14 75 03/03/19 00:00 Mechanical Ventilator 100 03/03/19 00:00 75 20 146/94 (111) 92 Mechanical Ventilator 100.00 03/03/19 00:00 36.2 03/02/19 23:00 70 20 151/92 (111) 93 Mechanical Ventilator 100.00 03/02/19 22:22 72 20 94 100 03/02/19 22:14 135/92 03/02/19 22:00 73 19 135/92 (106) 94 Mechanical Ventilator 100.00 03/02/19 21:00 75 20 133/83 (100) 94 Mechanical Ventilator 100.00 03/02/19 20:19 119/76 03/02/19 20:00 36.0 03/02/19 20:00 80 19 118/80 (93) 94 Mechanical Ventilator 100.00 03/02/19 20:00 Mechanical Ventilator 100 03/02/19 19:34 74 19 94 100 03/02/19 19:00 74 03/02/19 19:00 74 20 123/84 (97) 95 Mechanical Ventilator 100.00 03/02/19 18:03 75 03/02/19 18:00 76 20 123/84 (97) 95 Mechanical Ventilator 100.00 03/02/19 17:00 80 20 120/75 (90) 95 Mechanical Ventilator 100.00 03/02/19 16:14 81 03/02/19 16:00 77 20 108/64 (79) 94 Mechanical Ventilator 100.00 03/02/19 16:00 35.9 03/02/19 16:00 Mechanical Ventilator 100 03/02/19 15:00 78 20 111/68 (82) 93 Mechanical Ventilator 100.00 03/02/19 14:37 108/69 03/02/19 14:36 72 20 94 100 03/02/19 14:00 79 20 109/66 (80) 95 Mechanical Ventilator 100.00 03/02/19 13:00 73 19 123/72 (89) 94 Mechanical Ventilator 100.00 03/02/19 13:00 74 03/02/19 12:52 77 03/02/19 12:00 72 19 116/69 (85) 92 Mechanical Ventilator 100.00 03/02/19 12:00 35.9 03/02/19 12:00 Mechanical Ventilator 100 03/02/19 11:10 Mechanical Ventilator 100.00 03/02/19 11:00 69 20 117/76 (90) 90 Mechanical Ventilator 80.00 03/02/19 10:55 73 20 127/84 87 Mechanical Ventilator 85.00 03/02/19 10:34 Mechanical Ventilator 80.00 03/02/19 10:31 68 20 94 90 03/02/19 10:00 68 19 102/64 (77) 95 Mechanical Ventilator 90.00 03/02/19 09:00 66 20 92/69 (77) 95 Mechanical Ventilator 90.00 03/02/19 08:55 66 03/02/19 08:00 Mechanical Ventilator 100 03/02/19 08:00 73 19 108/69 (82) 96 Mechanical Ventilator 90.00 03/02/19 07:25 Mechanical Ventilator 90.00 03/02/19 07:00 68 35 102/67 (79) 97 Mechanical Ventilator 100.00 03/02/19 07:00 66 03/02/19 06:57 69 20 96 100 03/02/19 06:00 63 31 107/59 (75) 94 Mechanical Ventilator 100.00 03/02/19 05:43 Mechanical Ventilator 100.00 03/02/19 05:25 28 I & O 03/03/19 07:00 Intake Total 770 ml Output Total 1350 ml Balance -580 ml Height & Weight Height: 5'4.00" Weight: 276lbs. oz. 125.365633zq; 39.00 BMI Method:Stated General Appearance: Chronically ill, Obese, Other (sedated on vent) HEENT: PERRL/EOMI, Pharynx Normal Neck: Supple Respiratory: Decreased Breath Sounds, Respiratory Distress Cardiovascular: Regular Rate, Rhythm, No Edema Capillary Refill: Less Than 3 Seconds Extremity: Normal Inspection Neurologic/Psychiatric: Other (sedated on vent) Skin: Normal Color, Warm/Dry Results Lab Laboratory Tests 03/02/19 03:40 03/03/19 02:55 Assessment/Plan Assessment/Plan Acute on chronic respiratory failure --With ARDS Intubated on 02/25 - Pa02/Fi02 =91 -PT would benefit from tracheostomy -I have discussed with Dr. Carrera he will evaluate -eraxis, Zosyn --Continue ventilator therapy -echo - reviewed COPDAE r/o PNA -Solumedrol 40 Q 12 decreased secondary to hyperglycemia. -Zosyn -[place] cultures pending IDDM -insulin gtt -Increase levemir to 16 units BID -Accu checks Q 4 -SSI Metabolic lactic acidosis secondary to hypoxia -Monitor Anemia -Monitor Over all prognosis poor. Per Dr. Carrera pt is not a candidate for tracheostomy. Currently full code I would recommend No Code status vs comfort care only. I spoke to patient's sister this AM at bedside. Dr. Leblanc is planning on talking to other family members today. SUZY MCCORMACK DO Mar 03, 2019 05:18 POS
[2019-03-03] MEDS: CHLORHEXIDINE 0.12% SOLN 15 ML (PERIDEX) UDC PO SCH ×3 (05:20→22:06)
[2019-03-03] MEDS: PIPERACILLIN/TAZOBACTAM (BULK) 4.5 GM in NS (IVPB) 100 ML IV SCH ×3 (05:20→20:01)
--- NOTE | 2019-03-03 05:30 | NUR ---
Tube feeding started at this time.
--- NOTE | 2019-03-03 07:40 | Diagnostic Imaging Report ---
INDICATION: Dyspnea. Comparison made with prior examination 03/02/2019. FINDINGS: There is cardiomegaly. There is some venous congestion. There are patchy bibasilar infiltrates. There are small bilateral pleural effusions. There is no pneumothorax. Mediastinum is unremarkable. Lines and tubes are in satisfactory position. IMPRESSION: Patchy bibasilar infiltrates and bilateral pleural effusions. Cardiomegaly and some central pulmonary venous congestion. Dictated by: Dictated on workstation # [id number]
--- NOTE | 2019-03-03 08:09 | Physical Therapy Progress Note ---
Therapy Progress Note Patient is currently sedated and intubated. PT will assess patient when medically stable and able to actively participate with skilled therapy. DELBERT DENNIS PT Mar 03, 2019 08:09 POS
[2019-03-03] MEDS: aCETylcysteine 20% (MUCOMYST) 30ML SOLN VIAL INH SCH ×3 (09:29→17:47)
[2019-03-03] MEDS: methylPREDNISolone 40 MG/ML (Solu-MEDROL) VIAL IV SCH ×2 (09:42→20:01)
[2019-03-03] MEDS: ENOXAPARIN 60 MG/0.6 ML (LOVENOX) SYR SC SCH ×2 (09:42→20:01)
[2019-03-03] MEDS: ANIDULAFUNGIN INJECTION 100 MG in NS (IVPB) 100 ML IV SCH (09:42)
[2019-03-03] MEDS: PANTOPRAZOLE 40 MG (PROTONIX) VIAL IV SCH ×2 (09:43→20:01)
[2019-03-03] MEDS: MICONAZOLE 2% POWDER (DESENEX AF) 90 GM TOP SCH ×2 (09:44→20:01)
--- NOTE | 2019-03-03 10:01 | Occ Therapy Progress Note ---
Therapy Progress Note Pt. continues on ventilator support with sedation. Will continue to monitor pt. 1000 MERARY BELTRAN OT Mar 03, 2019 10:01 POS
[2019-03-03] MEDS: fentaNYL 1,250 MCG/NS 250 ML DRIP IV SCH ×2 (12:02)
--- NOTE | 2019-03-03 15:24 | NUR ---
Pastoral care visit, no family present, RN advised family members may gather at somepoint this afternoon or evening, I requested staff contact Pastoral Care so as we could be of support to family.
--- NOTE | 2019-03-03 20:05 | Progress Note ---
Subjective Subjective/Events-last exam Intubated and sedated. No family present this AM. Review of Systems Intubated and sedated Objective Exam Last Set of Vital Signs Vital Signs Date Time Temp Pulse Resp B/P (MAP) Pulse Ox O2 Delivery O2 Flow Rate FiO2 03/03/19 18:13 74 116/84 03/03/19 18:00 20 97 Mechanical Ventilator 100.00 03/03/19 17:47 100 03/03/19 16:00 36.6 Capillary Refill : Less Than 3 Seconds I&O Intake and Output 03/03/19 00:00 Intake Total 1710 ml Output Total 1700 ml Balance 10 ml Intake Oral 0 ml IV Total 1710 ml Output Urine Total 1650 ml Gastric Drainage Total 50 ml General: Other (Intubated and sedated) Lungs: Other (Minimal air movement) Heart: Regular Rate, No Murmurs Abdomen: Soft, Other (NG in place for tube feeds) Extremities: Other (3+ pitting edema bilaterally into thighs) Results/Procedures Lab Laboratory Tests 03/02/19 22:14: Glucometer 239H 03/02/19 23:54: Glucometer 306H 03/03/19 01:54: Glucometer 300H 03/03/19 02:55: White Blood Count 7.4, Red Blood Count 4.14L, Hemoglobin 10.9L, Hematocrit 36, Mean Corpuscular Volume 87, Mean Corpuscular Hemoglobin 26, Mean Corpuscular Hemoglobin Concent 30L, Red Cell Distribution Width 16.0H, Platelet Count 263, Mean Platelet Volume 10.9H, Neutrophils (%) (Auto) 88H, Lymphocytes (%) (Auto) 8L, Monocytes (%) (Auto) 4, Eosinophils (%) (Auto) 0, Basophils (%) (Auto) 0, Neutrophils # (Auto) 6.5, Lymphocytes # (Auto) 0.6L, Monocytes # (Auto) 0.3, Eosinophils # (Auto) 0.0, Basophils # (Auto) 0.0, Blood Gas Puncture Site LRAD, Blood Gas Patient Temperature 37.3, Arterial Blood pH 7.36L, Arterial Blood Partial Pressure CO2 50H, Arterial Blood Partial Pressure O2 91, Arterial Blood HCO3 27, Arterial Blood Total CO2 28.4, Arterial Blood Oxygen Saturation 97, Arterial Blood Base Excess 2.0, Memo Test YES-POS, Blood Gas Ventilator Setting YES, Blood Gas Inspired Oxygen 100%, Sodium Level 138, Potassium Level 4.6, Chloride Level 99, Carbon Dioxide Level 24, Anion Gap 15H, Blood Urea Nitrogen 21H, Creatinine 0.86, Estimat Glomerular Filtration Rate > 60, BUN/Creatinine Ratio 24, Glucose Level 286H, Calcium Level 8.9, Phosphorus Level 4.3, Magnesium Level 1.8 03/03/19 03:30: Glucometer 280H 03/03/19 05:44: Glucometer 248H 03/03/19 07:41: Glucometer 213H 03/03/19 10:00: Glucometer 181H 03/03/19 11:44: Glucometer 242H 03/03/19 14:07: Glucometer 250H 03/03/19 15:57: Glucometer 225H 03/03/19 17:26: Glucometer 225H 03/03/19 19:54: Glucometer 207H Microbiology 02/25/19 Blood Culture - Final, Complete No growth 03/02/19 Mycobacterial Culture - Preliminary, Resulted 02/28/19 Urine Culture - Final, Complete NO GROWTH Assessment/Plan Assessment/Plan (1) ARDS (adult respiratory distress syndrome) Status: Acute Assessment & Plan: 03/02: Intubated, managed by Dr Balbuena, He has consulted Dr Carrera for Trach placement, family meeting tomorrow 03/03: No family present this AM, Very poor prognosis (2) Acute on chronic respiratory failure with hypoxia Status: Acute Assessment & Plan: 02/28: Stable on vent, Dr Babluena managing, MAT protocol, CT Chest today pending 03/01: CT Unremarkable, Dr Balbuena discussed transfer to [facility] (3) Pneumonia Status: Acute Assessment & Plan: 02/28: Continue broad spectrum antibiotics 03/01: Continue antibiotics D5 03/03: D7 antibiotics Qualifiers: Qualified Codes: J18.1 - Lobar pneumonia, unspecified organism (4) Obesity hypoventilation syndrome Status: Chronic (5) WILBER on CPAP Status: Chronic Assessment & Plan: 02/28: Patient noncompliant with CPAP as outpatient (6) Insulin dependent diabetes mellitus with complications Status: Chronic Assessment & Plan: 02/28: Insulin drip, transitioning to SC insulin, A1c pending 03/02: levemir increased for elevated blood sugars (7) Normocytic anemia Status: Chronic Assessment & Plan: 02/28: Will get hemoccult, unsure if patient has had colonosc opy (8) Hepatic steatosis Status: Chronic Assessment & Plan: 02/28: Seen on CT scan (9) COPD (chronic obstructive pulmonary disease) Status: Chronic Qualifiers: Qualified Codes: J41.1 - Mucopurulent chronic bronchitis (10) Adult BMI 50.0-59.9 kg/sq m Status: Chronic (11) DVT prophylaxis Status: Acute Assessment & Plan: Heparin Clinical Quality Measures DVT/VTE Risk/Contraindication: Risk Factor Score Per Nursin RFS Level Per Nursing on Admit: 4+=Very High GEOFF SHAH MD Mar 03, 2019 20:05 POS
--- NOTE | 2019-03-03 21:38 | NUR ---
THIS RN CONTACTED [facility] [place], [place] TO INQUIRE ABOUT PT'S INFLUENZA AND PNEUMONIA VACCINATION STATUS. THIS RN WAS INFORMED THAT PT HAD PNEUMONIA VACCINATION 11/03/2017 AND INFLUENZA VACCINATION 01/14/2019. WILL DOCUMENT ON ADMISSION ASSESSMENT INTERVENTION.
--- NOTE | 2019-03-03 22:30 | NUR ---
TUBE FEEDINGS HELD PER ORDER. RESIDUAL >200ML. WILL REASSESS Q6HR.
--- NOTE | 2019-03-03 23:32 | NUR ---
THIS RN NOTIFIED E-ICU OF PATIENT O2 SATURATION OF 87-88%. THIS RN INFORMED SINAN THAT THE PT WAS TURNED FROM LT SIDE TO RT SIDE. SINAN INSTRUCTED THIS RN TO PLACE PT SUPINE AND WOULD INFORM THE NO NEW ORDERS AT THIS TIME.
--- NOTE | 2019-03-03 23:43 | NUR ---
SINAN, E-ICU CALLED THIS RN TO INFORM ME OF DR. WATTERS'S ORDERS TO TURN PT BACK TO PT'S LT SIDE AND TO ADMINISTER 40MG LASIX IV ONCE. SEE ORDER HISTORY.
[2019-03-03] MEDS ORDERED: FUROSEMIDE 40 MG/4 ML INJ (LASIX) ONE (23:44)
[2019-03-04] VITALS (30 sets, daily range): BP systolic 105–144; BP diastolic 62–90
[2019-03-04] MEDS ORDERED: FUROSEMIDE 40 MG/4 ML INJ (LASIX) IV ONE (00:15)
[2019-03-04] MEDS: RT-ALBUTEROL/IPRATROPIUM 3 ML (DUONEB) VIAL INH SCH ×6 (02:19→22:01)
[2019-03-04 02:58] LABS: ABG OXYGEN SATURATION 98 % (94-100); ABG PCO2 45 MMHG (35-45); ABG PH 7.39 (7.37-7.43); ABG PO2 104 MMHG (79-93)
[2019-03-04 03:13] LABS: ALLENS TEST YES-POS; INSPIRED O2 100%; PATIENT TEMP 36.7; VENTILATOR YES
[2019-03-04 03:22] LABS: BASOPHILS % (AUTO) 0 % (0-10); EOSINOPHILS % (AUTO) 0 % (0-10); HEMATOCRIT 36 % (35-52); HEMOGLOBIN 11.3 G/DL (11.5-16.0); LYMPHOCYTES # (AUTO) 0.8 X 10^3 (1.0-4.0); LYMPHOCYTES % (AUTO) 9 % (12-44); MEAN CORPUSCULAR HEMOGLOBIN 26 PG (25-34); MEAN CORPUSCULAR HGB CONC 31 G/DL (32-36); MEAN CORPUSCULAR VOLUME 84 FL (80-99); MEAN PLATELET VOLUME 10.4 FL (7.4-10.4); MONOCYTES # (AUTO) 0.5 X 10^3 (0.0-1.0); MONOCYTES % (AUTO) 6 % (0-12); NEUTROPHILS # (AUTO) 7.5 X 10^3 (1.8-7.8); NEUTROPHILS % (AUTO) 85 % (42-75); PLATELET COUNT 271 10^3/uL (130-400); RED CELL DISTRIBUTION WIDTH 16.3 % (10.0-14.5); WHITE BLOOD COUNT 8.8 10^3/uL (4.3-11.0)
[2019-03-04 03:46] LABS: BUN/CREATININE RATIO 25; CALCIUM 9.1 MG/DL (8.5-10.1); CARBON DIOXIDE 23 MMOL/L (21-32); CHLORIDE 97 MMOL/L (98-107); CREATININE SERUM 0.81 MG/DL (0.60-1.30); GFR ESTIMATED > 60; GLUCOSE 281 MG/DL (70-105); MAGNESIUM 1.5 MG/DL (1.6-2.4); PHOSPHORUS 4.4 MG/DL (2.3-4.7); POTASSIUM 4.1 MMOL/L (3.6-5.0); SODIUM 135 MMOL/L (135-145); TRIGLYCERIDES 622 MG/DL (<150)
[2019-03-04] MEDS: PIPERACILLIN/TAZOBACTAM (BULK) 4.5 GM in NS (IVPB) 100 ML IV SCH ×3 (03:47→20:30)
--- NOTE | 2019-03-04 04:11 | NUR ---
TUBE FEEDING RESIDUAL ASSESSED. 120ML RESIDUAL, TUBE FEEDINGS RESTARTED AT 10ML/HR.
[2019-03-04] MEDS: fentaNYL 1,250 MCG/NS 250 ML DRIP IV SCH ×4 (04:17→22:46)
[2019-03-04] MEDS: inSUlin ASPART (NovoLOG) 1 UNIT/0.01 ML (CHARGE PER UNIT) IV SCH ×5 (04:19→21:13)
[2019-03-04] MEDS: inSUlin ASPART (NovoLOG) 1 UNIT/0.01 ML (CHARGE PER UNIT) SC SCH ×5 (04:20→21:17)
[2019-03-04] MEDS: POTASSIUM CL 10MEQ/50ML IVPB 50 ML IV SCH (04:29)
[2019-03-04] MEDS: MAGNESIUM 1 GM/100 ML IVPB 100 ML IV SCH ×2 (04:29→05:44)
[2019-03-04] MEDS: KCL 20 MEQ TAB (K-DUR) PO SCH (04:29)
--- NOTE | 2019-03-04 05:06 | Pulmonary Progress Note ---
Subjective Time Seen by a Provider: 05:02 Subjective/Events-last exam sedated on vent Sepsis Event Evaluation Height, Weight, BMI Height: 5'4.00" Weight: 276lbs. oz. 125.980734mi; 39.00 BMI Method:Stated Exam Exam Vital Signs Date Time Temp Pulse Resp B/P (MAP) Pulse Ox O2 Delivery O2 Flow Rate FiO2 03/04/19 04:33 65 20 142/91 97 Mechanical Ventilator 03/04/19 04:01 Mechanical Ventilator 100 03/04/19 03:00 73 20 138/87 (104) 95 Mechanical Ventilator 100.00 03/04/19 02:37 66 20 140/87 95 Mechanical Ventilator 03/04/19 02:20 70 20 95 100 03/04/19 02:00 68 19 142/87 (105) 95 Mechanical Ventilator 100.00 03/04/19 01:00 70 03/04/19 01:00 70 19 136/81 (99) 94 Mechanical Ventilator 100.00 03/04/19 00:43 75 20 132/83 94 Mechanical Ventilator 03/04/19 00:17 Mechanical Ventilator 100 03/04/19 00:00 70 20 135/84 (101) 92 Mechanical Ventilator 100.00 03/04/19 00:00 37.2 03/03/19 23:00 37.0 03/03/19 23:00 60 20 151/87 (108) 96 Mechanical Ventilator 100.00 03/03/19 22:43 60 20 149/89 96 Mechanical Ventilator 03/03/19 22:00 36.3 03/03/19 22:00 70 19 128/87 (101) 96 Mechanical Ventilator 100.00 03/03/19 21:59 63 20 96 100 03/03/19 21:07 36.3 03/03/19 21:00 72 19 103/70 (81) 97 Mechanical Ventilator 100.00 03/03/19 20:34 71 20 123/71 97 Mechanical Ventilator 03/03/19 20:00 69 20 124/74 (91) 97 Mechanical Ventilator 100.00 03/03/19 20:00 Mechanical Ventilator 100 03/03/19 20:00 36.5 03/03/19 19:00 75 19 114/82 (93) 97 Mechanical Ventilator 100.00 03/03/19 19:00 75 03/03/19 18:13 74 116/84 03/03/19 18:00 70 20 116/84 (95) 97 Mechanical Ventilator 100.00 03/03/19 17:47 70 20 97 100 03/03/19 17:00 75 15 115/76 (89) 96 Mechanical Ventilator 100.00 03/03/19 16:15 94 Mechanical Ventilator 95 03/03/19 16:00 76 19 112/76 (88) 96 Mechanical Ventilator 100.00 03/03/19 16:00 36.6 03/03/19 15:55 108/69 03/03/19 15:00 79 13 111/71 (84) 95 Mechanical Ventilator 100.00 03/03/19 14:25 101/69 03/03/19 14:00 81 20 98/68 (78) 95 Mechanical Ventilator 100.00 03/03/19 13:30 80 20 100 100 03/03/19 13:00 74 03/03/19 13:00 74 20 118/81 (93) 94 Mechanical Ventilator 100.00 03/03/19 12:30 94 Mechanical Ventilator 95 03/03/19 12:18 79 03/03/19 12:03 19 120/70 03/03/19 12:00 81 20 120/70 (87) 95 Mechanical Ventilator 100.00 03/03/19 12:00 36.8 03/03/19 11:00 85 20 108/71 (83) 95 Mechanical Ventilator 100.00 03/03/19 10:00 76 20 132/88 (103) 95 Mechanical Ventilator 100.00 03/03/19 09:29 75 20 95 95 03/03/19 09:00 74 19 129/94 (106) 95 Mechanical Ventilator 100.00 03/03/19 08:17 80 128/86 03/03/19 08:00 75 19 133/87 (102) 96 Mechanical Ventilator 100.00 03/03/19 07:45 94 Mechanical Ventilator 95 03/03/19 07:00 79 03/03/19 07:00 81 20 130/89 (103) 95 Mechanical Ventilator 100.00 03/03/19 06:28 76 20 96 95 03/03/19 06:04 132/86 03/03/19 06:00 78 19 132/86 (101) 96 Mechanical Ventilator 100.00 I & O 03/04/19 07:00 Intake Total 1527.2 ml Output Total 3450 ml Balance -1922.8 ml Height & Weight Height: 5'4.00" Weight: 276lbs. oz. 125.574580rm; 39.00 BMI Method:Stated General Appearance: Chronically ill, Obese, Other (sedated on vent) HEENT: PERRL/EOMI, Pharynx Normal Neck: Supple Respiratory: Decreased Breath Sounds, Respiratory Distress Cardiovascular: Regular Rate, Rhythm, No Edema Capillary Refill: Less Than 3 Seconds Extremity: Normal Inspection Neurologic/Psychiatric: Other (sedated on vent) Skin: Normal Color, Warm/Dry Results Lab Laboratory Tests 03/03/19 02:55 03/04/19 02:52 Assessment/Plan Assessment/Plan Acute on chronic respiratory failure --With ARDS Intubated on 02/25 - Pa02/Fi02 =91 -PT would benefit from tracheostomy -I have discussed with Dr. Carrrea he will evaluate -eraxis, Zosyn --Continue ventilator therapy -Continue TF as tolerated -echo - reviewed -Discussed with Family ( 2 sons) at bedside. They agree with No CODE status. Will continue current aggressive care. All questions were answered at bedside with RN present. COPDAE r/o PNA -Solumedrol 40 Q 12 decreased secondary to hyperglycemia. -Zosyn -[place] cultures pending IDDM -levemir to 20 units BID -D/C insulin gtt -Accu checks Q 4 -SSI Metabolic lactic acidosis secondary to hypoxia -Monitor Anemia -Monitor Over all prognosis poor. Per Dr. Carrera pt is not a candidate for tracheostomy. SUZY MCCORMACK DO Mar 04, 2019 05:06 POS
[2019-03-04] MEDS: CHLORHEXIDINE 0.12% SOLN 15 ML (PERIDEX) UDC PO SCH ×3 (05:54→22:49)
[2019-03-04] MEDS: aCETylcysteine 20% (MUCOMYST) 30ML SOLN VIAL INH SCH ×3 (06:26→22:01)
[2019-03-04] MEDS: DEXMEDETOMIDINE INJECTION 1,000 MCG in NS (IVPB) 240 ML IV SCH ×3 (06:39→20:31)
--- NOTE | 2019-03-04 07:52 | Physical Therapy Progress Note ---
Therapy Progress Note Patient is currently sedated and on mechanical ventilator. PT will continue to monitor patient status and assess when medically stable and able to actively participate with skilled therapy. DELBERT DENNIS PT Mar 04, 2019 07:52 POS
--- NOTE | 2019-03-04 08:09 | Diagnostic Imaging Report ---
EXAMINATION: Chest 1 view HISTORY: Shortness of breath COMPARISON: 03/03/2019 FINDINGS: Endotracheal tube tip terminates 5 cm above the noe. Gastric tube tip terminates below the field of view. Right internal jugular central venous catheter tip terminates in the superior vena cava. There is increasing atelectasis of the left base. Right base atelectasis is stable. Small bilateral pleural effusions are likely stable. No pneumothorax. IMPRESSION: 1. Increasing atelectasis of the left base with stable right base atelectasis. Dictated by: Dictated on workstation # [id number]
--- NOTE | 2019-03-04 09:29 | Occ Therapy Progress Note ---
Therapy Progress Note Patient is currently intubated and sedated. Will continue to monitor and initiate therapy when pt able to actively participate in skilled therapy. MISSY STEEL OT Mar 04, 2019 09:29 POS
[2019-03-04] MEDS: MICONAZOLE 2% POWDER (DESENEX AF) 90 GM TOP SCH ×2 (09:38→20:50)
[2019-03-04] MEDS: PANTOPRAZOLE 40 MG (PROTONIX) VIAL IV SCH ×2 (09:39→20:47)
[2019-03-04] MEDS: methylPREDNISolone 40 MG/ML (Solu-MEDROL) VIAL IV SCH ×2 (09:39→20:48)
[2019-03-04] MEDS: ENOXAPARIN 60 MG/0.6 ML (LOVENOX) SYR SC SCH ×2 (09:39→20:48)
[2019-03-04] MEDS: ANIDULAFUNGIN INJECTION 100 MG in NS (IVPB) 100 ML IV SCH (10:24)
--- NOTE | 2019-03-04 21:40 | Progress Note ---
Subjective Subjective/Events-last exam Patient sedated and intubated ON: Patient did not tolerate moving, FiO2 able to be titrated some this AM. Review of Systems Intubated and sedated Objective Exam Last Set of Vital Signs Vital Signs Date Time Temp Pulse Resp B/P (MAP) Pulse Ox O2 Delivery O2 Flow Rate FiO2 03/04/19 20:47 68 124/69 03/04/19 20:00 36.6 03/04/19 20:00 93 Mechanical Ventilator 60 03/04/19 18:00 20 65.00 Capillary Refill : Less Than 3 Seconds I&O Intake and Output 03/04/19 00:00 Intake Total 1922.2 ml Output Total 1775 ml Balance 147.2 ml Intake Oral 0 ml IV Total 1922.2 ml Output Urine Total 1775 ml General: Other (Intubated and sedated) Lungs: Other (diminished breath sounds) Abdomen: Soft Extremities: Other (3+ pitting edema bilaterally) Results/Procedures Lab Laboratory Tests 03/03/19 23:26: Glucometer 241H 03/04/19 01:53: Glucometer 289H 03/04/19 02:52: White Blood Count 8.8, Red Blood Count 4.29L, Hemoglobin 11.3L, Hematocrit 36, Mean Corpuscular Volume 84, Mean Corpuscular Hemoglobin 26, Mean Corpuscular Hemoglobin Concent 31L, Red Cell Distribution Width 16.3H, Platelet Count 271, Mean Platelet Volume 10.4, Neutrophils (%) (Auto) 85H, Lymphocytes (%) (Auto) 9L , Monocytes (%) (Auto) 6, Eosinophils (%) (Auto) 0, Basophils (%) (Auto) 0, Neutrophils # (Auto) 7.5, Lymphocytes # (Auto) 0.8L, Monocytes # (Auto) 0.5, Eosinophils # (Auto) 0.0, Basophils # (Auto) 0.0, Sodium Level 135, Potassium Level 4.1, Chloride Level 97L, Carbon Dioxide Level 23, Anion Gap 15H, Blood Urea Nitrogen 20H, Creatinine 0.81, Estimat Glomerular Filtration Rate > 60, BUN/Creatinine Ratio 25, Glucose Level 281H, Calcium Level 9.1, Phosphorus Level 4.4, Magnesium Level 1.5L, Triglycerides Level 622#H 03/04/19 02:53: Blood Gas Puncture Site RIGHT RADIAL, Blood Gas Patient Temperature 36.7, Ar terial Blood pH 7.39, Arterial Blood Partial Pressure CO2 45, Arterial Blood Partial Pressure O2 104H, Arterial Blood HCO3 27, Arterial Blood Total CO2 28.0, Arterial Blood Oxygen Saturation 98, Arterial Blood Base Excess 2.0, Memo Test YES-POS, Blood Gas Ventilator Setting YES, Blood Gas Inspired Oxygen 100% 03/04/19 03:59: Glucometer 261H 03/04/19 05:36: Glucometer 245H 03/04/19 08:34: Glucometer 214H 03/04/19 10:31: Glucometer 173H 03/04/19 12:15: Glucometer 196H 03/04/19 14:26: Glucometer 234H 03/04/19 16:16: Glucometer 241H 03/04/19 18:10: Glucometer 186H 03/04/19 21:01: Glucometer 182H Microbiology 02/25/19 Blood Culture - Final, Complete No growth 03/02/19 Mycobacterial Culture - Preliminary, Resulted 02/28/19 Urine Culture - Final, Complete NO GROWTH Assessment/Plan Assessment/Plan (1) ARDS (adult respiratory distress syndrome) Status: Acute Assessment & Plan: 03/02: Intubated, managed by Dr Balbuena, He has consulted Dr Carrera for Trach placement, family meeting tomorrow 03/03: No family present this AM, Very poor prognosis 03/04: Code status changed this AM, Per Dr Carrera patient not candidate for trach (2) Acute on chronic respiratory failure with hypoxia Status: Acute Assessment & Plan: 02/28: Stable on vent, Dr Balbuena managing, MAT protocol, CT Chest today pending 03/01: CT Unremarkable, Dr Balbuena discussed transfer to [place] (3) Pneumonia Status: Acute Assessment & Plan: 02/28: Continue broad spectrum antibiotics 03/01: Continue antibiotics D5 03/03: D7 antibiotics Qualifiers: Qualified Codes: J18.1 - Lobar pneumonia, unspecified organism (4) Obesity hypoventilation syndrome Status: Chronic (5) WILBER on CPAP Status: Chronic Assessment & Plan: 02/28: Patient noncompliant with CPAP as outpatient (6) Insulin dependent diabetes mellitus with complications Status: Chronic Assessment & Plan: 02/28: Insulin drip, transitioning to SC insulin, A1c pending 03/02: levemir increased for elevated blood sugars (7) Normocytic anemia Status: Chronic Assessment & Plan: 02/28: Will get hemoccult, unsure if patient has had colonoscopy (8) Hepatic steatosis Status: Chronic Assessment & Plan: 02/28: Seen on CT scan (9) COPD (chronic obstructive pulmonary disease) Status: Chronic Qualifiers: Qualified Codes: J41.1 - Mucopurulent chronic bronchitis (10) Adult BMI 50.0-59.9 kg/sq m Status: Chronic (11) DVT prophylaxis Status: Acute Assessment & Plan: Heparin Clinical Quality Measures DVT/VTE Risk/Contraindication: Risk Factor Score Per Nursin RFS Level Per Nursing on Admit: 4+=Very High GEOFF SHAH MD Mar 04, 2019 21:40 POS
[2019-03-05] VITALS (28 sets, daily range): BP systolic 100–128; BP diastolic 52–67
--- NOTE | 2019-03-05 | NUR ---
TUBE FEEDING RESIDUAL ASSESSED. RESIDUAL 425ML. TUBE FEEDING HELD.
[2019-03-05] MEDS: inSUlin ASPART (NovoLOG) 1 UNIT/0.01 ML (CHARGE PER UNIT) SC SCH ×6 (00:59→20:14)
[2019-03-05] MEDS: NS IV 1000 ML 1,000 ML IV SCH (01:45)
[2019-03-05] MEDS: aCETylcysteine 20% (MUCOMYST) 30ML SOLN VIAL INH SCH ×4 (01:50→21:20)
[2019-03-05] MEDS: RT-ALBUTEROL/IPRATROPIUM 3 ML (DUONEB) VIAL INH SCH ×6 (01:50→21:17)
[2019-03-05] MEDS: DEXMEDETOMIDINE INJECTION 1,000 MCG in NS (IVPB) 240 ML IV SCH ×3 (03:18→23:14)
[2019-03-05 03:21] LABS: BASOPHILS % (AUTO) 0 % (0-10); EOSINOPHILS % (AUTO) 0 % (0-10); HEMATOCRIT 35 % (35-52); HEMOGLOBIN 10.8 G/DL (11.5-16.0); LYMPHOCYTES # (AUTO) 0.7 X 10^3 (1.0-4.0); LYMPHOCYTES % (AUTO) 8 % (12-44); MEAN CORPUSCULAR HEMOGLOBIN 26 PG (25-34); MEAN CORPUSCULAR HGB CONC 31 G/DL (32-36); MEAN CORPUSCULAR VOLUME 85 FL (80-99); MEAN PLATELET VOLUME 10.9 FL (7.4-10.4); MONOCYTES # (AUTO) 0.5 X 10^3 (0.0-1.0); MONOCYTES % (AUTO) 6 % (0-12); NEUTROPHILS % (AUTO) 85 % (42-75); PLATELET COUNT 281 10^3/uL (130-400); RED CELL DISTRIBUTION WIDTH 16.1 % (10.0-14.5); WHITE BLOOD COUNT 8.2 10^3/uL (4.3-11.0)
[2019-03-05 03:23] LABS: ABG BASE EXCESS 0.4 MMOL/L (-2.5-2.5); ABG OXYGEN SATURATION 96 % (94-100); ABG PCO2 40 MMHG (35-45); ABG PO2 84 MMHG (79-93)
[2019-03-05 03:24] LABS: ALLENS TEST YES-POS
[2019-03-05 03:25] LABS: PATIENT TEMP 36.1; VENTILATOR YES
[2019-03-05 03:42] LABS: BUN/CREATININE RATIO 26; CALCIUM 8.7 MG/DL (8.5-10.1); CARBON DIOXIDE 21 MMOL/L (21-32); CHLORIDE 101 MMOL/L (98-107); GFR ESTIMATED > 60; GLUCOSE 219 MG/DL (70-105); MAGNESIUM 1.7 MG/DL (1.6-2.4); PHOSPHORUS 3.9 MG/DL (2.3-4.7); POTASSIUM 3.9 MMOL/L (3.6-5.0); SODIUM 137 MMOL/L (135-145)
[2019-03-05] MEDS: KCL 20 MEQ TAB (K-DUR) PO SCH (03:55)
[2019-03-05] MEDS: MAGNESIUM 1 GM/100 ML IVPB 100 ML IV SCH ×3 (03:55→04:55)
[2019-03-05] MEDS: POTASSIUM CL 10MEQ/50ML IVPB 50 ML IV SCH ×3 (03:55→06:53)
[2019-03-05] MEDS: inSUlin ASPART (NovoLOG) 1 UNIT/0.01 ML (CHARGE PER UNIT) IV SCH ×6 (04:00→20:14)
[2019-03-05] MEDS: inSUlin REGULAR TPN/DRIP ONLY 250 UNITS in NORMAL SALINE 250 ML IV SCH (04:30)
[2019-03-05] MEDS ORDERED: POTASSIUM CHLORIDE INJ 20 MEQ in NS IV 1000 ML 1,000 ML IV SCH (05:14)
--- NOTE | 2019-03-05 05:15 | Pulmonary Progress Note ---
Subjective Time Seen by a Provider: 08:20 Subjective/Events-last exam Sedated on vent Sepsis Event Evaluation Height, Weight, BMI Height: 5'4.00" Weight: 276lbs. oz. 125.653873hg; 39.00 BMI Method:Stated Exam Exam Vital Signs Date Time Temp Pulse Resp B/P (MAP) Pulse Ox O2 Delivery O2 Flow Rate FiO2 03/05/19 04:14 56 120/64 03/05/19 04:13 57 108/62 03/05/19 04:00 92 Mechanical Ventilator 55 03/05/19 03:00 60 20 122/63 (82) 94 Mechanical Ventilator 65.00 03/05/19 02:17 61 125/65 03/05/19 02:00 59 20 127/65 (85) 93 Mechanical Ventilator 65.00 03/05/19 01:50 58 20 94 55 03/05/19 01:00 61 20 108/58 (75) 92 Mechanical Ventilator 65.00 03/05/19 01:00 61 03/05/19 00:29 74 120/63 03/05/19 00:00 92 Mechanical Ventilator 60 03/05/19 00:00 79 20 126/63 (84) 91 Mechanical Ventilator 65.00 03/05/19 00:00 36.0 03/04/19 23:00 65 20 118/62 (80) 92 Mechanical Ventilator 65.00 03/04/19 22:28 63 125/68 03/04/19 22:01 66 20 92 60 03/04/19 22:00 69 22 126/68 (87) 92 Mechanical Ventilator 65.00 03/04/19 21:00 65 19 115/64 (81) 92 Mechanical Ventilator 65.00 03/04/19 20:47 68 124/69 03/04/19 20:00 68 20 126/65 (85) 92 Mechanical Ventilator 65.00 03/04/19 20:00 36.6 03/04/19 20:00 93 Mechanical Ventilator 60 03/04/19 19:20 61 20 94 65 03/04/19 19:00 61 20 121/64 (83) 95 Mechanical Ventilator 65.00 03/04/19 19:00 61 03/04/19 18:02 61 113/64 03/04/19 18:00 63 20 114/64 (81) 94 Mechanical Ventilator 65.00 03/04/19 17:00 61 20 116/63 (80) 94 Mechanical Ventilator 65.00 03/04/19 16:28 63 115/64 03/04/19 16:15 92 Mechanical Ventilator 75 03/04/19 16:00 36.4 03/04/19 16:00 60 20 112/62 (79) 93 Mechanical Ventilator 65.00 03/04/19 15:00 60 20 121/63 (82) 93 Mechanical Ventilator 65.00 03/04/19 14:38 Mechanical Ventilator 65.00 03/04/19 14:38 60 20 94 65 03/04/19 14:06 Mechanical Ventilator 75.00 03/04/19 14:00 36.6 03/04/19 14:00 62 20 121/65 (83) 94 Mechanical Ventilator 80.00 03/04/19 13:15 65 19 121/66 (84) 93 Mechanical Ventilator 80.00 03/04/19 12:42 65 03/04/19 12:31 68 127/76 03/04/19 12:00 36.4 03/04/19 12:00 93 Mechanical Ventilator 80 03/04/19 12:00 67 19 134/86 (102) 93 Mechanical Ventilator 80.00 03/04/19 11:00 70 19 126/84 (98) 93 Mechanical Ventilator 80.00 03/04/19 10:27 118/84 03/04/19 10:18 69 20 94 80 03/04/19 10:00 65 20 128/76 (93) 95 Mechanical Ventilator 80.00 03/04/19 09:15 Mechanical Ventilator 80.00 03/04/19 09:00 68 20 131/67 (88) 95 Mechanical Ventilator 85.00 03/04/19 08:00 36.6 03/04/19 08:00 62 19 131/67 (88) 95 Mechanical Ventilator 85.00 03/04/19 07:45 95 Mechanical Ventilator 85 03/04/19 07:00 62 19 120/77 (91) 94 Mechanical Ventilator 85.00 03/04/19 07:00 Mechanical Ventilator 85.00 03/04/19 06:48 63 03/04/19 06:26 63 20 131/88 95 Mechanical Ventilator 03/04/19 06:26 63 20 96 85 03/04/19 06:03 36.0 03/04/19 06:00 67 20 131/83 (99) 95 Mechanical Ventilator 100.00 I & O 03/05/19 07:00 Intake Total 1800 ml Output Total 2750 ml Balance -950 ml Height & Weight Height: 5'4.00" Weight: 276lbs. oz. 125.878436se; 39.00 BMI Method:Stated General Appearance: Chronically ill, Obese, Other (sedated on vent) HEENT: PERRL/EOMI, Pharynx Normal Neck: Supple Respiratory: Decreased Breath Sounds, Respiratory Distress Cardiovascular: Regular Rate, Rhythm, No Edema Capillary Refill: Less Than 3 Seconds Extremity: Normal Inspection Neurologic/Psychiatric: Other (sedated on vent) Skin: Normal Color, Warm/Dry Results Lab Laboratory Tests 03/04/19 02:52 03/05/19 03:10 Assessment/Plan Assessment/Plan Acute on chronic respiratory failure --With ARDS Intubated on 02/25 - Pa02/Fi02 =91 -eraxis, Zosyn --Continue ventilator therapy -Decrease PEEP to 16 -Continue TF as tolerated -echo - reviewed -Lasix 40mg BID COPDAE r/o PNA -Solumedrol 40 Q 12 decreased secondary to hyperglycemia. -Zosyn -[place] cultures pending IDDM -levemir to 20 units BID -Accu checks Q 4 -SSI Metabolic lactic acidosis secondary to hypoxia -Monitor Anemia -Monitor SUZY Nunes DO Mar 05, 2019 05:15 POS
[2019-03-05] MEDS ORDERED: NS W/KCL 20 MEQ/L 1,000 ML IV ONE (05:31)
[2019-03-05] MEDS ORDERED: PIPERACILLIN/TAZO 4.5 GM VIAL (ZOSYN) IV ONE (05:51)
[2019-03-05] MEDS ORDERED: NS (IVPB) 100 ML ONE (05:51)
[2019-03-05] MEDS: PIPERACILLIN/TAZOBACTAM (BULK) 4.5 GM in NS (IVPB) 100 ML IV SCH ×3 (05:57→20:20)
[2019-03-05] MEDS: CHLORHEXIDINE 0.12% SOLN 15 ML (PERIDEX) UDC PO SCH ×3 (06:06→21:29)
[2019-03-05] MEDS: NS W/KCL 20 MEQ/L 1,000 ML IV SCH (06:18)
--- NOTE | 2019-03-05 08:32 | Occ Therapy Progress Note ---
Therapy Progress Note Pt remains intubated and sedated, OT to assess when pt is able to actively participate in skilled therapy. RYAN WINTERS OT Mar 05, 2019 08:32 POS
[2019-03-05] MEDS: PANTOPRAZOLE 40 MG (PROTONIX) VIAL IV SCH ×2 (08:55→20:20)
[2019-03-05] MEDS: ANIDULAFUNGIN INJECTION 100 MG in NS (IVPB) 100 ML IV SCH (08:55)
[2019-03-05] MEDS: ENOXAPARIN 60 MG/0.6 ML (LOVENOX) SYR SC SCH ×2 (08:56→20:20)
[2019-03-05] MEDS: FUROSEMIDE 40 MG/4 ML INJ (LASIX) IVP SCH ×2 (08:56→20:20)
[2019-03-05] MEDS: methylPREDNISolone 40 MG/ML (Solu-MEDROL) VIAL IV SCH ×2 (08:56→20:20)
[2019-03-05] MEDS: MICONAZOLE 2% POWDER (DESENEX AF) 90 GM TOP SCH ×2 (08:57→20:21)
--- NOTE | 2019-03-05 09:48 | Progress Note - Hospitalist ---
Subjective HPI/CC On Admission Date Seen by Provider: Mar 05, 2019 Time Seen by Provider: 07:30 Chief complaint: Respiratory failure History of present illness: This is a 58-year-old white female residential patient at [facility] who presented to the [place] ER earlier Thursday for shortness of breath found to have no severe acute changes and her chronic obesity hypoventilation syndrome status so she was sent back to the residential and then worsened a few hours later requiring transfer to [facility] ICU and requiring ventilator support. Patient was placed on Zosyn empirically for pneumonia facility acquired since she resides in a residential. Patient has severe comorbidities requiring residential placement at such a young age due to the obesity hypoventilation syndrome. She does use CPAP in the residential. Currently Dr. Balbuena is managing the ventilator which appears to be in need of significant modification. Subjective/Events-last exam Patient sedated on mechanical ventilator. Appears comfortable Objective Exam Vital Signs Vital Signs Date Time Temp Pulse Resp B/P (MAP) Pulse Ox O2 Delivery O2 Flow Rate FiO2 03/05/19 09:39 113/68 03/05/19 09:00 56 19 91 Mechanical Ventilator 65.00 03/05/19 07:12 55 03/05/19 00:00 36.0 Capillary Refill : Less Than 3 Seconds General Appearance: No Apparent Distress, Obese (Morbidly so) Respiratory: Other (Chest clear anteriorly on mechanical ventilator) Cardiovascular: Regular Rate, Rhythm, No Gallop, No Murmur Extremity: Other (2+ extremity edema with some crinkling of the feet suggesting that in the past her edema has been worse extremities are warm) Results/Procedures Lab Laboratory Tests 03/05/19 03:10 Patient resulted labs reviewed. Assessment/Plan Assessment and Plan Assess & Plan/Chief Complaint (1) ARDS (adult respiratory distress syndrome) Status: Acute Assessment & Plan: 03/02: Intubated, managed by Dr Balbuena, He has consulted Dr Carrera for Trach placement, family meeting tomorrow 03/03: No family present this AM, Very poor prognosis 03/04: Code status changed this AM, Per Dr Carrear patient not candidate for trach 03/05: The game plan at this time is likely transfer to [place] as long-term i ntubation expected (2) Acute on chronic respiratory failure with hypoxia Status: Acute Assessment & Plan: 02/28: Stable on vent, Dr Balbuena managing, MAT protocol, CT Chest today pending 03/01: CT Unremarkable, Dr Balbuena discussed transfer to [place] (3) Pneumonia Status: Acute Assessment & Plan: 02/28: Continue broad spectrum antibiotics 03/01: Continue antibiotics D5 03/03: D7 antibiotics Qualifiers: Qualified Codes: J18.1 - Lobar pneumonia, unspecified organism (4) Obesity hypoventilation syndrome Status: Chronic (5) WILBER on CPAP Status: Chronic Assessment & Plan: 02/28: Patient noncompliant with CPAP as outpatient (6) Insulin dependent diabetes mellitus with complications Status: Chronic Assessment & Plan: 02/28: Insulin drip, transitioning to SC insulin, A1c pending 03/02: levemir increased for elevated blood sugars (7) Normocytic anemia Status: Chronic Assessment & Plan: 02/28: Will get hemoccult, unsure if patient has had colonoscopy (8) Hepatic steatosis Status: Chronic Assessment & Plan: 02/28: Seen on CT scan (9) COPD (chronic obstructive pulmonary disease) Status: Chronic Qualifiers: Qualified Codes: J41.1 - Mucopurulent chronic bronchitis (10) Adult BMI 50.0-59.9 kg/sq m Status: Chronic (11) DVT prophylaxis Status: Acute Assessment & Plan: Heparin Critical Care Critically Ill Patient Clinical Quality Measures DVT/VTE Risk/Contraindication: Risk Factor Score Per Nursin RFS Level Per Nursing on Admit: 4+=Very High GAY RAMOS MD Mar 05, 2019 09:48 POS
--- NOTE | 2019-03-05 09:57 | Physical Therapy Progress Note ---
Therapy Progress Note Pt remains sedated on ventilator. Will re-assess on 03/07/19 TAMMY IBARRA DPT Mar 05, 2019 09:57 POS
--- NOTE | 2019-03-05 10:20 | Diagnostic Imaging Report ---
INDICATION: Pneumonia and respiratory failure. Portable chest obtained at 03:28 a.m. and is compared to yesterday. There is cardiomegaly. There is central vascular congestion with bibasilar infiltrate which is similar to the prior study. There is no pneumothorax. There appears to be some pleural fluid on both sides. ET tube and NG tube and right IJ catheter are all unchanged. IMPRESSION: Cardiomegaly and central vascular congestion with unchanged bibasilar infiltrates and pleural effusions. Dictated by: Dictated on workstation # [id number]
[2019-03-05] MEDS: fentaNYL 1,250 MCG/NS 250 ML DRIP IV SCH ×2 (18:30)
[2019-03-06] VITALS (30 sets, daily range): BP systolic 97–128; BP diastolic 45–65
[2019-03-06] MEDS: inSUlin ASPART (NovoLOG) 1 UNIT/0.01 ML (CHARGE PER UNIT) SC SCH ×7 (00:31→23:36)
[2019-03-06] MEDS: inSUlin ASPART (NovoLOG) 1 UNIT/0.01 ML (CHARGE PER UNIT) IV SCH ×7 (00:31→23:25)
[2019-03-06] MEDS: RT-ALBUTEROL/IPRATROPIUM 3 ML (DUONEB) VIAL INH SCH ×6 (00:47→21:45)
[2019-03-06] MEDS: aCETylcysteine 20% (MUCOMYST) 30ML SOLN VIAL INH SCH ×4 (00:47→21:45)
[2019-03-06 03:21] LABS: ABG BASE EXCESS 2.2 MMOL/L (-2.5-2.5); ABG OXYGEN SATURATION 96 % (94-100); ABG PCO2 43 MMHG (35-45); ABG PH 7.41 (7.37-7.43); ABG PO2 82 MMHG (79-93)
[2019-03-06 03:21] LABS: BASOPHILS % (AUTO) 0 % (0-10); EOSINOPHILS % (AUTO) 1 % (0-10); HEMATOCRIT 27 % (35-52); HEMOGLOBIN 8.3 G/DL (11.5-16.0); LYMPHOCYTES # (AUTO) 0.6 X 10^3 (1.0-4.0); LYMPHOCYTES % (AUTO) 10 % (12-44); MEAN CORPUSCULAR HEMOGLOBIN 26 PG (25-34); MEAN CORPUSCULAR HGB CONC 31 G/DL (32-36); MEAN CORPUSCULAR VOLUME 84 FL (80-99); MEAN PLATELET VOLUME 10.7 FL (7.4-10.4); MONOCYTES # (AUTO) 0.3 X 10^3 (0.0-1.0); MONOCYTES % (AUTO) 6 % (0-12); NEUTROPHILS # (AUTO) 4.7 X 10^3 (1.8-7.8); NEUTROPHILS % (AUTO) 83 % (42-75); PLATELET COUNT 219 10^3/uL (130-400); RED CELL DISTRIBUTION WIDTH 16.4 % (10.0-14.5); WHITE BLOOD COUNT 5.7 10^3/uL (4.3-11.0)
[2019-03-06 03:25] LABS: ALLENS TEST ART LINE; INSPIRED O2 70%
[2019-03-06 03:26] LABS: VENTILATOR YES
[2019-03-06 03:39] LABS: BUN/CREATININE RATIO 29; CALCIUM 6.4 MG/DL (8.5-10.1); CARBON DIOXIDE 17 MMOL/L (21-32); CHLORIDE 112 MMOL/L (98-107); CREATININE SERUM 0.55 MG/DL (0.60-1.30); GFR ESTIMATED > 60; GLUCOSE 162 MG/DL (70-105); PHOSPHORUS 3.1 MG/DL (2.3-4.7); POTASSIUM 2.9 MMOL/L (3.6-5.0); SODIUM 139 MMOL/L (135-145)
[2019-03-06 03:42] LABS: MAGNESIUM 1.1 MG/DL (1.6-2.4)
[2019-03-06] MEDS: inSUlin REGULAR TPN/DRIP ONLY 250 UNITS in NORMAL SALINE 250 ML IV SCH (04:21)
[2019-03-06] MEDS: PIPERACILLIN/TAZOBACTAM (BULK) 4.5 GM in NS (IVPB) 100 ML IV SCH ×3 (05:41→20:21)
[2019-03-06] MEDS: POTASSIUM CL 10MEQ/50ML IVPB 50 ML IV SCH ×10 (05:43→09:45)
[2019-03-06] MEDS: KCL 20 MEQ TAB (K-DUR) PO SCH (05:44)
[2019-03-06] MEDS: MAGNESIUM 1 GM/100 ML IVPB 100 ML IV SCH ×5 (05:44→06:59)
[2019-03-06] MEDS: CHLORHEXIDINE 0.12% SOLN 15 ML (PERIDEX) UDC PO SCH ×3 (05:48→22:35)
[2019-03-06] MEDS: NS W/KCL 20 MEQ/L 1,000 ML IV SCH ×2 (05:48→16:22)
--- NOTE | 2019-03-06 06:04 | Pulmonary Progress Note ---
Subjective Time Seen by a Provider: 06:03 Subjective/Events-last exam Sedated on vent. Sepsis Event Evaluation Height, Weight, BMI Height: 5'4.00" Weight: 276lbs. oz. 125.397419zj; 39.00 BMI Method:Stated Exam Exam Vital Signs Date Time Temp Pulse Resp B/P (MAP) Pulse Ox O2 Delivery O2 Flow Rate FiO2 03/06/19 05:00 53 19 110/53 (72) 97 Mechanical Ventilator 70.00 03/06/19 04:21 52 101/56 03/06/19 04:00 52 20 116/65 (82) 93 Mechanical Ventilator 70.00 03/06/19 04:00 36.0 03/06/19 04:00 96 Mechanical Ventilator 70 03/06/19 03:00 53 20 117/53 (74) 95 Mechanical Ventilator 70.00 03/06/19 02:00 57 20 122/53 (76) 93 Mechanical Ventilator 70.00 03/06/19 01:00 60 03/06/19 01:00 57 20 118/56 (76) 92 Mechanical Ventilator 70.00 03/06/19 00:47 55 20 92 70 03/06/19 00:32 53 97/52 03/06/19 00:00 53 20 104/55 (71) 92 Mechanical Ventilator 70.00 03/06/19 00:00 36.1 03/06/19 00:00 95 Mechanical Ventilator 70 03/05/19 23:00 58 20 120/58 (78) 93 Mechanical Ventilator 70.00 03/05/19 22:00 55 19 106/52 (70) 93 Mechanical Ventilator 70.00 03/05/19 21:30 Mechanical Ventilator 70.00 03/05/19 21:20 57 103/56 03/05/19 21:20 52 20 95 75 03/05/19 21:00 52 19 115/62 (79) 95 Mechanical Ventilator 75.00 03/05/19 20:32 64 20 95 75 03/05/19 20:00 54 19 103/55 (71) 96 Mechanical Ventilator 75.00 03/05/19 20:00 35.5 03/05/19 20:00 95 Mechanical Ventilator 75 03/05/19 19:00 61 03/05/19 19:00 61 19 100/56 (71) 95 Mechanical Ventilator 75.00 03/05/19 18:30 36.5 03/05/19 18:26 92 Mechanical Ventilator 75 03/05/19 18:00 55 19 115/54 (74) 94 Mechanical Ventilator 75.00 03/05/19 17:18 80/77 03/05/19 17:16 Mechanical Ventilator 75.00 03/05/19 17:00 57 19 101/53 (69) 93 Mechanical Ventilator 60.00 03/05/19 16:00 36.1 03/05/19 16:00 54 19 114/59 (77) 95 Mechanical Ventilator 60.00 03/05/19 16:00 92 Mechanical Ventilator 60 03/05/19 15:00 54 19 108/56 (73) 94 Mechanical Ventilator 60.00 03/05/19 14:13 54 20 94 60 03/05/19 14:00 56 20 123/64 (83) 93 Mechanical Ventilator 60.00 03/05/19 13:30 139/73 03/05/19 13:00 55 19 114/60 (78) 93 Mechanical Ventilator 60.00 03/05/19 12:26 Mechanical Ventilator 60.00 03/05/19 12:25 64 03/05/19 12:00 92 Mechanical Ventilator 60 03/05/19 12:00 35.9 03/05/19 12:00 59 20 114/63 (80) Mechanical Ventilator 55.00 03/05/19 11:00 59 20 118/61 (80) Mechanical Ventilator 55.00 03/05/19 10:25 59 22 90 55 03/05/19 10:00 56 19 107/60 (76) 90 Mechanical Ventilator 55.00 03/05/19 09:39 113/68 03/05/19 09:00 56 19 107/61 (76) 91 Mechanical Ventilator 55.00 03/05/19 08:00 58 20 105/58 (74) 91 Mechanical Ventilator 55.00 03/05/19 08:00 92 Mechanical Ventilator 55 03/05/19 07:12 60 20 91 55 03/05/19 07:00 58 19 118/62 (80) 93 Mechanical Ventilator 55.00 03/05/19 07:00 56 03/05/19 06:07 55 117/61 I & O 03/06/19 07:00 Intake Total 2195 ml Output Total 4625 ml Balance -2430 ml Height & Weight Height: 5'4.00" Weight: 276lbs. oz. 125.873362wy; 39.00 BMI Method:Stated General Appearance: No Apparent Distress, Obese (Morbidly so) HEENT: PERRL/EOMI, Pharynx Normal Neck: Supple Respiratory: Other (Chest clear anteriorly on mechanical ventilator) Cardiovascular: Regular Rate, Rhythm, No Gallop, No Murmur Capillary Refill: Less Than 3 Seconds Extremity: Other (2+ extremity edema with some crinkling of the feet suggesting that in the past her edema has been worse extremities are warm) Neurologic/Psychiatric: Other Skin: Normal Color, Warm/Dry Results Lab Laboratory Tests 03/05/19 03:10 03/06/19 03:10 Assessment/Plan Assessment/Plan Acute on chronic respiratory failure --With ARDS Intubated on 02/25 - Pa02/Fi02 =91 -eraxis, Zosyn --Continue ventilator therapy -Continue TF as tolerated -echo - reviewed -Lasix 40mg BID COPDAE r/o PNA -Solumedrol 40 Q 12 decreased secondary to hyperglycemia. -Zosyn -[place] cultures pending IDDM -levemir to 20 units BID -Accu checks Q 4 -SSI Metabolic lactic acidosis secondary to hypoxia -Monitor Anemia -Monitor SUZY MCCORMACK DO Mar 06, 2019 06:04 POS
--- NOTE | 2019-03-06 07:56 | Diagnostic Imaging Report ---
INDICATION: Pneumonia and respiratory failure. Comparison made with prior examination 03/05/2019. FINDINGS: Heart size is normal. There are patchy bibasilar infiltrates and small bilateral pleural effusions. There is some venous congestion. There is no pneumothorax. ET and NG tubes are in satisfactory position. Mediastinum is unremarkable. IMPRESSION: Bibasilar pulmonary infiltrates and bilateral pleural effusions. Mild central pulmonary venous congestion. Dictated by: Dictated on workstation # [id number]
[2019-03-06] MEDS: MICONAZOLE 2% POWDER (DESENEX AF) 90 GM TOP SCH ×2 (09:45→20:07)
[2019-03-06] MEDS: PANTOPRAZOLE 40 MG (PROTONIX) VIAL IV SCH ×2 (10:12→20:06)
[2019-03-06] MEDS: FUROSEMIDE 40 MG/4 ML INJ (LASIX) IVP SCH ×2 (10:13→20:06)
[2019-03-06] MEDS: methylPREDNISolone 40 MG/ML (Solu-MEDROL) VIAL IV SCH ×2 (10:13→20:06)
[2019-03-06] MEDS: ANIDULAFUNGIN INJECTION 100 MG in NS (IVPB) 100 ML IV SCH (10:13)
[2019-03-06] MEDS: ENOXAPARIN 60 MG/0.6 ML (LOVENOX) SYR SC SCH ×2 (10:13→20:06)
--- NOTE | 2019-03-06 12:22 | Progress Note - Hospitalist ---
Subjective HPI/CC On Admission Date Seen by Provider: Mar 06, 2019 Time Seen by Provider: 09:45 Chief complaint: Respiratory failure History of present illness: This is a 58-year-old white female assisted patient at [facility] who presented to the [place] ER earlier Thursday for shortness of breath found to have no severe acute changes and her chronic obesity hypoventilation syndrome status so she was sent back to the assisted and then worsened a few hours later requiring transfer to [facility] ICU and requiring ventilator support. Patient was placed on Zosyn empirically for pneumonia facility acquired since she resides in a assisted. Patient has severe comorbidities requiring assisted placement at such a young age due to the obesity hypoventilation syndrome. She does use CPAP in the assisted. Currently Dr. Balbuena is managing the ventilator which appears to be in need of significant modification. Subjective/Events-last exam Sedated appearing comfortable on mechanical ventilation Objective Exam Vital Signs Vital Signs Date Time Temp Pulse Resp B/P (MAP) Pulse Ox O2 Delivery O2 Flow Rate FiO2 03/06/19 12:00 57 19 114/53 (73) 94 Mechanical Ventilator 70.00 03/06/19 12:00 36.2 03/06/19 11:01 40 Capillary Refill : Less Than 3 Seconds General Appearance: No Apparent Distress, Chronically ill, Obese Respiratory: No Accessory Muscle Use, No Respiratory Distress, Other (Chest clear anteriorly) Cardiovascular: Regular Rate, Rhythm Gastrointestinal: Normal Bowel Sounds Extremity: Pedal Edema (Stable) Results/Procedures Lab Laboratory Tests 03/06/19 03:10 Patient resulted labs reviewed. Assessment/Plan Assessment and Plan Assess & Plan/Chief Complaint (1) ARDS (adult respiratory distress syndrome) Status: Acute Assessment & Plan: 03/02: Intubated, managed by Dr Balbuena, He has consulted Dr Carrera for Trach placement, family meeting tomorrow 03/03: No family present this AM, Very poor prognosis 03/04: Code status changed this AM, Per Dr Carrera patient not candidate for trach 03/05: The game plan at this time is likely transfer to [place] as long-term intubation expected 03/06: Patient ventilatory status on mechanical ventilation stable hemoglobin down to 8.[address] Balbuena in regards to transfusion. Hypokalemia and hypomagnesemia being replaced IV per ICU protocol continue to monitor. Long- term prognosis extremely poor aggravated by morbid obesity and multiple medical comorbidities (2) Acute on chronic respiratory failure with hypoxia Status: Acute Assessment & Plan: 02/28: Stable on vent, Dr Balbuena managing, MAT protocol, CT Chest today pending 03/01: CT Unremarkable, Dr Balbuena discussed transfer to [place] (3) Pneumonia Status: Acute Assessment & Plan: 02/28: Continue broad spectrum antibiotics 03/01: Continue antibiotics D5 03/03: D7 antibiotics Qualifiers: Qualified Codes: J18.1 - Lobar pneumonia, unspecified organism (4) Obesity hypoventilation syndrome Status: Chronic (5) WILBER on CPAP Status: Chronic Assessment & Plan: 02/28: Patient noncompliant with CPAP as outpatient (6) Insulin dependent diabetes mellitus with complications Status: Chronic Assessment & Plan: 02/28: Insulin drip, transitioning to SC insulin, A1c pending 03/02: levemir increased for elevated blood sugars (7) Normocytic anemia Status: Chronic Assessment & Plan: 02/28: Will get hemoccult, unsure if patient has had colonoscopy (8) Hepatic steatosis Status: Chronic Assessment & Plan: 02/28: Seen on CT scan (9) COPD (chronic obstructive pulmonary disease) Status: Chronic Qualifiers: Qualified Codes: J41.1 - Mucopurulent chronic bronchitis (10) Adult BMI 50.0-59.9 kg/sq m Status: Chronic (11) DVT prophylaxis Status: Acute Assessment & Plan: Heparin Critical Care Critically Ill Patient Clinical Quality Measures DVT/VTE Risk/Contraindication: Risk Factor Score Per Nursin RFS Level Per Nursing on Admit: 4+=Very High GAY RAMOS MD Mar 06, 2019 12:22 POS
--- NOTE | 2019-03-06 12:27 | CONSULTATION REPORT ---
DATE OF SERVICE: PROGRESS NOTE ICU bed 7. REFERRING PHYSICIAN: Dr. Balbuena. HISTORY OF PRESENT ILLNESS: I was to see this patient early this morning. She has seen some mild improvement, but still is on an FiO2 of 45 with a PEEP of 16 that is down from an FiO2 of 100 with a PEEP of 18. She has an IJ line in place on the right. Her neck is large and talking with the nurses, she has no pulmonary reserve and when they turned her, it can take up to two hours to regain her parameters. She is on no pressors at this time. I discussed the fact that she has made some mild progress; however, just the mechanics of doing a trach would put her back quite some time with the movement from the ICU to the OR and back to the ICU as well as the trach itself, which would be extremely high risk. They talked about moving her to a long-term rehab facility and I would certainly agree with that. At this point, the trach would be too high risk given her pulmonary parameters. I am not planning on coming back past to see her if things change and I need to reevaluate, I would be happy to do so. Job ID: [id number] DocumentID: [id number] Dictated Date: 03/06/2019 07:21:04 Thermometer Maker Date: 03/06/2019 08:25:23 Dictated By: DOROTHY GROVER MD
--- NOTE | 2019-03-06 22:00 | NUR ---
Pt 02 saturation declining into low 80's, pt bradycardic, hypotensive, this RN at bedside, RT notified, fi02 titrated up, E-ICU consulted, orders received for ABG and stat CXR.
[2019-03-06 22:56] LABS: ABG BASE EXCESS 2.5 MMOL/L (-2.5-2.5); ABG OXYGEN SATURATION 92 % (94-100); ABG PCO2 43 MMHG (35-45); ABG PH 7.41 (7.37-7.43); ABG PO2 75 MMHG (79-93); ABG TCO2 28.2 MMOL/L (21.0-31.0)
[2019-03-06 22:57] LABS: ALLENS TEST ARTLINE; INSPIRED O2 100%
[2019-03-06 22:58] LABS: PATIENT TEMP 36.5; VENTILATOR YES
[2019-03-07] VITALS (31 sets, daily range): BP systolic 66–114; BP diastolic 45–56
[2019-03-07 02:13] LABS: ABG BASE EXCESS 2.1 MMOL/L (-2.5-2.5); ABG OXYGEN SATURATION 97 % (94-100); ABG PCO2 45 MMHG (35-45); ABG PH 7.39 (7.37-7.43); ABG PO2 103 MMHG (79-93); ALLENS TEST YES-POS
[2019-03-07 02:14] LABS: BASOPHILS % (AUTO) 0 % (0-10); EOSINOPHILS % (AUTO) 0 % (0-10); HEMATOCRIT 34 % (35-52); HEMOGLOBIN 10.4 G/DL (11.5-16.0); INSPIRED O2 90%; LYMPHOCYTES # (AUTO) 0.5 X 10^3 (1.0-4.0); LYMPHOCYTES % (AUTO) 9 % (12-44); MEAN CORPUSCULAR HEMOGLOBIN 26 PG (25-34); MEAN CORPUSCULAR HGB CONC 31 G/DL (32-36); MEAN CORPUSCULAR VOLUME 84 FL (80-99); MEAN PLATELET VOLUME 10.6 FL (7.4-10.4); MONOCYTES # (AUTO) 0.3 X 10^3 (0.0-1.0); MONOCYTES % (AUTO) 6 % (0-12); NEUTROPHILS # (AUTO) 5.1 X 10^3 (1.8-7.8); NEUTROPHILS % (AUTO) 85 % (42-75); PLATELET COUNT 285 10^3/uL (130-400); RED CELL DISTRIBUTION WIDTH 16.3 % (10.0-14.5); VENTILATOR YES
[2019-03-07] MEDS: DEXMEDETOMIDINE INJECTION 1,000 MCG in NS (IVPB) 240 ML IV SCH ×2 (02:20→16:01)
[2019-03-07] MEDS: aCETylcysteine 20% (MUCOMYST) 30ML SOLN VIAL INH SCH ×4 (02:26→18:56)
[2019-03-07] MEDS: RT-ALBUTEROL/IPRATROPIUM 3 ML (DUONEB) VIAL INH SCH ×6 (02:26→22:44)
[2019-03-07 02:34] LABS: BUN/CREATININE RATIO 29; CALCIUM 8.9 MG/DL (8.5-10.1); CARBON DIOXIDE 22 MMOL/L (21-32); CHLORIDE 100 MMOL/L (98-107); CREATININE SERUM 0.77 MG/DL (0.60-1.30); GFR ESTIMATED > 60; GLUCOSE 214 MG/DL (70-105); MAGNESIUM 1.8 MG/DL (1.6-2.4); PHOSPHORUS 4.4 MG/DL (2.3-4.7); POTASSIUM 4.1 MMOL/L (3.6-5.0); SODIUM 136 MMOL/L (135-145)
[2019-03-07] MEDS: inSUlin ASPART (NovoLOG) 1 UNIT/0.01 ML (CHARGE PER UNIT) IV SCH ×6 (03:02→23:34)
[2019-03-07] MEDS: inSUlin ASPART (NovoLOG) 1 UNIT/0.01 ML (CHARGE PER UNIT) SC SCH ×6 (03:41→23:36)
[2019-03-07] MEDS: inSUlin REGULAR TPN/DRIP ONLY 250 UNITS in NORMAL SALINE 250 ML IV SCH (03:42)
[2019-03-07] MEDS: PIPERACILLIN/TAZOBACTAM (BULK) 4.5 GM in NS (IVPB) 100 ML IV SCH (04:39)
[2019-03-07] MEDS: fentaNYL 1,250 MCG/NS 250 ML DRIP IV SCH ×4 (04:42→18:32)
[2019-03-07] MEDS: POTASSIUM CL 10MEQ/50ML IVPB 50 ML IV SCH (05:25)
[2019-03-07] MEDS: CHLORHEXIDINE 0.12% SOLN 15 ML (PERIDEX) UDC PO SCH ×3 (05:26→22:00)
[2019-03-07] MEDS: MAGNESIUM 1 GM/100 ML IVPB 100 ML IV SCH (05:26)
[2019-03-07] MEDS: KCL 20 MEQ TAB (K-DUR) PO SCH (05:26)
--- NOTE | 2019-03-07 06:00 | Pulmonary Progress Note ---
Subjective Time Seen by a Provider: 08:18 Subjective/Events-last exam Pt is requiring more oxygen. PEEP is back up to 18. Sepsis Event Evaluation Height, Weight, BMI Height: 5'4.00" Weight: 276lbs. oz. 125.866408my; 39.00 BMI Method:Stated Exam Exam Vital Signs Date Time Temp Pulse Resp B/P (MAP) Pulse Ox O2 Delivery O2 Flow Rate FiO2 03/07/19 05:07 Mechanical Ventilator 75.00 03/07/19 04:15 61 20 91/46 (61) 94 Mechanical Ventilator 80.00 03/07/19 04:04 Mechanical Ventilator 80.00 03/07/19 04:00 62 19 89/50 (63) 95 Mechanical Ventilator 90.00 03/07/19 03:47 Mechanical Ventilator 90 03/07/19 03:00 60 20 94/45 (61) 94 Mechanical Ventilator 90.00 03/07/19 02:26 64 24 94 90 03/07/19 02:20 Mechanical Ventilator 03/07/19 02:00 58 20 95/47 (63) 94 Mechanical Ventilator 90.00 03/07/19 01:00 65 03/07/19 01:00 65 20 99/49 (66) 91 Mechanical Ventilator 90.00 03/07/19 00:48 Mechanical Ventilator 90.00 03/07/19 00:15 80 03/07/19 00:08 Mechanical Ventilator 80.00 03/07/19 00:00 36.7 03/07/19 00:00 77 19 109/50 (69) 94 Mechanical Ventilator 100.00 03/07/19 00:00 Mechanical Ventilator 100 03/06/19 23:00 62 20 118/58 (78) 93 Mechanical Ventilator 100.00 03/06/19 22:35 Mechanical Ventilator 03/06/19 22:05 Mechanical Ventilator 100.00 03/06/19 22:00 Mechanical Ventilator 90.00 03/06/19 22:00 56 19 97/48 (64) 87 Mechanical Ventilator 55.00 03/06/19 21:55 Mechanical Ventilator 03/06/19 21:45 50 20 93 55 03/06/19 21:00 50 20 103/50 (67) 94 Mechanical Ventilator 55.00 03/06/19 20:00 35.8 03/06/19 20:00 51 20 104/49 (67) 96 Mechanical Ventilator 55.00 03/06/19 20:00 Mechanical Ventilator 55 03/06/19 19:02 52 03/06/19 19:00 52 03/06/19 19:00 52 19 97/45 (62) 96 Mechanical Ventilator 55.00 03/06/19 18:35 49 20 96 60 03/06/19 18:00 50 19 100/47 (64) 96 Mechanical Ventilator 60.00 03/06/19 17:00 51 20 104/48 (66) 95 Mechanical Ventilator 60.00 03/06/19 16:22 58 03/06/19 16:00 53 19 98/45 (62) 94 Mechanical Ventilator 60.00 03/06/19 16:00 36.0 03/06/19 16:00 96 Mechanical Ventilator 60 03/06/19 15:00 54 20 105/48 (67) 94 Mechanical Ventilator 60.00 03/06/19 14:21 55 20 103/49 (67) 93 Mechanical Ventilator 60.00 03/06/19 14:14 55 20 93 70 03/06/19 13:00 56 20 104/48 (66) 90 Mechanical Ventilator 70.00 03/06/19 12:18 66 03/06/19 12:00 57 19 114/53 (73) 94 Mechanical Ventilator 70.00 03/06/19 12:00 36.2 03/06/19 12:00 96 Mechanical Ventilator 70 03/06/19 11:01 56 20 93 40 03/06/19 11:00 55 20 103/49 (67) 93 Mechanical Ventilator 70.00 03/06/19 10:00 56 19 102/51 (68) 93 Mechanical Ventilator 70.00 03/06/19 09:00 67 19 105/54 (71) 93 Mechanical Ventilator 70.00 03/06/19 08:00 64 19 128/58 (81) 93 Mechanical Ventilator 70.00 03/06/19 08:00 96 Mechanical Ventilator 70 03/06/19 07:00 61 19 109/49 (69) 92 Mechanical Ventilator 70.00 03/06/19 07:00 63 03/06/19 06:16 62 20 95 55 03/06/19 06:00 56 20 117/58 (77) 97 Mechanical Ventilator 70.00 I & O 03/07/19 07:00 Intake Total 3555 ml Output Total 4400 ml Balance -845 ml Height & Weight Height: 5'4.00" Weight: 276lbs. oz. 125.652647ja; 39.00 BMI Method:Stated General Appearance: Chronically ill, Obese, Other (sedated on vent) HEENT: PERRL/EOMI, Pharynx Normal Neck: Supple Respiratory: No Accessory Muscle Use, No Respiratory Distress, Other (Chest clear anteriorly) Cardiovascular: Regular Rate, Rhythm Capillary Refill: Less Than 3 Seconds Extremity: Pedal Edema (Stable) Neurologic/Psychiatric: Other Skin: Normal Color, Warm/Dry Results Lab Laboratory Tests 03/06/19 03:10 03/07/19 02:06 Assessment/Plan Assessment/Plan Acute on chronic respiratory failure --With ARDS Intubated on 02/25 - Pa02/Fi02 =91 -eraxis, Zosyn --Continue ventilator therapy -Increase PEEP to 18 -Continue TF as tolerated -echo - reviewed -Lasix 40mg BID COPDAE r/o PNA -Solumedrol 40 Q 12 decreased secondary to hyperglycemia. -Zosyn -[place] cultures pending IDDM -levemir to 20 units BID -Accu checks Q 4 -SSI Metabolic lactic acidosis secondary to hypoxia -Monitor Anemia -Monitor SUZY MCCORMACK DO Mar 07, 2019 06:00 POS
[2019-03-07] MEDS ORDERED: RT-BUDESONIDE NEBS 0.5 MG/2ML (PULMICORT) AMP ONE (06:24)
[2019-03-07] MEDS ORDERED: methylPREDNISolone 40 MG/ML (Solu-MEDROL) VIAL ONE (06:29)
--- NOTE | 2019-03-07 06:30 | Diagnostic Imaging Report ---
EXAMINATION: Chest 1 view INDICATION: Hypoxemia. COMPARISON: Chest radiograph performed earlier the same date. FINDINGS: Stable support devices. There is continued cardiomegaly and central pulmonary vascular congestion with increase in interstitial markings throughout the lungs and increased moderate to large right pleural effusion. Small to moderate left pleural effusion is stable. No large pneumothorax. No acute osseous abnormalities. IMPRESSION: 1. Likely increasing pulmonary edema with increased moderate to large right pleural effusion. Stable small to moderate left pleural effusion. No pneumothorax. 2. Stable support devices. Dictated by: Dictated on workstation # [id number]
[2019-03-07] MEDS: methylPREDNISolone 40 MG/ML (Solu-MEDROL) VIAL IV SCH ×4 (06:33→23:36)
[2019-03-07] MEDS: RT-BUDESONIDE NEBS 0.5 MG/2ML (PULMICORT) AMP INH SCH ×2 (07:00→18:55)
--- NOTE | 2019-03-07 07:59 | Physical Therapy Progress Note ---
Therapy Progress Note Patient remains sedated and on mechanical ventilator. PT to remove patient from services due to prolonged vent use. PT will require new orders when patient is medically stable and able to actively participate with skilled PT. DELBERT DENNIS PT Mar 07, 2019 07:59 POS
--- NOTE | 2019-03-07 08:24 | Occ Therapy Progress Note ---
Therapy Progress Note Pt. remains on ventilator support. Please send new orders when pt. is off sedation and ready for OT services. Thank you for this referral. [id number] MERARY BELTRAN OT Mar 07, 2019 08:23 POS
[2019-03-07] MEDS: ENOXAPARIN 60 MG/0.6 ML (LOVENOX) SYR SC SCH ×2 (09:49→20:11)
[2019-03-07] MEDS: FUROSEMIDE 40 MG/4 ML INJ (LASIX) IVP SCH ×2 (09:49→20:10)
[2019-03-07] MEDS: MICONAZOLE 2% POWDER (DESENEX AF) 90 GM TOP SCH ×2 (09:49→20:11)
[2019-03-07] MEDS: PANTOPRAZOLE 40 MG (PROTONIX) VIAL IV SCH ×2 (09:50→20:10)
[2019-03-07] MEDS: NS W/KCL 20 MEQ/L 1,000 ML IV SCH (10:05)
[2019-03-07] MEDS: ANIDULAFUNGIN INJECTION 100 MG in NS (IVPB) 100 ML IV SCH (10:05)
--- NOTE | 2019-03-07 10:11 | Progress Note - Hospitalist ---
Subjective HPI/CC On Admission Date Seen by Provider: Mar 07, 2019 Time Seen by Provider: 09:00 Chief complaint: Respiratory failure History of present illness: This is a 58-year-old white female longterm patient at [facility] who presented to the [place] ER earlier Thursday for shortness of breath found to have no severe acute changes and her chronic obesity hypoventilation syndrome status so she was sent back to the longterm and then worsened a few hours later requiring transfer to [facility] ICU and requiring ventilator support. Patient was placed on Zosyn empirically for pneumonia facility acquired since she resides in a longterm. Patient has severe comorbidities requiring longterm placement at such a young age due to the obesity hypoventilation syndrome. She does use CPAP in the longterm. Currently Dr. Balbuena is managing the ventilator which appears to be in need of significant modification. Subjective/Events-last exam PEEP increase to 15 DNR Son coming from [place] to possibly place her in palliative care, comfort care No other problems Objective Exam Vital Signs Vital Signs Date Time Temp Pulse Resp B/P (MAP) Pulse Ox O2 Delivery O2 Flow Rate FiO2 03/07/19 20:11 98/57 Mechanical Ventilator 65.00 03/07/19 20:00 56 20 96 03/07/19 20:00 36.2 03/07/19 18:57 65 Capillary Refill : Less Than 3 Seconds General Appearance: No Apparent Distress, WD/WN, Obese, Other (intubated) Results/Procedures Lab Laboratory Tests 03/07/19 02:06 Patient resulted labs reviewed. Assessment/Plan Assessment and Plan Assess & Plan/Chief Complaint Assessment: VDRF PNA? OHS WILBER on CPAP Severe debility requiring NH placement at young age Plan: Vent management Comfort care soon? Critical Care Critically Ill Patient Diagnosis/Problems Diagnosis/Problems (1) Ventilator dependence (2) Acute respiratory failure Status: Acute (3) Pneumonia Status: Acute Qualifiers: Pneumonia type: due to unspecified organism Laterality: bilateral Lung location: lower lobe of lung Qualified Codes: J18.1 - Lobar pneumonia, unspecified organism (4) COPD with acute exacerbation Status: Acute (5) Edema Status: Acute (6) Fatigue Status: Acute (7) Peripheral edema Status: Acute Clinical Quality Measures DVT/VTE Risk/Contraindication: Risk Factor Score Per Nursin RFS Level Per Nursing on Admit: 4+=Very High DEEPIKA ROBLES DO Mar 07, 2019 10:11 POS
--- NOTE | 2019-03-07 12:09 | Anesthesia-Procedure Note ---
Procedures/Interventions Procedure Start/Stop/Diagnosis Date of Procedure: Mar 04, 2019 Start Time: 12:55 Preprocedural Diagnosis: ARDS/ Vent Dependant Stop Time: 13:05 Arterial Line Arterial Line Catheter: 20G Type: Radial Location: Right Procedure: prepped, draped in sterile fashion, good wave-form was obtained, patient tolerated procedure well, no immediate complications, post procedure area cleaned, post procedure dressing applied Additional Procedures Procedures Consent verified. x1 attempt by BAL Mares under [employer] supervision with ultrasound guidance and visualization of catheter advancement. No issue. Sterile dressing applied. Good waveform obtained. Reported to nurse. Visitors at bedside throughout procedure. JUAQUIN DRIVER CRNA Mar 07, 2019 12:09 POS
--- NOTE | 2019-03-07 13:05 | NUR ---
Pastoral care visit, contacted son at bedside, shared with him Pastoral Care availability and offered support and prayer.
--- NOTE | 2019-03-07 13:17 | NUR ---
PALLIATIVE CARE RN with [facility], spoke with Dr. Balbuena in his office about patient to get an idea of POC moving forward. Patient continues to be intubated, not a candidate for trach due to body habitus. He O2 requirements and peep need continue to worsen. Unsure if she will turn the corner for the better or continue in a downward direction. Went to see patient and her two sons were in the room. Explained her worsening condition and the hope that she turns the corner for improvement but she may continue to worsen...explained to them that we may need to have hard conversation in the near future. Understanding of the gravity was verbalized by the sons. Will continue to follow and offer support as needed.
--- NOTE | 2019-03-07 13:42 | NUR ---
CM/SS: Follow up to determine the plan of care for pt. Plan: Met with Dr. Balbuena along with Je Delacruz to discuss the current status of the pt. Met also with sons to discuss pt's status. Summary: Pt continues to remain on the vent, pt is not candidate for [place] at this time due to her current status. Sons are visiting pt and talked with Je Delacruz, Palliative Care RN as to current status of pt and possible need to make some decisions over the next few days around comfort care. Out of state son seems to be realistic and aware of the need to make some decisions. He reports being on vacation, and will change that to [facility] after a week. He lives in [place], [place]. Other son did not say much. This worker will continue to follow up with family.
--- NOTE | 2019-03-07 15:14 | Pulmonary Progress Note ---
Standard Progress Note Progress Notes Assessment & Plan Acute on chronic respiratory failure --With ARDS Intubated on 02/25 - Pa02/Fi02 =91 -eraxis, Zosyn --Continue ventilator therapy -Increase PEEP to 18 -Continue TF as tolerated -echo - reviewed -Lasix 40mg BID COPDAE r/o PNA -Solumedrol 40 Q 12 decreased secondary to hyperglycemia. -Zosyn -[place] cultures pending IDDM -levemir to 20 units BID -Accu checks Q 4 -SSI Metabolic lactic acidosis secondary to hypoxia -Monitor Anemia -Monitor SUZY MCCORMACK DO Mar 07, 2019 15:14 POS
--- NOTE | 2019-03-07 15:20 | NUR ---
TF Recommendations Pt currently on Pulmocare for nutritional needs. Note pt is currently at a rate of 20 ml/hr with 175 ml flush. Would recommend the following: Pulmocare 1.5 at a goal rate of 65 ml/hr. Continue increasing by 10 ml q6h as tolerated. At goal rate, provides 2340 kcal (15 kcal/kg); 98 g Pro (0.6 g Pro/kg); and 1224 ml free water. Flush with 125 ml H2O q4h for hydration. With flushes, provides 1974 ml free water. Will continue to follow and reassess as pt needs and status change. Nishi Smith, MS, RD, LD
[2019-03-08] VITALS (30 sets, daily range): BP systolic 86–117; BP diastolic 44–62
[2019-03-08] MEDS: RT-ALBUTEROL/IPRATROPIUM 3 ML (DUONEB) VIAL INH SCH ×6 (01:49→21:36)
[2019-03-08] MEDS: aCETylcysteine 20% (MUCOMYST) 30ML SOLN VIAL INH SCH ×4 (01:50→21:35)
[2019-03-08 03:19] LABS: BASOPHILS % (AUTO) 0 % (0-10); EOSINOPHILS # (AUTO) 0.1 10^3/uL (0.0-0.3); EOSINOPHILS % (AUTO) 1 % (0-10); HEMATOCRIT 34 % (35-52); HEMOGLOBIN 10.5 G/DL (11.5-16.0); LYMPHOCYTES # (AUTO) 0.7 X 10^3 (1.0-4.0); LYMPHOCYTES % (AUTO) 8 % (12-44); MEAN CORPUSCULAR HEMOGLOBIN 26 PG (25-34); MEAN CORPUSCULAR HGB CONC 31 G/DL (32-36); MEAN CORPUSCULAR VOLUME 84 FL (80-99); MEAN PLATELET VOLUME 10.4 FL (7.4-10.4); MONOCYTES # (AUTO) 0.6 X 10^3 (0.0-1.0); MONOCYTES % (AUTO) 7 % (0-12); NEUTROPHILS # (AUTO) 7.2 X 10^3 (1.8-7.8); NEUTROPHILS % (AUTO) 84 % (42-75); PLATELET COUNT 328 10^3/uL (130-400); RED CELL DISTRIBUTION WIDTH 16.6 % (10.0-14.5); WHITE BLOOD COUNT 8.6 10^3/uL (4.3-11.0)
[2019-03-08 03:20] LABS: ABG BASE EXCESS 3.5 MMOL/L (-2.5-2.5); ABG OXYGEN SATURATION 90 % (94-100); ABG PCO2 46 MMHG (35-45); ABG PO2 67 MMHG (79-93); ABG TCO2 29.5 MMOL/L (21.0-31.0); ALLENS TEST YES-POS; INSPIRED O2 65%; PATIENT TEMP 36.4; VENTILATOR YES
[2019-03-08 03:40] LABS: BUN/CREATININE RATIO 33; CALCIUM 8.7 MG/DL (8.5-10.1); CARBON DIOXIDE 21 MMOL/L (21-32); CHLORIDE 99 MMOL/L (98-107); CREATININE SERUM 0.78 MG/DL (0.60-1.30); GFR ESTIMATED > 60; GLUCOSE 224 MG/DL (70-105); MAGNESIUM 1.5 MG/DL (1.6-2.4); PHOSPHORUS 4.4 MG/DL (2.3-4.7); POTASSIUM 4.7 MMOL/L (3.6-5.0); SODIUM 136 MMOL/L (135-145)
[2019-03-08] MEDS: inSUlin ASPART (NovoLOG) 1 UNIT/0.01 ML (CHARGE PER UNIT) IV SCH ×6 (03:53→23:20)
[2019-03-08] MEDS: MAGNESIUM 1 GM/100 ML IVPB 100 ML IV SCH ×2 (03:54→04:09)
[2019-03-08] MEDS: POTASSIUM CL 10MEQ/50ML IVPB 50 ML IV SCH (03:54)
[2019-03-08] MEDS: KCL 20 MEQ TAB (K-DUR) PO SCH (03:54)
[2019-03-08] MEDS: inSUlin REGULAR TPN/DRIP ONLY 250 UNITS in NORMAL SALINE 250 ML IV SCH ×2 (03:54→22:42)
[2019-03-08] MEDS: inSUlin ASPART (NovoLOG) 1 UNIT/0.01 ML (CHARGE PER UNIT) SC SCH ×6 (04:09→23:23)
[2019-03-08] MEDS: DEXMEDETOMIDINE INJECTION 1,000 MCG in NS (IVPB) 240 ML IV SCH ×2 (04:12→18:09)
--- NOTE | 2019-03-08 05:15 | Pulmonary Progress Note ---
Subjective Time Seen by a Provider: 05:15 Subjective/Events-last exam Sedated on vent Sepsis Event Evaluation Height, Weight, BMI Height: 5'4.00" Weight: 276lbs. oz. 125.464818uy; 39.00 BMI Method:Stated Exam Exam Vital Signs Date Time Temp Pulse Resp B/P (MAP) Pulse Ox O2 Delivery O2 Flow Rate FiO2 03/08/19 04:14 89 20 113/55 97 Mechanical Ventilator 65.00 03/08/19 03:10 36.4 78 20 99/58 (72) 94 Mechanical Ventilator 65.00 03/08/19 03:10 94 Mechanical Ventilator 65 03/08/19 02:48 61 20 94 65 03/08/19 02:00 70 19 110/62 (78) 94 Mechanical Ventilator 65.00 03/08/19 01:00 71 03/08/19 01:00 71 19 102/53 (69) 94 Mechanical Ventilator 65.00 03/08/19 00:47 67 20 105/54 95 Mechanical Ventilator 65.00 03/08/19 00:00 74 19 104/51 (68) 96 Mechanical Ventilator 65.00 03/07/19 23:39 36.4 Mechanical Ventilator 65.00 03/07/19 23:15 95 Mechanical Ventilator 65 03/07/19 23:00 86 25 112/53 (72) 96 Mechanical Ventilator 65.00 03/07/19 22:44 80 22 94 65 03/07/19 22:00 72 20 100/54 (69) 88 Mechanical Ventilator 65.00 03/07/19 21:00 54 20 102/52 (69) 96 Mechanical Ventilator 65.00 03/07/19 20:11 98/57 Mechanical Ventilator 65.00 03/07/19 20:00 56 20 96 Mechanical Ventilator 65.00 03/07/19 20:00 55 19 98/49 (65) 90 Mechanical Ventilator 65.00 03/07/19 20:00 36.2 03/07/19 20:00 96 Mechanical Ventilator 65 03/07/19 19:00 53 20 101/50 (67) 91 Mechanical Ventilator 65.00 03/07/19 19:00 53 03/07/19 18:57 53 20 91 65 03/07/19 18:00 53 19 99/49 (66) 92 Mechanical Ventilator 65.00 03/07/19 17:00 54 20 99/48 (65) 92 Mechanical Ventilator 65.00 03/07/19 16:46 98/48 03/07/19 16:00 36.0 03/07/19 16:00 54 20 93/47 (62) 94 Mechanical Ventilator 65.00 03/07/19 16:00 Mechanical Ventilator 65 03/07/19 15:36 53 20 93 65 03/07/19 15:00 54 20 99/51 (67) 94 Mechanical Ventilator 65.00 03/07/19 14:00 53 19 102/51 (68) 92 Mechanical Ventilator 65.00 03/07/19 13:26 97/49 03/07/19 13:00 59 03/07/19 13:00 59 20 102/50 (67) 91 Mechanical Ventilator 65.00 03/07/19 12:00 56 19 109/53 (71) 92 Mechanical Ventilator 65.00 03/07/19 12:00 36.7 03/07/19 12:00 Mechanical Ventilator 65 03/07/19 11:00 61 20 112/53 (72) 93 Mechanical Ventilator 65.00 03/07/19 10:58 59 20 93 65 03/07/19 10:05 109/53 03/07/19 10:00 56 20 107/53 (71) 91 Mechanical Ventilator 65.00 03/07/19 09:00 56 20 114/56 (75) 90 Mechanical Ventilator 65.00 03/07/19 08:00 36.3 03/07/19 08:00 56 19 103/50 (67) 91 Mechanical Ventilator 65.00 03/07/19 08:00 Mechanical Ventilator 65 03/07/19 07:07 55 20 93 65 03/07/19 07:00 55 03/07/19 07:00 55 20 93 65 03/07/19 07:00 55 19 96/48 (64) 93 Mechanical Ventilator 65.00 03/07/19 06:25 Mechanical Ventilator 03/07/19 06:25 Mechanical Ventilator 65.00 03/07/19 06:00 56 20 94/46 (62) 94 Mechanical Ventilator 75.00 I & O 03/08/19 07:00 Intake Total 2744 ml Output Total 3650 ml Balance -906 ml Height & Weight Height: 5'4.00" Weight: 276lbs. oz. 125.349274qh; 39.00 BMI Method:Stated General Appearance: No Apparent Distress, WD/WN, Obese, Other (intubated) HEENT: PERRL/EOMI, Pharynx Normal Neck: Supple Respiratory: Decreased Breath Sounds, Respiratory Distress Cardiovascular: Regular Rate, Rhythm, No Edema Capillary Refill: Less Than 3 Seconds Extremity: Normal Inspection Neurologic/Psychiatric: Other (sedated on vent) Skin: Normal Color, Warm/Dry Results Lab Laboratory Tests 03/07/19 02:06 03/08/19 03:10 Assessment/Plan Assessment/Plan Acute on chronic respiratory failure --With ARDS Intubated on 02/25 - Pa02/Fi02 =103 -eraxis, Zosyn --Continue ventilator therapy -Increase PEEP to 18 -Continue TF as tolerated -echo - reviewed -Lasix 40mg BID COPDAE r/o PNA -Solumedrol 40 Q 6 -Zosyn -[place] cultures pending IDDM -levemir to 20 units BID -Accu checks Q 4 -SSI Metabolic lactic acidosis secondary to hypoxia -Monitor Anemia -Monitor SUZY MCCORMACK DO Mar 08, 2019 05:15
[2019-03-08] MEDS: methylPREDNISolone 40 MG/ML (Solu-MEDROL) VIAL IV SCH ×4 (05:59→23:23)
[2019-03-08] MEDS: fentaNYL 1,250 MCG/NS 250 ML DRIP IV SCH ×4 (07:25→18:09)
[2019-03-08] MEDS: RT-BUDESONIDE NEBS 0.5 MG/2ML (PULMICORT) AMP INH SCH ×2 (07:58→19:17)
[2019-03-08] MEDS: ANIDULAFUNGIN INJECTION 100 MG in NS (IVPB) 100 ML IV SCH (08:13)
[2019-03-08] MEDS: ENOXAPARIN 60 MG/0.6 ML (LOVENOX) SYR SC SCH ×2 (08:13→20:50)
[2019-03-08] MEDS: PANTOPRAZOLE 40 MG (PROTONIX) VIAL IV SCH ×2 (08:14→20:51)
[2019-03-08] MEDS: MICONAZOLE 2% POWDER (DESENEX AF) 90 GM TOP SCH ×2 (08:14→20:51)
[2019-03-08] MEDS: FUROSEMIDE 40 MG/4 ML INJ (LASIX) IVP SCH ×2 (08:14→20:51)
--- NOTE | 2019-03-08 09:08 | Diagnostic Imaging Report ---
EXAMINATION: Portable erect AP chest at 3:44 AM. INDICATION: Respiratory distress. FINDINGS: The appearance of the chest has worsened since the prior exam of 03/06/2019 as there is greater involvement of both lungs by alveolar/interstitial pulmonary infiltrates, particularly the right lung. These findings may be related to pulmonary edema, pneumonia, atelectasis, or a combination of all three. The cardiomegaly noted previously is again evident and no different. The mediastinum is not widened. The osseous structures are intact. The supportive tubes and lines seem unchanged in position although the distal portion of the NG line is not well-visualized. IMPRESSION: The appearance of the chest has worsened as there is greater involvement of both lungs by alveolar/interstitial pulmonary infiltrates, particularly the right lung. A followup study would be recommended for continued evaluation. Dictated by: Dictated on workstation # [id number]
--- NOTE | 2019-03-08 10:00 | NUR ---
Tube feeding increased to 30mL/hr
--- NOTE | 2019-03-08 10:30 | Progress Note - Hospitalist ---
Subjective HPI/CC On Admission Date Seen by Provider: Mar 08, 2019 Time Seen by Provider: 09:30 Chief complaint: Respiratory failure History of present illness: This is a 58-year-old white female group home patient at formerly [facility] who presented to the [facility] ER earlier Thursday for shortness of breath found to have no severe acute changes and her chronic obesity hypoventilation syndrome status so she was sent back to the group home and then worsened a few hours later requiring transfer to [facility] ICU and requiring ventilator support. Patient was placed on Zosyn empirically for pneumonia facility acquired since she resides in a group home. Patient has severe comorbidities requiring group home placement at such a young age due to the obesity hypoventilation syndrome. She does use CPAP in the group home. Currently Dr. Balbuena is managing the ventilator which appears to be in need of significant modification. Subjective/Events-last exam will likely have terminal extubation and Pt will likely pass away. Pt opens her eyes but no possibility of her comprehending anything right now. Overall prognosis poor. Objective Exam Vital Signs Vital Signs Date Time Temp Pulse Resp B/P (MAP) Pulse Ox O2 Delivery O2 Flow Rate FiO2 03/08/19 20:43 108/51 03/08/19 20:00 93 Mechanical Ventilator 32 03/08/19 19:20 36.5 54 20 32.00 Capillary Refill : Less Than 3 Seconds General Appearance: No Apparent Distress, Chronically ill, Obese, Other (on vent, opens eyes no comprehension) Results/Procedures Lab Laboratory Tests 03/08/19 03:10 Patient resulted labs reviewed. Assessment/Plan Assessment and Plan Assess & Plan/Chief Complaint Assessment: VDRF PNA? OHS WILBER on CPAP Severe debility requiring NH placement at young age Plan: Vent management Comfort care soon? Critical Care Critically Ill Patient Diagnosis/Problems Diagnosis/Problems (1) Ventilator dependence (2) Acute respiratory failure Status: Acute (3) Pneumonia Status: Acute Qualifiers: Pneumonia type: due to unspecified organism Laterality: bilateral Lung location: lower lobe of lung Qualified Codes: J18.1 - Lobar pneumonia, unspecified organism (4) COPD with acute exacerbation Status: Acute (5) Edema Status: Acute (6) Fatigue Status: Acute (7) Peripheral edema Status: Acute Clinical Quality Measures DVT/VTE Risk/Contraindication: Risk Factor Score Per Nursin RFS Level Per Nursing on Admit: 4+=Very High DEEPIKA ROBLES 17, 2019 10:30 POS
[2019-03-08] MEDS ORDERED: PIPERACILLIN/TAZOBACTAM (BULK) 4.5 GM in NS (IVPB) 100 ML IV SCH (11:00)
--- NOTE | 2019-03-08 12:00 | NUR ---
Residual from OG 75, feeding continued
--- NOTE | 2019-03-08 14:00 | NUR ---
Tube feeding increased to 40mL/hr
[2019-03-08] MEDS: PIPERACILLIN/TAZOBACTAM (BULK) 4.5 GM in NS (IVPB) 100 ML IV SCH (17:05)
--- NOTE | 2019-03-08 18:00 | NUR ---
OG residual checked et at 120mL, tube feeding continued
[2019-03-08] MEDS: NS W/KCL 20 MEQ/L 1,000 ML IV SCH (18:03)
[2019-03-08] MEDS: PROPOFOL DRIP (ICU) 100 ML IV SCH (20:43)
[2019-03-09] VITALS (32 sets, daily range): BP systolic 92–146; BP diastolic 47–83
[2019-03-09] MEDS: inSUlin ASPART (NovoLOG) 1 UNIT/0.01 ML (CHARGE PER UNIT) SC SCH ×6 (04:00→23:59)
[2019-03-09] MEDS: inSUlin ASPART (NovoLOG) 1 UNIT/0.01 ML (CHARGE PER UNIT) IV SCH ×6 (04:00→23:59)
[2019-03-09] MEDS: PROPOFOL DRIP (ICU) 100 ML IV SCH (05:11)
[2019-03-09 05:30] LABS: CARBON DIOXIDE 24 MMOL/L (21-32); CHLORIDE 98 MMOL/L (98-107); POTASSIUM 3.9 MMOL/L (3.6-5.0); SODIUM 137 MMOL/L (135-145)
[2019-03-09 05:31] LABS: BUN/CREATININE RATIO 38; CALCIUM 9.4 MG/DL (8.5-10.1); CREATININE SERUM 0.74 MG/DL (0.60-1.30); GFR ESTIMATED > 60; GLUCOSE 243 MG/DL (70-105); MAGNESIUM 1.7 MG/DL (1.6-2.4); PHOSPHORUS 4.1 MG/DL (2.3-4.7)
[2019-03-09 05:35] LABS: HEMATOCRIT 35 % (35-52); HEMOGLOBIN 10.8 G/DL (11.5-16.0); MEAN CORPUSCULAR HEMOGLOBIN 27 PG (25-34); MEAN CORPUSCULAR HGB CONC 31 G/DL (32-36); MEAN CORPUSCULAR VOLUME 86 FL (80-99); MEAN PLATELET VOLUME 11.2 FL (7.4-10.4); NEUTROPHILS % (AUTO) 86 % (42-75); PLATELET COUNT 339 10^3/uL (130-400); RED CELL DISTRIBUTION WIDTH 16.4 % (10.0-14.5); WHITE BLOOD COUNT 9.4 10^3/uL (4.3-11.0)
[2019-03-09 05:36] LABS: BASOPHILS % (AUTO) 0 % (0-10); EOSINOPHILS # (AUTO) 0.1 10^3/uL (0.0-0.3); EOSINOPHILS % (AUTO) 1 % (0-10); LYMPHOCYTES # (AUTO) 0.7 X 10^3 (1.0-4.0); LYMPHOCYTES % (AUTO) 8 % (12-44); MONOCYTES # (AUTO) 0.5 X 10^3 (0.0-1.0); MONOCYTES % (AUTO) 5 % (0-12); NEUTROPHILS # (AUTO) 8.1 X 10^3 (1.8-7.8)
[2019-03-09 06:00] LABS: ABG BASE EXCESS 4.1 MMOL/L (-2.5-2.5); ABG OXYGEN SATURATION 95 % (94-100); ABG PCO2 46 MMHG (35-45); ABG PH 7.41 (7.37-7.43); ABG PO2 92 MMHG (79-93)
[2019-03-09 06:03] LABS: ALLENS TEST YES-POS; INSPIRED O2 70%; VENTILATOR NO
[2019-03-09] MEDS: KCL 20 MEQ TAB (K-DUR) PO SCH (06:08)
[2019-03-09] MEDS: MAGNESIUM 1 GM/100 ML IVPB 100 ML IV SCH ×3 (06:08→06:12)
[2019-03-09] MEDS: methylPREDNISolone 40 MG/ML (Solu-MEDROL) VIAL IV SCH ×4 (06:08→23:58)
[2019-03-09] MEDS: POTASSIUM CL 10MEQ/50ML IVPB 50 ML IV SCH (06:08)
--- NOTE | 2019-03-09 06:22 | Pulmonary Progress Note ---
Subjective Time Seen by a Provider: 06:21 Subjective/Events-last exam PT is still requiring a lot of oxygen and PEEP. CXR continues to show extensive infiltration. Sepsis Event Evaluation Height, Weight, BMI Height: 5'4.00" Weight: 276lbs. oz. 125.450483rc; 39.00 BMI Method:Stated Exam Exam Vital Signs Date Time Temp Pulse Resp B/P (MAP) Pulse Ox O2 Delivery O2 Flow Rate FiO2 03/09/19 06:00 64 20 93/47 (62) 97 Mechanical Ventilator 60.00 03/09/19 05:11 Mechanical Ventilator 70.00 03/09/19 05:00 71 19 105/54 (71) 96 Mechanical Ventilator 60.00 03/09/19 04:45 69 20 92/48 (63) 95 Mechanical Ventilator 60.00 03/09/19 04:00 82 20 125/64 (84) 95 Mechanical Ventilator 70.00 03/09/19 04:00 95 Mechanical Ventilator 70 03/09/19 03:00 85 19 94 Mechanical Ventilator 70.00 03/09/19 02:05 81 20 141/67 (91) 94 Mechanical Ventilator 70.00 03/09/19 02:00 81 19 134/66 (88) 97 Mechanical Ventilator 75.00 03/09/19 01:00 86 19 124/61 (82) 96 Mechanical Ventilator 75.00 03/09/19 01:00 86 03/09/19 00:00 79 19 99/54 (69) 95 Mechanical Ventilator 75.00 03/08/19 23:59 78 20 99/55 94 Mechanical Ventilator 75.00 03/08/19 23:45 36.4 Mechanical Ventilator 75.00 03/08/19 23:20 93 Mechanical Ventilator 75 03/08/19 23:00 78 20 93/55 (68) 92 Mechanical Ventilator 75.00 03/08/19 22:28 69 20 105/54 (71) 91 Mechanical Ventilator 75.00 03/08/19 22:00 78 23 109/60 (76) 90 Mechanical Ventilator 32.00 03/08/19 21:00 80 20 112/55 (74) 92 Mechanical Ventilator 32.00 03/08/19 20:43 108/51 03/08/19 20:00 93 Mechanical Ventilator 32 03/08/19 20:00 63 19 98/49 (65) 91 Mechanical Ventilator 32.00 03/08/19 19:20 36.5 54 20 94/48 (63) 91 Mechanical Ventilator 32.00 03/08/19 19:00 54 19 86/44 (58) 93 Mechanical Ventilator 35.00 03/08/19 19:00 54 03/08/19 18:00 55 19 100/55 (70) 94 Mechanical Ventilator 35.00 03/08/19 17:54 101/53 03/08/19 17:00 55 19 99/51 (67) 93 Mechanical Ventilator 35.00 03/08/19 16:00 36.7 03/08/19 16:00 56 19 103/53 (70) 93 Mechanical Ventilator 35.00 03/08/19 16:00 92 Mechanical Ventilator 35 03/08/19 15:57 57 101/52 03/08/19 15:10 Mechanical Ventilator 35.00 03/08/19 15:00 53 20 102/53 (69) 97 Mechanical Ventilator 45.00 03/08/19 14:59 53 20 96 45 03/08/19 14:00 54 20 108/56 (73) 97 Mechanical Ventilator 45.00 03/08/19 13:50 102/54 03/08/19 13:00 56 20 101/52 (68) 96 Mechanical Ventilator 45.00 03/08/19 12:46 58 03/08/19 12:00 56 20 111/56 (74) 96 Mechanical Ventilator 45.00 03/08/19 12:00 36.3 03/08/19 11:39 107/54 03/08/19 11:28 94 Mechanical Ventilator 45 03/08/19 11:00 55 19 105/53 (70) 95 Mechanical Ventilator 45.00 03/08/19 10:45 Mechanical Ventilator 45.00 03/08/19 10:42 54 20 97 55 03/08/19 10:00 54 19 117/60 (79) 98 Mechanical Ventilator 55.00 03/08/19 09:48 123/62 03/08/19 09:00 57 19 108/56 (73) 97 Mechanical Ventilator 55.00 03/08/19 08:00 94 Mechanical Ventilator 55 03/08/19 08:00 60 19 115/59 (77) 98 Mechanical Ventilator 55.00 03/08/19 07:59 56 20 98 55 03/08/19 07:00 60 20 96/52 (67) 97 Mechanical Ventilator 55.00 03/08/19 06:47 70 I & O 03/09/19 07:00 Intake Total 4439 ml Output Total 4270 ml Balance 169 ml Height & Weight Height: 5'4.00" Weight: 276lbs. oz. 125.005982xo; 39.00 BMI Method:Stated General Appearance: No Apparent Distress, WD/WN, Obese, Other (intubated) HEENT: PERRL/EOMI, Pharynx Normal Neck: Supple Respiratory: Decreased Breath Sounds, Respiratory Distress Cardiovascular: Regular Rate, Rhythm, No Edema Capillary Refill: Less Than 3 Seconds Extremity: Normal Inspection Neurologic/Psychiatric: Other (sedated on vent) Skin: Normal Color, Warm/Dry Results Lab Laboratory Tests 03/08/19 03:10 03/09/19 02:44 Assessment/Plan Assessment/Plan Acute on chronic respiratory failure --With ARDS Intubated on 02/25 - Pa02/Fi02 =103 -eraxis, Zosyn add Vanco -Change Eraxis to Vorconizol --Continue ventilator therapy PEEP to 18 -Continue TF as tolerated -Lasix COPDAE r/o PNA -Solumedrol 40 Q 6 -Zosyn -[place] cultures pending IDDM -levemir to 20 units BID -Accu checks Q 4 -SSI Metabolic lactic acidosis secondary to hypoxia -Monitor Anemia -Monitor SUZY MCCORMACK DO Mar 09, 2019 06:22
[2019-03-09] MEDS ORDERED: PHARMACY TO DOSE IV SCH (06:30)
[2019-03-09] MEDS ORDERED: VANCOMYCIN 2000 MG/NS 500 ML IVPB IV NR ×2 (07:00)
--- NOTE | 2019-03-09 07:02 | NUR ---
PHARMACY TO DOSE VANCOMYCIN: ADJ BW 91.6 KG, SCr 0.74, CrCl 121 LOADING DOSE: 2,000 MG MAIN DOSE: 2,000 MG Q12HR VANCOMYCIN TROUGH DUE 03/10/19 @ 16:00 IF TROUGH > 20 HOLD 03/10/19 17:00 DOSE.
[2019-03-09] MEDS: RT-ALBUTEROL/IPRATROPIUM 3 ML (DUONEB) VIAL INH SCH ×5 (07:41→22:49)
[2019-03-09] MEDS: RT-BUDESONIDE NEBS 0.5 MG/2ML (PULMICORT) AMP INH SCH ×2 (07:41→18:56)
[2019-03-09] MEDS: aCETylcysteine 20% (MUCOMYST) 30ML SOLN VIAL INH SCH ×3 (07:41→22:50)
[2019-03-09] MEDS: fentaNYL 1,250 MCG/NS 250 ML DRIP IV SCH ×4 (08:19→23:52)
--- NOTE | 2019-03-09 08:44 | Diagnostic Imaging Report ---
INDICATION: Pneumonia and respiratory failure. TIME OF EXAM: 4:00 a.m. Correlation is made with prior chest one day earlier. FINDINGS: Heart size is stable. Bilateral pulmonary infiltrates show partial clearing when compared with yesterday. There is some residual congestive changes with bibasilar infiltrates. No effusion or pneumothorax is seen. Right IJ line has tip overlying the SVC. IMPRESSION: Improved aeration both lungs with partial clearing of bilateral infiltrates when compared with examination one day earlier. Dictated by: Dictated on workstation # [id number]
[2019-03-09] MEDS: ANIDULAFUNGIN INJECTION 100 MG in NS (IVPB) 100 ML IV SCH (09:33)
[2019-03-09] MEDS: PIPERACILLIN/TAZOBACTAM (BULK) 4.5 GM in NS (IVPB) 100 ML IV SCH ×4 (09:33→16:43)
[2019-03-09] MEDS: ENOXAPARIN 60 MG/0.6 ML (LOVENOX) SYR SC SCH ×2 (09:33→20:54)
[2019-03-09] MEDS: VORICONAZOLE 200 MG TAB (VFEND) NON-FORMULARY PO SCH ×2 (09:33→21:28)
[2019-03-09] MEDS: MICONAZOLE 2% POWDER (DESENEX AF) 90 GM TOP SCH ×2 (09:34→21:28)
[2019-03-09] MEDS: PANTOPRAZOLE 40 MG (PROTONIX) VIAL IV SCH ×2 (09:34→20:53)
--- NOTE | 2019-03-09 10:32 | Progress Note - Hospitalist ---
Subjective HPI/CC On Admission Date Seen by Provider: Mar 09, 2019 Time Seen by Provider: 09:00 Chief complaint: Respiratory failure History of present illness: This is a 58-year-old white female [facility]entiary patient at [facility] who presented to the [place] ER earlier Thursday for shortness of breath found to have no severe acute changes and her chronic obesity hypoventilation syndrome status so she was [facility] back to the penitentiary and then worsened a few hours later requiring transfer to [facility] ICU and requiring ventilator support. Patient was placed on Zosyn empirically for pneumonia facility acquired since she resides in a penitentiary. Patient has severe comorbidities requiring penitentiary placement at such a young age due to the obesity hypoventilation syndrome. She does use CPAP in the penitentiary. Currently Dr. Balbuena is managing the ventilator which appears to be in need of significant modification. Subjective/Events-last exam Terminal extubation planned for tomorrow No significant changes thus far Pt remains on the ventilator Review of Systems General: Fatigue Objective Exam Vital Signs Vital Signs Date Time Temp Pulse Resp B/P (MAP) Pulse Ox O2 Delivery O2 Flow Rate FiO2 03/09/19 20:00 36.2 03/09/19 19:40 60 20 117/58 (77) 95 Mechanical Ventilator 55.00 03/09/19 19:08 55 Capillary Refill : Less Than 3 Seconds General Appearance: No Apparent Distress, WD/WN, Chronically ill, Obese, Other (sedated) Results/Procedures Lab Laboratory Tests 03/09/19 02:44 Patient resulted labs reviewed. Assessment/Plan Assessment and Plan Assess & Plan/Chief Complaint Assessment: VDRF PNA? OHS WILBER on CPAP Severe debility requiring NH placement at young age Plan: Vent management Comfort care soon? Critical Care Critically Ill Patient Diagnosis/Problems Diagnosis/Problems (1) Ventilator dependence (2) Acute respiratory failure Status: Acute (3) Pneumonia Status: Acute Qualifiers: Pneumonia type: due to unspecified organism Laterality: bilateral Lung location: lower lobe of lung Qualified Codes: J18.1 - Lobar pneumonia, unspecified organism (4) COPD with acute exacerbation Status: Acute (5) Edema Status: Acute (6) Fatigue Status: Acute (7) Peripheral edema Status: Acute Clinical Quality Measures DVT/VTE Risk/Contraindication: Risk Factor Score Per Nursin RFS Level Per Nursing on Admit: 4+=Very High DEEPIKA ROBLES DO Mar 09, 2019 10:32
--- NOTE | 2019-03-09 10:35 | NUR ---
Palliative Care RN in to see patient. No family present. Nurse in room and indicates n real improvement in her condition. She remains intubated, requiring high O2 and High peep. Tomorrow will be a decision making day.
--- NOTE | 2019-03-09 10:45 | NUR ---
OGT RESIDUAL 30 ML NOTED AT 0800. TUBE FEEDING INCREASED TO 50 ML/HR
--- NOTE | 2019-03-09 12:00 | NUR ---
WASTED 25 ML OF FENTANYL WITH MARY SALAZAR.
--- NOTE | 2019-03-09 12:30 | NUR ---
OGT RESIDUAL 20 ML. CONTINUE TUBE FEEDINGS AT 50 ML/HR.
[2019-03-09] MEDS: DEXMEDETOMIDINE INJECTION 1,000 MCG in NS (IVPB) 240 ML IV SCH (14:03)
[2019-03-09] MEDS: VANCOMYCIN 2000 MG/NS 500 ML IVPB IV SCH ×2 (16:43)
--- NOTE | 2019-03-09 17:38 | NUR ---
OGT RESIDUAL 130 ML. HOLD TUBE FEEDING. WILL REASSESS IN 6 HOURS.
[2019-03-09] MEDS: [UNRECOGNIZED DRUG - REMARK] IV SCH (20:53)
[2019-03-10] VITALS (31 sets, daily range): BP systolic 102–160; BP diastolic 49–70
[2019-03-10] MEDS: PIPERACILLIN/TAZOBACTAM (BULK) 4.5 GM in NS (IVPB) 100 ML IV SCH ×3 (00:34→17:31)
[2019-03-10] MEDS: NS W/KCL 20 MEQ/L 1,000 ML IV SCH (00:37)
[2019-03-10] MEDS: RT-ALBUTEROL/IPRATROPIUM 3 ML (DUONEB) VIAL INH SCH ×6 (03:12→22:02)
[2019-03-10 03:24] LABS: ABG BASE EXCESS 1.4 MMOL/L (-2.5-2.5); ABG OXYGEN SATURATION 93 % (94-100); ABG PCO2 41 MMHG (35-45); ABG PH 7.41 (7.37-7.43); ABG PO2 73 MMHG (79-93); ABG TCO2 27.1 MMOL/L (21.0-31.0)
[2019-03-10 03:24] LABS: BASOPHILS % (AUTO) 0 % (0-10); EOSINOPHILS % (AUTO) 0 % (0-10); HEMATOCRIT 33 % (35-52); HEMOGLOBIN 10.3 G/DL (11.5-16.0); LYMPHOCYTES # (AUTO) 0.4 X 10^3 (1.0-4.0); LYMPHOCYTES % (AUTO) 6 % (12-44); MEAN CORPUSCULAR HGB CONC 31 G/DL (32-36); MEAN CORPUSCULAR VOLUME 84 FL (80-99); MEAN PLATELET VOLUME 10.4 FL (7.4-10.4); MONOCYTES # (AUTO) 0.2 X 10^3 (0.0-1.0); MONOCYTES % (AUTO) 3 % (0-12); NEUTROPHILS # (AUTO) 6.5 X 10^3 (1.8-7.8); NEUTROPHILS % (AUTO) 91 % (42-75); PLATELET COUNT 340 10^3/uL (130-400); RED CELL DISTRIBUTION WIDTH 16.4 % (10.0-14.5); WHITE BLOOD COUNT 7.1 10^3/uL (4.3-11.0)
[2019-03-10 03:26] LABS: MEAN CORPUSCULAR HEMOGLOBIN 26 PG (25-34)
[2019-03-10 03:27] LABS: ALLENS TEST ART LINE; PATIENT TEMP 36.3; VENTILATOR YES
[2019-03-10 03:40] LABS: BUN/CREATININE RATIO 33; CALCIUM 8.6 MG/DL (8.5-10.1); CARBON DIOXIDE 21 MMOL/L (21-32); CHLORIDE 103 MMOL/L (98-107); CREATININE SERUM 0.72 MG/DL (0.60-1.30); GFR ESTIMATED > 60; GLUCOSE 301 MG/DL (70-105); MAGNESIUM 1.9 MG/DL (1.6-2.4); POTASSIUM 4.3 MMOL/L (3.6-5.0); SODIUM 137 MMOL/L (135-145)
[2019-03-10] MEDS: inSUlin ASPART (NovoLOG) 1 UNIT/0.01 ML (CHARGE PER UNIT) IV SCH ×6 (04:01→23:39)
[2019-03-10] MEDS: inSUlin REGULAR TPN/DRIP ONLY 250 UNITS in NORMAL SALINE 250 ML IV SCH (04:01)
[2019-03-10] MEDS: inSUlin ASPART (NovoLOG) 1 UNIT/0.01 ML (CHARGE PER UNIT) SC SCH ×6 (04:01→23:39)
[2019-03-10 04:05] LABS: ANISOCYTOSIS SLIGHT; LYMPHOCYTES % (MANUAL) 2 %; MONOCYTES % (MANUAL) 1 %; NEUTROPHILS % (MANUAL) 97 %
[2019-03-10] MEDS: POTASSIUM CL 10MEQ/50ML IVPB 50 ML IV SCH ×4 (04:05→16:45)
[2019-03-10] MEDS: VANCOMYCIN 2000 MG/NS 500 ML IVPB IV SCH ×2 (04:05)
[2019-03-10] MEDS: MAGNESIUM 1 GM/100 ML IVPB 100 ML IV SCH (04:06)
[2019-03-10] MEDS: KCL 20 MEQ TAB (K-DUR) PO SCH (04:06)
[2019-03-10] MEDS: methylPREDNISolone 40 MG/ML (Solu-MEDROL) VIAL IV SCH (05:18)
--- NOTE | 2019-03-10 05:50 | Pulmonary Progress Note ---
Sepsis Event Evaluation Height, Weight, BMI Height: 5'4.00" Weight: 276lbs. oz. 125.506708iu; 39.00 BMI Method:Stated Exam Exam Vital Signs Date Time Temp Pulse Resp B/P (MAP) Pulse Ox O2 Delivery O2 Flow Rate FiO2 03/10/19 03:50 92 Mechanical Ventilator 55 03/10/19 03:12 53 20 92 55 03/10/19 03:10 36.3 55 20 107/57 (74) 91 Mechanical Ventilator 55.00 03/10/19 02:00 56 27 118/58 (78) 91 Mechanical Ventilator 55.00 03/10/19 01:00 59 20 121/59 (79) 91 Mechanical Ventilator 55.00 03/10/19 01:00 60 03/10/19 00:33 Mechanical Ventilator 55.00 03/10/19 00:00 63 16 114/53 (73) 90 Mechanical Ventilator 55.00 03/09/19 23:50 90 Mechanical Ventilator 55 03/09/19 23:45 36.5 Mechanical Ventilator 55.00 03/09/19 23:00 69 20 114/52 (72) 90 Mechanical Ventilator 55.00 03/09/19 22:50 66 26 91 55 03/09/19 22:00 62 20 123/60 (81) 92 Mechanical Ventilator 55.00 03/09/19 21:00 58 20 120/56 (77) 93 Mechanical Ventilator 55.00 03/09/19 20:56 58 20 121/57 92 Mechanical Ventilator 55.00 03/09/19 20:00 36.2 03/09/19 20:00 66 16 124/58 (80) 95 Mechanical Ventilator 55.00 03/09/19 20:00 92 Mechanical Ventilator 55 03/09/19 19:40 36.3 60 20 117/58 (77) 95 Mechanical Ventilator 55.00 03/09/19 19:08 53 20 96 55 03/09/19 19:00 57 19 124/60 (81) 95 Mechanical Ventilator 60.00 03/09/19 19:00 60 03/09/19 18:57 54 20 95 60 03/09/19 18:00 51 12 101/52 (68) 96 Mechanical Ventilator 60.00 03/09/19 17:00 52 19 104/52 (69) 96 Mechanical Ventilator 60.00 03/09/19 16:45 104/56 03/09/19 16:00 99 Mechanical Ventilator 60 03/09/19 16:00 57 19 101/50 (67) 93 Mechanical Ventilator 60.00 03/09/19 16:00 36.5 03/09/19 15:00 70 36 123/57 (79) Mechanical Ventilator 60.00 03/09/19 14:07 54 20 94 60 03/09/19 14:02 36.55552 56 20 103/50 99 Mechanical Ventilator 55.00 03/09/19 14:00 53 20 96/51 (66) 94 Mechanical Ventilator 60.00 03/09/19 13:00 56 20 97/50 (66) 93 Mechanical Ventilator 60.00 03/09/19 12:44 56 03/09/19 12:00 56 20 103/50 (67) 97 Mechanical Ventilator 60.00 03/09/19 12:00 99 Mechanical Ventilator 70 03/09/19 12:00 36.0 03/09/19 11:00 67 20 121/57 (78) 96 Mechanical Ventilator 60.00 03/09/19 10:00 77 17 141/67 (91) 97 Mechanical Ventilator 60.00 03/09/19 09:50 76 20 97 60 03/09/19 09:39 129/65 03/09/19 09:00 77 21 139/70 (93) 96 Mechanical Ventilator 60.00 03/09/19 08:30 36.4 03/09/19 08:00 96 Mechanical Ventilator 70 03/09/19 08:00 67 20 127/61 (83) 98 Mechanical Ventilator 60.00 03/09/19 07:45 57 20 98 60 03/09/19 07:42 57 20 98 60 03/09/19 07:00 36.5 03/09/19 07:00 58 19 98/52 (67) 99 Mechanical Ventilator 60.00 03/09/19 06:41 59 03/09/19 06:00 64 20 93/47 (62) 97 Mechanical Ventilator 60.00 I & O 03/10/19 07:00 Intake Total 3875 ml Output Total 1850 ml Balance 2025 ml Height & Weight Height: 5'4.00" Weight: 276lbs. oz. 125.716263sd; 39.00 BMI Method:Stated General Appearance: No Apparent Distress, WD/WN, Chronically ill, Obese, Other (sedated) HEENT: PERRL/EOMI, Pharynx Normal Neck: Supple Respiratory: Decreased Breath Sounds, Respiratory Distress Cardiovascular: Regular Rate, Rhythm, No Edema Capillary Refill: Less Than 3 Seconds Extremity: Normal Inspection Neurologic/Psychiatric: Other (sedated on vent) Skin: Normal Color, Warm/Dry Results Lab Laboratory Tests 03/09/19 02:44 03/10/19 03:15 Assessment/Plan Assessment/Plan Acute on chronic respiratory failure --With ARDS Intubated on 02/25 - Pa02/Fi02 =103 -eraxis, Zosyn add Vanco -Change Eraxis to Vorconizol --Continue ventilator therapy PEEP to 18 -Continue TF as tolerated -Lasix -D/C solumedrol COPDAE r/o PNA -Zosyn -[place] cultures pending IDDM -levemir to 20 units BID -Accu checks Q 4 -SSI Metabolic lactic acidosis secondary to hypoxia -Monitor Anemia -Monitor I recommend continue current care until Thursday. If pt is doing better transfer to [facility]. If pt is doing worse strongly consider comfort care only. SUZY MCCORMACK DO Mar 10, 2019 05:50
[2019-03-10] MEDS: RT-BUDESONIDE NEBS 0.5 MG/2ML (PULMICORT) AMP INH SCH ×2 (06:55→18:31)
[2019-03-10] MEDS: aCETylcysteine 20% (MUCOMYST) 30ML SOLN VIAL INH SCH ×3 (06:55→22:02)
--- NOTE | 2019-03-10 08:00 | NUR ---
OGT RESIDUAL 100 ML. CONTINUE FEEDING. WILL CONTINUE TO MONITOR.
--- NOTE | 2019-03-10 08:08 | Diagnostic Imaging Report ---
INDICATION: Pneumonia. COMPARISON: 03/09/2019 FINDINGS: Single frontal radiographic view of the chest was obtained and demonstrates indwelling endotracheal tube with the tip at the clavicular heads. Distal tip of the gastric tube is obscured. Cardiac silhouette and pulmonary vasculature remain prominent. Lungs continue to show diffuse prominence of the interstitium. There is a hazy gradient opacification of the bilateral mid and lower lung dunbar with complete obscuration of bilateral lung bases. Left basilar opacities have redeveloped since prior exam. No pneumothorax is seen on either side. IMPRESSION: 1. Redemonstration of cardiomegaly with sequelae of CHF including probable interstitial pulmonary edema and moderate bibasilar pleural effusions. 2. Lines and tubes as above. Dictated by: Dictated on workstation # [id number]
[2019-03-10] MEDS: PANTOPRAZOLE 40 MG (PROTONIX) VIAL IV SCH ×2 (08:50→19:56)
[2019-03-10] MEDS: ENOXAPARIN 60 MG/0.6 ML (LOVENOX) SYR SC SCH ×2 (08:50→19:56)
[2019-03-10] MEDS: ANIDULAFUNGIN INJECTION 100 MG in NS (IVPB) 100 ML IV SCH (08:50)
[2019-03-10] MEDS: MICONAZOLE 2% POWDER (DESENEX AF) 90 GM TOP SCH ×2 (08:51→19:56)
[2019-03-10] MEDS: [UNRECOGNIZED DRUG - REMARK] IV SCH ×2 (08:51→19:56)
--- NOTE | 2019-03-10 10:09 | Progress Note - Hospitalist ---
Subjective HPI/CC On Admission Date Seen by Provider: Mar 10, 2019 Time Seen by Provider: 09:00 Chief complaint: Respiratory failure History of present illness: This is a 58-year-old white female long term patient at [facility] who presented to the [facility] earlier Thursday for shortness of breath found to have no severe acute changes and her chronic obesity hypoventilation syndrome status so she was sent back to the long term and then worsened a few hours later requiring transfer to [facility] ICU and requiring ventilator support. Patient was placed on Zosyn empirically for pneumonia facility acquired since she resides in a long term. Patient has severe comorbidities requiring long term placement at such a young age due to the obesity hypoventilation syndrome. She does use CPAP in the long term. Currently Dr. Balbuena is managing the ventilator which appears to be in need of significant modification. Subjective/Events-last exam Pt actually improving a bit so may be a [place] candidate rather than a terminal extubation today. Overall much improvement but prognosis is extremely poor, she has been on a ventilator for two weeks for severe obesity hypoventilation syndrome. Objective Exam Vital Signs Vital Signs Date Time Temp Pulse Resp B/P (MAP) Pulse Ox O2 Delivery O2 Flow Rate FiO2 03/10/19 20:00 90 Mechanical Ventilator 100 03/10/19 20:00 36.1 03/10/19 19:36 107/52 03/10/19 19:00 60 03/10/19 18:32 20 03/10/19 18:00 100.00 Capillary Refill : Less Than 3 Seconds General Appearance: No Apparent Distress, Chronically ill, Obese, Other (intubated) Results/Procedures Lab Laboratory Tests 03/10/19 03:15 Patient resulted labs reviewed. Assessment/Plan Assessment and Plan Assess & Plan/Chief Complaint Assessment: VDRF ARDS PNA OHS WILBER on CPAP Severe debility requiring NH placement at young age Plan: Vent management Comfort care if improvement does not continue Critical Care Critically Ill Patient Diagnosis/Problems Diagnosis/Problems (1) Ventilator dependence (2) Acute respiratory failure Status: Acute (3) Pneumonia Status: Acute Qualifiers: Pneumonia type: due to unspecified organism Laterality: bilateral Lung location: lower lobe of lung Qualified Codes: J18.1 - Lobar pneumonia, unspecified organism (4) COPD with acute exacerbation Status: Acute (5) Edema Status: Acute (6) Fatigue Status: Acute (7) Peripheral edema Status: Acute Clinical Quality Measures DVT/VTE Risk/Contraindication: Risk Factor Score Per Nursin RFS Level Per Nursing on Admit: 4+=Very High DEEPIKA ROBLES DO Mar 10, 2019 10:08
--- NOTE | 2019-03-10 10:37 | NUR ---
PALLIATIVE CARE RN in to see patient. Anticipating palliative extubation today...however nursing says that patient is doing better and they are going to manage her as they are currently through the weekend ..if on Thursday she continues to be "better" she will transfer to [place] and if not they will likely transition to Comfort Care Measure only.
--- NOTE | 2019-03-10 11:15 | NUR ---
Pastoral care visit.
[2019-03-10] MEDS: fentaNYL 1,250 MCG/NS 250 ML DRIP IV SCH ×2 (12:27)
--- NOTE | 2019-03-10 12:30 | NUR ---
OGT RESIDUAL 90 ML. CONTINUE FEEDING. WILL CONTINUE TO MONITOR.
[2019-03-10] MEDS: DEXMEDETOMIDINE INJECTION 1,000 MCG in NS (IVPB) 240 ML IV SCH (12:46)
--- NOTE | 2019-03-10 14:34 | Diagnostic Imaging Report ---
INDICATION: Endotracheal tube and OG tube placement. TIME OF EXAM: 2:21 p.m. COMPARISON: Correlation is made with prior chest earlier same day. FINDINGS: Right IJ line has tip overlying the SVC. ET tube has tip in good position above the noe. NG tube appears to pass below the diaphragm. The heart is enlarged but stable. Congestive changes with central venous congestion and bibasilar infiltrates persist. Upper lung dunbar are fairly clear. There is no pneumothorax. IMPRESSION: Continued bibasilar pulmonary infiltrates, similar to examination earlier the same day. Dictated by: Dictated on workstation # [id number]
[2019-03-10] MEDS ORDERED: FUROSEMIDE 40 MG/4 ML INJ (LASIX) IVP NR (15:30)
[2019-03-10] MEDS ORDERED: TROUGH ORDER-PHARMACY XX NR (16:00)
--- NOTE | 2019-03-10 18:20 | NUR ---
OGT RESIDUAL 70 ML. CONTINUE FEEDING. WILL CONTINUE TO MONITOR.
--- NOTE | 2019-03-10 19:39 | NUR ---
[address] MCCORMACK PT ETT WAS ABOUT AN INCH OUT. AFTER TURNING PT, PT WAS UNABLE TO GET OXYGEN SATURATIONS ABOVE 86% ON 100% FI02. CHEST X-RAY ORDERED. 1440 DR MCCORMACK AT BESIDE. VENTILATOR CHANGES MADE. NURSE NOTIFIED DR MCCORMACK PT NOT ABLE TO TOLERATE TURNS AT THIS TIME. ORDERS GIVEN FOR LAXIS AND POTASSIUM. WILL CONTINUE TO MONITOR.
[2019-03-11] VITALS (30 sets, daily range): BP systolic 86–125; BP diastolic 49–68
[2019-03-11] MEDS: PIPERACILLIN/TAZOBACTAM (BULK) 4.5 GM in NS (IVPB) 100 ML IV SCH ×3 (00:08→17:07)
[2019-03-11] MEDS: fentaNYL 1,250 MCG/NS 250 ML DRIP IV SCH ×2 (01:17)
--- NOTE | 2019-03-11 01:20 | NUR ---
FENTANYL DRIP BAG CHANGED AT THIS TIME. 70ML OF FENTANYL WASTED FROM OLD BAG. WITNESSED BY CRISTOBAL SALAZAR
[2019-03-11] MEDS: RT-ALBUTEROL/IPRATROPIUM 3 ML (DUONEB) VIAL INH SCH ×6 (01:34→22:11)
[2019-03-11] MEDS: aCETylcysteine 20% (MUCOMYST) 30ML SOLN VIAL INH SCH ×4 (01:34→18:15)
[2019-03-11 03:03] LABS: ABG BASE EXCESS 0.9 MMOL/L (-2.5-2.5); ABG OXYGEN SATURATION 96 % (94-100); ABG PCO2 42 MMHG (35-45); ABG PO2 95 MMHG (79-93); ABG TCO2 26.8 MMOL/L (21.0-31.0); BASOPHILS % (AUTO) 0 % (0-10); EOSINOPHILS % (AUTO) 0 % (0-10); HEMATOCRIT 33 % (35-52); HEMOGLOBIN 10.3 G/DL (11.5-16.0); LYMPHOCYTES # (AUTO) 0.8 X 10^3 (1.0-4.0); LYMPHOCYTES % (AUTO) 12 % (12-44); MEAN CORPUSCULAR HEMOGLOBIN 26 PG (25-34); MEAN CORPUSCULAR HGB CONC 31 G/DL (32-36); MEAN CORPUSCULAR VOLUME 85 FL (80-99); MEAN PLATELET VOLUME 10.6 FL (7.4-10.4); MONOCYTES # (AUTO) 0.4 X 10^3 (0.0-1.0); MONOCYTES % (AUTO) 6 % (0-12); NEUTROPHILS # (AUTO) 5.5 X 10^3 (1.8-7.8); NEUTROPHILS % (AUTO) 82 % (42-75); PLATELET COUNT 341 10^3/uL (130-400); RED CELL DISTRIBUTION WIDTH 16.6 % (10.0-14.5); WHITE BLOOD COUNT 6.7 10^3/uL (4.3-11.0)
[2019-03-11 03:04] LABS: ALLENS TEST ARTLINE; INSPIRED O2 80%
[2019-03-11 03:05] LABS: PATIENT TEMP 36.3; VENTILATOR YES
[2019-03-11 03:21] LABS: BUN/CREATININE RATIO 38; CALCIUM 8.6 MG/DL (8.5-10.1); CARBON DIOXIDE 22 MMOL/L (21-32); CHLORIDE 103 MMOL/L (98-107); CREATININE SERUM 0.72 MG/DL (0.60-1.30); GFR ESTIMATED > 60; GLUCOSE 368 MG/DL (70-105); PHOSPHORUS 2.7 MG/DL (2.3-4.7); POTASSIUM 4.2 MMOL/L (3.6-5.0); SODIUM 135 MMOL/L (135-145)
[2019-03-11] MEDS: inSUlin ASPART (NovoLOG) 1 UNIT/0.01 ML (CHARGE PER UNIT) IV SCH ×6 (03:41→23:36)
[2019-03-11] MEDS: inSUlin ASPART (NovoLOG) 1 UNIT/0.01 ML (CHARGE PER UNIT) SC SCH ×6 (03:41→23:36)
[2019-03-11] MEDS: inSUlin REGULAR TPN/DRIP ONLY 250 UNITS in NORMAL SALINE 250 ML IV SCH (03:43)
[2019-03-11] MEDS: NS W/KCL 20 MEQ/L 1,000 ML IV SCH ×2 (03:44→20:43)
[2019-03-11] MEDS: KCL 20 MEQ TAB (K-DUR) PO SCH (03:47)
[2019-03-11] MEDS: MAGNESIUM 1 GM/100 ML IVPB 100 ML IV SCH (03:47)
[2019-03-11] MEDS: POTASSIUM CL 10MEQ/50ML IVPB 50 ML IV SCH (03:47)
--- NOTE | 2019-03-11 04:45 | Pulmonary Progress Note ---
Subjective Time Seen by a Provider: 04:45 Subjective/Events-last exam Pt is sedated on vent. Sepsis Event Evaluation Height, Weight, BMI Height: 5'4.00" Weight: 276lbs. oz. 125.289352oy; 39.00 BMI Method:Stated Exam Exam Vital Signs Date Time Temp Pulse Resp B/P (MAP) Pulse Ox O2 Delivery O2 Flow Rate FiO2 03/11/19 03:52 36.0 03/11/19 03:04 96 Mechanical Ventilator 80 03/11/19 03:00 54 19 103/51 (68) 97 Mechanical Ventilator 80.00 03/11/19 02:48 105/51 03/11/19 02:00 52 20 103/49 (67) 97 Mechanical Ventilator 80.00 03/11/19 01:38 Mechanical Ventilator 80.00 03/11/19 01:34 52 20 99 100 03/11/19 01:00 52 03/11/19 01:00 51 20 111/53 (72) 99 Mechanical Ventilator 90.00 03/11/19 00:00 52 20 115/57 (76) 97 Mechanical Ventilator 90.00 03/10/19 23:41 96 Mechanical Ventilator 90 03/10/19 23:41 36.0 03/10/19 23:33 36.53934 60 20 104/49 94 Mechanical Ventilator 55.00 03/10/19 23:00 60 20 104/49 (67) 94 Mechanical Ventilator 90.00 03/10/19 22:06 Mechanical Ventilator 90.00 03/10/19 22:02 55 20 98 100 03/10/19 22:00 54 19 110/54 (72) 98 Mechanical Ventilator 100.00 03/10/19 21:00 55 28 118/56 (76) 97 Mechanical Ventilator 100.00 03/10/19 20:00 90 Mechanical Ventilator 100 03/10/19 20:00 36.1 03/10/19 20:00 58 16 102/50 (67) 96 Mechanical Ventilator 100.00 03/10/19 19:36 107/52 03/10/19 19:00 60 11 111/54 (73) 94 Mechanical Ventilator 100.00 03/10/19 19:00 60 03/10/19 18:32 57 20 93 100 03/10/19 18:00 60 11 110/55 (73) 91 Mechanical Ventilator 100.00 03/10/19 17:00 61 20 114/58 (76) 92 Mechanical Ventilator 100.00 03/10/19 16:27 60 114/58 03/10/19 16:13 37.6 03/10/19 16:00 90 Mechanical Ventilator 100 03/10/19 16:00 65 19 112/57 (75) 90 Mechanical Ventilator 100.00 03/10/19 15:00 68 19 124/59 (80) 90 Mechanical Ventilator 100.00 03/10/19 14:37 66 20 88 100 03/10/19 14:00 74 20 128/61 (83) Mechanical Ventilator 85.00 03/10/19 13:50 Mechanical Ventilator 85.00 03/10/19 13:00 83 20 160/70 (100) 94 Mechanical Ventilator 100.00 03/10/19 12:42 158/69 03/10/19 12:32 89 03/10/19 12:00 92 20 134/59 (84) 95 Mechanical Ventilator 55.00 03/10/19 12:00 90 Mechanical Ventilator 100 03/10/19 12:00 36.6 03/10/19 11:00 61 12 104/52 (69) 93 Mechanical Ventilator 55.00 03/10/19 10:41 56 20 90 55 03/10/19 10:00 63 20 142/67 (92) 91 Mechanical Ventilator 55.00 03/10/19 09:49 126/60 03/10/19 09:00 57 19 131/61 (84) 90 Mechanical Ventilator 55.00 03/10/19 08:00 56 20 130/61 (84) 92 Mechanical Ventilator 55.00 03/10/19 08:00 91 Mechanical Ventilator 55 03/10/19 07:36 36.9 03/10/19 07:00 52 20 127/62 (83) 93 Mechanical Ventilator 55.00 03/10/19 07:00 54 03/10/19 06:56 52 20 93 55 03/10/19 06:20 Mechanical Ventilator 55.00 03/10/19 06:00 54 23 136/65 (88) 96 Mechanical Ventilator 55.00 03/10/19 05:00 53 19 128/62 (84) 96 Mechanical Ventilator 55.00 I & O 03/11/19 07:00 Intake Total 2149 ml Output Total 2575 ml Balance -426 ml Height & Weight Height: 5'4.00" Weight: 276lbs. oz. 125.330540cj; 39.00 BMI Method:Stated General Appearance: No Apparent Distress, Chronically ill, Obese, Other (intubated) HEENT: PERRL/EOMI, Pharynx Normal Neck: Supple Respiratory: Decreased Breath Sounds, Respiratory Distress Cardiovascular: Regular Rate, Rhythm, No Edema Capillary Refill: Less Than 3 Seconds Extremity: Normal Inspection Neurologic/Psychiatric: Other (sedated on vent) Skin: Normal Color, Warm/Dry Results Lab Laboratory Tests 03/10/19 03:15 03/11/19 02:57 Assessment/Plan Assessment/Plan Acute on chronic respiratory failure --With ARDS Intubated on 02/25 - Pa02/Fi02 =103 -Zosyn, Vanco -- Continue vanco - Vorconizol secondary to aspergillus PNA --Continue ventilator therapy PEEP to 18 -Continue TF as tolerated -Lasix -D/C solumedrol COPDAE r/o PNA -Zosyn -[place] cultures pending IDDM -levemir to 20 units BID -Accu checks Q 4 -SSI Metabolic lactic acidosis secondary to hypoxia -Monitor Anemia -Monitor I recommend continue current care until Thursday. If pt is doing better transfer to [place]. If pt is doing worse strongly consider comfort care only. SUZY MCCORMACK DO Mar 11, 2019 04:45
[2019-03-11] MEDS ORDERED: TROUGH ORDER-PHARMACY XX NR (06:00)
[2019-03-11] MEDS: DEXMEDETOMIDINE INJECTION 1,000 MCG in NS (IVPB) 240 ML IV SCH (06:22)
[2019-03-11] MEDS: RT-BUDESONIDE NEBS 0.5 MG/2ML (PULMICORT) AMP INH SCH ×2 (06:55→18:15)
--- NOTE | 2019-03-11 07:34 | Diagnostic Imaging Report ---
INDICATION: Pneumonia, respiratory failure. COMPARISON: 03/10/2019. TECHNIQUE: Single radiograph of the chest dated 03/11/2019. FINDINGS: Endotracheal tube, enteric catheter, and right IJ central venous catheter are stable. The cardiac silhouette is unchanged. Small bibasilar pleural-parenchymal opacities are again identified, improved since the prior examination. No pneumothorax. Osseous structures appear stable. IMPRESSION: Improved small bibasilar pleural-parenchymal opacities, felt to relate to combination of pleural fluid with adjacent atelectasis and/or infiltrate. Unchanged lines and tubes. Dictated by: Dictated on workstation # [id number]
[2019-03-11] MEDS: PANTOPRAZOLE 40 MG (PROTONIX) VIAL IV SCH ×2 (10:36→19:52)
[2019-03-11] MEDS: [UNRECOGNIZED DRUG - REMARK] IV SCH ×2 (10:40→19:53)
--- NOTE | 2019-03-11 10:47 | Progress Note - Hospitalist ---
Subjective HPI/CC On Admission Date Seen by Provider: Mar 11, 2019 Time Seen by Provider: 09:30 Chief complaint: Respiratory failure History of present illness: This is a 58-year-old white female custodial patient at [facility] who presented to the [place] ER earlier Thursday for shortness of breath found to have no severe acute changes and her chronic obesity hypoventilation syndrome status so she was sent back to the custodial and then worsened a few hours later requiring transfer to [facility] ICU and requiring ventilator support. Patient was placed on Zosyn empirically for pneumonia facility acquired since she resides in a custodial. Patient has severe comorbidities requiring custodial placement at such a young age due to the obesity hypoventilation syndrome. She does use CPAP in the custodial. Currently Dr. Balbuena is managing the ventilator which appears to be in need of significant modification. Subjective/Events-last exam Pt declining [place] now at 20 [place] may be an option Poor prognosis Objective Exam Vital Signs Vital Signs Date Time Temp Pulse Resp B/P (MAP) Pulse Ox O2 Delivery O2 Flow Rate FiO2 03/11/19 20:37 92/56 03/11/19 20:00 95 Mechanical Ventilator 65 03/11/19 20:00 35.8 03/11/19 18:16 64 20 03/11/19 18:00 70.00 Capillary Refill : Less Than 3 Seconds General Appearance: No Apparent Distress, WD/WN, Chronically ill, Obese, Other (sedated) Results/Procedures Lab Laboratory Tests 03/11/19 02:57 Patient resulted labs reviewed. Assessment/Plan Assessment and Plan Assess & Plan/Chief Complaint Assessment: VDRF ARDS PNA OHS WILBER on CPAP Severe debility requiring NH placement at young age Plan: Vent management Comfort care if improvement does not continue Critical Care Critically Ill Patient Diagnosis/Problems Diagnosis/Problems (1) Ventilator dependence (2) Acute respiratory failure Status: Acute (3) Pneumonia Status: Acute Qualifiers: Pneumonia type: due to unspecified organism Laterality: bilateral Lung location: lower lobe of lung Qualified Codes: J18.1 - Lobar pneumonia, unspecified organism (4) COPD with acute exacerbation Status: Acute (5) Edema Status: Acute (6) Fatigue Status: Acute (7) Peripheral edema Status: Acute Clinical Quality Measures DVT/VTE Risk/Contraindication: Risk Factor Score Per Nursin RFS Level Per Nursing on Admit: 4+=Very High DEEPIKA ROBLES DO Mar 11, 2019 10:47
[2019-03-11] MEDS: ENOXAPARIN 60 MG/0.6 ML (LOVENOX) SYR SC SCH ×2 (11:43→19:52)
[2019-03-11] MEDS: MICONAZOLE 2% POWDER (DESENEX AF) 90 GM TOP SCH ×2 (11:43→19:53)
[2019-03-11] MEDS: VANCOMYCIN 2000 MG/NS 500 ML IVPB IV SCH ×2 (17:38)
[2019-03-12] VITALS (30 sets, daily range): BP systolic 83–115; BP diastolic 51–78
[2019-03-12] MEDS: PIPERACILLIN/TAZOBACTAM (BULK) 4.5 GM in NS (IVPB) 100 ML IV SCH ×3 (00:34→16:18)
[2019-03-12] MEDS: aCETylcysteine 20% (MUCOMYST) 30ML SOLN VIAL INH SCH ×4 (02:30→21:25)
[2019-03-12 02:57] LABS: BASOPHILS % (AUTO) 0 % (0-10); EOSINOPHILS # (AUTO) 0.1 10^3/uL (0.0-0.3); EOSINOPHILS % (AUTO) 1 % (0-10); HEMATOCRIT 33 % (35-52); HEMOGLOBIN 10.1 G/DL (11.5-16.0); LYMPHOCYTES # (AUTO) 1.4 X 10^3 (1.0-4.0); LYMPHOCYTES % (AUTO) 22 % (12-44); MEAN CORPUSCULAR HEMOGLOBIN 26 PG (25-34); MEAN CORPUSCULAR HGB CONC 31 G/DL (32-36); MEAN CORPUSCULAR VOLUME 85 FL (80-99); MEAN PLATELET VOLUME 10.4 FL (7.4-10.4); MONOCYTES # (AUTO) 0.4 X 10^3 (0.0-1.0); MONOCYTES % (AUTO) 6 % (0-12); NEUTROPHILS # (AUTO) 4.6 X 10^3 (1.8-7.8); NEUTROPHILS % (AUTO) 70 % (42-75); PLATELET COUNT 341 10^3/uL (130-400); RED CELL DISTRIBUTION WIDTH 16.9 % (10.0-14.5); WHITE BLOOD COUNT 6.5 10^3/uL (4.3-11.0)
[2019-03-12 02:58] LABS: ABG BASE EXCESS -0.4 MMOL/L (-2.5-2.5); ABG OXYGEN SATURATION 96 % (94-100); ABG PCO2 39 MMHG (35-45); ABG PO2 75 MMHG (79-93); ABG TCO2 25.4 MMOL/L (21.0-31.0); ALLENS TEST POSITIVE; INSPIRED O2 65%; PATIENT TEMP 35.8; VENTILATOR YES
[2019-03-12 03:16] LABS: BUN/CREATININE RATIO 38; CALCIUM 8.5 MG/DL (8.5-10.1); CARBON DIOXIDE 20 MMOL/L (21-32); CHLORIDE 106 MMOL/L (98-107); CREATININE SERUM 0.69 MG/DL (0.60-1.30); GFR ESTIMATED > 60; GLUCOSE 202 MG/DL (70-105); MAGNESIUM 1.8 MG/DL (1.6-2.4); PHOSPHORUS 2.7 MG/DL (2.3-4.7); POTASSIUM 3.8 MMOL/L (3.6-5.0); SODIUM 137 MMOL/L (135-145); TRIGLYCERIDES 322 MG/DL (<150)
[2019-03-12] MEDS: fentaNYL 1,250 MCG/NS 250 ML DRIP IV SCH ×4 (03:16→11:49)
[2019-03-12] MEDS: inSUlin ASPART (NovoLOG) 1 UNIT/0.01 ML (CHARGE PER UNIT) IV SCH ×7 (03:19→23:32)
[2019-03-12] MEDS: inSUlin ASPART (NovoLOG) 1 UNIT/0.01 ML (CHARGE PER UNIT) SC SCH ×6 (03:19→23:26)
[2019-03-12] MEDS: MAGNESIUM 1 GM/100 ML IVPB 100 ML IV SCH (03:22)
[2019-03-12] MEDS: POTASSIUM CL 10MEQ/50ML IVPB 50 ML IV SCH (03:22)
[2019-03-12] MEDS: KCL 20 MEQ TAB (K-DUR) PO SCH (03:22)
--- NOTE | 2019-03-12 05:18 | Pulmonary Progress Note ---
Sepsis Event Evaluation Height, Weight, BMI Height: 5'4.00" Weight: 276lbs. oz. 125.155665eb; 39.00 BMI Method:Stated Exam Exam Vital Signs Date Time Temp Pulse Resp B/P (MAP) Pulse Ox O2 Delivery O2 Flow Rate FiO2 03/12/19 04:00 54 19 98/60 (73) 95 Mechanical Ventilator 65.00 03/12/19 03:24 95 Mechanical Ventilator 65 03/12/19 03:13 35.8 03/12/19 03:00 58 19 98/63 (75) 96 Mechanical Ventilator 65.00 03/12/19 02:32 62 20 95 65 03/12/19 02:23 94/62 03/12/19 02:00 60 19 96/59 (71) 96 Mechanical Ventilator 65.00 03/12/19 01:00 57 03/12/19 01:00 57 20 90/51 (64) 95 Mechanical Ventilator 65.00 03/12/19 00:00 66 19 83/52 (62) 96 Mechanical Ventilator 65.00 03/11/19 23:44 95 Mechanical Ventilator 65 03/11/19 23:43 35.8 03/11/19 23:00 57 19 95/49 (64) 94 Mechanical Ventilator 65.00 03/11/19 22:51 110/54 03/11/19 22:11 59 20 94 65 03/11/19 22:00 68 20 99/58 (72) 94 Mechanical Ventilator 65.00 03/11/19 21:00 60 20 103/59 (74) 93 Mechanical Ventilator 65.00 03/11/19 20:37 92/56 03/11/19 20:00 64 19 103/58 (73) 96 Mechanical Ventilator 65.00 03/11/19 20:00 95 Mechanical Ventilator 65 03/11/19 20:00 35.8 03/11/19 19:00 60 19 100/57 (71) 96 Mechanical Ventilator 65.00 03/11/19 19:00 72 03/11/19 18:16 64 20 99 65 03/11/19 18:00 68 20 94/54 (67) 98 Mechanical Ventilator 70.00 03/11/19 17:07 66 20 118/65 03/11/19 17:00 62 20 122/68 (86) 98 Mechanical Ventilator 70.00 03/11/19 16:00 95 Mechanical Ventilator 70 03/11/19 16:00 61 22 86/52 (63) 97 Mechanical Ventilator 70.00 03/11/19 15:47 36.3 03/11/19 15:00 67 20 98/54 (69) 96 Mechanical Ventilator 70.00 03/11/19 14:19 60 20 96 65 03/11/19 14:00 68 8 111/55 (73) 96 Mechanical Ventilator 70.00 03/11/19 13:31 Mechanical Ventilator 70.00 03/11/19 13:00 65 20 125/58 (80) 97 Mechanical Ventilator 80.00 03/11/19 12:33 61 03/11/19 12:01 91 Mechanical Ventilator 75 03/11/19 12:00 35.9 03/11/19 12:00 61 19 99/53 (68) 96 Mechanical Ventilator 80.00 03/11/19 11:00 57 21 111/53 (72) 95 Mechanical Ventilator 80.00 03/11/19 10:37 74 119/53 03/11/19 10:00 65 117/59 (78) 94 Mechanical Ventilator 80.00 03/11/19 09:38 64 20 93 75 03/11/19 09:00 64 20 115/58 (77) 92 Mechanical Ventilator 80.00 03/11/19 08:00 54 20 105/53 (70) 100 Mechanical Ventilator 80.00 03/11/19 08:00 35.8 03/11/19 07:45 94 Mechanical Ventilator 80 03/11/19 07:00 51 19 106/52 (70) 94 Mechanical Ventilator 80.00 03/11/19 07:00 51 03/11/19 06:55 53 20 91 80 03/11/19 06:21 102/49 03/11/19 06:00 51 19 103/51 (68) 94 Mechanical Ventilator 80.00 I & O 03/12/19 07:00 Intake Total 3185 ml Output Total 1350 ml Balance 1835 ml Height & Weight Height: 5'4.00" Weight: 276lbs. oz. 125.247403zf; 39.00 BMI Method:Stated General Appearance: No Apparent Distress, WD/WN, Chronically ill, Obese, Other (sedated) HEENT: PERRL/EOMI, Pharynx Normal Neck: Supple Respiratory: Decreased Breath Sounds, Respiratory Distress Cardiovascular: Regular Rate, Rhythm, No Edema Capillary Refill: Less Than 3 Seconds Extremity: Normal Inspection Neurologic/Psychiatric: Other (sedated on vent) Skin: Normal Color, Warm/Dry Results Lab Laboratory Tests 03/11/19 02:57 03/12/19 02:50 Assessment/Plan Assessment/Plan Acute on chronic respiratory failure --With ARDS Intubated on 02/25 - Pa02/Fi02 =103 -Zosyn, Vanco -- Continue vanco - Vorconizol secondary to aspergillus PNA --Continue ventilator therapy PEEP to 18 -Continue TF as tolerated -Lasix -D/C solumedrol COPDAE r/o PNA -Zosyn -[place] cultures pending IDDM -levemir to 20 units BID -Accu checks Q 4 -SSI Metabolic lactic acidosis secondary to hypoxia -Monitor Anemia -Monitor I recommend continue current care until Thursday. If pt is doing better transfer to [place]. If pt is doing worse strongly consider comfort care only. SUZY MCCORMACK DO Mar 12, 2019 05:17
[2019-03-12] MEDS: DEXMEDETOMIDINE INJECTION 1,000 MCG in NS (IVPB) 240 ML IV SCH ×2 (05:31→18:14)
[2019-03-12] MEDS: RT-BUDESONIDE NEBS 0.5 MG/2ML (PULMICORT) AMP INH SCH ×2 (07:03→18:07)
[2019-03-12] MEDS: RT-ALBUTEROL/IPRATROPIUM 3 ML (DUONEB) VIAL INH SCH ×5 (07:04→21:26)
--- NOTE | 2019-03-12 07:12 | Diagnostic Imaging Report ---
Indication: Dyspnea. Comparison: 03/11/2019. Discussion: Single portable upright view of the chest was obtained. Cardiomegaly is stable. Stable support lines. Bilateral pleural effusions are stable, left greater than right. Probable atelectasis within the right lung base is increased. Nonspecific infiltrate within the left lung is also new, atelectasis versus pneumonia. No pneumothorax or osseous abnormality. Impression: 1. Cardiomegaly with bilateral pleural effusions, stable. 2. New infiltrates bilaterally as discussed. Dictated by: Dictated on workstation # [id number]
[2019-03-12] MEDS: MICONAZOLE 2% POWDER (DESENEX AF) 90 GM TOP SCH ×2 (08:03→20:47)
[2019-03-12] MEDS: [UNRECOGNIZED DRUG - REMARK] IV SCH ×2 (08:03→20:49)
[2019-03-12] MEDS: PANTOPRAZOLE 40 MG (PROTONIX) VIAL IV SCH ×2 (08:04→20:39)
[2019-03-12] MEDS: ENOXAPARIN 60 MG/0.6 ML (LOVENOX) SYR SC SCH ×2 (08:04→20:37)
--- NOTE | 2019-03-12 12:32 | Progress Note - Hospitalist ---
Subjective HPI/CC On Admission Date Seen by Provider: Mar 12, 2019 Time Seen by Provider: 11:05 Chief complaint: Respiratory failure History of present illness: This is a 58-year-old white female mcc patient at [facility] who presented to the [place] ER earlier Thursday for shortness of breath found to have no severe acute changes and her chronic obesity hypoventilation syndrome status so she was sent back to the mcc and then worsened a few hours later requiring transfer to [facility] ICU and requiring ventilator support. Patient was placed on Zosyn empirically for pneumonia facility acquired since she resides in a mcc. Patient has severe comorbidities requiring mcc placement at such a young age due to the obesity hypoventilation syndrome. She does use CPAP in the mcc. Currently Dr. Balbuena is managing the ventilator which appears to be in need of significant modification. Subjective/Events-last exam Patient still intubated Requiring high PEEP ARDS Objective Exam Vital Signs Vital Signs Date Time Temp Pulse Resp B/P (MAP) Pulse Ox O2 Delivery O2 Flow Rate FiO2 03/12/19 15:49 94 Mechanical Ventilator 50 03/12/19 15:00 56 19 101/57 (72) 50.00 03/12/19 12:00 35.5 Capillary Refill : Less Than 3 Seconds General Appearance: No Apparent Distress, WD/WN, Chronically ill, Obese Results/Procedures Lab Laboratory Tests 03/12/19 02:50 Patient resulted labs reviewed. Assessment/Plan Assessment and Plan Assess & Plan/Chief Complaint Assessment: VDRF ARDS PNA OHS WILBER on CPAP Severe debility requiring NH placement at young age Plan: Vent management Comfort care if improvement does not continue Critical Care Critically Ill Patient Diagnosis/Problems Diagnosis/Problems (1) Ventilator dependence (2) Acute respiratory failure Status: Acute (3) Pneumonia Status: Acute Qualifiers: Pneumonia type: due to unspecified organism Laterality: bilateral Lung location: lower lobe of lung Qualified Codes: J18.1 - Lobar pneumonia, unspe cified organism (4) COPD with acute exacerbation Status: Acute (5) Edema Status: Acute (6) Fatigue Status: Acute (7) Peripheral edema Status: Acute Clinical Quality Measures DVT/VTE Risk/Contraindication: Risk Factor Score Per Nursin RFS Level Per Nursing on Admit: 4+=Very High DEEPIKA ROBLES DO Mar 12, 2019 12:32
[2019-03-12] MEDS: VANCOMYCIN 2000 MG/NS 500 ML IVPB IV SCH ×2 (16:18)
[2019-03-13] VITALS (30 sets, daily range): BP systolic 92–135; BP diastolic 55–79
[2019-03-13] MEDS: PIPERACILLIN/TAZOBACTAM (BULK) 4.5 GM in NS (IVPB) 100 ML IV SCH ×2 (01:18→08:56)
[2019-03-13] MEDS: aCETylcysteine 20% (MUCOMYST) 30ML SOLN VIAL INH SCH ×4 (02:11→18:27)
[2019-03-13] MEDS: RT-ALBUTEROL/IPRATROPIUM 3 ML (DUONEB) VIAL INH SCH ×6 (02:11→22:48)
[2019-03-13 04:01] LABS: BASOPHILS % (AUTO) 1 % (0-10); EOSINOPHILS # (AUTO) 0.2 10^3/uL (0.0-0.3); EOSINOPHILS % (AUTO) 3 % (0-10); HEMATOCRIT 34 % (35-52); HEMOGLOBIN 10.4 G/DL (11.5-16.0); LYMPHOCYTES # (AUTO) 1.4 X 10^3 (1.0-4.0); LYMPHOCYTES % (AUTO) 22 % (12-44); MEAN CORPUSCULAR HEMOGLOBIN 26 PG (25-34); MEAN CORPUSCULAR HGB CONC 31 G/DL (32-36); MEAN CORPUSCULAR VOLUME 85 FL (80-99); MEAN PLATELET VOLUME 10.6 FL (7.4-10.4); MONOCYTES # (AUTO) 0.3 X 10^3 (0.0-1.0); MONOCYTES % (AUTO) 5 % (0-12); NEUTROPHILS # (AUTO) 4.2 X 10^3 (1.8-7.8); NEUTROPHILS % (AUTO) 70 % (42-75); PLATELET COUNT 298 10^3/uL (130-400); WHITE BLOOD COUNT 6.1 10^3/uL (4.3-11.0)
[2019-03-13 04:08] LABS: ABG BASE EXCESS -2.1 MMOL/L (-2.5-2.5); ABG OXYGEN SATURATION 91 % (94-100); ABG PCO2 38 MMHG (35-45); ABG PH 7.38 (7.37-7.43); ABG PO2 61 MMHG (79-93); ABG TCO2 23.6 MMOL/L (21.0-31.0)
[2019-03-13 04:10] LABS: ALLENS TEST POSITIVE; INSPIRED O2 50%; VENTILATOR YES
[2019-03-13 04:20] LABS: BUN/CREATININE RATIO 33; CALCIUM 8.5 MG/DL (8.5-10.1); CARBON DIOXIDE 19 MMOL/L (21-32); CHLORIDE 106 MMOL/L (98-107); CREATININE SERUM 0.67 MG/DL (0.60-1.30); GFR ESTIMATED > 60; GLUCOSE 255 MG/DL (70-105); MAGNESIUM 1.9 MG/DL (1.6-2.4); SODIUM 135 MMOL/L (135-145); TRIGLYCERIDES 535 MG/DL (<150)
[2019-03-13] MEDS: inSUlin ASPART (NovoLOG) 1 UNIT/0.01 ML (CHARGE PER UNIT) SC SCH ×6 (04:31→23:39)
[2019-03-13] MEDS: inSUlin ASPART (NovoLOG) 1 UNIT/0.01 ML (CHARGE PER UNIT) IV SCH ×6 (04:32→23:39)
[2019-03-13] MEDS: POTASSIUM CL 10MEQ/50ML IVPB 50 ML IV SCH (05:18)
[2019-03-13] MEDS: KCL 20 MEQ TAB (K-DUR) PO SCH (05:19)
[2019-03-13] MEDS: MAGNESIUM 1 GM/100 ML IVPB 100 ML IV SCH (05:19)
[2019-03-13] MEDS: NS W/KCL 20 MEQ/L 1,000 ML IV SCH ×2 (05:26→08:59)
--- NOTE | 2019-03-13 05:57 | Pulmonary Progress Note ---
Subjective Time Seen by a Provider: 06:08 Subjective/Events-last exam Sedated on vent. Sepsis Event Evaluation Height, Weight, BMI Height: 5'4.00" Weight: 276lbs. oz. 125.477417pt; 39.00 BMI Method:Stated Exam Exam Vital Signs Date Time Temp Pulse Resp B/P (MAP) Pulse Ox O2 Delivery O2 Flow Rate FiO2 03/13/19 04:00 94 Mechanical Ventilator 50 03/13/19 04:00 36.0 03/13/19 03:07 102/60 03/13/19 03:00 64 24 103/59 (74) 92 Mechanical Ventilator 50.00 03/13/19 02:13 54 20 94 50 03/13/19 02:00 54 20 96/55 (69) 94 Mechanical Ventilator 50.00 03/13/19 01:00 64 22 108/58 (75) 94 Mechanical Ventilator 50.00 03/13/19 01:00 59 03/13/19 00:00 94 Mechanical Ventilator 50 03/13/19 00:00 54 20 103/56 (72) 19 Mechanical Ventilator 50.00 03/13/19 00:00 35.9 03/12/19 23:00 58 20 103/57 (72) 93 Mechanical Ventilator 50.00 03/12/19 22:09 101/60 03/12/19 22:00 55 19 105/58 (74) 93 Mechanical Ventilator 50.00 03/12/19 21:26 54 20 96 50 03/12/19 21:00 51 20 100/56 (71) 95 Mechanical Ventilator 50.00 03/12/19 20:00 94 Mechanical Ventilator 50 03/12/19 20:00 56 20 101/56 (71) 95 Mechanical Ventilator 50.00 03/12/19 20:00 35.9 03/12/19 19:00 58 03/12/19 19:00 54 20 94/53 (67) 93 Mechanical Ventilator 50.00 03/12/19 18:07 60 20 97 50 03/12/19 18:00 55 19 97/57 (70) 96 Mechanical Ventilator 50.00 03/12/19 17:47 95/55 03/12/19 17:00 53 20 94/55 (68) 96 Mechanical Ventilator 50.00 03/12/19 16:00 63 20 94/54 (67) 95 Mechanical Ventilator 50.00 03/12/19 16:00 35.9 03/12/19 15:49 94 Mechanical Ventilator 50 03/12/19 15:00 56 19 101/57 (72) 95 Mechanical Ventilator 50.00 03/12/19 14:37 Mechanical Ventilator 50.00 03/12/19 14:30 56 20 95 50 03/12/19 14:00 61 20 99/56 (70) 95 Mechanical Ventilator 55.00 03/12/19 13:30 55 102/56 03/12/19 13:00 58 03/12/19 13:00 56 19 100/57 (71) 96 Mechanical Ventilator 55.00 03/12/19 12:00 35.5 03/12/19 12:00 92 Mechanical Ventilator 55 03/12/19 12:00 64 19 115/67 (83) 95 Mechanical Ventilator 55.00 03/12/19 11:00 77 22 106/63 (77) 95 Mechanical Ventilator 55.00 03/12/19 10:27 62 23 95 55 03/12/19 10:25 Mechanical Ventilator 55.00 03/12/19 10:00 59 21 115/71 (86) 95 Mechanical Ventilator 60.00 03/12/19 09:00 59 20 86/54 (65) 95 Mechanical Ventilator 60.00 03/12/19 08:00 60 20 93/52 (66) 95 Mechanical Ventilator 60.00 03/12/19 08:00 93 Mechanical Ventilator 60 03/12/19 07:04 59 20 95 60 03/12/19 07:00 62 26 91/55 (67) 95 Mechanical Ventilator 60.00 03/12/19 07:00 62 03/12/19 06:00 57 19 98/59 (72) 95 Mechanical Ventilator 60.00 I & O 03/13/19 07:00 Intake Total 3205 ml Output Total 1100 ml Balance 2105 ml Height & Weight Height: 5'4.00" Weight: 276lbs. oz. 125.641766pv; 39.00 BMI Method:Stated General Appearance: No Apparent Distress, WD/WN, Chronically ill, Obese HEENT: PERRL/EOMI, Pharynx Normal Neck: Supple Respiratory: Decreased Breath Sounds, Respiratory Distress Cardiovascular: Regular Rate, Rhythm, No Edema Capillary Refill: Less Than 3 Seconds Extremity: Normal Inspection Neurologic/Psychiatric: Other Skin: Normal Color, Warm/Dry Results Lab Laboratory Tests 03/12/19 02:50 03/13/19 03:45 Assessment/Plan Assessment/Plan Acute on chronic respiratory failure --With ARDS Intubated on 02/25 - Pa02/Fi02 =103 -Zosyn, Vanco -- Continue vanco - Vorconizol secondary to aspergillus PNA --Continue ventilator therapy Decrease PEEP to 18 -Continue TF as tolerated -Bumex 2mg now then 1mg BID -TF currently with pulmicare. Pt is tolerating TF COPDAE r/o PNA -DuoNeb Q4 -Mucomyst -Zosyn -[place] cultures pending IDDM -levemir to 20 units BID -Accu checks Q 4 -SSI Metabolic lactic acidosis secondary to hypoxia -Monitor Anemia -Monitor I recommend continue current care until Thursday. If pt is doing better transfer to [place]. If pt is doing worse strongly consider comfort care only. SUZY MCCORMACK DO Mar 13, 2019 05:57
[2019-03-13] MEDS ORDERED: BUMETANIDE 1 MG/4 ML (BUMEX) VIAL IV ONE (06:00)
[2019-03-13] MEDS ORDERED: KCL 20 MEQ POWDER FOR ORAL SOLUTION PO ONE (06:00)
[2019-03-13] MEDS: BUMETANIDE 1 MG/4 ML (BUMEX) VIAL IV SCH ×3 (06:26→20:54)
--- NOTE | 2019-03-13 06:28 | Diagnostic Imaging Report ---
EXAMINATION: Portable semierect AP chest at 3:21 AM INDICATION: Respiratory distress The heart is enlarged but the heart does seem somewhat less prominent than noted on the prior exam of 03/12/2019. As on the previous study, there is still atelectasis/infiltrate and fluid obscuring both lung bases. The upper lungs are relatively clear. The mediastinum is not widened. The osseous structures are intact. The supportive tubes and lines seem stable in position. IMPRESSION: The heart does seem somewhat less prominent than noted on the prior exam. The overall appearance of the chest is otherwise stable. A follow-up study would be recommended for continued evaluation. Dictated by: Dictated on workstation # [id number]
[2019-03-13] MEDS: DEXMEDETOMIDINE INJECTION 1,000 MCG in NS (IVPB) 240 ML IV SCH ×2 (07:38→18:49)
[2019-03-13] MEDS: fentaNYL 1,250 MCG/NS 250 ML DRIP IV SCH ×4 (07:47→22:19)
[2019-03-13] MEDS: PANTOPRAZOLE 40 MG (PROTONIX) VIAL IV SCH ×2 (08:56→20:53)
[2019-03-13] MEDS: ENOXAPARIN 60 MG/0.6 ML (LOVENOX) SYR SC SCH ×2 (08:56→20:53)
[2019-03-13] MEDS: MICONAZOLE 2% POWDER (DESENEX AF) 90 GM TOP SCH ×2 (08:56→20:54)
[2019-03-13] MEDS: [UNRECOGNIZED DRUG - REMARK] IV SCH ×2 (09:30→20:54)
--- NOTE | 2019-03-13 12:14 | Progress Note - Hospitalist ---
Subjective HPI/CC On Admission Date Seen by Provider: Mar 13, 2019 Time Seen by Provider: 11:00 Chief complaint: Respiratory failure History of present illness: This is a 58-year-old white female care home patient at [facility] who presented to the [facility] earlier Thursday for shortness of breath found to have no severe acute changes and her chronic obesity hypoventilation syndrome status so she was sent back to the care home and then worsened a few hours later requiring transfer to [facility] ICU and requiring ventilator support. Patient was placed on Zosyn empirically for pneumonia facility acquired since she resides in a care home. Patient has severe comorbidities requiring care home placement at such a young age due to the obesity hypoventilation syndrome. She does use CPAP in the care home. Currently Dr. Balbuena is managing the ventilator which appears to be in need of significant modification. Subjective/Events-last exam Patient still intubated PEEP 18 No distress noted Objective Exam Vital Signs Vital Signs Date Time Temp Pulse Resp B/P (MAP) Pulse Ox O2 Delivery O2 Flow Rate FiO2 03/13/19 18:00 68 20 92/62 (72) 92 Mechanical Ventilator 60.00 03/13/19 16:00 60 03/13/19 15:20 36.3 Capillary Refill : Less Than 3 Seconds General Appearance: No Apparent Distress, WD/WN, Chronically ill, Obese, Other (sedated) Results/Procedures Lab Laboratory Tests 03/13/19 03:45 Patient resulted labs reviewed. Assessment/Plan Assessment and Plan Assess & Plan/Chief Complaint Assessment: VDRF ARDS PNA OHS WILBER on CPAP Severe debility requiring NH placement at young age Plan: Vent management Comfort care if improvement does not continue Critical Care Critically Ill Patient Diagnosis/Problems Diagnosis/Problems (1) Ventilator dependence (2) Acute respiratory failure Status: Acute (3) Pneumonia Status: Acute Qualifiers: Pneumonia type: due to unspecified organism Laterality: bilateral Lung location: lower lobe of lung Qualified Codes: J18.1 - Lobar pneumonia, unspecified organism (4) COPD with acute exacerbation Status: Acute (5) Edema Status: Acute (6) Fatigue Status: Acute (7) Peripheral edema Status: Acute Clinical Quality Measures DVT/VTE Risk/Contraindication: Risk Factor Score Per Nursin RFS Level Per Nursing on Admit: 4+=Very High DEEPIKA ROBLES DO Mar 13, 2019 12:14
[2019-03-13] MEDS: VANCOMYCIN 2000 MG/NS 500 ML IVPB IV SCH ×2 (17:01)
--- NOTE | 2019-03-13 21:00 | NUR ---
change ett hold, rn unable to pass suction catheter, ett hold not well established on pts face, and smelling, glue to hold ett was not sticking. Addendum: 03/13/19 at 2256 by DELBERT POOLE RT Amended: Links added.
[2019-03-14] VITALS (30 sets, daily range): BP systolic 92–134; BP diastolic 53–78
[2019-03-14] MEDS: aCETylcysteine 20% (MUCOMYST) 30ML SOLN VIAL INH SCH ×4 (02:37→21:19)
[2019-03-14] MEDS: RT-ALBUTEROL/IPRATROPIUM 3 ML (DUONEB) VIAL INH SCH ×6 (02:37→21:19)
[2019-03-14 03:09] LABS: ABG BASE EXCESS -0.2 MMOL/L (-2.5-2.5); ABG OXYGEN SATURATION 92 % (94-100); ABG PCO2 37 MMHG (35-45); ABG PH 7.42 (7.37-7.43); ABG PO2 65 MMHG (79-93)
[2019-03-14 03:11] LABS: ALLENS TEST POSITIVE; BASOPHILS % (AUTO) 1 % (0-10); EOSINOPHILS # (AUTO) 0.2 10^3/uL (0.0-0.3); EOSINOPHILS % (AUTO) 2 % (0-10); HEMATOCRIT 33 % (35-52); HEMOGLOBIN 10.6 G/DL (11.5-16.0); INSPIRED O2 65%; LYMPHOCYTES % (AUTO) 15 % (12-44); MEAN CORPUSCULAR HEMOGLOBIN 26 PG (25-34); MEAN CORPUSCULAR HGB CONC 32 G/DL (32-36); MEAN CORPUSCULAR VOLUME 83 FL (80-99); MEAN PLATELET VOLUME 10.4 FL (7.4-10.4); MONOCYTES # (AUTO) 0.4 X 10^3 (0.0-1.0); MONOCYTES % (AUTO) 5 % (0-12); NEUTROPHILS # (AUTO) 5.1 X 10^3 (1.8-7.8); NEUTROPHILS % (AUTO) 77 % (42-75); PATIENT TEMP 36.4; PLATELET COUNT 281 10^3/uL (130-400); RED CELL DISTRIBUTION WIDTH 17.2 % (10.0-14.5); VENTILATOR YES; WHITE BLOOD COUNT 6.6 10^3/uL (4.3-11.0)
[2019-03-14 03:26] LABS: BUN/CREATININE RATIO 25; CALCIUM 8.6 MG/DL (8.5-10.1); CARBON DIOXIDE 19 MMOL/L (21-32); CHLORIDE 106 MMOL/L (98-107); CREATININE SERUM 0.67 MG/DL (0.60-1.30); GFR ESTIMATED > 60; GLUCOSE 229 MG/DL (70-105); MAGNESIUM 1.5 MG/DL (1.6-2.4); PHOSPHORUS 3.1 MG/DL (2.3-4.7); POTASSIUM 3.9 MMOL/L (3.6-5.0); SODIUM 138 MMOL/L (135-145); TRIGLYCERIDES 424 MG/DL (<150)
--- NOTE | 2019-03-14 04:00 | NUR ---
Pt repositioned for morning chest xray, pt became tachycardic, and hypertensive, medications adjusted. After multiple failed interventions, pt repositioned back to left side. Fi02 increased, see interventions.
[2019-03-14] MEDS: inSUlin ASPART (NovoLOG) 1 UNIT/0.01 ML (CHARGE PER UNIT) IV SCH ×6 (04:47→23:24)
[2019-03-14] MEDS: inSUlin ASPART (NovoLOG) 1 UNIT/0.01 ML (CHARGE PER UNIT) SC SCH ×6 (05:01→23:24)
[2019-03-14] MEDS: MAGNESIUM 1 GM/100 ML IVPB 100 ML IV SCH ×3 (05:02→06:04)
[2019-03-14] MEDS: DEXMEDETOMIDINE INJECTION 1,000 MCG in NS (IVPB) 240 ML IV SCH ×3 (05:41→23:44)
--- NOTE | 2019-03-14 05:52 | Pulmonary Progress Note ---
Subjective Time Seen by a Provider: 05:51 Subjective/Events-last exam Pt is sedated on vent. Sepsis Event Evaluation Height, Weight, BMI Height: 5'4.00" Weight: 276lbs. oz. 125.097354au; 39.00 BMI Method:Stated Exam Exam Vital Signs Date Time Temp Pulse Resp B/P (MAP) Pulse Ox O2 Delivery O2 Flow Rate FiO2 03/14/19 05:01 Mechanical Ventilator 03/14/19 04:49 Mechanical Ventilator 100.00 03/14/19 04:39 Mechanical Ventilator 80.00 03/14/19 04:27 Mechanical Ventilator 75.00 03/14/19 04:00 Mechanical Ventilator 65 03/14/19 04:00 122 14 134/69 (90) 94 Mechanical Ventilator 65.00 03/14/19 04:00 36.4 03/14/19 03:00 70 22 102/58 (73) 91 Mechanical Ventilator 65.00 03/14/19 02:39 64 22 91 65 03/14/19 02:01 Mechanical Ventilator 03/14/19 02:00 66 22 97/58 (71) 92 Mechanical Ventilator 65.00 03/14/19 01:00 65 03/14/19 01:00 65 24 103/59 (74) 91 Mechanical Ventilator 65.00 03/14/19 00:00 Mechanical Ventilator 65 03/14/19 00:00 67 25 113/62 (79) 90 Mechanical Ventilator 65.00 03/13/19 23:00 81 20 109/64 (79) 92 Mechanical Ventilator 65.00 03/13/19 22:48 62 20 92 65 03/13/19 22:18 Mechanical Ventilator 03/13/19 22:15 35.7 03/13/19 22:00 67 22 106/62 (77) 92 Mechanical Ventilator 65.00 03/13/19 21:00 71 23 98/61 (73) 91 Mechanical Ventilator 65.00 03/13/19 20:40 Mechanical Ventilator 65.00 03/13/19 20:00 89 25 127/63 (84) 91 Mechanical Ventilator 60.00 03/13/19 20:00 Mechanical Ventilator 60 03/13/19 19:20 36.4 03/13/19 19:00 72 03/13/19 19:00 75 21 113/64 (80) 92 Mechanical Ventilator 60.00 03/13/19 18:50 107/63 03/13/19 18:27 73 20 92 60 03/13/19 18:00 68 20 92/62 (72) 92 Mechanical Ventilator 60.00 03/13/19 17:00 71 22 107/62 (77) 91 Mechanical Ventilator 60.00 03/13/19 16:00 82 23 99/63 (75) 92 Mechanical Ventilator 60.00 03/13/19 16:00 90 Mechanical Ventilator 60 03/13/19 15:52 114/64 03/13/19 15:20 36.3 03/13/19 15:00 67 25 114/61 (78) 91 Mechanical Ventilator 60.00 03/13/19 14:55 68 24 90 60 03/13/19 14:42 Mechanical Ventilator 60.00 03/13/19 14:00 68 27 134/79 (97) 90 Mechanical Ventilator 50.00 03/13/19 13:00 85 22 98/56 (70) 93 Mechanical Ventilator 50.00 03/13/19 13:00 75 03/13/19 12:00 78 26 102/56 (71) 92 Mechanical Ventilator 50.00 03/13/19 11:48 93 Mechanical Ventilator 50 03/13/19 11:40 103/58 03/13/19 11:26 37.1 03/13/19 11:00 80 26 102/57 (72) 92 Mechanical Ventilator 50.00 03/13/19 10:14 74 26 91 50 03/13/19 10:00 71 21 105/63 (77) 92 Mechanical Ventilator 50.00 03/13/19 09:00 73 22 107/64 (78) 93 Mechanical Ventilator 50.00 03/13/19 08:00 36.2 03/13/19 08:00 93 Mechanical Ventilator 50 03/13/19 08:00 82 26 135/72 (93) 93 Mechanical Ventilator 50.00 03/13/19 07:39 114/65 03/13/19 07:00 74 20 116/63 (80) 91 Mechanical Ventilator 50.00 03/13/19 07:00 78 03/13/19 06:36 67 26 91 50 03/13/19 06:00 75 23 106/63 (77) 98 Mechanical Ventilator 50.00 I & O 03/14/19 07:00 Intake Total 4680 ml Output Total 6300 ml Balance -1620 ml Height & Weight Height: 5'4.00" Weight: 276lbs. oz. 125.178984fq; 39.00 BMI Method:Stated General Appearance: WD/WN, Chronically ill, Obese, Other (sedated) HEENT: PERRL/EOMI, Pharynx Normal Neck: Supple Respiratory: Decreased Breath Sounds, Respiratory Distress Cardiovascular: Regular Rate, Rhythm, No Edema Capillary Refill: Less Than 3 Seconds Extremity: Normal Inspection Neurologic/Psychiatric: Other Skin: Normal Color, Warm/Dry Results Lab Laboratory Tests 03/13/19 03:45 03/14/19 03:03 Assessment/Plan Assessment/Plan Acute on chronic respiratory failure --With ARDS Intubated on 02/25 - Pa02/Fi02 =103 - Vanco -- Continue vanco -- Zosyn d/c'd today - Vorconizol secondary to aspergillus PNA --Continue ventilator therapy PEEP 18 -Continue TF as tolerated -Bumex 2mg now then 1mg BID -TF currently with pulmicare. Pt is tolerating TF COPDAE r/o PNA -DuoNeb Q4 -Mucomyst -Zosyn -[place] cultures pending IDDM -levemir to 20 units BID -Accu checks Q 4 -SSI Metabolic lactic acidosis secondary to hypoxia -Monitor Anemia -Monitor Pt is actually worse today pulmonary joyner despite abx and aggressive care. Family will probably make pt comfort care only today. SUZY MCCORMACK DO Mar 14, 2019 05:52
[2019-03-14] MEDS: KCL 20 MEQ TAB (K-DUR) PO SCH (06:04)
[2019-03-14] MEDS: POTASSIUM CL 10MEQ/50ML IVPB 50 ML IV SCH (06:04)
--- NOTE | 2019-03-14 07:34 | Diagnostic Imaging Report ---
History: Follow-up, ventilator, pneumonia, respiratory failure COMPARISON: 03/13/2019 TECHNIQUE: Single frontal view of the chest FINDINGS: Lung volumes are low. The endotracheal tube is approximately 5 cm from the noe. An enteric tube is noted. The right central line tip is unchanged in position projecting over the upper SVC. The cardiac silhouette appears stable in size. Bibasilar opacities appear mildly increased, likely due to the low lung volumes. There may be a small left pleural effusion. IMPRESSION: 1. Suboptimal exam due to low lung volumes. There are bibasilar opacities with a small left effusion. Overall aeration appears stable. Dictated by: Dictated on workstation # [id number]
[2019-03-14] MEDS: BUMETANIDE 1 MG/4 ML (BUMEX) VIAL IV SCH ×2 (07:58→19:46)
[2019-03-14] MEDS: ENOXAPARIN 60 MG/0.6 ML (LOVENOX) SYR SC SCH ×2 (07:58→19:46)
[2019-03-14] MEDS: PANTOPRAZOLE 40 MG (PROTONIX) VIAL IV SCH ×2 (07:58→19:46)
[2019-03-14] MEDS: MICONAZOLE 2% POWDER (DESENEX AF) 90 GM TOP SCH ×2 (08:49→19:47)
[2019-03-14] MEDS: [UNRECOGNIZED DRUG - REMARK] IV SCH ×2 (08:51→19:47)
--- NOTE | 2019-03-14 10:40 | NUR ---
Pastoral care visit w/pts sons and joined in meeting w/Dr Balbuena, offered support as they processed situation and the sons made decision to extubate pt after [place] (if no improvement) and place on Comfort Care. This was decided after thorough explanation and discussion with Dr Balbuena.
--- NOTE | 2019-03-14 13:17 | Pulmonary Progress Note ---
Standard Progress Note Progress Notes Date Seen by Provider: Mar 14, 2019 Time Seen by Provider: 11:00 Family at bedside. I discussed with sons at bedside pt's current condition and prognosis. They do not want to transfer at this time. They are in agreement with comfort care only however they want to wait until 03/17 to allow family to arrive. I discussed with Dr. Cunningham and [facility]. I will be out of town starting tomorrow. Assessment & Plan Acute on chronic respiratory failure --With ARDS Intubated on 02/25 - Pa02/Fi02 =103 - Vanco -- Continue vanco -- Zosyn d/c'd today - Vorconizol secondary to aspergillus PNA --Continue ventilator therapy PEEP 18 -Continue TF as tolerated -Bumex 2mg now then 1mg BID -TF currently with pulmicare. Pt is tolerating TF COPDAE r/o PNA -DuoNeb Q4 -Mucomyst -Zosyn -[place] cultures pending IDDM -levemir to 20 units BID -Accu checks Q 4 -SSI Metabolic lactic acidosis secondary to hypoxia -Monitor Anemia -Monitor Critical Care: Critically Ill Patient Time spent with patient (mins): 45 SUZY MCCORMACK DO Mar 14, 2019 13:17
[2019-03-14] MEDS: fentaNYL 1,250 MCG/NS 250 ML DRIP IV SCH ×2 (14:30)
[2019-03-14] MEDS ORDERED: TROUGH ORDER-PHARMACY XX NR (16:00)
--- NOTE | 2019-03-14 16:04 | Progress Note ---
Subjective Subjective/Events-last exam Afebrile, with worsening respiratory status requiring high PEEP and FiO2. Objective Exam Last Set of Vital Signs Vital Signs Date Time Temp Pulse Resp B/P (MAP) Pulse Ox O2 Delivery O2 Flow Rate FiO2 03/14/19 15:00 69 26 108/63 (78) 93 Mechanical Ventilator 60.00 03/14/19 14:44 70 03/14/19 11:33 35.9 Capillary Refill : Less Than 3 Seconds I&O Intake and Output 03/14/19 00:00 Intake Total 4965 ml Output Total 5150 ml Balance -185 ml Intake Oral 0 ml IV Total 3255 ml Tube Feeding 960 ml Other 750 ml Output Urine Total 5150 ml General: Other (intubated, sedated) Lungs: Other (ronchi) Heart: Regular Rate Abdomen: Normal Bowel Sounds, Other (distended) Extremities: No Edema Results/Procedures Lab Laboratory Tests 03/13/19 16:56: Glucometer 216H 03/13/19 19:17: Glucometer 209H 03/13/19 22:36: Glucometer 247H 03/14/19 03:03: White Blood Count 6.6, Red Blood Count 4.03L, Hemoglobin 10.6L, Hematocrit 33L, Mean Corpuscular Volume 83, Mean Corpuscular Hemoglobin 26, Mean Corpuscular Hemoglobin Concent 32, Red Cell Distribution Width 17.2H, Platelet Count 281, Mean Platelet Volume 10.4, Neutrophils (%) (Auto) 77H, Lymphocytes (%) (Auto) 15, Monocytes (%) (Auto) 5, Eosinophils (%) (Auto) 2, Basophils (%) (Auto) 1, Neutrophils # (Auto) 5.1, Lymphocytes # (Auto) 1.0, Monocytes # (Auto) 0.4, Eosinophils # (Auto) 0.2, Basophils # (Auto) 0.0, Blood Gas Puncture Site RIGHT RADIAL, Blood Gas Patient Temperature 36.4, Arterial Blood pH 7.42, Arterial Blood Partial Pressure CO2 37, Arterial Blood Partial Pressure O2 65L, Arterial Blood HCO3 24, Arterial Blood Total CO2 25.0, Arterial Blood Oxygen Saturation 92L, Arterial Blood Base Excess -0.2, Memo Test POSITIVE, Blood Gas Ventilator Setting YES, Blood Gas Inspired Oxygen 65%, Sodium Level 138, Potassium Level 3.9, Chloride Level 106, Carbon Dioxide Level 19L, Anion Gap 13, Blood Urea Nitrogen 17, Creatinine 0.67, Estimat Glomerular Filtration Rate > 60, BUN/Creatinine Ratio 25, Glucose Level 229H, Calcium Level 8.6, Phosphorus Level 3.1, Magnesium Level 1.5L, Triglycerides Level 424#H 03/14/19 08:24: Glucometer 271H 03/14/19 11:33: Glucometer 249H 03/14/19 15:42: Glucometer 206H Microbiology 03/02/19 Mycobacterial Culture - Preliminary, Resulted 02/28/19 Urine Culture - Final, Complete NO GROWTH 02/25/19 Blood Culture - Final, Complete No growth Assessment/Plan Assessment/Plan (1) ARDS (adult respiratory distress syndrome) Status: Acute Assessment & Plan: 03/02: Intubated, managed by Dr Balbuena, He has consulted Dr Carrera for Trach placement, family meeting tomorrow 03/03: No family present this AM, Very poor prognosis 03/04: Code status changed this AM, Per Dr Carrera patient not candidate for trach 03/14- per Dr. Balbuena in discussion with family, they do plan to proceed with palliative extubation, but would like for more family to be present, will continue current care until then if she remains stable, but they understand if she has decompensation prior, may not live until all family arrives. (2) Acute on chronic respiratory failure with hypoxia Status: Acute (3) Pneumonia Status: Acute Assessment & Plan: 02/28: Continue broad spectrum antibiotics 03/01: Continue antibiotics D5 03/03: D7 antibiotics 03/14 on voriconazole and vancomycin for aspergillus and corynebacterium from bronch Qualifiers: Qualified Codes: J18.1 - Lobar pneumonia, unspecified organism (4) Obesity hypoventilation syndrome Status: Chronic (5) WILBER on CPAP Status: Chronic Assessment & Plan: 02/28: Patient noncompliant with CPAP as outpatient (6) Insulin dependent diabetes mellitus with complications Status: Chronic Assessment & Plan: Sliding scale insulin in addition to scheduled levemir (7) Normocytic anemia Status: Chronic (8) Hepatic steatosis Status: Chronic Assessment & Plan: 02/28: Seen on CT scan (9) COPD (chronic obstructive pulmonary disease) Status: Chronic Qualifiers: Qualified Codes: J41.1 - Mucopurulent chronic bronchitis (10) Adult BMI 50.0-59.9 kg/sq m Status: Chronic (11) DVT prophylaxis Status: Acute Assessment & Plan: Enoxaparin Clinical Quality Measures DVT/VTE Risk/Contraindication: Risk Factor Score Per Nursin RFS Level Per Nursing on Admit: 4+=Very High BHUMIKA TRIMBLE MD Mar 14, 2019 16:04
[2019-03-14] MEDS: VANCOMYCIN 2000 MG/NS 500 ML IVPB IV SCH ×2 (16:37)
[2019-03-14] MEDS: NS W/KCL 20 MEQ/L 1,000 ML IV SCH (18:35)
[2019-03-15] VITALS (30 sets, daily range): BP systolic 72–124; BP diastolic 44–78
[2019-03-15] MEDS: RT-ALBUTEROL/IPRATROPIUM 3 ML (DUONEB) VIAL INH SCH ×6 (01:25→21:41)
[2019-03-15] MEDS: aCETylcysteine 20% (MUCOMYST) 30ML SOLN VIAL INH SCH ×4 (01:26→19:11)
[2019-03-15 02:59] LABS: BASOPHILS % (AUTO) 0 % (0-10); EOSINOPHILS # (AUTO) 0.1 10^3/uL (0.0-0.3); EOSINOPHILS % (AUTO) 2 % (0-10); HEMATOCRIT 33 % (35-52); HEMOGLOBIN 10.4 G/DL (11.5-16.0); LYMPHOCYTES # (AUTO) 0.8 X 10^3 (1.0-4.0); LYMPHOCYTES % (AUTO) 13 % (12-44); MEAN CORPUSCULAR HEMOGLOBIN 26 PG (25-34); MEAN CORPUSCULAR HGB CONC 31 G/DL (32-36); MEAN CORPUSCULAR VOLUME 83 FL (80-99); MEAN PLATELET VOLUME 10.7 FL (7.4-10.4); MONOCYTES # (AUTO) 0.4 X 10^3 (0.0-1.0); MONOCYTES % (AUTO) 5 % (0-12); NEUTROPHILS # (AUTO) 5.4 X 10^3 (1.8-7.8); NEUTROPHILS % (AUTO) 80 % (42-75); PLATELET COUNT 270 10^3/uL (130-400); RED CELL DISTRIBUTION WIDTH 17.1 % (10.0-14.5); WHITE BLOOD COUNT 6.7 10^3/uL (4.3-11.0)
[2019-03-15 02:59] LABS: ABG BASE EXCESS 0.4 MMOL/L (-2.5-2.5); ABG OXYGEN SATURATION 88 % (94-100); ABG PCO2 35 MMHG (35-45); ABG PH 7.45 (7.37-7.43); ABG PO2 62 MMHG (79-93)
[2019-03-15 03:00] LABS: ALLENS TEST POSITIVE; INSPIRED O2 60%; VENTILATOR YES
[2019-03-15 03:15] LABS: BUN/CREATININE RATIO 24; CALCIUM 8.6 MG/DL (8.5-10.1); CARBON DIOXIDE 20 MMOL/L (21-32); CHLORIDE 106 MMOL/L (98-107); CREATININE SERUM 0.63 MG/DL (0.60-1.30); GFR ESTIMATED > 60; GLUCOSE 222 MG/DL (70-105); MAGNESIUM 1.5 MG/DL (1.6-2.4); PHOSPHORUS 3.1 MG/DL (2.3-4.7); POTASSIUM 3.8 MMOL/L (3.6-5.0); SODIUM 138 MMOL/L (135-145); TRIGLYCERIDES 251 MG/DL (<150)
[2019-03-15] MEDS: POTASSIUM CL 10MEQ/50ML IVPB 50 ML IV SCH (03:19)
[2019-03-15] MEDS: MAGNESIUM 1 GM/100 ML IVPB 100 ML IV SCH ×3 (03:19→03:26)
[2019-03-15] MEDS: KCL 20 MEQ TAB (K-DUR) PO SCH (03:19)
[2019-03-15] MEDS: inSUlin ASPART (NovoLOG) 1 UNIT/0.01 ML (CHARGE PER UNIT) SC SCH ×3 (03:22→11:23)
[2019-03-15] MEDS: inSUlin ASPART (NovoLOG) 1 UNIT/0.01 ML (CHARGE PER UNIT) IV SCH ×3 (03:22→11:23)
[2019-03-15] MEDS: BUMETANIDE 1 MG/4 ML (BUMEX) VIAL IV SCH ×2 (07:55→19:56)
[2019-03-15] MEDS: ENOXAPARIN 60 MG/0.6 ML (LOVENOX) SYR SC SCH ×2 (07:56→19:56)
[2019-03-15] MEDS: PANTOPRAZOLE 40 MG (PROTONIX) VIAL IV SCH ×2 (07:56→19:56)
[2019-03-15] MEDS: MICONAZOLE 2% POWDER (DESENEX AF) 90 GM TOP SCH ×2 (07:57→19:57)
[2019-03-15] MEDS: [UNRECOGNIZED DRUG - REMARK] IV SCH ×2 (08:21→19:56)
--- NOTE | 2019-03-15 09:15 | Diagnostic Imaging Report ---
Clinical indication: Patient on ventilator with pneumonia and respiratory failure. Exam: Portable chest x-ray upright view. Comparisons: Portable Chest x-ray dated 03/14/2019. Findings: There is stable bibasilar airspace opacities, with the left side worse than the right, which may represent atelectasis, but superimposed infiltrates cannot be completely excluded. Left costophrenic angle is obscured and left pleural effusion cannot be completely excluded. Pulmonary vasculature is stable and within normal limits. Cardiac silhouettes within normal limits. There are degenerative spurs involving the thoracic spine. ET tube seen in stable position with tip grossly at the T2-T3 level. Feeding tube is not definitively visualized distally. X-ray of the abdomen would better evaluate. Right IJ central line seen with tip in the midsuperior vena cava. Impression: 1: Stable x-ray of the chest with bibasilar atelectasis versus infiltrate. Small left pleural effusion cannot be completely excluded. 2: ET tube and right IJ central line appears in stable position. Feeding tube is not completely visualized in the region of the mediastinum. X-ray of the abdomen may help better evaluate true position. Dictated by: Dictated on workstation # [id number]
[2019-03-15] MEDS: fentaNYL 1,250 MCG/NS 250 ML DRIP IV SCH ×2 (09:22)
--- NOTE | 2019-03-15 09:24 | NUR ---
50ML CADD PUMP FENTANYL WASTED W/ MARYANN SALAZAR. TUBE FEEDINGS AND ACCUCHECKS/INSULIN D/C'D PER DR TRIMBLE.
[2019-03-15] MEDS: DEXMEDETOMIDINE INJECTION 1,000 MCG in NS (IVPB) 240 ML IV SCH ×2 (09:53→19:25)
--- NOTE | 2019-03-15 12:41 | Progress Note ---
Subjective Subjective/Events-last exam Afebrile, no changes in status. Objective Exam Last Set of Vital Signs Vital Signs Date Time Temp Pulse Resp B/P (MAP) Pulse Ox O2 Delivery O2 Flow Rate FiO2 03/15/19 12:00 88 Mechanical Ventilator 60 03/15/19 11:42 93/48 03/15/19 11:00 87 27 60.00 03/15/19 07:44 36.1 Capillary Refill : Less Than 3 Seconds I&O Intake and Output 03/15/19 00:00 Intake Total 4425 ml Output Total 5000 ml Balance -575 ml Intake Oral 0 ml IV Total 3285 ml Tube Feeding 640 ml Other 500 ml Output Urine Total 5000 ml General: Other (intubated, sedated) Lungs: Other (ronchi) Heart: Regular Rate Abdomen: Other (distended) Extremities: No Edema Results/Procedures Lab Laboratory Tests 03/14/19 15:42: Glucometer 206H 03/14/19 19:33: Glucometer 282H 03/14/19 23:21: Glucometer 206H 03/15/19 02:50: White Blood Count 6.7, Red Blood Count 4.01L, Hemoglobin 10.4L, Hematocrit 33L, Mean Corpuscular Volume 83, Mean Corpuscular Hemoglobin 26, Mean Corpuscular Hemoglobin Concent 31L, Red Cell Distribution Width 17.1H, Platelet Count 270, Mean Platelet Volume 10.7H, Neutrophils (%) (Auto) 80H, Lymphocytes (%) (Auto) 13, Monocytes (%) (Auto) 5, Eosinophils (%) (Auto) 2, Basophils (%) (Auto) 0, Neutrophils # (Auto) 5.4, Lymphocytes # (Auto) 0.8L, Monocytes # (Auto) 0.4, Eosinophils # (Auto) 0.1, Basophils # (Auto) 0.0, Sodium Level 138, Potassium Level 3.8, Chloride Level 106, Carbon Dioxide Level 20L, Anion Gap 12, Blood Urea Nitrogen 15, Creatinine 0.63, Estimat Glomerular Filtration Rate > 60, BUN/Creatinine Ratio 24, Glucose Level 222H, Calcium Level 8.6, Phosphorus Level 3.1, Magnesium Level 1.5L, Triglycerides Level 251H 03/15/19 02:52: Blood Gas Puncture Site RIGHT RADIAL ARTLINE, Blood Gas Patient Temperature 37.0, Arterial Blood pH 7.45H, Arterial Blood Partial Pressure CO2 35, Arterial Blood Partial Pressure O2 62L, Arterial Blood HCO3 24, Arterial Blood Total CO2 25.0, Arterial Blood Oxygen Saturation 88L, Arterial Blood Base Excess 0.4, Memo Test POSITIVE, Blood Gas Ventilator Setting YES, Blood Gas Inspired Oxygen 60% 03/15/19 07:44: Glucometer 246H Microbiology 03/02/19 Mycobacterial Culture - Preliminary, Resulted 02/28/19 Urine Culture - Final, Complete NO GROWTH 02/25/19 Blood Culture - Final, Complete No growth Assessment/Plan Assessment/Plan (1) ARDS (adult respiratory distress syndrome) Status: Acute Assessment & Plan: 03/02: Intubated, managed by Dr Balbuena, He has consulted Dr Carrera for Trach placement, family meeting tomorrow 03/03: No family present this AM, Very poor prognosis 03/04: Code status changed this AM, Per Dr Carrera patient not candidate for trach 03/14- per Dr. Balbuena in discussion with family, they do plan to proceed with palliative extubation, but would like for more family to be present, will continue current care until then if she remains stable, but they understand if she has decompensation prior, may not live until all family arrives. 03/15- stable, continue ventilation, awaiting family (2) Acute on chronic respiratory failure with hypoxia Status: Acute (3) Pneumonia Status: Acute Assessment & Plan: 02/28: Continue broad spectrum antibiotics 03/01: Continue antibiotics D5 03/03: D7 antibiotics 03/14 on voriconazole and vancomycin for aspergillus and corynebacterium from bronch Qualifiers: Qualified Codes: J18.1 - Lobar pneumonia, unspecified organism (4) Obesity hypoventilation syndrome Status: Chronic (5) WILBER on CPAP Status: Chronic Assessment & Plan: 02/28: Patient noncompliant with CPAP as outpatient (6) Insulin dependent diabetes mellitus with complications Status: Chronic Assessment & Plan: Sliding scale insulin in addition to scheduled levemir (7) Normocytic anemia Status: Chronic (8) Hepatic steatosis Status: Chronic Assessment & Plan: 02/28: Seen on CT scan (9) COPD (chronic obstructive pulmonary disease) Status: Chronic Qualifiers: Qualified Codes: J41.1 - Mucopurulent chronic bronchitis (10) Adult BMI 50.0-59.9 kg/sq m Status: Chronic (11) DVT prophylaxis Status: Acute Assessment & Plan: Enoxaparin Clinical Quality Measures DVT/VTE Risk/Contraindication: Risk Factor Score Per Nursin RFS Level Per Nursing on Admit: 4+=Very High BHUMIKA TRIMBLE MD Mar 15, 2019 12:41
--- NOTE | 2019-03-15 13:06 | NUR ---
DR TRIMBLE UPDATED ON PT'S BP OF 80'S/40'S.
--- NOTE | 2019-03-15 13:08 | NUR ---
NEW ORDERS RECEIVED TO INCREASE IVF TO 75ML/HR.
--- NOTE | 2019-03-15 15:34 | NUR ---
[facility] REFERRAL # [id number]. [facility] TO CALL NURSING STAFF BACK.
--- NOTE | 2019-03-15 16:03 | NUR ---
pt's bp decreased to low80's/40's, dr cochran notified. new orders received to increase ivf to 150ml/hr.
[2019-03-15] MEDS: VANCOMYCIN 2000 MG/NS 500 ML IVPB IV SCH ×2 (17:10)
[2019-03-15] MEDS: NS W/KCL 20 MEQ/L 1,000 ML IV SCH ×2 (17:10→23:41)
--- NOTE | 2019-03-15 17:28 | NUR ---
BP 70'S/40'S, THIS RN SPOKE W/ DR TRIMBLE, AND ADVISED THIS RN TO UPDATE FAMILY ON PT'S DECLINING CONDITION. THIS RN CALLED AND SPOKE W/ SON MARILYN WHO VERBALIZED UNDERSTANDING.
--- NOTE | 2019-03-15 23:33 | NUR ---
THIS RN CALLED [facility], PT SON ABOUT DECREASING BLOOD PRESSURE (80S/40S) AND BEING UNABLE TO GO ANY LOWER ON SEDATION MEDICATION WITHOUT THE PATIENT BEING UNCOMFORTABLE. PATIENTS SON AND I DISCUSSED OPTIONS OF STARTING MEDICATION TO HELP INCREASE BLOOD PRESSURE AND SON DECIDED THAT IT WOULD BE BEST FOR THE PATIENT TO NOT START MORE MEDICATIONS TO HELP WITH BLOOD PRESSURES AND TO CONTINUE KEEPING PATIENT COMFORTABLE WITH SEDATION MEDICATION. [facility]-ICU CONTACTED ABOUT SONS DECISION AND AGREED. PT RESTING COMFORTABLE AT THIS TIME.
[2019-03-16] VITALS (30 sets, daily range): BP systolic 78–136; BP diastolic 42–84
[2019-03-16] MEDS: RT-ALBUTEROL/IPRATROPIUM 3 ML (DUONEB) VIAL INH SCH ×6 (01:54→22:22)
[2019-03-16] MEDS: aCETylcysteine 20% (MUCOMYST) 30ML SOLN VIAL INH SCH ×4 (01:54→22:22)
[2019-03-16 03:00] LABS: ABG BASE EXCESS -1.4 MMOL/L (-2.5-2.5); ABG OXYGEN SATURATION 87 % (94-100); ABG PCO2 37 MMHG (35-45); ABG PH 7.41 (7.37-7.43); ABG PO2 56 MMHG (79-93)
[2019-03-16 03:02] LABS: ALLENS TEST POSITIVE; INSPIRED O2 75%; PATIENT TEMP 36.1; VENTILATOR YES
[2019-03-16] MEDS: DEXMEDETOMIDINE INJECTION 1,000 MCG in NS (IVPB) 240 ML IV SCH ×3 (03:40→23:12)
[2019-03-16 03:58] LABS: BASOPHILS % (AUTO) 1 % (0-10); EOSINOPHILS # (AUTO) 0.2 10^3/uL (0.0-0.3); EOSINOPHILS % (AUTO) 5 % (0-10); HEMATOCRIT 29 % (35-52); HEMOGLOBIN 9.1 G/DL (11.5-16.0); LYMPHOCYTES # (AUTO) 0.9 X 10^3 (1.0-4.0); LYMPHOCYTES % (AUTO) 21 % (12-44); MEAN CORPUSCULAR HEMOGLOBIN 26 PG (25-34); MEAN CORPUSCULAR HGB CONC 31 G/DL (32-36); MEAN CORPUSCULAR VOLUME 84 FL (80-99); MEAN PLATELET VOLUME 10.4 FL (7.4-10.4); MONOCYTES # (AUTO) 0.3 X 10^3 (0.0-1.0); MONOCYTES % (AUTO) 7 % (0-12); NEUTROPHILS # (AUTO) 2.9 X 10^3 (1.8-7.8); NEUTROPHILS % (AUTO) 68 % (42-75); PLATELET COUNT 258 10^3/uL (130-400); RED CELL DISTRIBUTION WIDTH 17.4 % (10.0-14.5); WHITE BLOOD COUNT 4.3 10^3/uL (4.3-11.0)
[2019-03-16 04:15] LABS: ALANINE AMINOTRANSFERASE 14 U/L (0-55); ALBUMIN 2.8 GM/DL (3.2-4.5); ALKALINE PHOSPHATASE 59 U/L (40-136); BILIRUBIN,TOTAL 0.3 MG/DL (0.1-1.0); BUN/CREATININE RATIO 25; CALCIUM 8.2 MG/DL (8.5-10.1); CARBON DIOXIDE 20 MMOL/L (21-32); CHLORIDE 107 MMOL/L (98-107); CREATININE SERUM 0.69 MG/DL (0.60-1.30); GFR ESTIMATED > 60; GLUCOSE 213 MG/DL (70-105); MAGNESIUM 1.5 MG/DL (1.6-2.4); PHOSPHORUS 3.2 MG/DL (2.3-4.7); SODIUM 140 MMOL/L (135-145); TOTAL PROTEIN 5.4 GM/DL (6.4-8.2)
[2019-03-16] MEDS: MAGNESIUM 1 GM/100 ML IVPB 100 ML IV SCH ×2 (04:17→04:27)
[2019-03-16] MEDS: POTASSIUM CL 10MEQ/50ML IVPB 50 ML IV SCH (04:17)
[2019-03-16] MEDS: KCL 20 MEQ TAB (K-DUR) PO SCH (04:17)
[2019-03-16] MEDS: fentaNYL 1,250 MCG/NS 250 ML DRIP IV SCH ×2 (05:06)
--- NOTE | 2019-03-16 05:06 | NUR ---
60 ml of fentanyl wasted when bag changed. witnessed by elida solano
[2019-03-16] MEDS: NS W/KCL 20 MEQ/L 1,000 ML IV SCH ×3 (06:11→23:12)
--- NOTE | 2019-03-16 07:29 | Diagnostic Imaging Report ---
Indication: Dyspnea. Comparison: 03/15/2019. Discussion: Single portable upright view of the chest was obtained. Exam is limited due to portable technique and patient body habitus. Mild cardiomegaly is stable. Worsening infiltrates within the left lung, pneumonia versus edema. Possible small left pleural effusion. Endotracheal tube and enteric tube along with a right IJ line are stable. Impression: 1. Worsening consolidation within the left lung. Dictated by: Dictated on workstation # [id number]
[2019-03-16] MEDS: BUMETANIDE 1 MG/4 ML (BUMEX) VIAL IV SCH ×2 (08:17→20:11)
[2019-03-16] MEDS: MICONAZOLE 2% POWDER (DESENEX AF) 90 GM TOP SCH ×2 (08:17→20:23)
[2019-03-16] MEDS: ENOXAPARIN 60 MG/0.6 ML (LOVENOX) SYR SC SCH ×2 (08:17→20:23)
[2019-03-16] MEDS: PANTOPRAZOLE 40 MG (PROTONIX) VIAL IV SCH ×2 (08:17→20:11)
[2019-03-16] MEDS: [UNRECOGNIZED DRUG - REMARK] IV SCH ×2 (10:07→20:11)
--- NOTE | 2019-03-16 10:33 | Progress Note ---
Subjective Subjective/Events-last exam Afebrile, has had decreasing blood pressure and heart rate in spite of increasing fluid resuscitation. Objective Exam Last Set of Vital Signs Vital Signs Date Time Temp Pulse Resp B/P (MAP) Pulse Ox O2 Delivery O2 Flow Rate FiO2 03/16/19 09:44 65 130/67 03/16/19 09:00 28 91 Mechanical Ventilator 100.00 03/16/19 08:00 36.2 03/16/19 08:00 75 Capillary Refill : Less Than 3 Seconds I&O Intake and Output 03/16/19 00:00 Intake Total 5175 ml Output Total 3100 ml Balance 2075 ml Intake Oral 400 ml IV Total 4125 ml Tube Feeding 400 ml Other 250 ml Output Urine Total 2800 ml Gastric Drainage Total 300 ml General: Other (Intubated, sedated) Lungs: Other (ronchi throughout) Abdomen: Other (hypoactive bowel sounds, distended) Results/Procedures Lab Laboratory Tests 03/16/19 02:54: White Blood Count 3.1L, Red Blood Count 2.38L, Hemoglobin 6.1#*L, Hematocrit 20*L, Mean Corpuscular Volume 85, Mean Corpuscular Hemoglobin 26, Mean Corpuscular Hemoglobin Concent 30L, Red Cell Distribution Width 17.1H, Platelet Count 173, Mean Platelet Volume 10.5H, Neutrophils (%) (Auto) 65, Lymphocytes (%) (Auto) 24, Monocytes (%) (Auto) 8, Eosinophils (%) (Auto) 3, Basophils (%) (Auto) 0, Neutrophils # (Auto) 2.0, Lymphocytes # (Auto) 0.7L, Monocytes # (Auto) 0.2, Eosinophils # (Auto) 0.1, Basophils # (Auto) 0.0, Blood Gas Puncture Site RIGHT RADIAL ARTLINE, Blood Gas Patient Temperature 36.1, Arterial Blood pH 7.41, Arterial Blood Partial Pressure CO2 37, Arterial Blood Partial Pressure O2 56L, Arterial Blood HCO3 23, Arterial Blood Total CO2 24.0, Arterial Blood Oxygen Saturation 87L, Arterial Blood Base Excess -1.4, Memo Test POSITIVE, Blood Gas Ventilator Setting YES, Blood Gas Inspired Oxygen 75%, Sodium Level 143, Potassium Level 2.6L, Chloride Level 124H, Carbon Dioxide Level 12L, Anion Gap 7, Blood Urea Nitrogen 11, Creatinine 0.41L, Estimat Glomerular Filtration Rate > 60, BUN/Creatinine Ratio 27, Glucose Level 147H, Calcium Level 5.0*L, Phosphorus Level 2.0L, Magnesium Level 0.9*L, Triglycerides Level 120 03/16/19 03:23: Hemoglobin 9.0#L, Hematocrit 29L 03/16/19 03:52: White Blood Count 4.3, Red Blood Count 3.46L, Hemoglobin 9.1L, Hematocrit 29L, Mean Corpuscular Volume 84, Mean Corpuscular Hemoglobin 26, Mean Corpuscular Hemoglobin Concent 31L, Red Cell Distribution Width 17.4H, Platelet Count 258, Mean Platelet Volume 10.4, Neutrophils (%) (Auto) 68, Lymphocytes (%) (Auto) 21, Monocytes (%) (Auto) 7, Eosinophils (%) (Auto) 5, Basophils (%) (Auto) 1, Ne utrophils # (Auto) 2.9, Lymphocytes # (Auto) 0.9L, Monocytes # (Auto) 0.3, Eosinophils # (Auto) 0.2, Basophils # (Auto) 0.0, Sodium Level 140, Potassium Level 4.0, Chloride Level 107, Carbon Dioxide Level 20L, Anion Gap 13, Blood Urea Nitrogen 17, Creatinine 0.69, Estimat Glomerular Filtration Rate > 60, BUN/Creatinine Ratio 25, Glucose Level 213H, Calcium Level 8.2L, Phosphorus Level 3.2, Magnesium Level 1.5L, Corrected Calcium 9.2, Total Bilirubin 0.3, Aspartate Amino Transf (AST/SGOT) 10, Alanine Aminotransferase (ALT/SGPT) 14, Alkaline Phosphatase 59, Total Protein 5.4L, Albumin 2.8L Microbiology 03/02/19 Mycobacterial Culture - Preliminary, Resulted 02/28/19 Urine Culture - Final, Complete NO GROWTH 02/25/19 Blood Culture - Final, Complete No growth Assessment/Plan Assessment/Plan (1) ARDS (adult respiratory distress syndrome) Status: Acute Assessment & Plan: 03/02: Intubated, managed by Dr Balbuena, He has consulted Dr Carrera for Trach placement, family meeting tomorrow 03/03: No family present this AM, Very poor prognosis 03/04: Code status changed this AM, Per Dr Carrera patient not candidate for trach 03/14- per Dr. Balbuena in discussion with family, they do plan to proceed with palliative extubation, but would like for more family to be present, will continue current care until then if she remains stable, but they understand if she has decompensation prior, may not live until all family arrives. 03/15- stable, continue ventilation, awaiting family 03/16- family notified of low blood pressure and worsening clinical status, concern for impending cardiovascular collapse. If that does not occur, plan is for palliative extubation tomorrow morning. (2) Acute on chronic respiratory failure with hypoxia Status: Acute (3) Pneumonia Status: Acute Assessment & Plan: 02/28: Continue broad spectrum antibiotics 03/01: Continue antibiotics D5 03/03: D7 antibiotics 03/14 on voriconazole and vancomycin for aspergillus and corynebacterium from bronch Qualifiers: Qualified Codes: J18.1 - Lobar pneumonia, unspecified organism (4) Obesity hypoventilation syndrome Status: Chronic (5) WILBER on CPAP Status: Chronic Assessment & Plan: 02/28: Patient noncompliant with CPAP as outpatient (6) Insulin dependent diabetes mellitus with complications Status: Chronic Assessment & Plan: Sliding scale insulin in addition to scheduled levemir (7) Normocytic anemia Status: Chronic (8) Hepatic steatosis Status: Chronic Assessment & Plan: 02/28: Seen on CT scan (9) COPD (chronic obstructive pulmonary disease) Status: Chronic Qualifiers: Qualified Codes: J41.1 - Mucopurulent chronic bronchitis (10) Adult BMI 50.0-59.9 kg/sq m Status: Chronic (11) DVT prophylaxis Status: Acute Assessment & Plan: Enoxaparin Clinical Quality Measures DVT/VTE Risk/Contraindication: Risk Factor Score Per Nursin RFS Level Per Nursing on Admit: 4+=Very High BHUMIKA TRIMBLE MD Mar 16, 2019 10:32
--- NOTE | 2019-03-16 11:45 | NUR ---
Soft limb restraints discontinued at 1145 by this nurse. Pt remains intubated, pt is not attempting to pull at essential tubes and lines at this time. Skin under restraints is dry and intact. Will continue to closely monitor.
[2019-03-16] MEDS: VANCOMYCIN 2000 MG/NS 500 ML IVPB IV SCH ×2 (16:22)
[2019-03-17] VITALS (16 sets, daily range): BP systolic 76–112; BP diastolic 45–74
[2019-03-17] MEDS: RT-ALBUTEROL/IPRATROPIUM 3 ML (DUONEB) VIAL INH SCH ×3 (01:31→09:53)
[2019-03-17] MEDS: aCETylcysteine 20% (MUCOMYST) 30ML SOLN VIAL INH SCH ×2 (01:32→09:53)
[2019-03-17 03:52] LABS: BASOPHILS % (AUTO) 1 % (0-10); EOSINOPHILS # (AUTO) 0.1 10^3/uL (0.0-0.3); EOSINOPHILS % (AUTO) 3 % (0-10); HEMATOCRIT 29 % (35-52); HEMOGLOBIN 8.8 G/DL (11.5-16.0); LYMPHOCYTES # (AUTO) 0.9 X 10^3 (1.0-4.0); LYMPHOCYTES % (AUTO) 21 % (12-44); MEAN CORPUSCULAR HEMOGLOBIN 26 PG (25-34); MEAN CORPUSCULAR HGB CONC 30 G/DL (32-36); MEAN CORPUSCULAR VOLUME 85 FL (80-99); MEAN PLATELET VOLUME 10.4 FL (7.4-10.4); MONOCYTES # (AUTO) 0.3 X 10^3 (0.0-1.0); MONOCYTES % (AUTO) 8 % (0-12); NEUTROPHILS # (AUTO) 2.8 X 10^3 (1.8-7.8); NEUTROPHILS % (AUTO) 68 % (42-75); PLATELET COUNT 297 10^3/uL (130-400); RED CELL DISTRIBUTION WIDTH 17.4 % (10.0-14.5); WHITE BLOOD COUNT 4.1 10^3/uL (4.3-11.0)
[2019-03-17 04:28] LABS: BUN/CREATININE RATIO 23; CALCIUM 8.3 MG/DL (8.5-10.1); CARBON DIOXIDE 18 MMOL/L (21-32); CHLORIDE 110 MMOL/L (98-107); CREATININE SERUM 0.65 MG/DL (0.60-1.30); GFR ESTIMATED > 60; GLUCOSE 243 MG/DL (70-105); MAGNESIUM 1.4 MG/DL (1.6-2.4); PHOSPHORUS 2.9 MG/DL (2.3-4.7); POTASSIUM 4.2 MMOL/L (3.6-5.0); SODIUM 139 MMOL/L (135-145)
[2019-03-17] MEDS: NS W/KCL 20 MEQ/L 1,000 ML IV SCH ×2 (04:30→05:35)
[2019-03-17] MEDS: KCL 20 MEQ TAB (K-DUR) PO SCH (05:36)
[2019-03-17] MEDS: POTASSIUM CL 10MEQ/50ML IVPB 50 ML IV SCH (05:36)
[2019-03-17] MEDS: MAGNESIUM 1 GM/100 ML IVPB 100 ML IV SCH (05:36)
[2019-03-17] MEDS: fentaNYL 1,250 MCG/NS 250 ML DRIP IV SCH ×2 (06:29)
--- NOTE | 2019-03-17 06:42 | Diagnostic Imaging Report ---
INDICATION: Respiratory failure Portable chest 3:30 AM There is an ET tube projecting over the trachea. NG tube appears to enter the stomach. Right jugular central line tip projects over the SVC. There is diffuse alveolar infiltrate in the left lung with an effusion. There is a suboptimal inspiration overall. IMPRESSION: Infiltrate left lung with left pleural effusion appears similar to the previous day's exam. Dictated by: Dictated on workstation # [id number]
[2019-03-17] MEDS: DEXMEDETOMIDINE INJECTION 1,000 MCG in NS (IVPB) 240 ML IV SCH (09:42)
[2019-03-17] MEDS: PANTOPRAZOLE 40 MG (PROTONIX) VIAL IV SCH (09:51)
[2019-03-17] MEDS: BUMETANIDE 1 MG/4 ML (BUMEX) VIAL IV SCH (09:51)
[2019-03-17] MEDS: MICONAZOLE 2% POWDER (DESENEX AF) 90 GM TOP SCH (09:55)
[2019-03-17] MEDS: [UNRECOGNIZED DRUG - REMARK] IV SCH (09:55)
[2019-03-17] MEDS: ENOXAPARIN 60 MG/0.6 ML (LOVENOX) SYR SC SCH (09:55)
[2019-03-17] MEDS ORDERED: PROMETHAZINE INJ 25 MG/ML (PHENERGAN) AMP IVP PRN (10:30)
[2019-03-17] MEDS ORDERED: ACETAMINOPHEN 650 MG SUPP (TYLENOL) PR PRN (10:30)
[2019-03-17] MEDS ORDERED: ONDANSETRON 4 MG/2 ML (SDV) Z0FRAN IVP PRN (10:30)
[2019-03-17] MEDS ORDERED: GLYCOPYRROLATE 0.2 MG/ML (ROBINUL) 2 ML VIAL IV PRN (10:30)
[2019-03-17] MEDS ORDERED: LORazepam INJ 2 MG/ML (ATIVAN) VIAL IVP PRN (10:30)
[2019-03-17] MEDS ORDERED: SALIVA STIMULANT MOUTH SPRAY (BIOTENE) 1.5 OZ MM PRN (10:30)
[2019-03-17] MEDS ORDERED: ARTIFICAL TEARS 0.4 ML UNIT DOSE (REFRESH PLUS) OU PRN (10:30)
[2019-03-17] MEDS ORDERED: morphine INJ 4 MG/ML 1 ML (VIAL/SYRINGE) IV PRN (10:30)
[2019-03-17] MEDS ORDERED: BISACODYL 10 MG SUPP (DULCOLAX) PR PRN (10:30)
[2019-03-17] MEDS ORDERED: RT-ALBUTEROL/IPRATROPIUM 3 ML (DUONEB) VIAL INH PRN (10:30)
--- NOTE | 2019-03-17 10:36 | NUR ---
PALLIATIVE CARE RN in to see patent and talk with family. Briefly explained the procedure for extubation and the expectations post extubation. Family asked questions which were answered. Thy are waiting on another person and will let us know when they are ready for extubation.
--- NOTE | 2019-03-17 11:33 | NUR ---
[address] TRIMBLE PROPOFOL AND PRECEDEX WERE STILL RUNNING. ORDERS GIVEN TO STOP, BUT MAY RESTART IF PT BECOMES AGITATED. [address] TRIMBLE PT SEEMED TO BE HAVING AIR HUNGER EVEN AFTER MORPHINE DOSE. PT WAS ALSO HAVING RATTLES. ORDERS GIVEN FOR ATROPINE. DR TRIMBLE TO DC ALL OTHER ORDERS.
[2019-03-17] MEDS ORDERED: ATROPINE 1% OPHTHALMIC SOLN 2 ML SL PRN (11:45)
[2019-03-17] MEDS: morphine INJ 4 MG/ML 1 ML (VIAL/SYRINGE) IV PRN ×2 (11:47→12:47)
--- NOTE | 2019-03-17 13:17 | Discharge Summary ---
Discharge Summary Hospital Course Problems/Diagnosis: (1) ARDS (adult respiratory distress syndrome) Status: Acute Assessment & Plan: 03/02: Intubated, managed by Dr Balbuena, He has consulted Dr Carrera for Trach placement, family meeting tomorrow 03/03: No family present this AM, Very poor prognosis 03/04: Code status changed this AM, Per Dr Carrera patient not candidate for trach 03/14- per Dr. Balbuena in discussion with family, they do plan to proceed with palliative extubation, but would like for more family to be present, will continue current care until then if she remains stable, but they understand if she has decompensation prior, may not live until all family arrives. 03/15- stable, continue ventilation, awaiting family 03/16- family notified of low blood pressure and worsening clinical status, concern for impending cardiovascular collapse. If that does not occur, plan is for palliative extubation tomorrow morning. 03/17 palliative extubation done this morning and patient passed quickly after (2) Acute on chronic respiratory failure with hypoxia Status: Acute (3) Pneumonia Status: Acute Assessment & Plan: 02/28: Continue broad spectrum antibiotics 03/01: Continue antibiotics D5 03/03: D7 antibiotics 03/14 on voriconazole and vancomycin for aspergillus and corynebacterium from bronch Qualifiers: Qualified Codes: J18.1 - Lobar pneumonia, unspecified organism (4) Obesity hypoventilation syndrome Status: Chronic (5) WILBER on CPAP Status: Chronic (6) Insulin dependent diabetes mellitus with complications Status: Chronic Assessment & Plan: Sliding scale insulin in addition to scheduled levemir (7) Normocytic anemia Status: Chronic (8) Hepatic steatosis Status: Chronic Assessment & Plan: 02/28: Seen on CT scan (9) COPD (chronic obstructive pulmonary disease) Status: Chronic Qualifiers: Qualified Codes: J41.1 - Mucopurulent chronic bronchitis (10) Adult BMI 50.0-59.9 kg/sq m Status: Chronic Hospital Course Date of Admission: Feb 25, 2019 at 21:30 Admission Diagnosis : Family Physician/Provider: Gilma Huitron MD Date of Discharge: 03/17/19 Discharge Diagnosis: See problem list Hospital Course: Patient had prolonged mechanical ventilation secondary to ARDS and pneumonia, but continued to worsen throughout. With poor prognosis and prolonged attempt at improving respiratory status, family decided to pursue comfort goals and patient was palliatively extubated on 03/17 and shortly after. Labs and Pending Lab Test: Laboratory Tests 03/17/19 03:45: White Blood Count 4.1L, Red Blood Count 3.42L, Hemoglobin 8.8L, Hematocrit 29L, Mean Corpuscular Volume 85, Mean Corpuscular Hemoglobin 26, Mean Corpuscular Hemoglobin Concent 30L, Red Cell Distribution Width 17.4H, Platelet Count 297, Mean Platelet Volume 10.4, Neutrophils (%) (Auto) 68, Lymphocytes (%) (Auto) 21, Monocytes (%) (Auto) 8, Eosinophils (%) (Auto) 3, Basophils (%) (Auto) 1, Neutrophils # (Auto) 2.8, Lymphocytes # (Auto) 0.9L, Monocytes # (Auto) 0.3, Eosinophils # (Auto) 0.1, Basophils # (Auto) 0.0, Sodium Level 139, Potassium Le harleen 4.2, Chloride Level 110H, Carbon Dioxide Level 18L, Anion Gap 11, Blood Urea Nitrogen 15, Creatinine 0.65, Estimat Glomerular Filtration Rate > 60, BUN/Creatinine Ratio 23, Glucose Level 243H, Calcium Level 8.3L, Phosphorus Level 2.9, Magnesium Level 1.4L Microbiology 03/02/19 Mycobacterial Culture - Preliminary, Resulted 02/28/19 Urine Culture - Final, Complete NO GROWTH 02/25/19 Blood Culture - Final, Complete No growth Home Meds Active Reported Albuterol Sulfate 2.5 Mg/3 Ml Vial.neb 2.5 Mg NEB Q8H PRN Novolog Flexpen (Insulin Aspart) 300 Units/3 Ml Solution 15 Units SC TIDAC Tramadol HCl 50 Mg Tablet 50 Mg PO Q6H PRN Iprat-Albut 0.5-3(2.5) mg/3 ml (Ipratropium/Albuterol Sulfate) 3 Ml Ampul.neb 3 Ml NEB Q6H PRN Losartan-Hctz 100-25 mg Tab (Losartan/Hydrochlorothiazide) 1 Each Tablet 1 Tab PO DAILY HOLD IF SBP <100 Citalopram HBr (Citalopram Hydrobromide) 40 Mg Tablet 60 Mg PO HS TAKES 1 & 1/2 (40MG) TABLET Montelukast Sodium 10 Mg Tablet 10 Mg PO HS Pravastatin Sodium 80 Mg Tablet 80 Mg PO HS Metformin HCl 1,000 Mg Tablet 1,000 Mg PO BID Flovent Hfa 220 mcg (Fluticasone Propionate) 1 Ea Aero 1 Puff INH BID Levemir Flextouch (Insulin Detemir) 100 Unit/1 Ml Insuln.pen 45 Units SC BID Victoza 2-Moisés (Liraglutide) 0.6 Mg/0.1 Ml Pen.injctr 1.8 Mg SC DAILY Pantoprazole Sodium 40 Mg Tablet.dr 40 Mg PO DAILY Loratadine 10 Mg Tablet 10 Mg PO DAILY Advil (Ibuprofen) 200 Mg Tablet 400 Mg PO Q4H PRN TAKES 2 (200MG) TABLETS Imodium A-D (Loperamide HCl) 2 Mg Tablet 2 Mg PO UD PRN GIVE 1 TABLET NEEDED AFTER EACH LOOSE STOOL NOT TO EXCEED 8 TABS IN 24 HOURS. Levothyroxine Sodium 150 Mcg Tablet 150 Mcg PO DAILY Nystatin 15 Gm Cream..g. TOP BID 15 Days APPLY BID FOR ITCHING FOR 15 DAYS, START DATE 02-23-19 END DATE 03-10-19 Assessment/Pt DC Instructions Pt Discharge Physical Examination Allergies: Coded Allergies: No Known Drug Allergies (Unverified , 08/13/18) Copy Copies To 1: GILMA HUITRON MD Discharge Summary Date of Admission Feb 25, 2019 at 21:30 Date of Discharge Mar 17, 2019 Admission Diagnosis Assessment: Ventilator-dependent respiratory failure Pneumonia Acute on chronic respiratory failure Obesity hypoventilation syndrome Exacerbation of COPD Metabolic lactic acidosis due to hypoxia and pneumonia Hyperkalemia Anemia Obstructive sleep apnea Plan: Appreciate Dr. Balbuena Ventilator management Supportive care Prognosis guarded given morbid obesity with BMI of 58 Zosyn antibiotic Comfort Measures/ End of Life Care: Comfort Measures Date of : Mar 17, 2019 Clinical Quality Measures DVT/VTE Risk/Contraindication: Risk Factor Score Per Nursin RFS Level Per Nursing on Admit: 4+=Very High BHUMIKA TRIMBLE MD Mar 17, 2019 13:17
--- NOTE | 2019-03-17 14:38 | NUR ---
1434[facility] CONTACTED THIS NURSE THAT PT IS NOT A CANDIDATE FOR [employer]. 1437 THIS NURSE NOTIFIED THE HOME THAT THE PATIENT IS RELEASED FROM [facility] AND IS READY TO BE PICKED UP.
--- NOTE | 2019-03-17 15:01 | NUR ---
CEASE OF VITALS AT 1249. VERIFIED BY STEPH SALAZAR AND DELBERT SALAZAR. NOTIFIED DR TRIMBLE AT 1253. THIS NURSE CALLED [facility] 1315.
--- NOTE | 2019-03-17 16:00 | NUR ---
1600 [facility] WAS HERE TO [employer] SALESP[employer] PT. GLASSES AND SILVER RING GIVEN TO BELLA WITH [facility].
== END 2019-03-17 17:06 | disposition expired | DRG 207 ==
LOC: EDUNIT# 20:24 → ER FS 20:26 → ICU 21:30
PROVIDERS: ADMIT Internal Medicine; ATTEND Family Medicine
PROC: 5A1955Z Respiratory Ventilation, Greater than 96 Consecutive Hours (ICD-10-PCS; principal; 2019-02-26)
PROC: 0BH17EZ Insertion of Endotracheal Airway into Trachea, Via Natural or Artificial Opening (ICD-10-PCS; 2019-02-26)
PROC: 02HV33Z Insertion of Infusion Device into Superior Vena Cava, Percutaneous Approach (ICD-10-PCS; 2019-02-26)
PROC: 0B978ZZ Drainage of Left Main Bronchus, Via Natural or Artificial Opening Endoscopic (ICD-10-PCS; 2019-03-02)
PROC: 0B938ZZ Drainage of Right Main Bronchus, Via Natural or Artificial Opening Endoscopic (ICD-10-PCS; 2019-03-02)
DX: J96.21 Acute and chronic respiratory failure with hypoxia (principal); J15.8 Pneumonia due to other specified bacteria; J44.1 Chronic obstructive pulmonary disease with (acute) exacerbation; J44.0 Chronic obstructive pulmonary disease with (acute) lower respiratory infection; E66.2 Morbid (severe) obesity with alveolar hypoventilation; Z68.43 Body mass index [BMI] 50.0-59.9, adult; E87.2 Acidosis; B44.9 Aspergillosis, unspecified; J96.22 Acute and chronic respiratory failure with hypercapnia; I10 Essential (primary) hypertension; E11.9 Type 2 diabetes mellitus without complications; E87.5 Hyperkalemia; D64.9 Anemia, unspecified; J30.2 Other seasonal allergic rhinitis; R53.83 Other fatigue; Z99.81 Dependence on supplemental oxygen; Z87.891 Personal history of nicotine dependence; Z79.4 Long term (current) use of insulin; Z87.440 Personal history of urinary (tract) infections; Z90.710 Acquired absence of both cervix and uterus; Z56.0 Unemployment, unspecified; J80 Acute respiratory distress syndrome; K76.0 Fatty (change of) liver, not elsewhere classified
CPT/HCPCS: 36415; 36600; 71045; 71260; 80048; 80053; 80202; 81000; 82330; 82805; 82962; 83036; 83605; 83735; 83880; 84100; 84145; 84478; 84484; 85007; 85014; 85018; 85025; 85027; 87015; 87040; 87070; 87077; 87081; 87088; 87101; 87116; 87205; 87206; 93005; 93041; 93306; 94002; 94003; 94640; 94660; 94799; 96361; 96365; 96375